=== PATIENT | female | born 1975 | race Asian ===

== ENCOUNTER 2018-02-01 23:30 | Inpatient (IN) | payer OTHER ==
[~2018-02-01] VITALS: Ht 121.9 cm; Wt 43.6 kg
[~2018-02-01 23:30] MED LIST: A AND D OINTM42.5 GM TP; ABX; ACET325UDC PO; ACET500 GT; ACET500 PT; ACIDOPHILUS1 EAC1 PT; Acidophilus La100 GM PT; Allergy Relief10 M1 PT; BACPOLTO30 TP; BAG BALM; BISA10S; BISA10S PR; CALCA500CH; CALCA500CH PO; CALCA500S6 GT; CALCAVITDA; CALCAVITDA PO; CALCIT950 PT; CALCNI; CEPH250SUA PO; CHLGLU.12S MT; CHLORHEXIDINE; CHLORHEXIDINE FL1 ML MC; CHOL10002; CHOL10002 GT; CVS DISPOSABLE399 ML PR; CYCL10 GT; Calcium Citrate GT; Calcium Citrate PO; DIVA250EC; DOC250; DOC250 GT; DOC250 PO; DOCU100; DOCU100 PT; DOXY100 PO; DOXY100T53 PT; EAR WAX DROPS; EAR WAX DROPS15 ML; ENEMA; ENTERAL NUTRITION FORMULA; ERGO50000 PO; ERYT.5TO; ERYT.5TO BOTHEYES; ERYT.5TO OD; ERYT.5TO OU; ESCI10; ESCI10 GT; ESCI10 PO; ESCI20 GT; ESCI20 PO; ESCI20 PT; Enema133 M1; Enema133 M1 PR; Enulose 2020 G/30 ML GT; FIBE4P PO; FOLI1; IBUP800 PT; ISOSOURCE; LACO50TA2 PO; LACT10SY GT; LACT10SY PO; LACT10SY PT; LEVO750; LORA10; LORA10ER GT; LORATADINE; MAGCIT300 PO; METO10 GT; METO10SY GT; METO10SY PO; METO10SY PT; METO25ER; METO50ER; MOM PO; MONDOXYNE NL100 MG; MUPI2TO TOP; Mapap500 M1 PT; NUTREN; NYST100P TOP; NYST100TC TOP; OMEP20ER; ONDA4ODT MM; OXCA300; OXCA300 GT; OXCA300 PO; OXCA300 PT; PHENO15; PHENO20EL GT; PHENO20EL PT; PHENO60; POLY17UD; PROC10 GT; PROC10 PO; PROC25S; PROM25 PT; PROM25S PR; PROMETHAZINE; PRUNE JUICE; Phenobarbital; Phenobarbital GT; Phos-Nak Packe1 EACH; Phos-Nak Packe1 EACH PT; Prevacid Soluta30 MG PT; RANI150 GT; RANI150 PO; RANI150 PT; RANI150EL GT; RANITIDINE; RXONDA4ODT MM; SALT; SKIEMOTO TOP; SODCHL1 PT; SODI1T; STOMUL; Trileptal60 ML PT; Triple Antibio1 EACH TP; VIMPAT GT; VIMPAT10 MG/1 ML PT; VIT C; VIT D; VITAMIN D 3 GT; VITAMIN D3400 UNIT/1 PT; WATER FLUSH; WATER PT; ZINCODVICR TOP; ZONI100; Zofran Odt4 MG SL; [UNRECOGNIZED DRUG - CODE]; [UNRECOGNIZED DRUG - OTHER]; [UNRECOGNIZED DRUG - OTHER]; [UNRECOGNIZED DRUG - OTHER]; [UNRECOGNIZED DRUG - OTHER] PT
[2018-02-02 00:27] LABS: BASOPHILS ABSOLUTE AUTO 0.02 K/mm3 (0.00-0.23); BASOPHILS PERCENT AUTO 0 % (0-2); EOSINOPHILS ABSOLUTE AUTO 0.03 K/mm3 (0.00-0.68); EOSINOPHILS PERCENT AUTO 0 % (0-6); Hemoglobin 16.5 g/dL (11.5-16.0); IMMATURE GRAN ABSOLUTE AUTO 0.02 K/mm3 (0.00-0.10); IMMATURE GRAN PERCENT AUTO 0 % (0-1); LYMPHOCYTES ABSOLUTE AUTO 1.36 K/mm3 (0.84-5.20); LYMPHOCYTES PERCENT AUTO 16 % (21-46); MONOCYTES ABSOLUTE AUTO 0.48 K/mm3 (0.16-1.47); MONOCYTES PERCENT AUTO 6 % (4-13); Mean Corpuscular HGB 32.6 pg (26.0-34.0); Mean Corpuscular HGB Conc 33.7 g/dL (31.5-36.5); Mean Corpuscular Volume 97 fL (80-100); Mean Platelet Volume 12.7 fL (9.1-12.4); NEUTROPHILS ABSOLUTE AUTO 6.82 K/mm3 (1.96-9.15); NEUTROPHILS PERCENT AUTO 78 % (41-73); Platelet Count 254 K/mm3 (150-400); RDW Coefficient Variation 12.9 % (11.7-14.2); Red Blood Cell Count 5.06 M/mm3 (3.80-5.20); White Blood Cell Count 8.73 K/mm3 (4.00-11.30)
[2018-02-02 01:03] LABS: Alanine Aminotransfer (ALT/SGP 19 U/L (12-78); Albumin, Blood 4.3 g/dL (3.4-5.0); Albumin/Globulin Ratio 0.9 (0.8-1.8); Alk Phos 126 U/L (50-136); Anion Gap 10 mmol/L (6-16); Aspartate Aminotrans (AST/SGOT 17 U/L (12-37); Bilirubin, Total 0.3 mg/dL (0.1-1.0); Blood Urea Nitrogen 14 mg/dL (8-24); Bun/Creatinine Ratio 52.2 (12.0-20.0); CO2, Blood 26 mmol/L (21-32); Calcium, Blood 9.8 mg/dL (8.5-10.1); Chloride, Blood 103 mmol/L (98-108); Creatinine, Blood 0.27 mg/dL (0.40-1.00); Globulin, Blood 4.8 g/dL (2.2-4.0); Glomerular Filtration Rate >60 (60-); Glucose, Blood 120 mg/dL (70-99); Sodium, Blood 139 mmol/L (136-145); Total Protein, Blood 9.1 g/dL (6.4-8.2)
[2018-02-02] MEDS ORDERED: METO10SY PT (07:35)
[2018-02-02] MEDS ORDERED: Phos-Nak Packe1 EACH PT (07:35)
[2018-02-02 12:57] LABS: Anion Gap 9 mmol/L (6-16); Blood Urea Nitrogen 15 mg/dL (8-24); Bun/Creatinine Ratio 57.7 (12.0-20.0); CO2, Blood 24 mmol/L (21-32); Chloride, Blood 110 mmol/L (98-108); Creatinine, Blood 0.26 mg/dL (0.40-1.00); Glomerular Filtration Rate >60 (60-); Glucose, Blood 147 mg/dL (70-99); Potassium, Blood 3.7 mmol/L (3.5-5.5); Sodium, Blood 143 mmol/L (136-145)
[2018-02-02 16:04] LABS: Source, Urine Clean Catch
[2018-02-02 16:07] LABS: Appearance, Urine Turbid (Clear); Bilirubin, Urine Neg (Neg); Blood, Urine 5+ (Neg); Color, Urine Yellow (P-Yellow); Glucose Qualitative, Urine Neg (Neg); Ketones, Urine 4+ (Neg); Leukocyte Esterase, Urine 3+ (Neg); Nitrite, Urine Pos (Neg); Protein, Urine 3+ (Neg); Urobilinogen, Urine NORM (Normal)
[2018-02-02 16:15] LABS: Mucus Mod (0-Heavy); White Blood Cells, Urine TNTC /hpf (0-5)
[2018-02-02 16:16] LABS: Amorphous Heavy (0-Heavy); Bacteria Few /hpf; Squamous Epithelial Cells Few /hpf (Few)
[2018-02-03 05:59] LABS: Hematocrit 38.8 % (33.0-51.0); Hemoglobin 12.4 g/dL (11.5-16.0); Mean Corpuscular HGB 32.3 pg (26.0-34.0); Mean Platelet Volume 12.6 fL (9.1-12.4); Platelet Count 178 K/mm3 (150-400); RDW Coefficient Variation 13.3 % (11.7-14.2); RDW Standard Deviation 50.1 fL (35.1-46.3); Red Blood Cell Count 3.84 M/mm3 (3.80-5.20); White Blood Cell Count 1.97 K/mm3 (4.00-11.30)
[2018-02-03 06:00] LABS: Mean Corpuscular Volume 101 fL (80-100)
[2018-02-03 06:22] LABS: BAND PERCENT MAN 6 % (0-8); BASOPHILS PERCENT MAN 0 % (0-2); EOSINOPHILS PERCENT MAN 0 % (0-6); LYMPHOCYTES ABSOLUTE MAN 0.59 K/mm3 (0.84-5.20); LYMPHOCYTES PERCENT MAN 30 % (21-46); MONOCYTES ABSOLUTE MAN 0.33 K/mm3 (0.16-1.47); MONOCYTES PERCENT MAN 17 % (4-13); NEUTROPHILS ABSOLUTE MAN 1.04 K/mm3 (1.96-9.15); SEG NEUTROPHILS PERCENT MAN 47 % (41-73); TOTAL CELLS COUNTED 100
[2018-02-03 06:29] LABS: Alanine Aminotransfer (ALT/SGP 15 U/L (12-78); Albumin, Blood 2.7 g/dL (3.4-5.0); Albumin/Globulin Ratio 0.8 (0.8-1.8); Alk Phos 78 U/L (50-136); Anion Gap 7 mmol/L (6-16); Aspartate Aminotrans (AST/SGOT 15 U/L (12-37); Bilirubin, Total 0.5 mg/dL (0.1-1.0); Blood Urea Nitrogen 15 mg/dL (8-24); Bun/Creatinine Ratio 47.9 (12.0-20.0); CO2, Blood 21 mmol/L (21-32); Calcium, Blood 7.6 mg/dL (8.5-10.1); Chloride, Blood 123 mmol/L (98-108); Creatinine, Blood 0.31 mg/dL (0.40-1.00); Globulin, Blood 3.3 g/dL (2.2-4.0); Glomerular Filtration Rate >60 (60-); Glucose, Blood 106 mg/dL (70-99); Sodium, Blood 151 mmol/L (136-145)
[2018-02-04 05:39] LABS: Hematocrit 33.3 % (33.0-51.0); Hemoglobin 10.7 g/dL (11.5-16.0); Mean Corpuscular HGB 32.7 pg (26.0-34.0); Mean Corpuscular HGB Conc 32.1 g/dL (31.5-36.5); Mean Corpuscular Volume 102 fL (80-100); Mean Platelet Volume 12.2 fL (9.1-12.4); Platelet Count 156 K/mm3 (150-400); RDW Coefficient Variation 13.2 % (11.7-14.2); RDW Standard Deviation 49.8 fL (35.1-46.3); Red Blood Cell Count 3.27 M/mm3 (3.80-5.20); White Blood Cell Count 4.14 K/mm3 (4.00-11.30)
[2018-02-04 05:56] LABS: Anion Gap 7 mmol/L (6-16); Blood Urea Nitrogen 8 mg/dL (8-24); Bun/Creatinine Ratio 33.5 (12.0-20.0); CO2, Blood 24 mmol/L (21-32); Calcium, Blood 7.3 mg/dL (8.5-10.1); Chloride, Blood 116 mmol/L (98-108); Creatinine, Blood 0.24 mg/dL (0.40-1.00); Glomerular Filtration Rate >60 (60-); Glucose, Blood 151 mg/dL (70-99); Potassium, Blood 2.8 mmol/L (3.5-5.5); Sodium, Blood 147 mmol/L (136-145)
[2018-02-04 06:09] LABS: BAND PERCENT MAN 9 % (0-8); BASOPHILS PERCENT MAN 0 % (0-2); EOSINOPHILS ABSOLUTE MAN 0.16 K/mm3 (0.00-0.68); EOSINOPHILS PERCENT MAN 4 % (0-6); LYMPHOCYTES ABSOLUTE MAN 1.53 K/mm3 (0.84-5.20); LYMPHOCYTES PERCENT MAN 37 % (21-46); MONOCYTES ABSOLUTE MAN 0.41 K/mm3 (0.16-1.47); MONOCYTES PERCENT MAN 10 % (4-13); NEUTROPHILS ABSOLUTE MAN 2.02 K/mm3 (1.96-9.15); SEG NEUTROPHILS PERCENT MAN 40 % (41-73); TOTAL CELLS COUNTED 100
[2018-02-04] MEDS ORDERED: AMOCLA250S PT (16:30)
[2018-02-04] MEDS ORDERED: FISH OIL 1,0001 EAC1 PT (16:30)
[2018-03-16] MEDS ORDERED: ACIDOPHILUS1 EAC1 PT (10:07)
== END 2018-02-04 17:25 | disposition home or self-care (01) | DRG 388 ==
LOC: ER 23:30 → MEDS 02-02 04:09
PROVIDERS: Emergency Medicine; Family Medicine; Internal Medicine
DX: K56.609 Unspecified intestinal obstruction, unspecified as to partial versus complete obstruction (principal); Z93.1 Gastrostomy status; R53.2 Functional quadriplegia; E87.0 Hyperosmolality and hypernatremia; M41.9 Scoliosis, unspecified; G40.409 Other generalized epilepsy and epileptic syndromes, not intractable, without status epilepticus; G80.9 Cerebral palsy, unspecified; B96.4 Proteus (mirabilis) (morganii) as the cause of diseases classified elsewhere; M81.0 Age-related osteoporosis without current pathological fracture; Z88.8 Allergy status to other drugs, medicaments and biological substances; Z79.899 Other long term (current) drug therapy
CPT/HCPCS: 36415; 71045; 74176; 80048; 80053; 80184; 81001; 83605; 83690; 83880; 85025; 87077; 87086; 87186; 96374; 99285; C9113; J0295; J1650; J2060; J2405; J3480; J7030; J7070

== ENCOUNTER 2018-04-18 04:22 | Emergency (ER) | payer OTHER ==
[~2018-04-18] VITALS: Ht 114.3 cm; Wt 40.4 kg
[~2018-04-18 04:22] MED LIST changes: +AMOCLA250S PT; +FISH OIL 1,0001 EAC1 PT
[2018-04-18] MEDS ORDERED: Calcium Citrat250 MG PO (04:34)
[2018-04-18] MEDS ORDERED: LACT10SY PO (04:37)
[2018-04-18] MEDS ORDERED: BISA5EC PO (04:38)
[2018-04-18] MEDS ORDERED: LORA1SY PO (04:38)
[2018-04-18] MEDS ORDERED: PROM25 (04:39)
[2018-04-18 07:16] LABS: BASOPHILS ABSOLUTE AUTO 0.01 K/mm3 (0.00-0.23); BASOPHILS PERCENT AUTO 0 % (0-2); EOSINOPHILS ABSOLUTE AUTO 0.08 K/mm3 (0.00-0.68); EOSINOPHILS PERCENT AUTO 1 % (0-6); Hematocrit 47.1 % (33.0-51.0); Hemoglobin 15.5 g/dL (11.5-16.0); IMMATURE GRAN ABSOLUTE AUTO 0.02 K/mm3 (0.00-0.10); IMMATURE GRAN PERCENT AUTO 0 % (0-1); LYMPHOCYTES ABSOLUTE AUTO 1.17 K/mm3 (0.84-5.20); LYMPHOCYTES PERCENT AUTO 17 % (21-46); MONOCYTES PERCENT AUTO 6 % (4-13); Mean Corpuscular HGB Conc 32.9 g/dL (31.5-36.5); Mean Corpuscular Volume 100 fL (80-100); NEUTROPHILS ABSOLUTE AUTO 5.12 K/mm3 (1.96-9.15); NEUTROPHILS PERCENT AUTO 75 % (41-73); RDW Coefficient Variation 12.9 % (11.7-14.2); RDW Standard Deviation 47.9 fL (35.1-46.3)
[2018-04-18 07:18] LABS: Mean Platelet Volume 13.2 fL (9.1-12.4); Platelet Count 154 K/mm3 (150-400)
[2018-04-18 07:27] LABS: Alanine Aminotransfer (ALT/SGP 23 U/L (12-78); Albumin, Blood 3.6 g/dL (3.4-5.0); Albumin/Globulin Ratio 0.9 (0.8-1.8); Alk Phos 90 U/L (50-136); Anion Gap 8 mmol/L (6-16); Aspartate Aminotrans (AST/SGOT 26 U/L (12-37); Bilirubin, Total 0.5 mg/dL (0.1-1.0); Blood Urea Nitrogen 13 mg/dL (8-24); Bun/Creatinine Ratio 47.8 (12.0-20.0); CO2, Blood 26 mmol/L (21-32); Calcium, Blood 9.5 mg/dL (8.5-10.1); Chloride, Blood 101 mmol/L (98-108); Creatinine, Blood 0.27 mg/dL (0.40-1.00); Glomerular Filtration Rate >60 (60-); Glucose, Blood 135 mg/dL (70-99); Magnesium, Blood 2.2 mg/dL (1.6-2.4); Potassium, Blood 4.6 mmol/L (3.5-5.5); Sodium, Blood 135 mmol/L (136-145); Total Protein, Blood 7.6 g/dL (6.4-8.2); Troponin I <0.015 ng/mL (0.000-0.040)
== END 2018-04-18 09:00 | disposition home or self-care (01) ==
LOC: ER 04:22
PROVIDERS: Emergency Medicine
DX: R11.10 Vomiting, unspecified (principal); G40.909 Epilepsy, unspecified, not intractable, without status epilepticus; Z88.8 Allergy status to other drugs, medicaments and biological substances; Z79.899 Other long term (current) drug therapy
CPT/HCPCS: 36415; 74018; 80053; 83690; 83735; 84484; 85025

== ENCOUNTER 2019-01-25 03:10 | Inpatient (IN) | payer OTHER ==
[~2019-01-25] VITALS: Ht 139.7 cm; Wt 52.2 kg
[~2019-01-25 03:10] MED LIST changes: +Acidophilus La100 GM PO; -Acidophilus La100 GM PT; +BISA5EC PR; +Calcium Citrat250 MG PO; +DOCU100 PO; +LORA1SY PO; -MONDOXYNE NL100 MG; +NYSTATIN1 EAC1 TOP; +PHENO20EL PO; +PROM25 PO; +VIMPAT10 MG/1 ML PO; -VIMPAT10 MG/1 ML PT; +VITAMIN D3400 UNIT/1 PO; -VITAMIN D3400 UNIT/1 PT; +Zantac150 MG PO
[2019-01-25 03:52] LABS: Source, Urine Catheter
[2019-01-25 03:54] LABS: Bilirubin, Urine Neg (Neg); Blood, Urine 4+ (Neg); Glucose Qualitative, Urine Neg (Neg); Ketones, Urine 1+ (Neg); Leukocyte Esterase, Urine 3+ (Neg); Nitrite, Urine Neg (Neg); Protein, Urine 3+ (Neg); Specific Gravity, Urine 1.015 (1.003-1.022); Urobilinogen, Urine NORM (Normal)
[2019-01-25 04:00] LABS: Appearance, Urine Hazy (Clear); Color, Urine Yellow (P-Yellow)
[2019-01-25 04:01] LABS: Amorphous Light (0-Heavy); Bacteria Many /hpf; Squamous Epithelial Cells Few /hpf (Few); White Blood Cells, Urine TNTC /hpf (0-5)
[2019-01-25 04:27] LABS: Alanine Aminotransfer (ALT/SGP 23 U/L (12-78); Albumin, Blood 3.5 g/dL (3.4-5.0); Albumin/Globulin Ratio 0.9 (0.8-1.8); Alk Phos 89 U/L (50-136); Anion Gap 8 mmol/L (6-16); Aspartate Aminotrans (AST/SGOT 19 U/L (12-37); Bilirubin, Total 0.3 mg/dL (0.1-1.0); Blood Urea Nitrogen 14 mg/dL (8-24); Bun/Creatinine Ratio 61.4 (12.0-20.0); CO2, Blood 24 mmol/L (21-32); Chloride, Blood 106 mmol/L (98-108); Creatinine, Blood 0.23 mg/dL (0.40-1.00); Globulin, Blood 3.8 g/dL (2.2-4.0); Glomerular Filtration Rate >60 (60-); Glucose, Blood 119 mg/dL (70-99); Potassium, Blood 4.2 mmol/L (3.5-5.5); Sodium, Blood 138 mmol/L (136-145); Total Protein, Blood 7.3 g/dL (6.4-8.2)
[2019-01-25 04:55] LABS: BASOPHILS ABSOLUTE AUTO 0.02 K/mm3 (0.00-0.23); BASOPHILS PERCENT AUTO 0 % (0-2); EOSINOPHILS ABSOLUTE AUTO 0.09 K/mm3 (0.00-0.68); EOSINOPHILS PERCENT AUTO 1 % (0-6); Hematocrit 44.2 % (33.0-51.0); Hemoglobin 14.3 g/dL (11.5-16.0); IMMATURE GRAN ABSOLUTE AUTO 0.01 K/mm3 (0.00-0.10); IMMATURE GRAN PERCENT AUTO 0 % (0-1); LYMPHOCYTES ABSOLUTE AUTO 1.17 K/mm3 (0.84-5.20); LYMPHOCYTES PERCENT AUTO 15 % (21-46); MONOCYTES ABSOLUTE AUTO 0.59 K/mm3 (0.16-1.47); MONOCYTES PERCENT AUTO 8 % (4-13); Mean Corpuscular HGB 32.9 pg (26.0-34.0); Mean Corpuscular HGB Conc 32.4 g/dL (31.5-36.5); Mean Corpuscular Volume 102 fL (80-100); Mean Platelet Volume 12.7 fL (9.1-12.4); NEUTROPHILS ABSOLUTE AUTO 5.87 K/mm3 (1.96-9.15); NEUTROPHILS PERCENT AUTO 76 % (41-73); Platelet Count 230 K/mm3 (150-400); RDW Coefficient Variation 13.1 % (11.7-14.2); RDW Standard Deviation 49.1 fL (35.1-46.3); Red Blood Cell Count 4.35 M/mm3 (3.80-5.20); White Blood Cell Count 7.75 K/mm3 (4.00-11.30)
[2019-01-25] MEDS ORDERED: [UNRECOGNIZED DRUG - CODE] PO (08:20)
[2019-01-25] MEDS ORDERED: [UNRECOGNIZED DRUG - CODE] PO (08:25)
[2019-01-25] MEDS ORDERED: CIPR500 PO (15:38)
[2019-01-25] MEDS ORDERED: NITR100CA PO (15:39)
[2019-01-25] MEDS ORDERED: CITRATE OF MAG296 ML PO (15:44)
[2019-01-25] MEDS ORDERED: ACET500 PO (15:44)
[2019-01-25] MEDS ORDERED: CLON.5 PO (15:45)
[2019-01-25] MEDS ORDERED: IBUP800 PO (15:46)
== END 2019-01-25 17:14 | disposition home or self-care (01) | DRG 389 ==
LOC: ER 03:10 → ERHOLD 06:17
PROVIDERS: Emergency Medicine; ADMIT Family Medicine
DX: K56.609 Unspecified intestinal obstruction, unspecified as to partial versus complete obstruction (principal); N39.0 Urinary tract infection, site not specified; Z88.8 Allergy status to other drugs, medicaments and biological substances
CPT/HCPCS: 74018; 80053; 81001; 85025; 87077; 87086; 87186; J0696; J1956; J7030; P9612

== ENCOUNTER 2019-03-06 11:00 | Inpatient (IN) | payer OTHER ==
[~2019-03-06] VITALS: Ht 91.4 cm; Wt 44.1 kg
[~2019-03-06 11:00] MED LIST changes: +ACETAMINOPHEN PT; +CHOL10002 PT; +CIPR500 PO; +CITRATE OF MAG296 ML PT; +CLON.5 PT; -Calcium Citrat250 MG PO; +Calcium Citrat250 MG PT; -DOCU100 PO; +DOCUSATE PT; +DOXY100 PT; +IBUP100S PT; -LORA1SY PO; +LORA1SY PT; +NITR100CA PO; -PHENO20EL PO; -PROM25 PO; -VIMPAT10 MG/1 ML PO; +VIMPAT10 MG/1 ML PT; -VITAMIN D3400 UNIT/1 PO; -Zantac150 MG PO; +[UNRECOGNIZED DRUG - CODE] PO; +[UNRECOGNIZED DRUG - CODE] PO
[2019-03-06 12:51] LABS: Source, Urine Catheter
[2019-03-06 12:54] LABS: Bilirubin, Urine Neg (Neg); Blood, Urine 4+ (Neg); Glucose Qualitative, Urine Neg (Neg); Ketones, Urine 1+ (Neg); Leukocyte Esterase, Urine 3+ (Neg); Nitrite, Urine Pos (Neg); Protein, Urine 3+ (Neg); Specific Gravity, Urine 1.015 (1.003-1.022); Urobilinogen, Urine NORM (Normal)
[2019-03-06 13:02] LABS: Appearance, Urine Cloudy (Clear); Color, Urine Yellow (P-Yellow)
[2019-03-06 13:04] LABS: White Blood Cells, Urine TNTC /hpf (0-5)
[2019-03-06 13:05] LABS: Red Blood Cells, Urine TNTC /hpf (0-2)
[2019-03-06 13:06] LABS: Bacteria Many /hpf; Squamous Epithelial Cells Mod /hpf (Few)
[2019-03-06 13:07] LABS: Triple Phosphate Crystals Many /hpf
[2019-03-06 13:50] LABS: Alanine Aminotransfer (ALT/SGP 21 U/L (12-78); Albumin, Blood 4.1 g/dL (3.4-5.0); Albumin/Globulin Ratio 0.9 (0.8-1.8); Alk Phos 110 U/L (50-136); Anion Gap 11 mmol/L (6-16); Aspartate Aminotrans (AST/SGOT 21 U/L (12-37); BASOPHILS ABSOLUTE AUTO 0.05 K/mm3 (0.00-0.23); BASOPHILS PERCENT AUTO 0 % (0-2); Bilirubin, Total 0.4 mg/dL (0.1-1.0); Blood Urea Nitrogen 15 mg/dL (8-24); CO2, Blood 24 mmol/L (21-32); Calcium, Blood 10.2 mg/dL (8.5-10.1); Chloride, Blood 101 mmol/L (98-108); EOSINOPHILS ABSOLUTE AUTO 0.04 K/mm3 (0.00-0.68); EOSINOPHILS PERCENT AUTO 0 % (0-6); Globulin, Blood 4.7 g/dL (2.2-4.0); Glomerular Filtration Rate >60 (60-); Glucose, Blood 165 mg/dL (70-99); Hematocrit 52.5 % (33.0-51.0); Hemoglobin 16.8 g/dL (11.5-16.0); IMMATURE GRAN ABSOLUTE AUTO 0.05 K/mm3 (0.00-0.10); IMMATURE GRAN PERCENT AUTO 0 % (0-1); LYMPHOCYTES ABSOLUTE AUTO 1.93 K/mm3 (0.84-5.20); LYMPHOCYTES PERCENT AUTO 16 % (21-46); MONOCYTES ABSOLUTE AUTO 0.46 K/mm3 (0.16-1.47); MONOCYTES PERCENT AUTO 4 % (4-13); Mean Corpuscular HGB 32.2 pg (26.0-34.0); Mean Corpuscular Volume 101 fL (80-100); NEUTROPHILS ABSOLUTE AUTO 9.27 K/mm3 (1.96-9.15); NEUTROPHILS PERCENT AUTO 79 % (41-73); Platelet Count 310 K/mm3 (150-400); Potassium, Blood 4.3 mmol/L (3.5-5.5); RDW Coefficient Variation 12.8 % (11.7-14.2); Red Blood Cell Count 5.22 M/mm3 (3.80-5.20); Sodium, Blood 136 mmol/L (136-145); Total Protein, Blood 8.8 g/dL (6.4-8.2)
[2019-03-06] MEDS ORDERED: Phos-Nak Packe1 EACH PT (14:37)
[2019-03-06] MEDS ORDERED: ERYTHROMYCIN BOTHEYES (15:12)
[2019-03-06] MEDS ORDERED: Aquaphor Healin50 GM TOP (15:15)
[2019-03-06] MEDS ORDERED: EAR WAX DROPS15 ML BOTHEARS (15:21)
[2019-03-06] MEDS ORDERED: OMEG1CAP30 PT (15:23)
[2019-03-06] MEDS ORDERED: ACIDOPHILUS1 EACH PT (15:26)
[2019-03-06] MEDS ORDERED: ACIDOPHILUS100 M1 PT (15:29)
[2019-03-06] MEDS ORDERED: Zantac150 MG PT (15:30)
[2019-03-06] MEDS ORDERED: [UNRECOGNIZED DRUG - OTHER] TOP (15:34)
[2019-03-06] MEDS ORDERED: TRIPLE ANTIBIO1 EACH TOP (15:36)
[2019-03-06] MEDS ORDERED: Fleet Enema132 ML PR (15:37)
--- NOTE | 2019-03-06 19:44 | NUR ---
1546 PT ADMITTED TO MEDICAL FLOOR VIA GURNEY, TRANSFERED TO BED WITH 4 STAFF AND SLIDER SHEET. CAREGIVERS FROM [facility] PRESENT AT TIME OF ADMISSION. PT WITH CEREBRAL PALSY, NONVERBAL, NO MOVEMENT OF BLE, SOME MOVEMENT OF BUE ALTHOUGH CONTRACTED. ER UNABLE TO PLACE NG TUBE, RECIEVED ORDER FROM DR. FRITZ TO LABELER PEG TUBE TO LOW INTERMITTENT SUCTION, NEEDS TO BE ASSESSED BY RN Q2H. PT HAD 200ML OF LIQUID BROWN DRAINAGE FROM PEG BY END OF SHIFT. CAREGIVERS REPORT FIVE BMS TODAY. PT IS INCONTINENT. SOME REDNESS TO GLUTEAL CLEFT, SKIN OTHERWISE C/D/I. PT WITH INTERMITTENT N/V, MEDICATED WITH PRN ZOFRAN. N/V APPEARS TO HAVE IMPROVED AFTER PEG ATTATCHED TO SUCTION. PT DID REQUIRE SEVERAL ORAL SUCTIONS PRIOR TO ATTATCHING PEG TO SUCTION. NO OTHER CHANGES.
--- NOTE | 2019-03-06 20:15 | NUR ---
CRITICAL VALUE CALLED TO Herbert KAMINSKI APRN. NEW ORDERS NOTED. WILL CONTINUE TO MONITOR.
--- NOTE | 2019-03-06 22:15 | NUR ---
CRITICAL VALUE CALLED INTO Herbert KAMINSKI APRN. NEW ORDERS NOTED. WILL CONTINUE TO MONITOR.
--- NOTE | 2019-03-07 02:30 | NUR ---
PT HAS NOT URINATED THIS SHIFT. BLADDER SCAN COMPLETED AND SHOWS 250ML AT THIS TIME. WILL CONTINUE TO MONITOR.
--- NOTE | 2019-03-07 04:40 | NUR ---
LARGE INCONTINENT URINE CLEANED BY SITTER. NAUSEA CONTINUES. WILL MEDICATE NEXT DOSE IS AVAILABLE. WILL CONTINUE TO MONITOR.
[2019-03-07 06:20] LABS: BASOPHILS ABSOLUTE AUTO 0.01 K/mm3 (0.00-0.23); BASOPHILS PERCENT AUTO 0 % (0-2); EOSINOPHILS PERCENT AUTO 0 % (0-6); Hematocrit 39.2 % (33.0-51.0); Hemoglobin 12.9 g/dL (11.5-16.0); IMMATURE GRAN ABSOLUTE AUTO 0.02 K/mm3 (0.00-0.10); IMMATURE GRAN PERCENT AUTO 0 % (0-1); LYMPHOCYTES ABSOLUTE AUTO 0.96 K/mm3 (0.84-5.20); LYMPHOCYTES PERCENT AUTO 13 % (21-46); MONOCYTES ABSOLUTE AUTO 0.69 K/mm3 (0.16-1.47); MONOCYTES PERCENT AUTO 9 % (4-13); Mean Corpuscular HGB 32.3 pg (26.0-34.0); Mean Corpuscular HGB Conc 32.9 g/dL (31.5-36.5); Mean Platelet Volume 12.3 fL (9.1-12.4); NEUTROPHILS ABSOLUTE AUTO 5.87 K/mm3 (1.96-9.15); NEUTROPHILS PERCENT AUTO 78 % (41-73); Platelet Count 248 K/mm3 (150-400); RDW Coefficient Variation 12.9 % (11.7-14.2); RDW Standard Deviation 46.5 fL (35.1-46.3); Red Blood Cell Count 3.99 M/mm3 (3.80-5.20); White Blood Cell Count 7.55 K/mm3 (4.00-11.30)
[2019-03-07 06:21] LABS: Mean Corpuscular Volume 98 fL (80-100)
[2019-03-07 06:50] LABS: Alanine Aminotransfer (ALT/SGP 15 U/L (12-78); Albumin, Blood 2.9 g/dL (3.4-5.0); Albumin/Globulin Ratio 0.9 (0.8-1.8); Alk Phos 78 U/L (50-136); Anion Gap 7 mmol/L (6-16); Aspartate Aminotrans (AST/SGOT 15 U/L (12-37); Bilirubin, Total 0.3 mg/dL (0.1-1.0); Blood Urea Nitrogen 9 mg/dL (8-24); Bun/Creatinine Ratio 35.6 (12.0-20.0); CO2, Blood 30 mmol/L (21-32); Chloride, Blood 108 mmol/L (98-108); Creatinine, Blood 0.25 mg/dL (0.40-1.00); Globulin, Blood 3.2 g/dL (2.2-4.0); Glomerular Filtration Rate >60 (60-); Glucose, Blood 140 mg/dL (70-99); Potassium, Blood 3.3 mmol/L (3.5-5.5); Sodium, Blood 145 mmol/L (136-145)
[2019-03-07 06:53] LABS: Calcium, Blood 8.2 mg/dL (8.5-10.1); Total Protein, Blood 6.1 g/dL (6.4-8.2)
--- NOTE | 2019-03-07 07:16 | NUR ---
LYING ON RIGHT SIDE IN [place]. SITTERS AT BEDSIDE ATTEND TO ALL NEEDS. CONTINUES WITH NAUSEA. PAIN MEDS ADMINISTERED PER MD ORDERS. DENIES FURTHER NEEDS AT THIS TIME. SAFETY MEASURES IN PLACE. WILL GIVE HAND OFF TO ONCOMING SHFT USING SBAR.
--- NOTE | 2019-03-07 19:41 | NUR ---
SHIFT SUMMARY NO ACUTE CHANGES. PATIENT DENIES PAIN AND SHORTNESS OF BREATH. MEDICATED X 2 FOR NAUSEA. PEG TUBE TO LOW INTERMITTENT SUCTION. TOLERATING MEDICATION PER TUBE WELL. CAREGIVER AT BEDSIDE. CALL LIGHT IN REACH. REPORT GIVEN TO SARAH ROSS.
[2019-03-08 04:31] LABS: BASOPHILS ABSOLUTE AUTO 0.01 K/mm3 (0.00-0.23); BASOPHILS PERCENT AUTO 0 % (0-2); EOSINOPHILS ABSOLUTE AUTO 0.05 K/mm3 (0.00-0.68); EOSINOPHILS PERCENT AUTO 2 % (0-6); Hematocrit 34.7 % (33.0-51.0); IMMATURE GRAN PERCENT AUTO 0 % (0-1); LYMPHOCYTES ABSOLUTE AUTO 1.49 K/mm3 (0.84-5.20); LYMPHOCYTES PERCENT AUTO 46 % (21-46); MONOCYTES ABSOLUTE AUTO 0.42 K/mm3 (0.16-1.47); MONOCYTES PERCENT AUTO 13 % (4-13); Mean Corpuscular HGB 32.6 pg (26.0-34.0); Mean Corpuscular HGB Conc 31.7 g/dL (31.5-36.5); Mean Platelet Volume 11.9 fL (9.1-12.4); NEUTROPHILS ABSOLUTE AUTO 1.26 K/mm3 (1.96-9.15); NEUTROPHILS PERCENT AUTO 39 % (41-73); Platelet Count 183 K/mm3 (150-400); RDW Coefficient Variation 12.9 % (11.7-14.2); RDW Standard Deviation 49.4 fL (35.1-46.3); Red Blood Cell Count 3.37 M/mm3 (3.80-5.20); White Blood Cell Count 3.23 K/mm3 (4.00-11.30)
[2019-03-08 04:34] LABS: Mean Corpuscular Volume 103 fL (80-100)
[2019-03-08 04:55] LABS: Alanine Aminotransfer (ALT/SGP 13 U/L (12-78); Albumin, Blood 2.5 g/dL (3.4-5.0); Albumin/Globulin Ratio 0.9 (0.8-1.8); Alk Phos 63 U/L (50-136); Anion Gap 7 mmol/L (6-16); Aspartate Aminotrans (AST/SGOT 19 U/L (12-37); Bilirubin, Total 0.3 mg/dL (0.1-1.0); Blood Urea Nitrogen 4 mg/dL (8-24); CO2, Blood 28 mmol/L (21-32); Calcium, Blood 7.7 mg/dL (8.5-10.1); Chloride, Blood 111 mmol/L (98-108); Creatinine, Blood 0.31 mg/dL (0.40-1.00); Globulin, Blood 2.7 g/dL (2.2-4.0); Glomerular Filtration Rate >60 (60-); Glucose, Blood 103 mg/dL (70-99); Potassium, Blood 3.1 mmol/L (3.5-5.5); Sodium, Blood 146 mmol/L (136-145); Total Protein, Blood 5.2 g/dL (6.4-8.2)
--- NOTE | 2019-03-08 08:53 | NUR ---
SHIFT SUMMARY PT A&O TO SELF AND CAREGIVERS. LAUNDRY SUPERVISOR IN ROOM UNTIL APPROX. 2230 AND THEN A CAREGIVER STOPPED BY TO CHECK ON HER FOR A FEW MINUTES EVERY COUPLE HOURS THROUGH NIGHT. MEDICATIONS PER EMAR. PEG TUBE TO LIS; APPROX 275 LIGHT BROWN OUT PUT. PEG ASSESSED T/O SHIFT; PATENT. NPO. NAUSEA MANAGED PER EMAR. ABD SOFT; FEW BT X4. SMALL LOOSE BM. ATTENDS CHANGED PRN. HEEL PROTECTORS TO BILAT HEELS. RA. NO ACUTE CHANGES.IV GTT PER EMAR. REPORT GIVEN TO DAY SHIFT RN.
--- NOTE | 2019-03-08 12:55 | NUR ---
DR ALMONTE ORDER TO RESTART PEG TUBE FEEDING. LUTE PACKER OR APPLIER NOTIFIED, STATE START ISOSOURCE 1.5 @ 35 ML/HR. DR HODGSON TO CONTINUE IVF FOR NOW, LUTE PACKER OR APPLIER STATE NO WATER FLUSH FOR NOW, WILL CALCULATE @ PLACE ORDER IF NEEDED.
[2019-03-08] MEDS ORDERED: LEVO750 PO (17:10)
--- NOTE | 2019-03-08 17:44 | NUR ---
DISCHARGE PT HAS TOLERATED PEG TUBE FEEDING @ 35 ML/HR. NO NAUSEA. PEG RESIDUAL MINIMAL APPROX 10-15ML AFTER [address] FRITZ CALL TO CHECK PROGRESS, STATE OK FOR PT TO RETURN TO [facility] THIS AFTERNOON. CAREGIVER NOTIFIED. ORDERS FAXED TO [facility]. IV D/C INTACT. PEG TUBE FLUSHED & CLAMPED. CAREGIVERS ASSIST PT TO DRESS/GATHER BELONGINGS. PT IS HAPPY, SMILING, COMMUNICATES READY TO GO HOME. [facility] RET[facility]. PT ASSISTED TO W/C, CAREGIVERS ESCORT HER FROM HOSP TO [place].
== END 2019-03-08 18:00 | disposition home or self-care (01) | DRG 388 ==
LOC: ER 11:00 → MEDS 14:40
PROVIDERS: Family Medicine; Internal Medicine; ADMIT Internal Medicine Endocrinology, Diabetes & Metabolism
DX: K56.609 Unspecified intestinal obstruction, unspecified as to partial versus complete obstruction (principal); R53.2 Functional quadriplegia; N39.0 Urinary tract infection, site not specified; E87.2 Acidosis; G40.909 Epilepsy, unspecified, not intractable, without status epilepticus; G80.8 Other cerebral palsy; K59.00 Constipation, unspecified
CPT/HCPCS: 36415; 74022; 80053; 81001; 83605; 85025; 87077; 87086; 87186; 96361; 96365; 96372; 96375; 96376; 99285-25; G0378; J0696; J1650; J1956; J2270; J2405; J2560; J2765; J7030; J7120; P9612

== ENCOUNTER 2019-06-26 01:17 | Inpatient (IN) | payer OTHER ==
[~2019-06-26] VITALS: Ht 114.3 cm; Wt 61.2 kg
[~2019-06-26 01:17] MED LIST changes: +ACETAMINOP500 MG/15 PT; -ACETAMINOPHEN PT; +ACIDOPHILUS1 EACH PT; +ACIDOPHILUS100 M1 PT; +Aquaphor Healin50 GM TOP; -CHOL10002 PT; -CLON.5 PT; +Clonazepam0.25 MG SL; +EAR WAX DROPS15 ML BOTHEARS; +ERYTHROMYCIN BOTHEYES; +Fleet Enema132 ML PR; +LEVO750 PO; +OMEG1CAP30 PT; +TRIPLE ANTIBIO1 EACH TOP; +VITAMIN D31 ML PT; +Zantac150 MG PT; +[UNRECOGNIZED DRUG - OTHER] TOP
[2019-06-26 04:42] LABS: BASOPHILS ABSOLUTE AUTO 0.03 K/mm3 (0.00-0.23); BASOPHILS PERCENT AUTO 0 % (0-2); EOSINOPHILS ABSOLUTE AUTO 0.02 K/mm3 (0.00-0.68); EOSINOPHILS PERCENT AUTO 0 % (0-6); Hematocrit 49.1 % (33.0-51.0); Hemoglobin 16.3 g/dL (11.5-16.0); IMMATURE GRAN ABSOLUTE AUTO 0.01 K/mm3 (0.00-0.10); IMMATURE GRAN PERCENT AUTO 0 % (0-1); LYMPHOCYTES ABSOLUTE AUTO 1.38 K/mm3 (0.84-5.20); LYMPHOCYTES PERCENT AUTO 12 % (21-46); MONOCYTES ABSOLUTE AUTO 0.65 K/mm3 (0.16-1.47); MONOCYTES PERCENT AUTO 6 % (4-13); Mean Corpuscular HGB 32.1 pg (26.0-34.0); Mean Corpuscular HGB Conc 33.2 g/dL (31.5-36.5); Mean Corpuscular Volume 97 fL (80-100); Mean Platelet Volume 12.6 fL (9.1-12.4); NEUTROPHILS PERCENT AUTO 81 % (41-73); Platelet Count 233 K/mm3 (150-400); RDW Standard Deviation 45.7 fL (35.1-46.3); Red Blood Cell Count 5.07 M/mm3 (3.80-5.20); White Blood Cell Count 11.19 K/mm3 (4.00-11.30)
[2019-06-26 05:01] LABS: Alanine Aminotransfer (ALT/SGP 23 U/L (12-78); Albumin, Blood 4.2 g/dL (3.4-5.0); Alk Phos 92 U/L (50-136); Anion Gap 10 mmol/L (6-16); Aspartate Aminotrans (AST/SGOT 19 U/L (12-37); Bilirubin, Total 0.4 mg/dL (0.1-1.0); Blood Urea Nitrogen 16 mg/dL (8-24); Bun/Creatinine Ratio 37.9 (12.0-20.0); CO2, Blood 24 mmol/L (21-32); Calcium, Blood 9.4 mg/dL (8.5-10.1); Chloride, Blood 101 mmol/L (98-108); Creatinine, Blood 0.42 mg/dL (0.40-1.00); Globulin, Blood 4.2 g/dL (2.2-4.0); Glomerular Filtration Rate >60 (60-); Glucose, Blood 134 mg/dL (70-99); Potassium, Blood 3.9 mmol/L (3.5-5.5); Sodium, Blood 135 mmol/L (136-145); Total Protein, Blood 8.4 g/dL (6.4-8.2)
--- NOTE | 2019-06-26 10:40 | NUR ---
pt arrived to unit via stretcher, a/0 x 4, extremely limited verbal communication r/t cerebral palsy. caregiver with pt. VS stable. pt and caregiver orientd to room
--- NOTE | 2019-06-26 12:40 | NUR ---
DR MCKEON ROUNDING ON PT, CAREGIVER IN ROOM WITH PT
--- NOTE | 2019-06-26 13:14 | NUR ---
CALLED PRESCHOOL ASSOCIATE TEACHER AT [facility] WHERE PT LIVES. PRESCHOOL ASSOCIATE TEACHER INFORMED THIS RN PT HAS NO CURRENT HEALTH CARE ADMIN PROG COORD, THAT PT HAS A HX OF REFUSING MEDICAL CARE OUT OF FEAR, AND THAT DETENTION WOULD LIKE TO BE INFORMED WHEN MEDICAL DECISIONS NEED TO BE MAKE, THE HOME WILL SEND A STAFF MEMEBER TO ADVOCATE FOR PT, EXPLAIN TO HER THE RECOMMENDATIONS AND ASSIST WITH CONSULTATIONS. WILL INFORM PROVIDER. ACQUIRED PT'S SISTER'S PHONE NUMBER, WILL UPDATE SISTER. DETENTIONASSISTANT MANAGER PT STATED PT'S SISTER DOES NOT WISH TO BE HEALTH CARE ADMIN PROG COORD.
--- NOTE | 2019-06-26 13:30 | NUR ---
spoke with pt's sister, who will contact pt and caregiver via room phone.
--- NOTE | 2019-06-26 14:50 | NUR ---
PT'S CAREGIVERS X 2 AND BEAM DYER IN ROOM. THIS RN UPDATED BEAM DYER OF PT'S CONDITION AND THE FACT PT DOES NOT HAVE CLINICAL TRIAL MANAGER. WHILE SPEAKING WITH BEAM DYER, PT'S SISTER CALLED ROOM.
--- NOTE | 2019-06-26 17:32 | NUR ---
SHIFT SUMMARY: VSS, NO ACUTE CHANGES. PT REMAINED A/0 X 4 TO HER BASELINE, NON-VERBAL R/T HX CEREBRAL PALSY. CAREGIVERS HAVE REMAINED WITH PT THROUGHOUT SHIFT. PT'S SISTER CALLED, DISTRIBUTION SPEC VISITED, DR ARAIZA AND DR MCKEON ROUNDED. PT HAS SOME NAUSEA, NO VOMITING. BM X 3 THIS SHIFT, LIQUID LIGHT BROWN STOOL. G-TUBE HAS DRAINED 500 ML YELLOW/BRITO FLUID THIS SHIFT, GRAVITY TO STAHL BAG. PT REMAINED NOTHING PER G-TUBE, REQUESTING FOOD. PT AND CAREGIVER INFORMED SHE IS TO REMAIN NOTHING PER G-TUBE PER MD ORDERS.
[2019-06-27 05:20] LABS: BASOPHILS ABSOLUTE AUTO 0.01 K/mm3 (0.00-0.23); BASOPHILS PERCENT AUTO 0 % (0-2); EOSINOPHILS ABSOLUTE AUTO 0.07 K/mm3 (0.00-0.68); EOSINOPHILS PERCENT AUTO 2 % (0-6); Hematocrit 36.8 % (33.0-51.0); Hemoglobin 11.9 g/dL (11.5-16.0); IMMATURE GRAN ABSOLUTE AUTO 0.01 K/mm3 (0.00-0.10); IMMATURE GRAN PERCENT AUTO 0 % (0-1); LYMPHOCYTES ABSOLUTE AUTO 1.13 K/mm3 (0.84-5.20); LYMPHOCYTES PERCENT AUTO 26 % (21-46); MONOCYTES ABSOLUTE AUTO 0.52 K/mm3 (0.16-1.47); MONOCYTES PERCENT AUTO 12 % (4-13); Mean Corpuscular HGB Conc 32.3 g/dL (31.5-36.5); Mean Corpuscular Volume 102 fL (80-100); Mean Platelet Volume 12.8 fL (9.1-12.4); NEUTROPHILS ABSOLUTE AUTO 2.67 K/mm3 (1.96-9.15); NEUTROPHILS PERCENT AUTO 61 % (41-73); Platelet Count 171 K/mm3 (150-400); RDW Coefficient Variation 13.2 % (11.7-14.2); RDW Standard Deviation 48.8 fL (35.1-46.3); Red Blood Cell Count 3.61 M/mm3 (3.80-5.20); White Blood Cell Count 4.41 K/mm3 (4.00-11.30)
[2019-06-27 05:38] LABS: BAND PERCENT MAN 19 % (0-8); BASOPHILS PERCENT MAN 0 % (0-2); EOSINOPHILS ABSOLUTE MAN 0.08 K/mm3 (0.00-0.68); EOSINOPHILS PERCENT MAN 2 % (0-6); LYMPHOCYTES ABSOLUTE MAN 1.19 K/mm3 (0.84-5.20); LYMPHOCYTES PERCENT MAN 27 % (21-46); MONOCYTES ABSOLUTE MAN 0.35 K/mm3 (0.16-1.47); MONOCYTES PERCENT MAN 8 % (4-13); NEUTROPHILS ABSOLUTE MAN 2.77 K/mm3 (1.96-9.15); SEG NEUTROPHILS PERCENT MAN 44 % (41-73); TOTAL CELLS COUNTED 100
[2019-06-27 05:55] LABS: Alanine Aminotransfer (ALT/SGP 13 U/L (12-78); Albumin, Blood 2.6 g/dL (3.4-5.0); Albumin/Globulin Ratio 0.9 (0.8-1.8); Alk Phos 53 U/L (50-136); Aspartate Aminotrans (AST/SGOT 13 U/L (12-37); Bilirubin, Total 0.8 mg/dL (0.1-1.0); Blood Urea Nitrogen 11 mg/dL (8-24); CO2, Blood 30 mmol/L (21-32); Calcium, Blood 7.5 mg/dL (8.5-10.1); Chloride, Blood 113 mmol/L (98-108); Creatinine, Blood 0.31 mg/dL (0.40-1.00); Globulin, Blood 2.9 g/dL (2.2-4.0); Glomerular Filtration Rate >60 (60-); Glucose, Blood 83 mg/dL (70-99); Potassium, Blood 2.8 mmol/L (3.5-5.5)
--- NOTE | 2019-06-27 05:56 | NUR ---
SHIFT SUMMARY: PT CALM AND COOPERATIVE WITH CARE THROUGHOUT SHIFT. HR TACHY, ALL OTHER VITALS WNL. PT NONVERBAL. ABLE TO NOD HEAD WHEN ASKED YES OR NO QUESTIONS. DENYING PAIN. GIVEN ZOFRAN ONCE FOR C/O NAUSEA. FLUIDS INFUSING. G TUBE DRAINING TO GRAVITY INTO STAHL BAG. TOTAL OF 175 FOR OUTPUT. FLUID GREENISH YELLOW IN COLOR. PT REPOSITIONED T/O NIGHT. INCONTINENT OF STOOL AND URINE. PT HAVING LIQUID STOOL. BM X2. SOCIAL SERVICE CONSULT ORDERED. CAREGIVER CHECKING IN ON PT INTERMITTENTLY.
[2019-06-27 06:56] LABS: Anion Gap 6 mmol/L (6-16); Sodium, Blood 149 mmol/L (136-145); Total Protein, Blood 5.5 g/dL (6.4-8.2)
--- NOTE | 2019-06-27 07:00 | NUR ---
recvd report from previous shift CODY wells. pt sleeping in bed, bed in lowest position, bed rails up x 3, call light within reach.
--- NOTE | 2019-06-27 09:14 | NUR ---
dr vidal rounding on pt
--- NOTE | 2019-06-27 15:14 | NUR ---
ASSUMED CARE OF PT AT THIS TIME. PT APPEARS TO BE RESTING COMFORTABLY IN BED. TIRE REBUILDER REPORTS PT JUST CHANGED AND TURNED. CALL LIGHT WITHIN REACH.
--- NOTE | 2019-06-27 16:14 | NUR ---
SHIFT SUMMARY SINCE ASSUMING CARE, NO ACUTE CHANGES. PT DENIES PAIN. 1-2 ASSIST WITH REPOSITIONING AND ATTENDS CHANGES. IVF INFUSING PER ORDERS THROUGH CENTRAL LINE. GTUBE DRAINAGE IN STAHL BAG IS CLEAR GREEN. PLAN IS TO CONT IV ABX. CAREGIVERS JUST ARRIVED IN ROOM AND ARE AT BEDSIDE FOR SUPPORT. CALL LIGHT WITHIN REACH.
[2019-06-28 05:09] LABS: BASOPHILS ABSOLUTE AUTO 0.01 K/mm3 (0.00-0.23); BASOPHILS PERCENT AUTO 0 % (0-2); EOSINOPHILS ABSOLUTE AUTO 0.11 K/mm3 (0.00-0.68); EOSINOPHILS PERCENT AUTO 3 % (0-6); Hematocrit 33.6 % (33.0-51.0); Hemoglobin 10.7 g/dL (11.5-16.0); IMMATURE GRAN ABSOLUTE AUTO 0.01 K/mm3 (0.00-0.10); IMMATURE GRAN PERCENT AUTO 0 % (0-1); LYMPHOCYTES ABSOLUTE AUTO 1.63 K/mm3 (0.84-5.20); LYMPHOCYTES PERCENT AUTO 38 % (21-46); MONOCYTES PERCENT AUTO 9 % (4-13); Mean Corpuscular HGB 32.3 pg (26.0-34.0); Mean Corpuscular HGB Conc 31.8 g/dL (31.5-36.5); Mean Corpuscular Volume 102 fL (80-100); Mean Platelet Volume 12.7 fL (9.1-12.4); NEUTROPHILS ABSOLUTE AUTO 2.12 K/mm3 (1.96-9.15); NEUTROPHILS PERCENT AUTO 50 % (41-73); Platelet Count 140 K/mm3 (150-400); RDW Coefficient Variation 13.3 % (11.7-14.2); RDW Standard Deviation 49.4 fL (35.1-46.3); Red Blood Cell Count 3.31 M/mm3 (3.80-5.20); White Blood Cell Count 4.28 K/mm3 (4.00-11.30)
[2019-06-28 05:25] LABS: Anion Gap 5 mmol/L (6-16); Blood Urea Nitrogen 3 mg/dL (8-24); Bun/Creatinine Ratio 10.8 (12.0-20.0); CO2, Blood 26 mmol/L (21-32); Calcium, Blood 7.2 mg/dL (8.5-10.1); Chloride, Blood 114 mmol/L (98-108); Creatinine, Blood 0.28 mg/dL (0.40-1.00); Glomerular Filtration Rate >60 (60-); Glucose, Blood 85 mg/dL (70-99); Potassium, Blood 3.5 mmol/L (3.5-5.5); Sodium, Blood 145 mmol/L (136-145)
--- NOTE | 2019-06-28 05:41 | NUR ---
SHIFT SUMMARY: NO ACUTE CHANGES OVER NIGHT. VSS T/O SHIFT. PT STILL HAVING LOOSE GREEN BM'S. INCONTINENT OF STOOL X3. PT NPO AND NOTHING PER G TUBE. G TUBE DRAINING TO GRAVITY INTO STAHL BAG. 175ML TOTAL OUTPUT. PT REPOSITIONED T/O SHIFT. DENYING PAIN AND NAUSEA. PT APPEARS TO BE COMFORTABLE AND HAPPY. IV FLUIDS INFUSING PER ORDERS.
--- NOTE | 2019-06-28 15:33 | NUR ---
SEIZURE TELEPHONE CALL TO DR ARAIZA RE 1.5 MIN SEIZURE, PT AWAKE, ALERT, AND IN NO DISTRESS FOLLOWING SEIZURE ACTIVITY. DR ORDERED TO GIVE 1600 PHENOBARBITAL NOW.
--- NOTE | 2019-06-28 20:02 | NUR ---
SHIFT SUMMARY PT AWAKE, PLEASANT, COOPERATIVE, ANSWERS YES OR NO QUESTIONS. INCONTINENT OF BOWEL AND BLADDER, MULTIPLE CHANGES OF ATTENDS, NYSTATIN APPLIED. GTUBE FEEDINGS RESTARTED PER ORDER AT 10 MLS HR. CENTRAL LINE LEAKS, DR PUGA, SL EXCEPT ABX. DENIES PAIN. DENIES N&V. REPOSITION Q2. REPORT GIVEN TO SUSANA ROSS.
[2019-06-29 04:48] LABS: BASOPHILS ABSOLUTE AUTO 0.01 K/mm3 (0.00-0.23); BASOPHILS PERCENT AUTO 0 % (0-2); EOSINOPHILS ABSOLUTE AUTO 0.14 K/mm3 (0.00-0.68); EOSINOPHILS PERCENT AUTO 3 % (0-6); Hemoglobin 11.3 g/dL (11.5-16.0); IMMATURE GRAN ABSOLUTE AUTO 0.01 K/mm3 (0.00-0.10); IMMATURE GRAN PERCENT AUTO 0 % (0-1); LYMPHOCYTES ABSOLUTE AUTO 1.82 K/mm3 (0.84-5.20); LYMPHOCYTES PERCENT AUTO 43 % (21-46); MONOCYTES ABSOLUTE AUTO 0.37 K/mm3 (0.16-1.47); MONOCYTES PERCENT AUTO 9 % (4-13); Mean Corpuscular HGB 32.8 pg (26.0-34.0); Mean Corpuscular HGB Conc 32.3 g/dL (31.5-36.5); Mean Corpuscular Volume 102 fL (80-100); Mean Platelet Volume 12.6 fL (9.1-12.4); NEUTROPHILS ABSOLUTE AUTO 1.92 K/mm3 (1.96-9.15); NEUTROPHILS PERCENT AUTO 45 % (41-73); Platelet Count 152 K/mm3 (150-400); RDW Coefficient Variation 13.2 % (11.7-14.2); RDW Standard Deviation 48.9 fL (35.1-46.3); Red Blood Cell Count 3.44 M/mm3 (3.80-5.20); White Blood Cell Count 4.27 K/mm3 (4.00-11.30)
[2019-06-29 05:14] LABS: Phosphorus, Blood 1.4 mg/dL (2.5-4.9)
--- NOTE | 2019-06-29 06:57 | NUR ---
SUMMARY TUBE FEEDINGS INCREASED TO 35 ML/HR THIS AM, PT IS TOLERATING WITH NO PROBLEMS. PT CONTINUES TO HAVE LOOSE STOOLS, ATTENDS CHANGED PRN. FAMILY IN TO VISIT. PT BECOMES VERY HAPPY/TEARFUL. PT DENIES PAIN. NO OTHER ACUTE CHANGES.
--- NOTE | 2019-06-29 09:00 | NUR ---
PATIENT SMILING AND LAUGHING, CAREGIVERS AT BEDSIDE. DENIES PAIN, NAUSEA. CONT TO MONITOR.
--- NOTE | 2019-06-29 12:30 | NUR ---
CENTRAL LINE WHEN IV ZOFRAN WAS ADMINISTERED NOTICED CENTRAL LINE WAS LEAKING. ICU CHARGE NOTIFIED.
--- NOTE | 2019-06-29 14:55 | NUR ---
PATIENT SMILING. DENIES PAIN, NAUSEA. REPOSITIONED. NO S/SX DISTRESS NOTED. CL SITE DRESSING R NECK C,D,I.
--- NOTE | 2019-06-29 19:05 | NUR ---
SPOKE WITH DR CARDONA AND DR KAMINSKI RE: UNABLE TO OBTAIN ANY IV ACCESS FOR PHENOBARBITOL IV. GT MED ORDERS TO BE ENTERED BY MD. WILL CONT TO OBTAIN IV ACCESS. PATIENT W/O ANY NOTED SEIZURE ACTIVITY THIS SHIFT. NO N/V, TOLERATED GT FEEDING. REPORT TO SARAH ROSS.
[2019-06-30 04:19] LABS: BASOPHILS ABSOLUTE AUTO 0.01 K/mm3 (0.00-0.23); BASOPHILS PERCENT AUTO 0 % (0-2); EOSINOPHILS ABSOLUTE AUTO 0.09 K/mm3 (0.00-0.68); EOSINOPHILS PERCENT AUTO 2 % (0-6); Hematocrit 36.4 % (33.0-51.0); IMMATURE GRAN ABSOLUTE AUTO 0.01 K/mm3 (0.00-0.10); IMMATURE GRAN PERCENT AUTO 0 % (0-1); LYMPHOCYTES ABSOLUTE AUTO 1.82 K/mm3 (0.84-5.20); LYMPHOCYTES PERCENT AUTO 40 % (21-46); MONOCYTES ABSOLUTE AUTO 0.29 K/mm3 (0.16-1.47); MONOCYTES PERCENT AUTO 6 % (4-13); Mean Corpuscular HGB 32.9 pg (26.0-34.0); Mean Corpuscular Volume 100 fL (80-100); Mean Platelet Volume 12.5 fL (9.1-12.4); NEUTROPHILS ABSOLUTE AUTO 2.37 K/mm3 (1.96-9.15); NEUTROPHILS PERCENT AUTO 52 % (41-73); Platelet Count 165 K/mm3 (150-400); RDW Coefficient Variation 13.1 % (11.7-14.2); RDW Standard Deviation 48.3 fL (35.1-46.3); Red Blood Cell Count 3.65 M/mm3 (3.80-5.20); White Blood Cell Count 4.59 K/mm3 (4.00-11.30)
[2019-06-30 04:44] LABS: Alanine Aminotransfer (ALT/SGP 17 U/L (12-78); Albumin/Globulin Ratio 0.9 (0.8-1.8); Alk Phos 62 U/L (50-136); Anion Gap 5 mmol/L (6-16); Aspartate Aminotrans (AST/SGOT 16 U/L (12-37); Bilirubin, Total 0.2 mg/dL (0.1-1.0); Blood Urea Nitrogen 4 mg/dL (8-24); Bun/Creatinine Ratio 16.3 (12.0-20.0); CO2, Blood 26 mmol/L (21-32); Chloride, Blood 113 mmol/L (98-108); Creatinine, Blood 0.25 mg/dL (0.40-1.00); Globulin, Blood 3.3 g/dL (2.2-4.0); Glomerular Filtration Rate >60 (60-); Glucose, Blood 129 mg/dL (70-99); Magnesium, Blood 2.1 mg/dL (1.6-2.4); Phosphorus, Blood 2.1 mg/dL (2.5-4.9); Potassium, Blood 3.1 mmol/L (3.5-5.5); Sodium, Blood 144 mmol/L (136-145); Total Protein, Blood 6.3 g/dL (6.4-8.2)
--- NOTE | 2019-06-30 06:12 | NUR ---
SUMMARY NO ACUTE CHANGES THROUGH THE NIGHT. PT CONTINUES TO TOLERATE FEEDS. SHE IS STILL PASSING FLATUS AND STOOL. THE ICU NURSE ATTEMPTED IV ACCESS WITH NO SUCCESS. ANTI SIEZURE MEDICATIONS WERE GIVEN VIA G TUBE.
[2019-06-30] MEDS ORDERED: Docu Liqui50 MG/5 ML PT (12:58)
[2019-06-30] MEDS ORDERED: Augmentin250 MG/5 M PT (12:59)
[2019-06-30] MEDS ORDERED: SENN187 PT (12:59)
[2019-06-30] MEDS ORDERED: POTA20LUD PT (13:00)
--- NOTE | 2019-06-30 13:31 | NUR ---
THIS RN RECIEVED REPORT FROM OTHER RN AND IS ASSUMING CARE OF PT AT THIS TIME.
--- NOTE | 2019-06-30 14:31 | NUR ---
DISCHARGE: PT CAREGIVER HERE TO BOOTH CLEANER PT, REPORTS UNDERSTANDING OF DISCHARGE INSTRUCTIONS. NEW MEDICATIONS [facility] TO [facility]. PT OUT OF ROOM IN OWN W/C WITH BELONGINGS.
[2019-06-30] MEDS ORDERED: POTA20LUD PO (18:36)
[2019-06-30] MEDS ORDERED: POTA20LUD (18:38)
[2019-06-30] MEDS ORDERED: METO10SY PT (20:23)
[2019-06-30] MEDS ORDERED: FISH OIL 1,001000 MG PT (20:24)
[2019-06-30] MEDS ORDERED: Phos-Nak Packe1 EACH PT (20:24)
[2019-06-30] MEDS ORDERED: DOXY100 PT (20:24)
[2019-06-30] MEDS ORDERED: BISA10S PR (20:25)
[2019-06-30] MEDS ORDERED: Enema133 M1 PR (20:25)
[2019-06-30] MEDS ORDERED: CITRATE OF MAG296 ML PT (20:26)
[2019-06-30] MEDS ORDERED: A AND D OINTM42.5 GM TOP (20:27)
[2019-06-30] MEDS ORDERED: Phenergan6.25 MG/5 PT (20:27)
== END 2019-06-30 14:32 | disposition home or self-care (01) | DRG 388 ==
LOC: ER 01:17 → ERHOLD 06:32 → SURS 06:32
PROVIDERS: Emergency Medicine; Family Medicine; Surgery; ADMIT Internal Medicine
DX: K56.600 Partial intestinal obstruction, unspecified as to cause (principal); R53.2 Functional quadriplegia; G80.9 Cerebral palsy, unspecified; K59.09 Other constipation; G40.909 Epilepsy, unspecified, not intractable, without status epilepticus; E83.39 Other disorders of phosphorus metabolism; E87.6 Hypokalemia
CPT/HCPCS: 36415; 36556; 71045; 74176; 80048; 80053; 80184; 83605; 83690; 83735; 84100; 85025; 96361-59; 96367; 96374-59; 96375-59; 99285-25; C1751; C9254; J1644; J2405; J2543; J2560; J3480; J7030; J7050; J7060; J7120

== ENCOUNTER 2019-06-30 18:11 | Inpatient (IN) | payer OTHER ==
[~2019-06-30] VITALS: Ht 137.2 cm; Wt 44.1 kg
[~2019-06-30 18:11] MED LIST changes: +Augmentin250 MG/5 M PT; +Docu Liqui50 MG/5 ML PT; +POTA20LUD PT; +SENN187 PT
[2019-06-30] MEDS ORDERED: POTA20LUD PO (18:36)
[2019-06-30] MEDS ORDERED: POTA20LUD (18:38)
[2019-06-30 19:37] LABS: BASOPHILS ABSOLUTE AUTO 0.02 K/mm3 (0.00-0.23); BASOPHILS PERCENT AUTO 1 % (0-2); EOSINOPHILS ABSOLUTE AUTO 0.09 K/mm3 (0.00-0.68); EOSINOPHILS PERCENT AUTO 2 % (0-6); Hematocrit 40.9 % (33.0-51.0); Hemoglobin 13.5 g/dL (11.5-16.0); IMMATURE GRAN ABSOLUTE AUTO 0.01 K/mm3 (0.00-0.10); IMMATURE GRAN PERCENT AUTO 0 % (0-1); LYMPHOCYTES PERCENT AUTO 41 % (21-46); MONOCYTES ABSOLUTE AUTO 0.39 K/mm3 (0.16-1.47); MONOCYTES PERCENT AUTO 9 % (4-13); Mean Corpuscular Volume 100 fL (80-100); Mean Platelet Volume 12.4 fL (9.1-12.4); NEUTROPHILS ABSOLUTE AUTO 1.94 K/mm3 (1.96-9.15); NEUTROPHILS PERCENT AUTO 47 % (41-73); Platelet Count 203 K/mm3 (150-400); RDW Coefficient Variation 13.2 % (11.7-14.2); RDW Standard Deviation 48.9 fL (35.1-46.3); Red Blood Cell Count 4.09 M/mm3 (3.80-5.20); White Blood Cell Count 4.15 K/mm3 (4.00-11.30)
[2019-06-30 19:54] LABS: Alanine Aminotransfer (ALT/SGP 28 U/L (12-78); Albumin, Blood 3.3 g/dL (3.4-5.0); Albumin/Globulin Ratio 0.8 (0.8-1.8); Alk Phos 70 U/L (50-136); Anion Gap 6 mmol/L (6-16); Aspartate Aminotrans (AST/SGOT 39 U/L (12-37); Bilirubin, Total 0.4 mg/dL (0.1-1.0); Blood Urea Nitrogen 4 mg/dL (8-24); Bun/Creatinine Ratio 15.5 (12.0-20.0); CO2, Blood 22 mmol/L (21-32); Calcium, Blood 9.1 mg/dL (8.5-10.1); Chloride, Blood 110 mmol/L (98-108); Creatinine, Blood 0.26 mg/dL (0.40-1.00); Glomerular Filtration Rate >60 (60-); Glucose, Blood 99 mg/dL (70-99); Potassium, Blood 4.8 mmol/L (3.5-5.5); Sodium, Blood 138 mmol/L (136-145); Total Protein, Blood 7.3 g/dL (6.4-8.2)
[2019-06-30] MEDS ORDERED: METO10SY PT (20:23)
[2019-06-30] MEDS ORDERED: Phos-Nak Packe1 EACH PT (20:24)
[2019-06-30] MEDS ORDERED: DOXY100 PT (20:24)
[2019-06-30] MEDS ORDERED: FISH OIL 1,001000 MG PT (20:24)
[2019-06-30] MEDS ORDERED: BISA10S PR (20:25)
[2019-06-30] MEDS ORDERED: Enema133 M1 PR (20:25)
[2019-06-30] MEDS ORDERED: CITRATE OF MAG296 ML PT (20:26)
[2019-06-30] MEDS ORDERED: A AND D OINTM42.5 GM TOP (20:27)
[2019-06-30] MEDS ORDERED: Phenergan6.25 MG/5 PT (20:27)
--- NOTE | 2019-07-01 08:11 | NUR ---
DURING SHIFT CHANGE PT BEGAN MOANING OUT LOUDLY, ENTERED ROOM TO FINDED PT DIAPHORETIC AND UNEASY. PT NODDED HEAD YES WHEN ASKED IF SHE WAS IN PAIN, NODDED YES AGAIN WHEN ASKED IF IT WAS HER ABDOMEN. PT WAS ALSON HEARD WRENCHING. DR. Carolyn VANN NOTIFIED, HE PLACED NEW ORDERS AND REQUESTED THAT THE PEG TUBE BE VENTED. PEG TUBE VENTED, GAS COULD BE HEARD WHEN PEG TUBE CAP INITIALLY OPENED, DRAINED CLEAR/GREEN FLUID AFTERWARDS. PT THEN MEDICATED WITH DILAUDID 0.5MG IV, AND ZOFRAN 4MG IV, PT WAS STILL INTERMITTENTLY MOANING ALTHOUGH APPEARED MORE COMFORTABLE AFTER PEG TUBE VENTED. PT IS NOW LYING IN BED, APPEARS COMFORTABLE, NO LONGER MOANING, NODDED HEAD YES WHEN ASKED IF PAIN WAS UNDER CONTROL.
--- NOTE | 2019-07-01 17:47 | NUR ---
SHIFT SUMMARY. ALERT, UNDERSTANDS VERBAL COMMUNICATION, IS ABLE TO ANSWER Y/N QUESTIONS WITH HEAD NODDING, ANSWERS APPROPRIATLY. PT HAS HAD 350ML CLEAR/GREEN/YELLOW LIQUID DRAINED FROM PEG TUBE BY GRAVITY THIS SHIFT. PT TURNED Q2, INCONTINENCE CARE PERFORMED WITH EACH TURN, PT IS AWARE WHEN SHE IS INCONTINENT AND IS ABLE TO PRESS SOFT TOUCH CALL LIGHT FOR ASSISTANCE. CAREGIVERS FROM [facility] IN TO SEE PT SEVERAL TIMES THIS SHIFT. PT REQUIRED ONE ADDITIONAL DOSE OF ZOFRAN THIS AFTERNOON, SHE REPORTED RELIEF OF ABD SYMPTOMS. NO OTHER CHANGES OR CONCERNS.
[2019-07-02 06:16] LABS: Alanine Aminotransfer (ALT/SGP 59 U/L (12-78); Albumin, Blood 2.8 g/dL (3.4-5.0); Albumin/Globulin Ratio 0.9 (0.8-1.8); Alk Phos 57 U/L (50-136); Anion Gap 7 mmol/L (6-16); Aspartate Aminotrans (AST/SGOT 110 U/L (12-37); Bilirubin, Total 0.3 mg/dL (0.1-1.0); Blood Urea Nitrogen 4 mg/dL (8-24); Bun/Creatinine Ratio 13.3 (12.0-20.0); CO2, Blood 23 mmol/L (21-32); Calcium, Blood 7.8 mg/dL (8.5-10.1); Chloride, Blood 115 mmol/L (98-108); Globulin, Blood 3.2 g/dL (2.2-4.0); Glomerular Filtration Rate >60 (60-); Glucose, Blood 105 mg/dL (70-99); Potassium, Blood 4.2 mmol/L (3.5-5.5); Sodium, Blood 145 mmol/L (136-145)
--- NOTE | 2019-07-02 06:26 | NUR ---
SHIFT SUMMARY NO ACUTE EVENTS OVERNIGHT. PATIENT ABLE TO ANSWER YES AND NO QUESTIONS. PATIENT COMPLAINED OF STOMACH UPSET WHEN ASKED AND WAS GIVEN ZOFRAN PRESCRIBED. PATIENT G-TUBE OPEN TO GRAVITY TO RELIEVE GASTRIC DISCOMFORT. G-TUBE PLACED INSIDE URINAL SO NOT TO GET GASTRIC FLUIDS ON PATIENT. PATIENT CALLS OUT WITH MOANS WHEN WET. PATIENT INCONTINENT OF BLADDER AND CHANGED MULTIPLE TIMES OVER NIGHT. NO BOWEL MOVEMENTS OVERNIGHT. LEFT INDEX FINGER IV PATENT WITH NO S/S OF INFECTION. PATIENT Q2 TURNS. PATIENT SMILES AND INTERACTS WITH STAFF PLEASANTLY.
[2019-07-02 08:04] LABS: BASOPHILS ABSOLUTE AUTO 0.02 K/mm3 (0.00-0.23); BASOPHILS PERCENT AUTO 1 % (0-2); EOSINOPHILS PERCENT AUTO 3 % (0-6); Hematocrit 35.2 % (33.0-51.0); Hemoglobin 11.5 g/dL (11.5-16.0); IMMATURE GRAN ABSOLUTE AUTO 0.01 K/mm3 (0.00-0.10); IMMATURE GRAN PERCENT AUTO 0 % (0-1); LYMPHOCYTES ABSOLUTE AUTO 1.56 K/mm3 (0.84-5.20); LYMPHOCYTES PERCENT AUTO 49 % (21-46); MONOCYTES ABSOLUTE AUTO 0.34 K/mm3 (0.16-1.47); MONOCYTES PERCENT AUTO 11 % (4-13); Mean Corpuscular HGB 32.3 pg (26.0-34.0); Mean Corpuscular HGB Conc 32.7 g/dL (31.5-36.5); Mean Corpuscular Volume 99 fL (80-100); Mean Platelet Volume 11.3 fL (9.1-12.4); NEUTROPHILS ABSOLUTE AUTO 1.15 K/mm3 (1.96-9.15); NEUTROPHILS PERCENT AUTO 36 % (41-73); Platelet Count 179 K/mm3 (150-400); RDW Coefficient Variation 13.6 % (11.7-14.2); RDW Standard Deviation 48.8 fL (35.1-46.3); Red Blood Cell Count 3.56 M/mm3 (3.80-5.20); White Blood Cell Count 3.18 K/mm3 (4.00-11.30)
--- NOTE | 2019-07-02 18:06 | NUR ---
SUMMARY PT RESTING QUIETLY IN BED, WAKES EASILY, PT NODS YES AND NO APPROPRIATELY, PT WITH CEREBRAL PALSY, PT HAS BEEN MED PER EMAR FOR PAIN, CARE GIVERS FROM [facility] HAVE BEEN IN AND OUT OF THE ROOM T/O THE DAY, STILL NO BOWEL SOUNDS HEARD, VSS, NO ACUTE CHANGES, WILL CONT TO MONITOR
--- NOTE | 2019-07-03 04:32 | NUR ---
SHIFT SUMMARY PT HAS DONE WELL THIS SHIFT. MEDICATED X1 FOR PAIN. BOWEL TONES HYPOACTIVE. GTUBE CLAMPED T/O SHIFT, WITH NO ISSUE. PT ABLE TO COMMUNICATE NEEDS BY NODDING "YES" OR "NO". PT REQUESTS TO BE REPOSITIONED OFTEN. PAULINO SUCTIONED X1 FOR SECRETIONS. PT FINISED LAST BAG OF IV FLUIDS. IV ABX PER ORDERS. NO OTHER CHANGES TO REPORT. WILL CONTINUE TO MONITOR AND REPORT TO ONCOMING RN.
[2019-07-03 05:20] LABS: BASOPHILS ABSOLUTE AUTO 0.02 K/mm3 (0.00-0.23); BASOPHILS PERCENT AUTO 1 % (0-2); EOSINOPHILS ABSOLUTE AUTO 0.15 K/mm3 (0.00-0.68); EOSINOPHILS PERCENT AUTO 5 % (0-6); Hematocrit 38.8 % (33.0-51.0); Hemoglobin 12.7 g/dL (11.5-16.0); IMMATURE GRAN ABSOLUTE AUTO 0.01 K/mm3 (0.00-0.10); IMMATURE GRAN PERCENT AUTO 0 % (0-1); LYMPHOCYTES ABSOLUTE AUTO 1.72 K/mm3 (0.84-5.20); LYMPHOCYTES PERCENT AUTO 54 % (21-46); MONOCYTES ABSOLUTE AUTO 0.35 K/mm3 (0.16-1.47); MONOCYTES PERCENT AUTO 11 % (4-13); Mean Corpuscular HGB 32.6 pg (26.0-34.0); Mean Corpuscular HGB Conc 32.7 g/dL (31.5-36.5); Mean Corpuscular Volume 100 fL (80-100); Mean Platelet Volume 11.2 fL (9.1-12.4); NEUTROPHILS ABSOLUTE AUTO 0.91 K/mm3 (1.96-9.15); NEUTROPHILS PERCENT AUTO 29 % (41-73); Platelet Count 204 K/mm3 (150-400); RDW Coefficient Variation 13.4 % (11.7-14.2); Red Blood Cell Count 3.89 M/mm3 (3.80-5.20); White Blood Cell Count 3.16 K/mm3 (4.00-11.30)
[2019-07-03 05:45] LABS: Alanine Aminotransfer (ALT/SGP 51 U/L (12-78); Albumin, Blood 3.1 g/dL (3.4-5.0); Albumin/Globulin Ratio 0.9 (0.8-1.8); Alk Phos 65 U/L (50-136); Anion Gap 8 mmol/L (6-16); Aspartate Aminotrans (AST/SGOT 51 U/L (12-37); Bilirubin, Total 0.4 mg/dL (0.1-1.0); Blood Urea Nitrogen 1 mg/dL (8-24); Bun/Creatinine Ratio 4.1 (12.0-20.0); CO2, Blood 23 mmol/L (21-32); Chloride, Blood 110 mmol/L (98-108); Creatinine, Blood 0.25 mg/dL (0.40-1.00); Globulin, Blood 3.5 g/dL (2.2-4.0); Glomerular Filtration Rate >60 (60-); Glucose, Blood 100 mg/dL (70-99); Potassium, Blood 3.2 mmol/L (3.5-5.5); Sodium, Blood 141 mmol/L (136-145); Total Protein, Blood 6.6 g/dL (6.4-8.2)
--- NOTE | 2019-07-03 16:37 | NUR ---
Initial Visit: Palliative Care Consult for AD/POLST, Medically Fragile, and Readmission. Pt is resting in bed with her eyes closed upon arrival. Offered gentle voice and Pt awakes. Asked if she was having pain and Pt nods her head up and down indicating yes. Asked if she needs to be reposition and she turns her head side to side indicating no. Reported to bedside nurse Annabel of Pt's pain. Annabel offers pain medication. Annabel and ARLENE offer personal care while this RN waited outside. After care is performed this RN enters room and engages in therapeutic discussion. Reviewed chart notes and recapped conversation regarding wishes for surgery. When asked if she would want surgery Pt turns her head side to side indicating no. Asked if she would want chest compressions and she nods her head up and down indicating yes. Educated Pt on the implications of denying surgery and receiving CPR. Her level of understanding is questionable. Pt nods her head up and down when asked if her pain is managed. Ended visit to allow Pt to rest. Attempted to call caregiver listed and left message on voicemail requesting a return call. Palliative Care will remain available.
--- NOTE | 2019-07-03 18:19 | NUR ---
SUMMARY PT RESTING IN BED WATCHING TV, PT HAS CEREBRAL PALSY AND DOES NOT TALK, SHE DOES NOD YES AND NO APPROPRIATELY, CARE GIVERS HAVE BEEN IN TO SEE THE PT AND HAVE CALLED WELL, PT LIVES AT [facility], PT WITH BOWEL SOUNDS NOW, TUBE FEEDS STARTED AT A TRICKLE RATE OF 10CC/HR, SO FAR PT NIKO WELL, PT HAS HAD A LARGE LOOSE GREEN BM, VSS, NO ACUTE CHANGES, WILL CONT TO MONITOR
--- NOTE | 2019-07-04 04:58 | NUR ---
SHIFT SUMMARY. PT HAD SOME DISCOMFORT T/O SHIFT. PT TX PER EMAR. AT BEGINNING OF SHIFT PT HAD LARGE GREEN LIQUID BM. PT ONLY HAD SEVERAL SMALL BM'S POST THE LARGE BM. [facility]CONSOL[facility]. IT FOUND THAT PT PREFERS TO LAY ON HER SIDES AND IF HER HIP ARE SPREAD CAUSES DISCOMFORT. PT REPOSITIONED AND MEDICATED PER EMAR. PT IS CURRENTLY SLEEPING AND BREATHING EASY. CALL BUTTON IN REACH.
[2019-07-04 05:31] LABS: BASOPHILS ABSOLUTE AUTO 0.02 K/mm3 (0.00-0.23); BASOPHILS PERCENT AUTO 1 % (0-2); EOSINOPHILS ABSOLUTE AUTO 0.07 K/mm3 (0.00-0.68); EOSINOPHILS PERCENT AUTO 2 % (0-6); Hematocrit 39.2 % (33.0-51.0); Hemoglobin 12.8 g/dL (11.5-16.0); IMMATURE GRAN ABSOLUTE AUTO 0.01 K/mm3 (0.00-0.10); IMMATURE GRAN PERCENT AUTO 0 % (0-1); LYMPHOCYTES ABSOLUTE AUTO 1.15 K/mm3 (0.84-5.20); LYMPHOCYTES PERCENT AUTO 38 % (21-46); MONOCYTES ABSOLUTE AUTO 0.33 K/mm3 (0.16-1.47); MONOCYTES PERCENT AUTO 11 % (4-13); Mean Corpuscular HGB 32.4 pg (26.0-34.0); Mean Corpuscular HGB Conc 32.7 g/dL (31.5-36.5); Mean Corpuscular Volume 99 fL (80-100); Mean Platelet Volume 11.4 fL (9.1-12.4); NEUTROPHILS ABSOLUTE AUTO 1.42 K/mm3 (1.96-9.15); NEUTROPHILS PERCENT AUTO 47 % (41-73); Platelet Count 199 K/mm3 (150-400); RDW Coefficient Variation 13.3 % (11.7-14.2); RDW Standard Deviation 47.4 fL (35.1-46.3); Red Blood Cell Count 3.95 M/mm3 (3.80-5.20)
[2019-07-04 05:49] LABS: Alanine Aminotransfer (ALT/SGP 43 U/L (12-78); Albumin, Blood 3.2 g/dL (3.4-5.0); Albumin/Globulin Ratio 0.9 (0.8-1.8); Alk Phos 73 U/L (50-136); Anion Gap 7 mmol/L (6-16); Aspartate Aminotrans (AST/SGOT 38 U/L (12-37); Bilirubin, Total 0.3 mg/dL (0.1-1.0); Blood Urea Nitrogen 3 mg/dL (8-24); Bun/Creatinine Ratio 11.1 (12.0-20.0); CO2, Blood 26 mmol/L (21-32); Calcium, Blood 8.3 mg/dL (8.5-10.1); Chloride, Blood 111 mmol/L (98-108); Creatinine, Blood 0.27 mg/dL (0.40-1.00); Globulin, Blood 3.6 g/dL (2.2-4.0); Glomerular Filtration Rate >60 (60-); Glucose, Blood 99 mg/dL (70-99); Sodium, Blood 144 mmol/L (136-145); Total Protein, Blood 6.8 g/dL (6.4-8.2)
--- NOTE | 2019-07-04 16:51 | NUR ---
PT C/O NAUSEA AFTER A FEW HOURS OF INCREASED TUBE FEEDING RATE. RATE REDUCED. NAUSEA MEDICINE GIVEN; DR. JACOB NOTIFIED.
--- NOTE | 2019-07-04 18:13 | NUR ---
SHIFT SUMMARY ABLE TO ANSWER YES AND NO TO MANY QUESTIONS. RACHELLE OUT IF SHE NEEDS SOMETHING. 3 WET BM'S TODAY. C/O NAUSEA AFTER INCREASING TUBE FEEDING RATE TODAY. C/O INTERMITTENT ABDOMINAL PAIN. CEREBRAL PALSY. CARETAKERS THROUGHOUT DAYS IN AND OUT OF ROOM. SMILES AND LAUGHS, UNDERSTANDS BUT ESSENTIALLY NON VERBAL.
--- NOTE | 2019-07-05 05:06 | NUR ---
SHIFT SUMMARY PT HAD NO ISSUES NOTED THIS SHIFT. PT SLEPT T/O SHIFT. PT DID NOT REQUIRE ANY PAIN MEDS THIS SHIFT. PT HAD A BETTER NIGHT THIS SHIFT. PT CURRENTLY SLEEPING IN NO DISTRESS. PT FEEDINGS ARE GOING DIRECTED. PT HAD NO ISSUES WITH 10 ML/ HR FEEDING. CALL LIGHT IN REACH.
--- NOTE | 2019-07-05 09:50 | NUR ---
INCREASED TUBE FEEDS TO 15ML/HR PER MD ORDER.
--- NOTE | 2019-07-05 16:34 | NUR ---
will follow upwith [facility] for [facility] of kin to review advance directive and confirm poa.
--- NOTE | 2019-07-05 16:49 | NUR ---
theraputic time with patient helped her snuggle her doll. found something on tv she liked and talked to her about the show. She smiles and nods yes or no.
--- NOTE | 2019-07-05 17:43 | NUR ---
SHIFT SUMMARY APPEARS TO FEEL BETTER TODAY IE. SMILING, LAUGHING, MORE AWAKE THROUGHOUT DAY. C/O SLIGHT NAUSEA (NO VOMITING) RELIEVED BY ZOFRAN THIS P.M. PLAN TO INCREASE TUBE FEEDS @0600 AND PLAN IS TO DISCHARGE IN NEXT DAY OR TWO HOME TO [facility].
--- NOTE | 2019-07-05 22:17 | NUR ---
PT STARTED HAVING INCREASED NAUSEA WITH DRY HEAVING. PT FOUND TO HAVE 15 ML OF RESIDUAL NOTED. PT NAUSEA TX PER EMAR WITH LITTLE RELIEF. PROVIDER CALLED ORDERED TO STOP FEEDING FOE TWO HRS THEN RESUME. ADDITIONAL ANTIEMETIC WAS ORDERED BY PROVIDER.
--- NOTE | 2019-07-06 04:57 | NUR ---
SHIFT SUMMARY REPORT FROM DAY RN WAS THAT PT FEEDING RATE WAS RUNNING AT 15 ML/HR. PT THIS SHIFT WAS NOT ABLE TO TOLERATE THE FEEDING. DR RENTERIA WAS CALLED AND ORDERED PT FEEDING PAUSED FOR TWO HRS THEN RESTARTED. PHENERGAN WAS ADDED TO EMAR. PT HAS BEEN HAVING CONTINOUS RESIDUALS BETWEEN 15-30 ML'S. RESIDUAL IS YELLOWISH. PT WAS EXPERIENCING NAUSEA WITH DRY HEAVING. PT REQUIRED SUCTIONING OF CLEAR SECRETIONS DURING EPISODES. THE LORTAB HAS NOT BEEN EFFECTIVE IN DISCOMFORT RELIEF. LORTAB HAS ALSO BEEN PRESENT IN RESIDUAL DRAWS FROM PEG TUBE. FEEDING RATE CURRENTLY AT 10 ML/HR. WILL INCREASE RATE TO 15 ML/HR AT 0600 AND MONITOR PT. PT CURRENTLY SLEEPING WITH CALL BUTTON IN REACH.
--- NOTE | 2019-07-06 12:16 | NUR ---
TUBE FEEDING RESUMED AT THIS TIME AT 10ML/HR PER DR SINGH. PT MEDICATED FOR PAIN AND NAUSEA 1133. PT HAD VERY LARGE LIQUID YELLOW BM AT THIS TIME THAT SATURATED THE SHEETS. PT LINENS AND ATTENDS CHANGED. PT HOB ELEVATED
--- NOTE | 2019-07-06 14:30 | NUR ---
ISOSOURCE 1.5 PAULINO STARTED AT THIS TIME. 0ML RESIDUAL.
--- NOTE | 2019-07-06 18:07 | NUR ---
SHIFT SUMMARY PT AXO TO SELF. ANSWERS "YES/NO" QUESTIONS APPROPRIATELY. VSS. PT MEDICATED FOR PAIN AND NAUSEA PER EMAR. TUBE FEEDING RESTARTED AT 1216 AT 10ML/HR. PT WAS THEN SWITCHED TO ISOSOURCE FORMULA AT 1430. PT TOLERATING FEEDINGS WELL LONG SHE HAS BEEN MEDICATED FOR NAUSEA. PT HAS 24G IV WITH IS PATENT AND INFUSING AT TKO. TUBE FLUSHED PER ORDERS, OML RESIDUAL EACH TIME. PT HAD BM X3 THIS SHIFT, LIQUID YELLOW. BED IN LOW POSITION, PUSH BUTTON CALL LIGHT PLACED NEXT TO HER HAND AND NURSE POSITIONED OUTSIDE PT ROOM MUCH POSSIBLE TO HEAR PT IF SHE NEEDS ASSISTANCE.
--- NOTE | 2019-07-07 05:34 | NUR ---
SHIFT SUMMARY: PT IS ALERT, NON-VERBAL, WILL NOD YES OR NO TO QUESTIONS. PT HAS CEREBRAL PALSY AND IS BED BOUND. PT HAS G-TUBE WITH TUBE FEEDINGS, PT NOT TOLERATING THE FEEDINGS AT 10 ML AN HOUR, BEGINS TO GAG ALMOST IMMEDIATELY WHEN STARTED, WILL HOLD UNTIL FURTHER EVALUATION. PT EXPRESSES PAIN ON SEVERAL OCCASIONS, MEDICATING PER EMAR. PT SHOWS NO RESPIRATORY DISTRESS, ON ROOM AIR. PT INCONTINENT OF BOWEL AND BLADDER OVERNIGHT, CHANGED AND CLEANED NEEDED. BED IN LOW POSITION, CALL LIGHT WITHIN REACH. WILL CONTINUE TO MONITOR.
[2019-07-07 06:02] LABS: BASOPHILS ABSOLUTE AUTO 0.04 K/mm3 (0.00-0.23); BASOPHILS PERCENT AUTO 1 % (0-2); EOSINOPHILS ABSOLUTE AUTO 0.02 K/mm3 (0.00-0.68); EOSINOPHILS PERCENT AUTO 1 % (0-6); Hematocrit 41.5 % (33.0-51.0); Hemoglobin 13.3 g/dL (11.5-16.0); IMMATURE GRAN ABSOLUTE AUTO 0.01 K/mm3 (0.00-0.10); IMMATURE GRAN PERCENT AUTO 0 % (0-1); LYMPHOCYTES ABSOLUTE AUTO 1.61 K/mm3 (0.84-5.20); LYMPHOCYTES PERCENT AUTO 50 % (21-46); MONOCYTES ABSOLUTE AUTO 0.32 K/mm3 (0.16-1.47); MONOCYTES PERCENT AUTO 10 % (4-13); Mean Corpuscular Volume 100 fL (80-100); Mean Platelet Volume 11.4 fL (9.1-12.4); NEUTROPHILS ABSOLUTE AUTO 1.23 K/mm3 (1.96-9.15); NEUTROPHILS PERCENT AUTO 38 % (41-73); Platelet Count 296 K/mm3 (150-400); RDW Standard Deviation 50.4 fL (35.1-46.3); Red Blood Cell Count 4.16 M/mm3 (3.80-5.20); White Blood Cell Count 3.23 K/mm3 (4.00-11.30)
[2019-07-07 06:15] LABS: Alanine Aminotransfer (ALT/SGP 34 U/L (12-78); Albumin, Blood 3.2 g/dL (3.4-5.0); Albumin/Globulin Ratio 0.9 (0.8-1.8); Alk Phos 62 U/L (50-136); Anion Gap 5 mmol/L (6-16); Aspartate Aminotrans (AST/SGOT 29 U/L (12-37); Bilirubin, Total 0.2 mg/dL (0.1-1.0); Blood Urea Nitrogen 5 mg/dL (8-24); Bun/Creatinine Ratio 15.9 (12.0-20.0); CO2, Blood 26 mmol/L (21-32); Calcium, Blood 8.3 mg/dL (8.5-10.1); Chloride, Blood 119 mmol/L (98-108); Creatinine, Blood 0.31 mg/dL (0.40-1.00); Globulin, Blood 3.6 g/dL (2.2-4.0); Glomerular Filtration Rate >60 (60-); Glucose, Blood 129 mg/dL (70-99); Magnesium, Blood 2.3 mg/dL (1.6-2.4); Phosphorus, Blood 1.9 mg/dL (2.5-4.9); Potassium, Blood 2.7 mmol/L (3.5-5.5); Sodium, Blood 150 mmol/L (136-145); Total Protein, Blood 6.8 g/dL (6.4-8.2)
--- NOTE | 2019-07-07 12:16 | NUR ---
STARTED PTS TUBE FEEDING AT 0930 AFTER MORNING MEDS. SHORTLY AFTER LEAVING ROOM PT STARTED SCREAMING AND CRYING. WAS INCONSOLABLE AND CONTINUED UNTIL AFTER TUBED FEEDING STOPPED. HAVE SPOKEN WITH [facility] STAFF RECENTLY UPON ARRIVAL AND THEY REPORTED SHE DOESN'T GENERALLY CRY OR COMPLAIN OF DISCOMFORT WITH TUBE FEEDING. WAS TURNED AFTER TUBE FEEDING STOPPED AND TOOK A NAP. AWOKE CALM AND SMILING
--- NOTE | 2019-07-07 15:11 | NUR ---
TUBE FEEDING RESTARTED WHILE [facility] STAFF IN ROOM. STATES SHE GENERALLY HAS HER HEAD OF BED UP 35 DEGREES. HAS BEEN ON SINCE 1230. HAS HAD NO CRYING OR YELLING OUT SINCE. REPOSITIONED WITH NO PROBLEM. ATTEMPTED TO DO ORAL CARE BUT PT SHAKING HER HEAD NO WHEN OFFERED. CONTINUES WITH LIQUID STOOL.
--- NOTE | 2019-07-07 18:24 | NUR ---
PATIENT DID NOT EAT LUNCH THIS SHIFT DUE TO BEING NPO AT THIS TIME.
--- NOTE | 2019-07-07 19:18 | NUR ---
SHIFT SUMMARY PT NODS TO HER TEETH BEING SENSITIVE HENCE REFUSING ORAL CARE BUT DID ALLOW SUCTIONING. HAS TOLERATED ISOSOURCE 1.5 SINCE 1230 TODAY WITH HOB UP 35 DEGREES. OCCASIONALLY MOANS WHEN SHE NEEDS TO BE CHANGED. POWER GLIDE STARTED FOR FLUIDS AND ELECTROLYTE REBALANCING. TURNED Q2 HOURS. OCC TEARFUL BUT OTHERWISE LAUGHING WITH MOST INTERACTION.
--- NOTE | 2019-07-07 19:56 | NUR ---
ASSUMED CARE OF PATIENT. PATIENT CHANGED AND REPOSTIIONED. PED TUBE FEEDING ONGOING AT 10ML/HR TO BE INCREASED AT 0030HRS TO 15ML/HR. PATIENT DENIES PAIN AND IS IN NO APPARENT DISTRESS AT THIS TIME. HOB AT 30 DEGRESS AND CALL BUTTON WITHIN REACH.
--- NOTE | 2019-07-08 04:55 | NUR ---
0207: PT CRYING OUT NODS YES WHEN ASKED IF SHE IS IN PAIN. PAIN MED GIVEN PER EMAR. PT NODS YES WHEN ASKED IF SHE IS NAUSEATED. MED GIVEN PER EMAR. CHANGED BAG AND TUBING AND RESTARTED PEG TUBE FEEDING. HUNG NEW BAG OF CLINIMIX. CHANGED LINENES AND REPOSITIONED PT. CALL BUTTON WITHIN REACH
--- NOTE | 2019-07-08 07:13 | NUR ---
ASSUMED CARE: PT RESTING QUIETLY. PILLOWS IN PLACE FOR COMFORT. ROUSES EASILY. NO ACUTE NEEDS OR CONCERNS AT THIS TIME.
[2019-07-08 10:41] LABS: BASOPHILS ABSOLUTE AUTO 0.02 K/mm3 (0.00-0.23); BASOPHILS PERCENT AUTO 0 % (0-2); EOSINOPHILS ABSOLUTE AUTO 0.06 K/mm3 (0.00-0.68); EOSINOPHILS PERCENT AUTO 1 % (0-6); Hematocrit 40.8 % (33.0-51.0); IMMATURE GRAN ABSOLUTE AUTO 0.02 K/mm3 (0.00-0.10); IMMATURE GRAN PERCENT AUTO 0 % (0-1); LYMPHOCYTES ABSOLUTE AUTO 1.89 K/mm3 (0.84-5.20); LYMPHOCYTES PERCENT AUTO 40 % (21-46); MONOCYTES ABSOLUTE AUTO 0.45 K/mm3 (0.16-1.47); MONOCYTES PERCENT AUTO 9 % (4-13); Mean Corpuscular HGB 32.3 pg (26.0-34.0); Mean Corpuscular HGB Conc 31.9 g/dL (31.5-36.5); Mean Corpuscular Volume 102 fL (80-100); Mean Platelet Volume 12.1 fL (9.1-12.4); NEUTROPHILS ABSOLUTE AUTO 2.35 K/mm3 (1.96-9.15); NEUTROPHILS PERCENT AUTO 49 % (41-73); Platelet Count 221 K/mm3 (150-400); RDW Coefficient Variation 13.9 % (11.7-14.2); RDW Standard Deviation 51.7 fL (35.1-46.3); Red Blood Cell Count 4.02 M/mm3 (3.80-5.20); White Blood Cell Count 4.79 K/mm3 (4.00-11.30)
[2019-07-08 11:44] LABS: Alanine Aminotransfer (ALT/SGP 26 U/L (12-78); Albumin, Blood 2.8 g/dL (3.4-5.0); Albumin/Globulin Ratio 0.8 (0.8-1.8); Alk Phos 51 U/L (50-136); Anion Gap 5 mmol/L (6-16); Aspartate Aminotrans (AST/SGOT 13 U/L (12-37); Bilirubin, Total 0.3 mg/dL (0.1-1.0); Blood Urea Nitrogen 17 mg/dL (8-24); Bun/Creatinine Ratio 78.7 (12.0-20.0); CO2, Blood 25 mmol/L (21-32); Chloride, Blood 112 mmol/L (98-108); Creatinine, Blood 0.22 mg/dL (0.40-1.00); Globulin, Blood 3.6 g/dL (2.2-4.0); Glomerular Filtration Rate >60 (60-); Glucose, Blood 162 mg/dL (70-99); Potassium, Blood 4.3 mmol/L (3.5-5.5); Sodium, Blood 142 mmol/L (136-145); Total Protein, Blood 6.4 g/dL (6.4-8.2)
--- NOTE | 2019-07-08 19:12 | NUR ---
SHIFT SUMMARY: PLAN FOR PT IS POSSIBLE DC IN AM. TOLERATING FEEDS WELL, RATE INCREASED TO 20 PER INSTRUCTION BY DIETARY AND FLUSHES PER INSTRUCTIONS OF DIETARY. FREQUENT REPOSITIONS AND ATTENDS CHANGES FOR INCONTINENCE. CAREGIVERS IN AND OUT THROUGHOUT DAY. NO FURTHER NEEDS OR CONCERNS.
--- NOTE | 2019-07-09 04:09 | NUR ---
SHIFT SUMMARY. NO ISSUES NOTED THIS SHIFT. PT HAS BEEN TURNED AND CHANGED NEEDED. PT FEEDING HAS BEEN GOING WELL. PT HAD NO ISSUES RELATED TO PAIN OR NAUSEA. PT CURRENTLY SLEEPING IN NO DISTRESS. CALL BUTTON IN REACH.
--- NOTE | 2019-07-09 07:36 | NUR ---
ASSUMED CARE: PT RESTING QUIETLY AT THIS TIME. NO ACUTE NEEDS OR DISTRESS NOTED
[2019-07-09 09:14] LABS: BASOPHILS ABSOLUTE AUTO 0.02 K/mm3 (0.00-0.23); BASOPHILS PERCENT AUTO 1 % (0-2); EOSINOPHILS ABSOLUTE AUTO 0.14 K/mm3 (0.00-0.68); EOSINOPHILS PERCENT AUTO 4 % (0-6); Hematocrit 38.9 % (33.0-51.0); Hemoglobin 12.8 g/dL (11.5-16.0); IMMATURE GRAN ABSOLUTE AUTO 0.02 K/mm3 (0.00-0.10); IMMATURE GRAN PERCENT AUTO 1 % (0-1); LYMPHOCYTES ABSOLUTE AUTO 1.67 K/mm3 (0.84-5.20); LYMPHOCYTES PERCENT AUTO 42 % (21-46); MONOCYTES ABSOLUTE AUTO 0.25 K/mm3 (0.16-1.47); MONOCYTES PERCENT AUTO 6 % (4-13); Mean Corpuscular HGB 32.2 pg (26.0-34.0); Mean Corpuscular HGB Conc 32.9 g/dL (31.5-36.5); NEUTROPHILS ABSOLUTE AUTO 1.86 K/mm3 (1.96-9.15); NEUTROPHILS PERCENT AUTO 47 % (41-73); RDW Coefficient Variation 13.5 % (11.7-14.2); Red Blood Cell Count 3.98 M/mm3 (3.80-5.20); White Blood Cell Count 3.96 K/mm3 (4.00-11.30)
[2019-07-09 09:21] LABS: Mean Corpuscular Volume 98 fL (80-100); Mean Platelet Volume 11.8 fL (9.1-12.4); Platelet Count 210 K/mm3 (150-400)
[2019-07-09 09:23] LABS: Alanine Aminotransfer (ALT/SGP 21 U/L (12-78); Albumin, Blood 2.8 g/dL (3.4-5.0); Albumin/Globulin Ratio 0.8 (0.8-1.8); Alk Phos 49 U/L (50-136); Anion Gap 5 mmol/L (6-16); Aspartate Aminotrans (AST/SGOT 16 U/L (12-37); Bilirubin, Total 0.2 mg/dL (0.1-1.0); Blood Urea Nitrogen 19 mg/dL (8-24); Bun/Creatinine Ratio 65.5 (12.0-20.0); CO2, Blood 28 mmol/L (21-32); Calcium, Blood 8.3 mg/dL (8.5-10.1); Chloride, Blood 109 mmol/L (98-108); Creatinine, Blood 0.29 mg/dL (0.40-1.00); Globulin, Blood 3.4 g/dL (2.2-4.0); Glomerular Filtration Rate >60 (60-); Glucose, Blood 128 mg/dL (70-99); Magnesium, Blood 2.6 mg/dL (1.6-2.4); Phosphorus, Blood 2.9 mg/dL (2.5-4.9); Potassium, Blood 4.3 mmol/L (3.5-5.5); Sodium, Blood 142 mmol/L (136-145); Total Protein, Blood 6.2 g/dL (6.4-8.2)
--- NOTE | 2019-07-09 10:28 | NUR ---
CALL TO [facility] TO VERIFY HOME FEEDING RATE. DR FRANCISCO PUGA.
[2019-07-09] MEDS ORDERED: Milk Of Ma400 MG/5 M PT (11:13)
--- NOTE | 2019-07-09 15:25 | NUR ---
PT'S CAREGIVERS AT BEDSIDE GETTING PT DRESSED. RN OUT OF ROOM SPEAKING WITH REGARDING MED QUESTIONS FROM CAREGIVERS. CAREGIVER CAME OUT OF ROOM STATING THAT PEG TUBE CAME OUT. CALL TO DR SINGH. DR MACHADO CAME TO ROOM AND INSERTED NEW TUBE WITH 6CC STERILE SALINE FOR BALLOON INFLATION. CAREGIVERS TRANSFERRED PT TO WHEELCHAIR. IV'S DC'D WNL. DENIED FURTHER QUESTIONS OR CONCERNS. DISCHARGE INFORMATION GIVEN TO CAREGIVERS. PT WHEELED OUT VIA WHEELCHAIR.
== END 2019-07-09 14:15 | disposition home or self-care (01) | DRG 388 ==
LOC: ER 18:11 → MEDS 20:57 → ENPENDDIS 07-09 10:00 → MEDS 07-09 14:15
PROVIDERS: Emergency Medicine; Family Medicine; Hospitalist; ADMIT Internal Medicine
DX: K56.609 Unspecified intestinal obstruction, unspecified as to partial versus complete obstruction (principal); G82.50 Quadriplegia, unspecified; E87.0 Hyperosmolality and hypernatremia; K56.0 Paralytic ileus; G80.9 Cerebral palsy, unspecified; G40.909 Epilepsy, unspecified, not intractable, without status epilepticus; E86.0 Dehydration; E83.39 Other disorders of phosphorus metabolism; E87.6 Hypokalemia; Z88.8 Allergy status to other drugs, medicaments and biological substances; Z79.899 Other long term (current) drug therapy; Z93.1 Gastrostomy status
CPT/HCPCS: 36415; 71045; 74018; 74022; 74177; 80053; 83605; 83690; 83735; 84100; 84132; 85025; 87493; 92523; 96374; 99285-25; C9254; J0780; J1170; J1650; J2405; J2543; J2550; J2560; J3480; J7030; J7050; J7060; Q9967

== ENCOUNTER 2019-07-09 23:34 | Emergency (ER) | payer OTHER ==
[~2019-07-09] VITALS: Ht 139.7 cm; Wt 39.9 kg
[~2019-07-09 23:34] MED LIST changes: +A AND D OINTM42.5 GM TOP; +FISH OIL 1,001000 MG PT; +Milk Of Ma400 MG/5 M PT; +POTA20LUD; +POTA20LUD PO; +Phenergan6.25 MG/5 PT
== END 2019-07-10 04:00 | disposition home or self-care (01) ==
LOC: ER 23:34
DX: R19.7 Diarrhea, unspecified (principal); G40.909 Epilepsy, unspecified, not intractable, without status epilepticus; Z79.899 Other long term (current) drug therapy
CPT/HCPCS: 99284

== ENCOUNTER 2019-08-22 20:52 | Inpatient (IN) | payer OTHER ==
[~2019-08-22] VITALS: Ht 149.9 cm; Wt 45.7 kg
[2019-08-22 22:06] LABS: BASOPHILS ABSOLUTE AUTO 0.03 K/mm3 (0.00-0.23); BASOPHILS PERCENT AUTO 0 % (0-2); EOSINOPHILS ABSOLUTE AUTO 0.05 K/mm3 (0.00-0.68); EOSINOPHILS PERCENT AUTO 1 % (0-6); Hematocrit 50.8 % (33.0-51.0); Hemoglobin 16.6 g/dL (11.5-16.0); IMMATURE GRAN ABSOLUTE AUTO 0.02 K/mm3 (0.00-0.10); IMMATURE GRAN PERCENT AUTO 0 % (0-1); LYMPHOCYTES ABSOLUTE AUTO 2.13 K/mm3 (0.84-5.20); LYMPHOCYTES PERCENT AUTO 27 % (21-46); MONOCYTES ABSOLUTE AUTO 0.42 K/mm3 (0.16-1.47); MONOCYTES PERCENT AUTO 5 % (4-13); Mean Corpuscular HGB 32.9 pg (26.0-34.0); Mean Corpuscular HGB Conc 32.7 g/dL (31.5-36.5); Mean Corpuscular Volume 101 fL (80-100); NEUTROPHILS ABSOLUTE AUTO 5.16 K/mm3 (1.96-9.15); NEUTROPHILS PERCENT AUTO 66 % (41-73); Platelet Count 300 K/mm3 (150-400); RDW Coefficient Variation 13.5 % (11.7-14.2); RDW Standard Deviation 50.4 fL (35.1-46.3); Red Blood Cell Count 5.05 M/mm3 (3.80-5.20); White Blood Cell Count 7.81 K/mm3 (4.00-11.30)
[2019-08-22 22:25] LABS: Alanine Aminotransfer (ALT/SGP 25 U/L (12-78); Albumin, Blood 4.4 g/dL (3.4-5.0); Albumin/Globulin Ratio 0.9 (0.8-1.8); Alk Phos 102 U/L (50-136); Anion Gap 10 mmol/L (6-16); Aspartate Aminotrans (AST/SGOT 17 U/L (12-37); Bilirubin, Total 0.5 mg/dL (0.1-1.0); Blood Urea Nitrogen 11 mg/dL (8-24); Bun/Creatinine Ratio 36.1 (12.0-20.0); CO2, Blood 22 mmol/L (21-32); Calcium, Blood 10.1 mg/dL (8.5-10.1); Chloride, Blood 105 mmol/L (98-108); Creatinine, Blood 0.31 mg/dL (0.40-1.00); Globulin, Blood 4.8 g/dL (2.2-4.0); Glomerular Filtration Rate >60 (60-); Glucose, Blood 183 mg/dL (70-99); Magnesium, Blood 2.3 mg/dL (1.6-2.4); Potassium, Blood 3.3 mmol/L (3.5-5.5); Sodium, Blood 137 mmol/L (136-145); Total Protein, Blood 9.2 g/dL (6.4-8.2)
--- NOTE | 2019-08-23 16:22 | NUR ---
PT ARRIVED TO ROOM 256 FROM ED. SETTLED IN TO BED AND HAD A MEDIUM SOFT BM. AFTER BEING TURNED BACK AND FORTH PT VOMITTED SMALL AMOUNTS OF FROTHY CLEAR FLUID. PEG TUBE OPEN TO GRAVITY INTO EMESIS BAG. FELL ASLEEP AFTER BEING POSITONED AND CHANGED.
--- NOTE | 2019-08-23 18:22 | NUR ---
SHIFT SUMMARY PT HAS HAD PERIODS OF NAUSEA AND APPEARS PAINFUL AT TIMES. SPOKE WITH MD ON PHONE. PEG TUBE HOOKED UP TO LIS WITH SMALL AMOUNT OF GREEN DRAINAGE. CAREGIVERS IN AND OUT OF ROOM. TURNED FREQUENTLY. SMILING A LITTLE MORE THIS EVENING THAN WHEN SHE FIRST ARRIVED.
--- NOTE | 2019-08-23 22:05 | NUR ---
IV INFILTRATED TO L.HAND. HAND APPEARS SWOLLEN W/TIGHT SKIN BUT APPEARS NEWLY INFILTRATED. REYES FAN, TRAILER TECHNICIAN, ATTEMPTING NEW IV W/US. WILL RESTART IVF AND VIMPAT WHEN ACCESS AVAILABLE.
--- NOTE | 2019-08-24 00:16 | NUR ---
NEW 22G IV PLACED BY REYES FAN W/US ASSIST HAS NOW INFILTRATED AFTER ONLY 2 HOURS. VIMPAT IV WAS RECIEVED AND CONT IVF HAD RESTARTED BUT UNABLE TO COMMENCE PHENOBARBITAL AT THIS TIME. WILL GIVE MED WHEN IV ACCESS OBTAINED. FACILITIES ENGINEER AWARE AND HAS ALERTED ICU/ER OF NEED FOR IV ASSISTANCE. PT PEG TUBE CONT'S TO LIS W/MODERATE AMT OF GREEN/BROWN OUTPUT. PT HAS HAD A FEW LIQ AND SOFT BM'S THIS SHIFT W/ATTENDS CHANGED PRN. ABDO REMAINS DISTENDED AND TENDER. PT DENIES NEED FOR PRN ZOFRAN/PAIN MEDS AT THIS TIME.
--- NOTE | 2019-08-24 04:35 | NUR ---
MD NOTIFIED OF NO IV ACCESS AND INABILITY TO GIVE ANY MEDS W/NEW ORDERS: BREAKDOWN MILL OPERATOR CAME TO PLACE POWERGLIDE BUT WAS UNSUCCESSFULL AT 0345. PT BECAME VERY TEARFUL, INCONSOLABLE AND ANXIOUS DURING PROCESS AND NODDED YES TO C/O ABDO, BUTTOCKS AND L.ARM PAIN FROM FAILED POWERGLIDE ATTEMPT. SHE ALSO REPORTED NAUSEA. ONLY PRN MEDS AVAILABLE ARE IV ROUTE. REPOSITIONING ATTENDED TO BUT PT REMAINS TEARFUL. PEG TUBE REMAINS AT LIS FOR SBO AND MED DELIVERY VIA PEG TUBE HAS NOT BEEN ORDERED RESULT. SHE REMAINS NPO W/ORAL SUCTIONING PRN FOR ASPIRATION RISK. IV PHENOBARBITAL WAS DUE AT CT AND IVF HAVE BEEN UNABLE TO BE RECIEVED SINCE 2ND IV INFILTRATED JUST PRIOR TO 0000. ALERTED TO SITUATION RE: PEG TUBE TO LIS, NO IV ACCESS, INABILITY TO GIVE ANY MEDS AND UNCONTROLLED PAIN/NAUSEA. NEW ORDERS RECIEVED TO ADMINISTER PHENOBARBITAL 40MG PT X1, ZOFRAN 4MG PT X1 AND FENTANYL 25MCG IM X1 PRN. THEN CLAMP PEG TUBE FOR 45 MINS FOLLOWED BY PLACING PEG TUBE TO GRAVITY AND HAVE DAY MD REASSESS/RE-EVALUATE GI OUTPUT AND POSSIBLE NEED TO RESUME PEG TO LIS. MEDS RECIEVED RX'D AT APPROX 0430 AND PEG TUBE CLAMPED INSTRUCTED. PLAN TO PLACE TO GRAVITY AT 0515 OR LATER. WILL MONITOR FOR CHANGES/WORSENING.
--- NOTE | 2019-08-24 05:48 | NUR ---
SUMMARY: PT HAS CEREBRAL PALSY, IS MOSTLY NONVERBAL EXCEPT NOISES BUT CONVEYS NEEDS VIA YES/NO NODDING. SHE MOANS FOR ASSISTANCE AND IS TYPICALLY IN NEED OF ATTENDS CHANGES OR REPOSITIONING AT THESE TIMES. 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 PT HAD MULTIPLE LOOSE/UNFORMED BM'S AND REMAINS NPO FOR SBO. PEG TUBE WAS CONNECTED TO LIS FOR MAJORITY OF NOCTE PER ORDERS. APPROX 300 MLS OF GREEN/BROWN LIQ OUTPUT WAS OBSERVED UP UNTIL APPROX 0420 WHEN PEG TUBE HAD TO BE CLAMPED FOR PEG TUBE MED ADMINISTRATION. THIS OCCURED RESULT OF X2 IV'S INFILTRATING THIS SHIFT AND [employer] EYE MAKER'S INABILITY TO SUCCESFULLY PLACE A POWERGLIDE. IV MEDS WERE LATE AND UNABLE TO BE RECIEVED ALLTOGETHER THEN PT DEVELOPED UNCONTROLLED NAUSEA AND PAIN. MADE AWARE OF SITUATION AND HE RX'D PHENOBARBITAL VIA PT X1, ZOFRAN VIA PT X1 AND FENTANYL IM X1. HE INSTRUCTED TO CLAMP PEG TUBE FOR 45 MINS AFTER MEDS RECIEVED THEN PLACE TUBE TO GRAVITY UNTIL PICC PLACEMENT IS POSSIBLE THIS AM AND IV MEDS CAN BE RESUMED PER EMAR. THIS WAS COMPLETED AND PEG OUTPUT HAS SINCE SLOWED. PAIN/NAUSEA HAS IMPROVED AT THIS TIME BUT ABDO REMAINS DISTENDED AND FIRM. IVF ON HOLD UNTIL ACCESS OBTAINED AND AM LAB DRAW WAS UNSUCCESSFUL WELL D/T POOR VEINS. ORAL SUCTIONING ATTENDED TO PRN FOR ASPIRATION RISK. PT IS TACHYCARDIC (117-130'S) BUT MD'S HAVE BEEN PREVIOUSLY MADE AWARE PER H&P. ALL OTHER VSS/AFEBRILE. SHE APPEARS IN NO RESP DISTRESS AND HAS BEEN W/O S/S ASPIRATION. [facility] STAFF VISITED T/O NOCTE. CRESENCIO AND REPORT TO DAY RN.
--- NOTE | 2019-08-24 07:39 | NUR ---
PER HOLD IV MEDS. HE WILL REEVALUATE THIS A.M. ADVISED RUNNY STOOL ALL NIGHT LIKE WHEN PERSON GETTING FEEDINGS THRU TUBE. NOT WATERY. HAD ONE TIME PAIN MEDS IM.
--- NOTE | 2019-08-24 11:02 | NUR ---
LEFT MESSAGE ON CELL PHONE TO SWITCH IV MEDS TO PER TUBE. SOME C/O NAUSEA. AWAITING ORDERS.
--- NOTE | 2019-08-24 14:23 | NUR ---
FLUID AT 10 ML HOUR X 2 HOURS VIA PEG TUBE WITH PATIENT TOLERATING. ISOSOURSE 1.5 PAULINO STARTED AT 15 ML HOUR PER ORDERS
--- NOTE | 2019-08-24 17:36 | NUR ---
ALERT TO SELF AND SEEMS TO BE ALERT TO STAFF FROM HER LIVING FACILITY. FACILITY IS SUPPOSE TO FAX [place]. TALKED TO SISTER WHO LIVES OUT OF STATE AND SHE IS OK WITH MEDIPORT BEING PLACED. WILL CALL HER TOMORROW TO CONFIRM. RESPIRATIONS UNLABORED. BOWEL SOUNDS HYPERACTIVE RUQ AND RLQ, HYPOACTIVE LUQ AND LLQ. ABD SOFT AND DOES NOT APPEAR TENDER. HEART RATE IN 1 TEENS WHICH APPEARS NORMAL FOR HER. 3 SOFT B.M'S AND FACILITIES STAFF WERE IN ROOM FOR ONE OF THEM AND THEY STATE THAT IT LOOKS NORMAL FOR HER. MOANS WHEN SHE NEEDS TO BE CHANGED OR WHEN SHE WANTS TO BE TURNED. TOLERATED WATER VIA PEG TUBE AND HAS BEEN TOLERATING FOOD AT 15 ML PER HOUR. BED IN LOW POSITION. WCTM.
--- NOTE | 2019-08-24 22:17 | NUR ---
ANTONIO CHRISTENSEN SPOKE WITH ELSIE AT 2150 TO SEE IF LACTOSOMIDE COULD BE CRUSHED. HE SAID IT COULD BE CRUSHED.
--- NOTE | 2019-08-25 06:23 | NUR ---
SHIFT SUMMARY ADMITTED FOR SMALL BOWEL OBSTRUCTION AND PT HAS CEREBRAL PALSY. SHE HAS NO IV ACCESS BUT HAS AN ORDER IN FOR A PICC LINE TO BE PLACED. SHE HAS A PEG TUBE THAT HAS 0-10ML OF RESIDUAL AND HAS CONTINOUS TUBE FEEDING GOING. SHE IS STRICT NPO. MOUTH CARE WAS ATTEMPTED LAST NIGHT BY STAFF, BUT PT DID NOT TOLERATE WELL AND SHOOK HER HEAD AND CLOSED HER MOUTH. SHE IS REPOSITIONED FREQUENTLY AND INCONTINENT OF URINE. WILL CONTINUE TO MONITOR.
--- NOTE | 2019-08-25 18:55 | NUR ---
ALERT TO SELF. COMMUNICATED THRU MOANING AND NODDING. FEEDING AND WATER THRU PEG TUBE TO BE STOPPED AT MIDNITE FOR SURGERY TOMORROW. STOMACH NONTENDER. WHEN RN PUSHES ON PATIENT ABD AND ASKS IF IT HURTS, PATIENT SHAKES NO. NO BOWEL MOVEMENT TODAY, BUT HAS HAD FEW WET BRIEFS. REPORT TO NIGHT RN
--- NOTE | 2019-08-26 03:40 | NUR ---
SHIFT SUMMARY PT GOING INTO SURGERY TOMORROW PER REPORT PEG TUBE FEEDING STOPPED AT 0000. PT RECEIVED 30ML WATER BEFORE AND AFTER MEDICATIONS. SHE IS CHANGED AND REPOSITIONED NEEDED. WILL CONTINUE TO MONITOR.
--- NOTE | 2019-08-26 07:11 | NUR ---
taken to surgery at about 630 am per table games shift manager
--- NOTE | 2019-08-26 07:24 | NUR ---
History, Chart, Medications and Allergies reviewed before start of procedure. Lungs clear T/O to Auscultation. Patient confirms NPO status and agrees with scheduled surgery. I HAVE SPOKEN WITH PT SISTER DELMI PLATT WHO CONFIRMS THAT THE PLAN IS FOR SURGERY FOR MEDIPORT PLACEMENT. PT ALSO AGREES BY KNODDING HER HEAD. PER DR MCKEON NO IV PRIOR TO GOING BACK TO OR IS OKAY.
--- NOTE | 2019-08-26 08:15 | NUR ---
08/26/19 0815 Autumn Parra NO PAS STOCKINGS DUE TO PATIENT'S CALF BEING SUPER SMALL WITH CONTRACTURES. MD CARDONA WITH NO PAS.
[2019-08-26 10:28] LABS: Hematocrit 35.4 % (33.0-51.0); Hemoglobin 11.4 g/dL (11.5-16.0); Mean Corpuscular HGB 33.7 pg (26.0-34.0); Mean Corpuscular HGB Conc 32.2 g/dL (31.5-36.5); Mean Platelet Volume 12.9 fL (9.1-12.4); Platelet Count 146 K/mm3 (150-400); RDW Coefficient Variation 13.8 % (11.7-14.2); RDW Standard Deviation 53.8 fL (35.1-46.3); Red Blood Cell Count 3.38 M/mm3 (3.80-5.20); White Blood Cell Count 4.03 K/mm3 (4.00-11.30)
[2019-08-26 10:32] LABS: Mean Corpuscular Volume 105 fL (80-100)
[2019-08-26 10:34] LABS: Anion Gap 5 mmol/L (6-16); Blood Urea Nitrogen 9 mg/dL (8-24); Bun/Creatinine Ratio 33.2 (12.0-20.0); CO2, Blood 27 mmol/L (21-32); Calcium, Blood 7.9 mg/dL (8.5-10.1); Chloride, Blood 114 mmol/L (98-108); Creatinine, Blood 0.27 mg/dL (0.40-1.00); Glomerular Filtration Rate >60 (60-); Glucose, Blood 94 mg/dL (70-99); Potassium, Blood 3.3 mmol/L (3.5-5.5); Sodium, Blood 146 mmol/L (136-145)
[2019-08-26 11:07] LABS: BASOPHILS PERCENT MAN 0 % (0-2); EOSINOPHILS ABSOLUTE MAN 0.04 K/mm3 (0.00-0.68); EOSINOPHILS PERCENT MAN 1 % (0-6); LYMPHOCYTES PERCENT MAN 30 % (21-46); MONOCYTES ABSOLUTE MAN 0.36 K/mm3 (0.16-1.47); MONOCYTES PERCENT MAN 9 % (4-13); NEUTROPHILS ABSOLUTE MAN 2.41 K/mm3 (1.96-9.15); SEG NEUTROPHILS PERCENT MAN 60 % (41-73); TOTAL CELLS COUNTED 100
--- NOTE | 2019-08-26 13:31 | NUR ---
NOTIFIED LABS BACK. TALKED TO HAY RODRIGUEZ AND WILL LET HER KNOW IF WE NEED TO CHANGE FEEDING FLUID AMOUNT ETC.
--- NOTE | 2019-08-26 13:46 | NUR ---
LEFT MESSAGE ON CELL PHONE TO SEE IF HE CAN ORDER LIQUID IBU AND LIQUID TYLENOL THRU PEG TUBE. PATIENT HAVING SOME ABD PAIN AND IS ON HER PERIOD AND SOME PAIN WHERE MEDIPORT IS. AWAITING ORDERS.
--- NOTE | 2019-08-26 18:23 | NUR ---
ALERT TO SELF AND CAREGIVERS. WILL; NOD, POINT FINGER, MOAN OR MAKE OTHER NOISES TO COMMUNICATE. DOES NOT REALLY FORM WORDS. KNOWS WHEN SHE NEEDS BRIEFS CHANGED AND IF ASKED SIMPLE YES OR NO QUESTIONS WILL RESPOND. JERI PLACED THIS A.M. IV INFUSING WITHOUT DIFFICULTY. PT ON HER PERIOD, SO BRIGHT RED BLOOD IN BRIEFS WHEN CHANGED. FLOW IS LOW. NO BOWEL MOVEMENTS TODAY. PER TO LEAVE FEEDING INFUSION AT 15 ML PER HOUR. WATER HYDRATION D'C TILL DIETITION COMES IN TOMORROW TO DECIDE RATE IS GETTING FLUID THRU MAINTENANCE IV. WHEN CHECKING FOR RESIDUAL ONLY 1-2 ML IN SYRINGE.HOB ELEVATED FOR FEEDING. STILL HAS IV IN RT FOOT FROM O.R. BED IN LOW POSITION. TOUCH CALL LIGHT BY PATIENTS CHEEK. WCNADER.
--- NOTE | 2019-08-27 04:14 | NUR ---
Shift summary. Pt crying and moaning alot during shift. Pt has no other way of communicating with staff. Pt cleaned up x three time. pt is also menstrating. Her caregiver came in around midnight and repositioned her on her right side and she has been sleeping ever since. One dose of fentanyl given during the night. No emesis during the night. Tolerating tube feeding well. Pt has minimal residual
[2019-08-27 05:43] LABS: Hematocrit 34.5 % (33.0-51.0); Hemoglobin 11.2 g/dL (11.5-16.0); Mean Corpuscular HGB 33.4 pg (26.0-34.0); Mean Corpuscular HGB Conc 32.5 g/dL (31.5-36.5); Mean Corpuscular Volume 103 fL (80-100); Mean Platelet Volume 12.8 fL (9.1-12.4); Platelet Count 144 K/mm3 (150-400); RDW Coefficient Variation 13.4 % (11.7-14.2); RDW Standard Deviation 51.5 fL (35.1-46.3); Red Blood Cell Count 3.35 M/mm3 (3.80-5.20); White Blood Cell Count 2.72 K/mm3 (4.00-11.30)
[2019-08-27 06:02] LABS: Anion Gap 3 mmol/L (6-16); Blood Urea Nitrogen 5 mg/dL (8-24); Bun/Creatinine Ratio 19.6 (12.0-20.0); CO2, Blood 27 mmol/L (21-32); Calcium, Blood 8.1 mg/dL (8.5-10.1); Chloride, Blood 111 mmol/L (98-108); Creatinine, Blood 0.26 mg/dL (0.40-1.00); Glomerular Filtration Rate >60 (60-); Glucose, Blood 134 mg/dL (70-99); Potassium, Blood 3.1 mmol/L (3.5-5.5); Sodium, Blood 141 mmol/L (136-145)
--- NOTE | 2019-08-27 08:05 | NUR ---
PT FEED TUBING CHANGED FEED TUBING CHANGED THIS AM. FEEDING SET TO 15ML/HR WITH 125ML WATER FLUSHES Q2H. WILL CONTINUE TO MONITOR.
--- NOTE | 2019-08-27 17:46 | NUR ---
SHIFT SUMMARY NO BM THIS SHIFT. PT DENIES ABD PAIN. PT STATED SOME NAUSEA THIS AM. DENIES IT NOW. ONE DOSE OF PAIN MEDS GIVEN. SEE EMAR. FOR BACK PAIN. NO OTHER CHANGES IN ASSESSMENT AT THIS TIME. VSS. WILL CONTNUE TO MONITOR UNTIL TURNOVER IS COMPLETE.
--- NOTE | 2019-08-28 04:11 | NUR ---
SHIFT SUMMARY: 44 Y/O FEMALE RESTED COMFORTABLY ALL SHIFT, DENIES NAUSEA, NO BM THIS SHIFT, CURRENT MENSES, NO SEIZURE ACTIVITY, PT NON-VERBAL AND MAKES NEEDS KNOWN BY POINTING AND MAKING GRUNTING NOISES, TOLERATING G-TUBE FEEDINGS (NO RESIDUALS NOTED), NPO, CHANGED AND REPOSITIONED EVERY 2 HOURS, BED LOW POSITION WITH CALL LIGHT AT SIDE.
[2019-08-28 05:56] LABS: Anion Gap 5 mmol/L (6-16); Blood Urea Nitrogen 5 mg/dL (8-24); Bun/Creatinine Ratio 18.8 (12.0-20.0); CO2, Blood 28 mmol/L (21-32); Calcium, Blood 8.2 mg/dL (8.5-10.1); Chloride, Blood 110 mmol/L (98-108); Creatinine, Blood 0.27 mg/dL (0.40-1.00); Glomerular Filtration Rate >60 (60-); Glucose, Blood 112 mg/dL (70-99); Potassium, Blood 3.8 mmol/L (3.5-5.5); Sodium, Blood 143 mmol/L (136-145)
--- NOTE | 2019-08-28 10:38 | NUR ---
ISOSOURCE 1.5 PAULINO HUNG AT 0943 ON 08/28/19 AT A RATE OF 22ML/ HOUR PER ORDER. OML RESIDUAL PRIOR TO ANSWERER AND CONTINUING FEEDING
--- NOTE | 2019-08-28 17:40 | NUR ---
SHIFT SUMMARY PT AXO TO SELF, ANSWERS YES/NO QUESTIONS APPROPRIATELY. NO BM THIS SHIFT. MEDIPORT PATENT AND INFUSING PER EMAR. PT PAIN RELIEVED WITH REPOSITIONING. PT REPOSITIONED AND BRIEF CHECKED FREQUENTLY AND ATLEAST Q2. ISOSOURCE INFUSING PER ORDERS AT 22ML/ HR. PT TOLERATING WELL. BED IN LOW POSITION, CALL LIGHT WITHIN REACH, BED ALARM ON.
--- NOTE | 2019-08-29 04:16 | NUR ---
SHIFT SUMMARY: 44 Y/O FEMALE RESTED COMFORTABLY ALL SHIFT, TOLERATING TUBE FEEDINGS VIA PEG TUBE (NO RESIDUALS NOTED), GROANS OUT LOUD AND POINTS AT OBJECTS TO MAKE NEEDS KNOWN, PT IS NON VERBAL, TURNED EVERY 2 HOURS BY STAFF AND REPOSITIONED, BED LOW POSITION, CALL LIGHT AT SIDE.
[2019-08-29 08:19] LABS: Anion Gap 4 mmol/L (6-16); Blood Urea Nitrogen 5 mg/dL (8-24); CO2, Blood 30 mmol/L (21-32); Calcium, Blood 8.4 mg/dL (8.5-10.1); Chloride, Blood 105 mmol/L (98-108); Creatinine, Blood 0.24 mg/dL (0.40-1.00); Glomerular Filtration Rate >60 (60-); Glucose, Blood 97 mg/dL (70-99); Potassium, Blood 3.8 mmol/L (3.5-5.5); Sodium, Blood 139 mmol/L (136-145)
--- NOTE | 2019-08-29 17:30 | NUR ---
SHIFT SUMMARY PT DID REQUIRE PAIN CONTROL ONE TIME DURING MY SHIFT. Q 2 TURNS. TUBE FEEDINGS TOLERATED WELL, <10 ML RESIDUAL. LR IV FLUID DC'D TODAY. BEDBATH TODAY. LIP MOISTURIZER APPLIED.
--- NOTE | 2019-08-30 04:27 | NUR ---
SHIFT SUMMARY: 44 Y/O FEMALE RESTED COMFORTABLY ALL SHIFT, ABLE TO MAKE NEEDS KNOWN BY MOANING LOUDLY OR POINTING, TURNED Q2H, NO BM NOTED, TOLERATING PEG TUBE FEEDINGS WITH NO RESIDUALS NOTED, BED LOW POSITION, CALL LIGHT AT SIDE.
[2019-08-30 06:18] LABS: Anion Gap 4 mmol/L (6-16); Blood Urea Nitrogen 7 mg/dL (8-24); Bun/Creatinine Ratio 26.3 (12.0-20.0); CO2, Blood 29 mmol/L (21-32); Calcium, Blood 8.6 mg/dL (8.5-10.1); Chloride, Blood 106 mmol/L (98-108); Creatinine, Blood 0.27 mg/dL (0.40-1.00); Glomerular Filtration Rate >60 (60-); Glucose, Blood 112 mg/dL (70-99); Potassium, Blood 3.9 mmol/L (3.5-5.5); Sodium, Blood 139 mmol/L (136-145)
--- NOTE | 2019-08-30 16:24 | NUR ---
CALLED HOSPITALIST DUE TO HYPOTENSION AND ELEVATED HR. 500 ML FLUID BOLUS ORDERED. WILL RECHECK BP UPON COMPLETION. NO S/SX NOTED OR EXPRESSED.
--- NOTE | 2019-08-30 16:32 | NUR ---
SHIFT SUMMARY SUPPOSITORY ORDERED TODAY. PT DID HAVE A MODERATE BM FOLLOWING SUPPOSITORY ADMINISTRATION. PT EXPERIENCING SOME HYPOTENSION, FLUID BOLLUS BEING ADMINISTERED CURRENTLY - WILL CONTINUE TO MONITOR. PT ABLE TO INDICATE WHEN SHE NEEDS HER BRIEF CHANGED. PT ABLE TO ANSWER YES AND NO QUESTIONS.
--- NOTE | 2019-08-30 17:24 | NUR ---
FLUSH ORDERS CHANGED TODAY EMERGENCY SERVICES DISPATCHER INFORMED ME THAT FLUSH ORDERS ARE CHANGED TO 100 ML FLUSH Q2HRS. PUMP HAS BEEN ADJUSTED ACCORDINGLY
--- NOTE | 2019-08-31 04:25 | NUR ---
SHIFT SUMMARY: 44 Y/O FEMALE RESTED COMFORTBLY ALL SHIFT, REPOSITIONED EVERY 2 HOURS BY STAFF, PT NON VERBAL AND MAKES NEEDS KNOWN BY GRUNTING NOISES OR POINTING, DENIES PAIN OR NAUSEA, TOLERATING PEG TUBE FEEDING, NO BM NOTED, BED ALARM APPLIED, BED LOW POSITION WITH CALL LIGHT AT SIDE.
[2019-08-31] MEDS ORDERED: Potassium20 MEQ/11 PT (15:16)
--- NOTE | 2019-08-31 17:15 | NUR ---
DISCHARGE PT DISCHARGED TO [facility], WHERE PT LIVES. NO NEW ORDERS OR MEDICATIONS. THIS RN FAXED MEDICATION LIST AND DISCHARGE ORDERS TO [facility]. MEDIPORT DEACCESSED WITH HEPARIN PER PROTOCOL. PT TRANSFERRED TO PRIVATE WHEELCHAIR BY CAREGIVER. PT TRANSFERRED TO PRIVATE VAN VIA CAREGIVER. BELONGINGS WITH PT AND TAKEN TO VEHICLE BY ARC CUTTER.
[2019-09-01] MEDS ORDERED: DOXYCYCLINE HY100 MG PT (13:04)
[2019-09-01] MEDS ORDERED: LINZESS72 MCG PT (18:03)
[2019-09-01] MEDS ORDERED: ERYT1OIN BOTHEYES (18:15)
[2019-09-01] MEDS ORDERED: Calcium Citrat250 MG PT (18:16)
[2019-09-01] MEDS ORDERED: ACIDOPHILUS PR0.5 MG PT (18:17)
[2019-09-01] MEDS ORDERED: Phos-Nak Packe1 EACH PT (18:19)
== END 2019-08-31 16:15 | disposition home or self-care (01) | DRG 388 ==
LOC: ER 20:52 → MEDS 08-23 00:21 → ERHOLD 08-23 00:21 → MEDS 08-23 11:41
PROVIDERS: Emergency Medicine; Family Medicine; Surgery; ADMIT Internal Medicine
PROC: B513YZA Fluoroscopy of Right Jugular Veins using Other Contrast, Guidance (ICD-10-PCS; 2019-08-26)
PROC: 05HM33Z Insertion of Infusion Device into Right Internal Jugular Vein, Percutaneous Approach (ICD-10-PCS; principal; 2019-08-26 07:30)
DX: K56.609 Unspecified intestinal obstruction, unspecified as to partial versus complete obstruction (principal); R53.2 Functional quadriplegia; I87.8 Other specified disorders of veins; E78.6 Lipoprotein deficiency; G80.9 Cerebral palsy, unspecified; G40.909 Epilepsy, unspecified, not intractable, without status epilepticus; K21.9 Gastro-esophageal reflux disease without esophagitis; E16.2 Hypoglycemia, unspecified; E86.9 Volume depletion, unspecified; Z88.8 Allergy status to other drugs, medicaments and biological substances; Z79.899 Other long term (current) drug therapy
CPT/HCPCS: 36415; 74176; 77001; 80048; 80053; 83735; 85007; 85025; 85027; 93005; 93010; 96374; 96375; 99285-25; A9270-GY; C1788; C9113; C9254; J0690; J0780; J1642; J1650; J2405; J2550; J2560; J3010; J3480; J7030; J7040; J7120

== ENCOUNTER 2019-09-01 12:41 | Inpatient (IN) | payer OTHER ==
[~2019-09-01] VITALS: Ht 139.7 cm; Wt 46.0 kg
[~2019-09-01 12:41] MED LIST changes: +Potassium20 MEQ/11 PT
[2019-09-01] MEDS ORDERED: DOXYCYCLINE HY100 MG PT (13:04)
[2019-09-01 15:47] LABS: BASOPHILS ABSOLUTE AUTO 0.01 K/mm3 (0.00-0.23); BASOPHILS PERCENT AUTO 0 % (0-2); EOSINOPHILS ABSOLUTE AUTO 0.06 K/mm3 (0.00-0.68); EOSINOPHILS PERCENT AUTO 2 % (0-6); Hematocrit 37.8 % (33.0-51.0); Hemoglobin 12.4 g/dL (11.5-16.0); IMMATURE GRAN PERCENT AUTO 0 % (0-1); LYMPHOCYTES ABSOLUTE AUTO 0.97 K/mm3 (0.84-5.20); LYMPHOCYTES PERCENT AUTO 38 % (21-46); MONOCYTES ABSOLUTE AUTO 0.24 K/mm3 (0.16-1.47); MONOCYTES PERCENT AUTO 9 % (4-13); Mean Corpuscular HGB 33.2 pg (26.0-34.0); Mean Corpuscular HGB Conc 32.8 g/dL (31.5-36.5); Mean Corpuscular Volume 101 fL (80-100); Mean Platelet Volume 12.8 fL (9.1-12.4); NEUTROPHILS ABSOLUTE AUTO 1.26 K/mm3 (1.96-9.15); NEUTROPHILS PERCENT AUTO 50 % (41-73); Platelet Count 217 K/mm3 (150-400); RDW Coefficient Variation 13.3 % (11.7-14.2); RDW Standard Deviation 49.7 fL (35.1-46.3); Red Blood Cell Count 3.74 M/mm3 (3.80-5.20); White Blood Cell Count 2.54 K/mm3 (4.00-11.30)
[2019-09-01 16:21] LABS: Alanine Aminotransfer (ALT/SGP 33 U/L (12-78); Albumin, Blood 3.2 g/dL (3.4-5.0); Albumin/Globulin Ratio 0.9 (0.8-1.8); Alk Phos 82 U/L (50-136); Anion Gap 7 mmol/L (6-16); Aspartate Aminotrans (AST/SGOT 26 U/L (12-37); Bilirubin, Total 0.1 mg/dL (0.1-1.0); Blood Urea Nitrogen 9 mg/dL (8-24); Bun/Creatinine Ratio 29.1 (12.0-20.0); CO2, Blood 28 mmol/L (21-32); Calcium, Blood 8.7 mg/dL (8.5-10.1); Chloride, Blood 105 mmol/L (98-108); Creatinine, Blood 0.31 mg/dL (0.40-1.00); Globulin, Blood 3.4 g/dL (2.2-4.0); Glomerular Filtration Rate >60 (60-); Glucose, Blood 101 mg/dL (70-99); Potassium, Blood 3.9 mmol/L (3.5-5.5); Sodium, Blood 140 mmol/L (136-145); Total Protein, Blood 6.6 g/dL (6.4-8.2)
[2019-09-01] MEDS ORDERED: LINZESS72 MCG PT (18:03)
[2019-09-01] MEDS ORDERED: ERYT1OIN BOTHEYES (18:15)
[2019-09-01] MEDS ORDERED: Calcium Citrat250 MG PT (18:16)
[2019-09-01] MEDS ORDERED: ACIDOPHILUS PR0.5 MG PT (18:17)
[2019-09-01] MEDS ORDERED: Phos-Nak Packe1 EACH PT (18:19)
--- NOTE | 2019-09-01 19:30 | NUR ---
transfer report from DIE SETTER Nick on PT being admitted for SBO. NPO, agressive bowel care ordered. PT has handicap from [facility]. Await admission
[2019-09-02 06:10] LABS: Anion Gap 6 mmol/L (6-16); Blood Urea Nitrogen 7 mg/dL (8-24); Bun/Creatinine Ratio 25.8 (12.0-20.0); CO2, Blood 26 mmol/L (21-32); Calcium, Blood 7.8 mg/dL (8.5-10.1); Chloride, Blood 112 mmol/L (98-108); Creatinine, Blood 0.27 mg/dL (0.40-1.00); Glomerular Filtration Rate >60 (60-); Glucose, Blood 85 mg/dL (70-99); Potassium, Blood 3.8 mmol/L (3.5-5.5); Sodium, Blood 144 mmol/L (136-145)
--- NOTE | 2019-09-02 06:46 | NUR ---
44 pa old Female who was just DC back to [facility] after SBO returns with nausea and vomiting and reoccurant SBO. Medicated with RX for bowel care with multiple bowel moments this shift almost continually. Incontinent multiple times of bowel and bladder. PT has swollen protruding labia and it is excoriated and bleeding scant amt from fecal incontinence. PT has multiple episodes where she needs suctioned due to gagging and saliva. On room air. PT nonverbal aggitated at times and loudly yells when she is wanting attention. NO words. some crude gestures. PT had implanted mediport placed at [facility] 08/31/19 for poor venous access. PT has cerebral palsey and contractures, spasciticity. Phenobarbatol not available from pharmacy at 0600, charted med not available. Skin at risk skin care given multiple times, NPO with tube feed held due to bowel obstruction. Dietary referral for tubefeeds.
--- NOTE | 2019-09-02 17:56 | NUR ---
PT BOWEL CARE MEDS HELD THIS AM FOR CONTINUOUS DIARRHEA. PT HAD RECTAL TUBE PLACED FOR EXCORIATED LABIA/RECTUM TODAY. PT STARTED TUBE FEEDING AT 35 ML/HR FOR 15 HOURS TODAY. PT NON-VERBAL WITH OCCASIONAL MOANS. PT REPOSITIONED Q2HR. SIDE RAILS UP, BED IN LOW POSITION, BED ALARM ON.
--- NOTE | 2019-09-03 05:27 | NUR ---
SHIFT SUMMARY PT HAD NO ISSUES NOTED. PT DID NOT HAVE ANY DIARRHEA PRODUCTION NOTED THIS SHIFT. PT STILL HAS RECTAL TUBE IN PLACE. PT IS RECIEVING FEEDING WITHOUT ISSUE. PT CANDICE AREA REMAINS RED AND TX PER EMAR. NO SUCTIONING WAS REQUIRED DUE TO SECRETIONS. PT REPOSITIONED NEEDED. PT RESIDUAL NOTED WAS 50 ML. PT SLEEPING AND BREATHING EASY. CALL LIGHT IN REACH.
[2019-09-03 06:54] LABS: Anion Gap 2 mmol/L (6-16); Blood Urea Nitrogen 5 mg/dL (8-24); Bun/Creatinine Ratio 19.7 (12.0-20.0); CO2, Blood 26 mmol/L (21-32); Calcium, Blood 7.3 mg/dL (8.5-10.1); Chloride, Blood 113 mmol/L (98-108); Creatinine, Blood 0.25 mg/dL (0.40-1.00); Glomerular Filtration Rate >60 (60-); Glucose, Blood 104 mg/dL (70-99); Potassium, Blood 3.8 mmol/L (3.5-5.5); Sodium, Blood 141 mmol/L (136-145)
--- NOTE | 2019-09-03 18:45 | NUR ---
Clinical Visit: Pt appears to be oriented. She answers appropriately to questions. Asked," are you in pain?" She nods her head yes. Nurse is present and asks her a series of questions related to body parts, attempting to identify pain. She is answering no by shaking her head and finally nods yes to "bottom." Pt has rectal tube in place, notes indicate that she has redness and bleeding to her bottom. She is very animated when I ask her if she likes [employer]. She has a [employer] blanket. She nods her head yes and starts laughing. She appears very joyful to be talking about the movies. Nurse has given her Tylenol today with good effect. Pt will be repositioned for comfort at this time. Nurse reports that repositioning was effective and her bottom no longer hurts. Will remain available.
--- NOTE | 2019-09-03 19:20 | NUR ---
SHIFT SUMMARY KEVEN COMPLAINED OF PAIN ONCE TODAY IN HER BACK USING YES/NO, GOT TYLENOL. Q2 TURN, INCONTINENT URINE CARE GIVEN. RECTAL TUBE (STAHL CATHETER IN PLACE OF RECTAL TUBE) DRAINING LIQUID URINE, FLUSHED AND ROTATED ONCE. CANDICE-ANAL SKIN HEALING. STOPPED TF INTO PEG AT 0900, RESTARTED AT 1830 PER ORDER, RESIDUALS THIS MORNING WERE AT 5ML. MIVF RUNNING INTO MEDIPORT. VERY PLEASANT, COOPERATIVE. CARER STOPPED BY. CALL LIGHT IN REACH, FREQUENT CHECKS
--- NOTE | 2019-09-04 05:31 | NUR ---
Shift summary Patient slept intermittently throughout the night. Tube feed running as ordered. Repositioned q2 and changed as necessary. Rectal tube with moderate amount of loose stool overnight. IVF running.
--- NOTE | 2019-09-04 10:10 | NUR ---
PT PAIN PT HAS SIGNIFICANT PAIN THIS AM. TYLENOL ALREADY GIVEN. PT IN ROOM SOBING. PT REPOSITIONED. DR. MACHADO CALLED & UPDATED. 5MG ROXINOL Q2H ORDERED PRN
--- NOTE | 2019-09-04 17:32 | NUR ---
SHIFT SUMMARY NO CHANGES IN ASSESSMENT AT THIS TIME. PT MEDICATED FOR PAIN TWICE THIS SHIFT. REPOSITIONED & ORAL CARE COMPLETED Q2H ALLOWED BY PT. PT RECTAL TUBE FLUSHED THIS AM. NOW DRAINING WELL & PATENT LIGHT BROWN LIQUID. PT IV RUNNING NS KCL AT 75ML/HR. PRN SUCTION AT BEDSIDE. VSS. WILL CONINUE TO MONITOR UNTIL TURNOVER IS COMPLETE.
--- NOTE | 2019-09-04 22:00 | NUR ---
While repositioning anayeli noticed that the rectal tube seemed like it was not draining. notified RN
--- NOTE | 2019-09-05 05:14 | NUR ---
Shift Summary: Patient slept well between cares. Maintained PEG tube and rectal tube. Repositioned q2h. Caregiver visited and brought leg abducter foam pillow.
[2019-09-05 05:55] LABS: BASOPHILS ABSOLUTE AUTO 0.01 K/mm3 (0.00-0.23); BASOPHILS PERCENT AUTO 0 % (0-2); EOSINOPHILS PERCENT AUTO 3 % (0-6); Hematocrit 35.1 % (33.0-51.0); Hemoglobin 11.4 g/dL (11.5-16.0); IMMATURE GRAN ABSOLUTE AUTO 0.01 K/mm3 (0.00-0.10); IMMATURE GRAN PERCENT AUTO 0 % (0-1); LYMPHOCYTES ABSOLUTE AUTO 1.54 K/mm3 (0.84-5.20); LYMPHOCYTES PERCENT AUTO 51 % (21-46); MONOCYTES ABSOLUTE AUTO 0.28 K/mm3 (0.16-1.47); MONOCYTES PERCENT AUTO 9 % (4-13); Mean Corpuscular HGB 32.9 pg (26.0-34.0); Mean Corpuscular HGB Conc 32.5 g/dL (31.5-36.5); Mean Corpuscular Volume 101 fL (80-100); Mean Platelet Volume 11.5 fL (9.1-12.4); NEUTROPHILS ABSOLUTE AUTO 1.06 K/mm3 (1.96-9.15); NEUTROPHILS PERCENT AUTO 36 % (41-73); Platelet Count 241 K/mm3 (150-400); RDW Coefficient Variation 13.5 % (11.7-14.2); RDW Standard Deviation 49.6 fL (35.1-46.3); Red Blood Cell Count 3.47 M/mm3 (3.80-5.20)
[2019-09-05 06:16] LABS: Magnesium, Blood 2.1 mg/dL (1.6-2.4)
[2019-09-05 06:22] LABS: Alanine Aminotransfer (ALT/SGP 23 U/L (12-78); Albumin, Blood 2.8 g/dL (3.4-5.0); Alk Phos 78 U/L (50-136); Anion Gap 4 mmol/L (6-16); Aspartate Aminotrans (AST/SGOT 16 U/L (12-37); Bilirubin, Total 0.1 mg/dL (0.1-1.0); Blood Urea Nitrogen 5 mg/dL (8-24); C-REACTIVE PROTEIN, EXT RANGE <0.290 mg/dL (0.000-0.300); CO2, Blood 26 mmol/L (21-32); Calcium, Blood 7.6 mg/dL (8.5-10.1); Chloride, Blood 111 mmol/L (98-108); Creatinine, Blood 0.25 mg/dL (0.40-1.00); Globulin, Blood 2.9 g/dL (2.2-4.0); Glomerular Filtration Rate >60 (60-); Glucose, Blood 116 mg/dL (70-99); Phosphorus, Blood 1.9 mg/dL (2.5-4.9); Potassium, Blood 4.4 mmol/L (3.5-5.5); Sodium, Blood 141 mmol/L (136-145); Total Protein, Blood 5.7 g/dL (6.4-8.2)
--- NOTE | 2019-09-05 16:54 | NUR ---
SHE HAS BEEN COMFORTABLE TODAY. SHE SMILES A LOT AND HAS LAUGHED WITH US. NO MEASURABLE BM TODAY. THERE WAS A SMALL AMT IN THE RECTAL TUBE TUBING AT THE TOP AND LATER A SMEAR ON THE ATTEND. RECTAL TUBE WAS DC'D AT 1230 PER REQUEST. PERIRECTAL SKIN WNL. PEG SITE WNL. PEG PATENT WITHOUT PROBLEMS. WILL START HER NIGHTTIME PARENTERAL NUTRITION AT 6PM. SHE RECEIVED ROXANOL WITH TYLENOL X1 THIS MORNING FOR BACK PAIN. IT SEEMED TO BE EFFECTIVE. A CAREGIVER FROM [facility] WAS HERE LATE THIS AFTERNOON TO ASK ABOUT HER AND THE PLAN. I UPDATED HIM. SHE IS STARTING PHOS REPLACEMENT THIS EVENING. VS REMAIN STABLE AND SHE REMAINS NPO.
--- NOTE | 2019-09-06 04:06 | NUR ---
SHIFT SUMMARY: PT IS ALERT, ANSWERS QUESTION YES OR NO, CAN INDICATE WHEN SHE NEEDS TO BE CHANGED, THIS IS HER BASELINE MENTATION. PT IS BEDBOUND AT BASELINE WITH CEREBRAL PALSY. PT IS NOT ABLE TO USE A CALL LIGHT, WILL MOAN OUT WHEN SHE NEEDS SOMETHING. PT IS INCONTINENT, CHANGED AND CLEANED NEEDED. TUBE FEEDING AND FLUIDS RUNNING ORDERED. PT SHOWS NO S/S FOR PAIN, NAUSEA, VOMITING, OR SOB. NO ACUTE CHANGES THIS SHIFT. WILL REPORT TO DAY NURSE.
[2019-09-06 06:03] LABS: Anion Gap 5 mmol/L (6-16); Blood Urea Nitrogen 5 mg/dL (8-24); Bun/Creatinine Ratio 19.2 (12.0-20.0); CO2, Blood 27 mmol/L (21-32); Chloride, Blood 107 mmol/L (98-108); Creatinine, Blood 0.26 mg/dL (0.40-1.00); Glomerular Filtration Rate >60 (60-); Glucose, Blood 97 mg/dL (70-99); Phosphorus, Blood 2.4 mg/dL (2.5-4.9); Potassium, Blood 4.3 mmol/L (3.5-5.5); Sodium, Blood 139 mmol/L (136-145)
--- NOTE | 2019-09-06 17:23 | NUR ---
NO ACUTE CHANGES. SMALL BM THIS SHIFT. SHE HAS SLEPT THROUGH OUT THE DAY.
--- NOTE | 2019-09-07 03:57 | NUR ---
SHIFT SUMMARY: PT IS ALERT AND ORIENTED, CEREBRAL PALSY, AT BASELINE MENATION. PT IS BEDBOUND, LIFT FOR TRANSFERS. PT MOANS WHE SHE HAS A NEED LIKE REPOSITIONING OR TO BE CHANGED. PT TOLERATING CURRENT TUBE FEED REGIMEN. PT INCONTINENT THROUGHOUT THE NIGHT, CHANGED AND CLEANED NEEDED. PT SHOWS NO S/S FOR PAIN, NAUSEA, VOMITING, OR SOB. PT SLEPT INTERMITTENTLY THROUGHOUT THE NIGHT. POSSIBLE DC TODAY. NO ACUTE CHANGES. WILL CONTINUE TO MONITOR.
[2019-09-07 06:30] LABS: BASOPHILS ABSOLUTE AUTO 0.02 K/mm3 (0.00-0.23); BASOPHILS PERCENT AUTO 0 % (0-2); EOSINOPHILS ABSOLUTE AUTO 0.01 K/mm3 (0.00-0.68); EOSINOPHILS PERCENT AUTO 0 % (0-6); Hematocrit 38.1 % (33.0-51.0); Hemoglobin 12.5 g/dL (11.5-16.0); IMMATURE GRAN ABSOLUTE AUTO 0.01 K/mm3 (0.00-0.10); IMMATURE GRAN PERCENT AUTO 0 % (0-1); LYMPHOCYTES PERCENT AUTO 9 % (21-46); MONOCYTES ABSOLUTE AUTO 0.31 K/mm3 (0.16-1.47); MONOCYTES PERCENT AUTO 6 % (4-13); Mean Corpuscular HGB 32.8 pg (26.0-34.0); Mean Corpuscular HGB Conc 32.8 g/dL (31.5-36.5); Mean Corpuscular Volume 100 fL (80-100); Mean Platelet Volume 11.3 fL (9.1-12.4); NEUTROPHILS ABSOLUTE AUTO 4.67 K/mm3 (1.96-9.15); NEUTROPHILS PERCENT AUTO 85 % (41-73); Platelet Count 240 K/mm3 (150-400); RDW Coefficient Variation 14.2 % (11.7-14.2); RDW Standard Deviation 50.8 fL (35.1-46.3); Red Blood Cell Count 3.81 M/mm3 (3.80-5.20); White Blood Cell Count 5.52 K/mm3 (4.00-11.30)
[2019-09-07 06:56] LABS: Alanine Aminotransfer (ALT/SGP 23 U/L (12-78); Albumin/Globulin Ratio 0.9 (0.8-1.8); Alk Phos 93 U/L (50-136); Anion Gap 5 mmol/L (6-16); Aspartate Aminotrans (AST/SGOT 15 U/L (12-37); Bilirubin, Total 0.2 mg/dL (0.1-1.0); Blood Urea Nitrogen 9 mg/dL (8-24); Bun/Creatinine Ratio 31.5 (12.0-20.0); CO2, Blood 28 mmol/L (21-32); Calcium, Blood 8.5 mg/dL (8.5-10.1); Chloride, Blood 105 mmol/L (98-108); Creatinine, Blood 0.29 mg/dL (0.40-1.00); Globulin, Blood 3.5 g/dL (2.2-4.0); Glomerular Filtration Rate >60 (60-); Glucose, Blood 146 mg/dL (70-99); Magnesium, Blood 1.9 mg/dL (1.6-2.4); Potassium, Blood 3.7 mmol/L (3.5-5.5); Sodium, Blood 138 mmol/L (136-145); Total Protein, Blood 6.5 g/dL (6.4-8.2)
--- NOTE | 2019-09-07 09:48 | NUR ---
AWARE OF TACHYCARDIA.
[2019-09-07] MEDS ORDERED: LISI5 PT (11:52)
--- NOTE | 2019-09-07 12:57 | NUR ---
REPORT TO JEN AT [facility]. ANSWER ALL QUESTIONS. PATIENT LAUGHING WHEN DRESSED AND WHEN MEDIPORT DEASSESSED. AWAITING RIDE.
== END 2019-09-07 13:25 | disposition home or self-care (01) | DRG 388 ==
LOC: ER 12:41 → MEDS 12:42 → ER 17:52 → MEDS 17:52
PROVIDERS: Emergency Medicine; Hospitalist; Nurse Practitioner Acute Care; Student in an Organized Health Care Education/Training Program; ADMIT Hospitalist
DX: K56.609 Unspecified intestinal obstruction, unspecified as to partial versus complete obstruction (principal); R53.2 Functional quadriplegia; G40.909 Epilepsy, unspecified, not intractable, without status epilepticus; I10 Essential (primary) hypertension; G80.9 Cerebral palsy, unspecified; R19.7 Diarrhea, unspecified; E83.39 Other disorders of phosphorus metabolism; G89.29 Other chronic pain; M54.9 Dorsalgia, unspecified; N20.0 Calculus of kidney; Z93.1 Gastrostomy status; Z88.8 Allergy status to other drugs, medicaments and biological substances; Z79.899 Other long term (current) drug therapy
CPT/HCPCS: 74176; 80048; 80053; 83735; 84100; 85025; 86140; 87493; 96360; 96361; 96372; 96374; 99285-25; G0378; J1642; J1644; J2405; J3480; J7030

== ENCOUNTER 2019-11-03 00:11 | Day surgery (SDC) | payer OTHER ==
[~2019-11-03 00:11] MED LIST changes: -A AND D OINTM42.5 GM TOP; -ACETAMINOP500 MG/15 PT; +ACIDOPHILUS PR0.5 MG PT; -ACIDOPHILUS1 EACH PT; -Aquaphor Healin50 GM TOP; -Clonazepam0.25 MG SL; -Docu Liqui50 MG/5 ML PT; -FISH OIL 1,001000 MG PT; -Fleet Enema132 ML PR; +LISI5 PT; -LORA1SY PT; -NYSTATIN1 EAC1 TOP; -VIMPAT10 MG/1 ML PT; -VITAMIN D31 ML PT
[2019-12-14] MEDS ORDERED: VIMPAT10 MG/1 ML PT (18:44)
[2019-12-14] MEDS ORDERED: NYSTATIN1 EAC1 TOP (18:45)
[2019-12-14] MEDS ORDERED: PHENO20EL PT (18:49)
[2019-12-14] MEDS ORDERED: VITAMIN D325 MCG PT (18:49)
[2019-12-14] MEDS ORDERED: ESCI20 PT (18:50)
[2019-12-14] MEDS ORDERED: Loratadine10 MG PT (18:51)
[2019-12-14] MEDS ORDERED: ACET500 PT (18:52)
[2019-12-14] MEDS ORDERED: Clonazepam0.25 MG PT (18:53)
[2019-12-14] MEDS ORDERED: Aquaphor Healin50 GM TOP (18:53)
[2019-12-14] MEDS ORDERED: Fleet Enema132 ML PR (18:54)
[2019-12-14] MEDS ORDERED: ACIDOPHILUS1 EACH PT (18:54)
[2019-12-14] MEDS ORDERED: Docu Liqui50 MG/5 ML PT (18:55)
[2019-12-14] MEDS ORDERED: BISA10S PR (18:56)
[2019-12-14] MEDS ORDERED: FISH OIL 1,001000 MG PT (18:56)
[2019-12-14] MEDS ORDERED: A AND D OINTM42.5 GM TOP (18:58)
[2019-12-14] MEDS ORDERED: CITRATE OF MAG296 ML PT (18:58)
[2019-12-14] MEDS ORDERED: LINZESS72 MCG PT (18:59)
[2019-12-14] MEDS ORDERED: ERYT1OIN BOTHEYES (19:00)
[2019-12-14] MEDS ORDERED: Phos-Nak Packe1 EACH PT (19:01)
[2019-12-14] MEDS ORDERED: IBUP800 PT (19:02)
[2019-12-14] MEDS ORDERED: Phenergan25 M1 PT (19:02)
[2019-12-14] MEDS ORDERED: Triple Antibio1 EACH TOP (19:03)
[2019-12-14] MEDS ORDERED: FAMO40 PT (19:04)
[2019-12-14] MEDS ORDERED: CARB10OTL BOTHEARS (19:05)
[2019-12-14] MEDS ORDERED: Calcium Citrat250 MG PT (19:05)
[2019-12-14] MEDS ORDERED: Doxycycline Mo100 M1 PT (19:06)
== END 2019-11-03 23:04 | disposition home or self-care (01) ==
LOC: ATC 00:11
DX: K56.609 Unspecified intestinal obstruction, unspecified as to partial versus complete obstruction (principal); G82.50 Quadriplegia, unspecified; G40.219 Localization-related (focal) (partial) symptomatic epilepsy and epileptic syndromes with complex partial seizures, intractable, without status epilepticus; Z88.1 Allergy status to other antibiotic agents; Z88.8 Allergy status to other drugs, medicaments and biological substances; Z79.899 Other long term (current) drug therapy
CPT/HCPCS: 36591; J1642

== ENCOUNTER 2019-12-07 00:09 | Day surgery (SDC) | payer OTHER ==
[2019-12-07 11:40] LABS: BASOPHILS ABSOLUTE AUTO 0.01 K/mm3 (0.00-0.23); BASOPHILS PERCENT AUTO 0 % (0-2); EOSINOPHILS ABSOLUTE AUTO 0.11 K/mm3 (0.00-0.68); EOSINOPHILS PERCENT AUTO 3 % (0-6); Hematocrit 39.6 % (33.0-51.0); IMMATURE GRAN ABSOLUTE AUTO 0.01 K/mm3 (0.00-0.10); IMMATURE GRAN PERCENT AUTO 0 % (0-1); LYMPHOCYTES ABSOLUTE AUTO 1.75 K/mm3 (0.84-5.20); LYMPHOCYTES PERCENT AUTO 48 % (21-46); MONOCYTES ABSOLUTE AUTO 0.26 K/mm3 (0.16-1.47); MONOCYTES PERCENT AUTO 7 % (4-13); Mean Corpuscular HGB 32.5 pg (26.0-34.0); Mean Corpuscular HGB Conc 32.8 g/dL (31.5-36.5); Mean Corpuscular Volume 99 fL (80-100); NEUTROPHILS ABSOLUTE AUTO 1.52 K/mm3 (1.96-9.15); NEUTROPHILS PERCENT AUTO 42 % (41-73); Platelet Count 186 K/mm3 (150-400); RDW Standard Deviation 50.7 fL (35.1-46.3); White Blood Cell Count 3.66 K/mm3 (4.00-11.30)
[2019-12-07 11:43] LABS: Mean Platelet Volume 13.3 fL (9.1-12.4)
[2019-12-07 12:13] LABS: Alanine Aminotransfer (ALT/SGP 18 U/L (12-78); Albumin, Blood 3.1 g/dL (3.4-5.0); Albumin/Globulin Ratio 0.8 (0.8-1.8); Alk Phos 94 U/L (50-136); Anion Gap 7 mmol/L (6-16); Aspartate Aminotrans (AST/SGOT 14 U/L (12-37); Bilirubin, Total 0.4 mg/dL (0.1-1.0); Blood Urea Nitrogen 9 mg/dL (8-24); Bun/Creatinine Ratio 38.6 (12.0-20.0); CO2, Blood 26 mmol/L (21-32); Calcium, Blood 8.6 mg/dL (8.5-10.1); Chloride, Blood 107 mmol/L (98-108); Creatinine, Blood 0.23 mg/dL (0.40-1.00); Globulin, Blood 3.8 g/dL (2.2-4.0); Glomerular Filtration Rate >60 (60-); Glucose, Blood 105 mg/dL (70-99); Potassium, Blood 4.2 mmol/L (3.5-5.5); Sodium, Blood 140 mmol/L (136-145); Total Protein, Blood 6.9 g/dL (6.4-8.2)
[2019-12-14] MEDS ORDERED: VIMPAT10 MG/1 ML PT (18:44)
[2019-12-14] MEDS ORDERED: NYSTATIN1 EAC1 TOP (18:45)
[2019-12-14] MEDS ORDERED: PHENO20EL PT (18:49)
[2019-12-14] MEDS ORDERED: VITAMIN D325 MCG PT (18:49)
[2019-12-14] MEDS ORDERED: ESCI20 PT (18:50)
[2019-12-14] MEDS ORDERED: Loratadine10 MG PT (18:51)
[2019-12-14] MEDS ORDERED: ACET500 PT (18:52)
[2019-12-14] MEDS ORDERED: Aquaphor Healin50 GM TOP (18:53)
[2019-12-14] MEDS ORDERED: Clonazepam0.25 MG PT (18:53)
[2019-12-14] MEDS ORDERED: ACIDOPHILUS1 EACH PT (18:54)
[2019-12-14] MEDS ORDERED: Fleet Enema132 ML PR (18:54)
[2019-12-14] MEDS ORDERED: Docu Liqui50 MG/5 ML PT (18:55)
[2019-12-14] MEDS ORDERED: BISA10S PR (18:56)
[2019-12-14] MEDS ORDERED: FISH OIL 1,001000 MG PT (18:56)
[2019-12-14] MEDS ORDERED: A AND D OINTM42.5 GM TOP (18:58)
[2019-12-14] MEDS ORDERED: CITRATE OF MAG296 ML PT (18:58)
[2019-12-14] MEDS ORDERED: LINZESS72 MCG PT (18:59)
[2019-12-14] MEDS ORDERED: ERYT1OIN BOTHEYES (19:00)
[2019-12-14] MEDS ORDERED: Phos-Nak Packe1 EACH PT (19:01)
[2019-12-14] MEDS ORDERED: Phenergan25 M1 PT (19:02)
[2019-12-14] MEDS ORDERED: IBUP800 PT (19:02)
[2019-12-14] MEDS ORDERED: Triple Antibio1 EACH TOP (19:03)
[2019-12-14] MEDS ORDERED: FAMO40 PT (19:04)
[2019-12-14] MEDS ORDERED: Calcium Citrat250 MG PT (19:05)
[2019-12-14] MEDS ORDERED: CARB10OTL BOTHEARS (19:05)
[2019-12-14] MEDS ORDERED: Doxycycline Mo100 M1 PT (19:06)
== END 2019-12-07 10:50 | disposition home or self-care (01) ==
LOC: ATC 00:09
PROVIDERS: Physician Assistant
DX: K56.609 Unspecified intestinal obstruction, unspecified as to partial versus complete obstruction (principal); K21.9 Gastro-esophageal reflux disease without esophagitis; G40.209 Localization-related (focal) (partial) symptomatic epilepsy and epileptic syndromes with complex partial seizures, not intractable, without status epilepticus; G80.8 Other cerebral palsy; Z88.1 Allergy status to other antibiotic agents; Z88.8 Allergy status to other drugs, medicaments and biological substances; Z79.899 Other long term (current) drug therapy
CPT/HCPCS: 36591; 80053; 84443; 85025; J1642

== ENCOUNTER 2019-12-21 18:43 | Emergency (ER) | payer OTHER ==
[~2019-12-21] VITALS: Ht 160 cm; Wt 42.5 kg
[~2019-12-21 18:43] MED LIST changes: +A AND D OINTM42.5 GM TOP; +ACIDOPHILUS1 EACH PT; +Aquaphor Healin50 GM TOP; +CARB10OTL BOTHEARS; +Clonazepam0.25 MG PT; +Docu Liqui50 MG/5 ML PT; +Doxycycline Mo100 M1 PT; +ERYT1OIN BOTHEYES; +FAMO40 PT; +FISH OIL 1,001000 MG PT; +Fleet Enema132 ML PR; +LINZESS72 MCG PT; +Loratadine10 MG PT; +NYSTATIN1 EAC1 TOP; +Phenergan25 M1 PT; +Triple Antibio1 EACH TOP; +VIMPAT10 MG/1 ML PT; +VITAMIN D325 MCG PT
== END 2019-12-21 23:55 | disposition home or self-care (01) ==
LOC: ER 18:43
DX: K92.1 Melena (principal); K56.609 Unspecified intestinal obstruction, unspecified as to partial versus complete obstruction; Z88.8 Allergy status to other drugs, medicaments and biological substances; Z79.899 Other long term (current) drug therapy
CPT/HCPCS: 74176; 82272; 99283-25

== ENCOUNTER → 2019-12-22 | Outpatient (CLI) | payer OTHER | END | disposition home or self-care (01) | LOC: LAB SHORT 11:55 → LAB EV 11:55 | DX: R31.9 Hematuria, unspecified (principal) | CPT/HCPCS: 87086 ==

== ENCOUNTER 2020-03-07 01:09 | Day surgery (SDC) | payer OTHER ==
[~2020-03-07 01:09] MED LIST changes: +HEPARIN 50500 UNIT/5 IV
== END 2020-03-07 22:55 | disposition home or self-care (01) ==
LOC: ATC 01:09
DX: E87.1 Hypo-osmolality and hyponatremia (principal); D72.819 Decreased white blood cell count, unspecified; N39.498 Other specified urinary incontinence; Z79.899 Other long term (current) drug therapy; Z88.1 Allergy status to other antibiotic agents; Z88.8 Allergy status to other drugs, medicaments and biological substances

== ENCOUNTER 2020-04-21 00:11 | Day surgery (SDC) | payer OTHER | END 2020-04-21 09:41 | disposition home or self-care (01) | LOC: ATC 00:11 | DX: E87.1 Hypo-osmolality and hyponatremia (principal); D72.819 Decreased white blood cell count, unspecified; R33.9 Retention of urine, unspecified; N39.498 Other specified urinary incontinence; H10.9 Unspecified conjunctivitis; J02.9 Acute pharyngitis, unspecified; H50.10 Unspecified exotropia; K94.23 Gastrostomy malfunction; G40.219 Localization-related (focal) (partial) symptomatic epilepsy and epileptic syndromes with complex partial seizures, intractable, without status epilepticus; G80.9 Cerebral palsy, unspecified | CPT/HCPCS: 96523; J1642 ==

== ENCOUNTER 2020-04-28 06:14 | Emergency (ER) | payer OTHER ==
[~2020-04-28] VITALS: Ht 129.5 cm; Wt 36.3 kg
[~2020-04-28 06:14] MED LIST changes: +CALCIUM CITRAT250 MG PT; -HEPARIN 50500 UNIT/5 IV; +PHENOBARBI20 MG/5 M1 PT; +VITAMIN D325 MC3 PT; -VITAMIN D325 MCG PT
== END 2020-04-28 08:45 | disposition home or self-care (01) ==
LOC: ER 06:14
DX: K94.23 Gastrostomy malfunction (principal); G80.9 Cerebral palsy, unspecified; G40.909 Epilepsy, unspecified, not intractable, without status epilepticus; Z79.899 Other long term (current) drug therapy; Z91.040 Latex allergy status; Z88.8 Allergy status to other drugs, medicaments and biological substances
CPT/HCPCS: 43762; 99282-25

== ENCOUNTER 2020-04-28 11:18 | Emergency (ER) | payer OTHER ==
[~2020-04-28] VITALS: Ht 147.3 cm; Wt 40.4 kg
[2020-04-28 14:12] LABS: BASOPHILS ABSOLUTE AUTO 0.01 K/mm3 (0.00-0.23); BASOPHILS PERCENT AUTO 0 % (0-2); EOSINOPHILS ABSOLUTE AUTO 0.03 K/mm3 (0.00-0.68); EOSINOPHILS PERCENT AUTO 1 % (0-6); Hematocrit 39.8 % (33.0-51.0); Hemoglobin 13.2 g/dL (11.5-16.0); IMMATURE GRAN PERCENT AUTO 0 % (0-1); LYMPHOCYTES ABSOLUTE AUTO 0.86 K/mm3 (0.84-5.20); LYMPHOCYTES PERCENT AUTO 27 % (21-46); MONOCYTES ABSOLUTE AUTO 0.22 K/mm3 (0.16-1.47); MONOCYTES PERCENT AUTO 7 % (4-13); Mean Corpuscular HGB 33.7 pg (26.0-34.0); Mean Corpuscular HGB Conc 33.2 g/dL (31.5-36.5); Mean Corpuscular Volume 102 fL (80-100); NEUTROPHILS ABSOLUTE AUTO 2.04 K/mm3 (1.96-9.15); NEUTROPHILS PERCENT AUTO 65 % (41-73); Platelet Count 192 K/mm3 (150-400); RDW Coefficient Variation 13.3 % (11.7-14.2); RDW Standard Deviation 49.2 fL (35.1-46.3); Red Blood Cell Count 3.92 M/mm3 (3.80-5.20); White Blood Cell Count 3.16 K/mm3 (4.00-11.30)
[2020-04-28 14:57] LABS: Alanine Aminotransfer (ALT/SGP 30 U/L (12-78); Albumin, Blood 3.1 g/dL (3.4-5.0); Albumin/Globulin Ratio 0.7 (0.8-1.8); Alk Phos 82 U/L (50-136); Anion Gap 3 mmol/L (6-16); Aspartate Aminotrans (AST/SGOT 116 U/L (12-37); Bilirubin, Total 0.6 mg/dL (0.1-1.0); Blood Urea Nitrogen 6 mg/dL (8-24); Bun/Creatinine Ratio 38.2 (12.0-20.0); CO2, Blood 26 mmol/L (21-32); Calcium, Blood 8.8 mg/dL (8.5-10.1); Chloride, Blood 109 mmol/L (98-108); Creatinine, Blood 0.16 mg/dL (0.40-1.00); Globulin, Blood 4.2 g/dL (2.2-4.0); Glomerular Filtration Rate >60 (60-); Glucose, Blood 102 mg/dL (70-99); Potassium, Blood 6.3 mmol/L (3.5-5.5); Sodium, Blood 138 mmol/L (136-145); Total Protein, Blood 7.3 g/dL (6.4-8.2)
== END 2020-04-28 17:25 | disposition home or self-care (01) ==
LOC: ER 11:18
PROVIDERS: Emergency Medicine
DX: R56.9 Unspecified convulsions (principal); G80.9 Cerebral palsy, unspecified; I10 Essential (primary) hypertension; Z91.040 Latex allergy status; Z88.8 Allergy status to other drugs, medicaments and biological substances; Z79.899 Other long term (current) drug therapy; Z79.2 Long term (current) use of antibiotics
CPT/HCPCS: 36415; 70450; 80053; 80184; 85025; 99284-25

== ENCOUNTER 2020-05-01 12:26 | Inpatient (IN) | payer OTHER ==
[~2020-05-01] VITALS: Ht 121.9 cm; Wt 43.2 kg
[2020-05-01 13:14] LABS: BASOPHILS ABSOLUTE AUTO 0.05 K/mm3 (0.00-0.23); BASOPHILS PERCENT AUTO 0 % (0-2); EOSINOPHILS ABSOLUTE AUTO 0.02 K/mm3 (0.00-0.68); EOSINOPHILS PERCENT AUTO 0 % (0-6); Hematocrit 53.7 % (33.0-51.0); Hemoglobin 17.8 g/dL (11.5-16.0); IMMATURE GRAN ABSOLUTE AUTO 0.05 K/mm3 (0.00-0.10); IMMATURE GRAN PERCENT AUTO 0 % (0-1); LYMPHOCYTES ABSOLUTE AUTO 2.24 K/mm3 (0.84-5.20); LYMPHOCYTES PERCENT AUTO 15 % (21-46); MONOCYTES ABSOLUTE AUTO 0.38 K/mm3 (0.16-1.47); MONOCYTES PERCENT AUTO 3 % (4-13); Mean Corpuscular HGB 33.9 pg (26.0-34.0); Mean Corpuscular HGB Conc 33.1 g/dL (31.5-36.5); Mean Corpuscular Volume 102 fL (80-100); Mean Platelet Volume 13.2 fL (9.1-12.4); NEUTROPHILS ABSOLUTE AUTO 11.99 K/mm3 (1.96-9.15); NEUTROPHILS PERCENT AUTO 82 % (41-73); Platelet Count 305 K/mm3 (150-400); RDW Coefficient Variation 13.4 % (11.7-14.2); RDW Standard Deviation 51.5 fL (35.1-46.3); Red Blood Cell Count 5.25 M/mm3 (3.80-5.20); White Blood Cell Count 14.73 K/mm3 (4.00-11.30)
[2020-05-01 13:28] LABS: Alanine Aminotransfer (ALT/SGP 21 U/L (12-78); Albumin, Blood 4.7 g/dL (3.4-5.0); Alk Phos 136 U/L (50-136); Anion Gap 10 mmol/L (6-16); Aspartate Aminotrans (AST/SGOT 24 U/L (12-37); Bilirubin, Total 0.5 mg/dL (0.1-1.0); Blood Urea Nitrogen 17 mg/dL (8-24); Bun/Creatinine Ratio 36.1 (12.0-20.0); CO2, Blood 22 mmol/L (21-32); Calcium, Blood 10.8 mg/dL (8.5-10.1); Chloride, Blood 102 mmol/L (98-108); Creatinine, Blood 0.47 mg/dL (0.40-1.00); Globulin, Blood 4.7 g/dL (2.2-4.0); Glomerular Filtration Rate >60 (60-); Glucose, Blood 236 mg/dL (70-99); Potassium, Blood 3.9 mmol/L (3.5-5.5); Sodium, Blood 134 mmol/L (136-145); Total Protein, Blood 9.4 g/dL (6.4-8.2)
[2020-05-01] MEDS ORDERED: HEPARIN IV (16:53)
[2020-05-01 19:16] LABS: Source, Urine Catheter
[2020-05-01 19:20] LABS: Appearance, Urine Clear (Clear); Bilirubin, Urine Neg (Neg); Blood, Urine 1+ (Neg); Color, Urine Yellow (P-Yellow); Glucose Qualitative, Urine Neg (Neg); Ketones, Urine 1+ (Neg); Leukocyte Esterase, Urine 1+ (Neg); Nitrite, Urine Neg (Neg); Protein, Urine 2+ (Neg); Urobilinogen, Urine NORM (Normal); pH, Urine 6.5 (5.0-8.0)
[2020-05-01 19:27] LABS: Bacteria Mod /hpf; Red Blood Cells, Urine 0-2 /hpf (0-2); Squamous Epithelial Cells Few /hpf (Few); White Blood Cells, Urine 0-2 /hpf (0-5)
--- NOTE | 2020-05-02 04:20 | NUR ---
SHIFT SUMMARY PT HAS SEVERE CEREBRAL PALSY. BASELINE NONVERBAL. WILL NOD YES OR NO TO SIMPLE QUESTIONS AT TIMES AND POINT TO THINGS, SUCH POINTING TO THE RIGHT WHEN SHE WANTS TO BE TURNED TO THE RIGHT. G TUBE TO R ABD DRAINING TO GRAVITY WITH BROWN OUTPUT. PT YELLS OUT WHEN SHE NEEDS SOMETHING. DRY HEAVED THROUGHOUT THE NIGHT. NO EMESIS. PT DENIES PAIN WHEN ASKED BUT AT TIMES APPEARS TO BE IN PAIN. MEDICATED BOTH WITH ZOFRAN AND FENTANYL PER EMAR. METAPORT TO R CHEST WALL ACCESSED AND NS INFUSING THROUGH THE NIGHT. [facility] CALLED FOR TO CHECK ON PT, UPDATE GIVEN. PT INCONTINENT. ATTENDS IN PLACE. PT TACHYCARDIC AT TIMES. OTHERWISE VSS. WILL CONTINUE TO MONITOR.
[2020-05-02 07:48] LABS: Hematocrit 42.1 % (33.0-51.0); Hemoglobin 13.7 g/dL (11.5-16.0); Mean Corpuscular HGB 33.1 pg (26.0-34.0); Mean Corpuscular HGB Conc 32.5 g/dL (31.5-36.5); Mean Corpuscular Volume 102 fL (80-100); Platelet Count 220 K/mm3 (150-400); RDW Coefficient Variation 13.8 % (11.7-14.2); Red Blood Cell Count 4.14 M/mm3 (3.80-5.20); White Blood Cell Count 1.56 K/mm3 (4.00-11.30)
[2020-05-02 07:52] LABS: Mean Platelet Volume 13.2 fL (9.1-12.4)
[2020-05-02 08:06] LABS: Blood Urea Nitrogen 15 mg/dL (8-24); Bun/Creatinine Ratio 48.5 (12.0-20.0); CO2, Blood 25 mmol/L (21-32); Chloride, Blood 114 mmol/L (98-108); Creatinine, Blood 0.31 mg/dL (0.40-1.00); Glomerular Filtration Rate >60 (60-); Glucose, Blood 152 mg/dL (70-99); Potassium, Blood 3.6 mmol/L (3.5-5.5)
[2020-05-02 08:07] LABS: Anion Gap 6 mmol/L (6-16); Calcium, Blood 8.5 mg/dL (8.5-10.1); Sodium, Blood 145 mmol/L (136-145)
[2020-05-02 08:15] LABS: BAND PERCENT MAN 16 % (0-8); BASOPHILS ABSOLUTE MAN 0.03 K/mm3 (0.00-0.23); BASOPHILS PERCENT MAN 2 % (0-2); EOSINOPHILS PERCENT MAN 0 % (0-6); LYMPHOCYTES ABSOLUTE MAN 0.42 K/mm3 (0.84-5.20); LYMPHOCYTES PERCENT MAN 27 % (21-46); MONOCYTES ABSOLUTE MAN 0.24 K/mm3 (0.16-1.47); MONOCYTES PERCENT MAN 16 % (4-13); NEUTROPHILS ABSOLUTE MAN 0.85 K/mm3 (1.96-9.15); SEG NEUTROPHILS PERCENT MAN 39 % (41-73); TOTAL CELLS COUNTED 100
[2020-05-02 09:10] LABS: Anion Gap 6 mmol/L (6-16); Blood Urea Nitrogen 16 mg/dL (8-24); Bun/Creatinine Ratio 63.2 (12.0-20.0); CO2, Blood 25 mmol/L (21-32); Calcium, Blood 8.2 mg/dL (8.5-10.1); Chloride, Blood 115 mmol/L (98-108); Creatinine, Blood 0.25 mg/dL (0.40-1.00); Glomerular Filtration Rate >60 (60-); Glucose, Blood 147 mg/dL (70-99); Phosphorus, Blood 2.4 mg/dL (2.5-4.9); Potassium, Blood 3.5 mmol/L (3.5-5.5); Sodium, Blood 146 mmol/L (136-145)
--- NOTE | 2020-05-02 09:23 | NUR ---
VITALS & WBC DR. JACOB NOTIFIED OF PT WBC DROP FROM 14.73 TO 1.56. LABS RECHECKED WITH SIMILAR RESULTS. PT PLACED IN NEUROPENIC PRECAUTIONS. PT HR IN THE 140S THIS AM & HYPOTENSIVE AT 94/64. DR. THOMAS ORDERED TO BOLUS PT WITH 500CC NS. AND PLACED FURTHER ORDERS INCLUDING LABS AND ANTIBIOTICS.
--- NOTE | 2020-05-02 09:27 | NUR ---
PT DISCOMFORT/CRYING PT CRYING FAIRLY CONSISTANTLY THIS AM. PT HAS BEEN REPOSISIONED 5 TIMES SINCE 0700. REPOSITION HELPS WITH PT PAIN FOR APPROX 10-15 MINUTES. THEN PT IS MOANING AGAIN. AWARE OF PAIN LEVEL. DR. JACOB ORDERED TO GIVE IV FENT EARLY THIS AM WHEN CALLED ABOUT PT CONDIION.
--- NOTE | 2020-05-02 12:52 | NUR ---
SIGNIFICANT DIARRHEA. PT HAD SIGNIFICANT DIARRHEA, REQUIRING 3 CHANGES IN 20 MINUTES. BMS VERY YELLOW/BROWN WATERY. DR. THOMAS MADE AWARE. RECTAL TUBE ORDER GIVEN IF STOOLS CONTINUE IN THIS MATTER.
--- NOTE | 2020-05-02 17:14 | NUR ---
SHIFT SUMMARY PT SECOND LACTIC ADIC OF THE DAY DECREASED TO 1.2. HR DECREASED TO THE 120S. BP REMAINS ON THE LOWER SIDE AT 93/61. NS INFUSED THROUGHOUT DAY BETWEEN ANTIBIOTICS AT 100ML/HR. CPN TO BE STARTED AFTER CURRENT ANTIBIOTIC FINISHES. DR. COTTO. GEN SURGERY, IN TO SEE PT. NO SURGERY NEEDED AT THIS TIME PER DR. COTTO. PT HAD RECTAL TUBE PLACED DO TO FREQUENT LIQUID DIARRHEA. C. DIFF NEG. PT APPEARS TO BE LESS PAINFUL THIS AFTERNOON AND CRYING OUT LESS OFTEN. G-TUBE PUTTING OUT CLEAR/BROWNISH FLUID. NO OTHER CHANGES IN ASSESSMENT AT THIS TIME. WILL CONTINUE TO MONITOR UNTIL TURNOVER IS COMPLETE.
[2020-05-03 06:48] LABS: Magnesium, Blood 2.5 mg/dL (1.6-2.4); Phosphorus, Blood 2.3 mg/dL (2.5-4.9); Triglycerides 161 mg/dL (30-160)
--- NOTE | 2020-05-03 07:08 | NUR ---
SUMMARY. PT ONLY ISSUE IS REQUIRING FREQUENT ATTENTION/ REPOSITIONING. PT YELLS OUT FREQUENTLY TO BE MOVED. PT CONTINUES TO HAVE PEG TUBE DRAINING BY GRAVITY WITH GOOD OUTPUT. PT ALSO CONTINUES TO HAVE A RECTAL TUBE THAT IS DRAINING WELL. PT SLEPT VERY LITTLE. PT MEDICATED FOR PAIN NEEDED. PT AWAKE AND IN NO DISTRESS. CALL LIGHT IN REACH.
--- NOTE | 2020-05-03 13:29 | NUR ---
INITIATED TUBE FEEDING. GRAVITY DRAIN DC'ED. TUBE FEEDING INITIATED. RUNNING 20ML/HR. NO RESIDUAL AT START OF FEED.
--- NOTE | 2020-05-03 14:24 | NUR ---
PT TRANSFERED TO ROOM 352. PT TRANSFERED TO ROOM 352. REPORT GIVEN TO FABIEN MONAE RN. PT SISTER, DELMI & [facility] CUMULATIVE EFFECTS ANALYST UPDATED ON ROOM CHANGE.
--- NOTE | 2020-05-03 18:26 | NUR ---
SHIFT SUMMARY PATIENT TRANSFERED FROM THE FLOOR TO SCU. PATIENT MEDICATED X1 FOR PAIN. PATIENT SHOWS NO SIGNS OF NAUSEA OR RESPIRATORY DISTRESS. TPN DISCONTINUED. TUBE FEEDING RESUMED. RECTAL TUBE PATENT AND DRAINING. PATIENT CALLS OUT OFTEN AND NEEDS FREQUENT REASSURANCE. CALL LIGHT IN REACH.
--- NOTE | 2020-05-03 19:20 | NUR ---
ASSUMED CARE RECEIVED REPORT FROM CODY CONN. ASSUMED CARE OF PT. RESTING COMFORTABLY AT THIS TIME. NO S/S ACUTE DISTRESS NOTED. COMFORTABLE. RESPS EVEN AND UNLABORED. PT MOANING TO MAKE NEEDS KNOWN. CALL LIGHT, POSSESSIONS IN REACH, BED IN LOWEST POSITION, WILL CONTINUE TO MONITOR.
--- NOTE | 2020-05-03 21:45 | NUR ---
PHYSICIAN COMMUNICATION SPOKE TO DR. PAL REGARDING NEED TO CHANGE ROUTE OF PT'S MEDICATION. ORDERS RECEIVED.
--- NOTE | 2020-05-04 04:54 | NUR ---
SHIFT SUMMARY PT HAS HAD A RESTLESS NIGHT, DID NOT REALLY SLEEP MUCH AT ALL. MOANS AND CRIES OUT TO MAKE NEEDS KNOWN, RESPONDS TO YES/NO QUESTIONS. MEDICATED ORDERED FOR PAIN, USING FLACC SCALE. NO SEIZURE ACTIVITY NOTED, PADS TO BILATERAL SIDERAILS IN PLACE. PT TOLERATING TF AT RATE OF 20ML/HR AND FLUSHES WELL, PT DENIES GI UPSET, NAUSEA. NO EPISODES OF EMESIS OVERNIGHT. G-TUBE PATENT, FLUSHES EASILY. VENTED PRN FOR GAS. TF ONGOING. RECTAL TUBE PATENT, DRAINS EASILY, PT TOLERATING WELL. REPOSITIONED NEEDED FOR COMFORT. AM LABS PENDING. CALL LIGHT, POSSESSIONS IN REACH, BED IN LOWEST POSITION WITH ALARMS ON. WILL CONTINUE TO MONITOR UNTIL DAY RN ASSUMES CARE.
[2020-05-04 09:55] LABS: Magnesium, Blood 2.5 mg/dL (1.6-2.4)
[2020-05-04 12:30] LABS: Mean Corpuscular HGB 33.2 pg (26.0-34.0); Mean Corpuscular HGB Conc 30.3 g/dL (31.5-36.5); Platelet Count 152 K/mm3 (150-400); RDW Coefficient Variation 14.3 % (11.7-14.2); RDW Standard Deviation 57.8 fL (35.1-46.3); Red Blood Cell Count 3.01 M/mm3 (3.80-5.20); White Blood Cell Count 4.37 K/mm3 (4.00-11.30)
[2020-05-04 12:31] LABS: Mean Corpuscular Volume 110 fL (80-100); Mean Platelet Volume 13.8 fL (9.1-12.4)
[2020-05-04 12:40] LABS: BAND PERCENT MAN 5 % (0-8); BASOPHILS PERCENT MAN 0 % (0-2); EOSINOPHILS PERCENT MAN 0 % (0-6); LYMPHOCYTES ABSOLUTE MAN 0.87 K/mm3 (0.84-5.20); LYMPHOCYTES PERCENT MAN 20 % (21-46); MONOCYTES ABSOLUTE MAN 0.34 K/mm3 (0.16-1.47); MONOCYTES PERCENT MAN 8 % (4-13); NEUTROPHILS ABSOLUTE MAN 3.14 K/mm3 (1.96-9.15); SEG NEUTROPHILS PERCENT MAN 67 % (41-73); TOTAL CELLS COUNTED 100
--- NOTE | 2020-05-04 19:32 | NUR ---
SHE HAS HAD A COMFORTABLE DAY. TUBE FEEDING REGIMEM CHANGED. SHE WAS STARTED ON CYCLIC NIGHT INFUSIONS OF ISOSOURCE 1.5 AT 35 MLS/HR FOR 500 MLS. THE FLUSHES ARE SET. NO PROBLEMS WITH THE PEG TUBE OR RECTAL TUBE. SHE HAS GREEN BROWN LIQUID STOOL IN THE RECTAL TUBING. VSS. TURNED Q2 HRS. NO RESIDUALS.
--- NOTE | 2020-05-05 05:37 | NUR ---
GLASS HANDLER SUMMARY PT NONVERBAL ABLE TO COMMUNICATE NEEDS WITH SHOUNDS AND ANSWER YES/NO QUESTIONS. PLEASENT AND CALM THROUGH NIGHT. PT EXPERINCED PAIN, ASSESSMENT USING FLACC SCALE. MEDICATED PER EMAR ORDERS, FENTANYL TWICE THROUGH NIGHT. PT RESTED OFF AND ON. PT HAD RECTAL TUBE, WITH GREENISH BROWN LIQUID STOOL. PT HAS A G-TUBE WITH FEEDING THROUGH NIGHT AT 35ML/HR, FLUSHES WELL. PT TOLERATED BEING CHANGED AND REPOSITIONED THROUGH NIGHT WELL. VVS. WILL CONTINUE TO MONITOR UNTIL SHIFT CHANGE.
[2020-05-05 06:20] LABS: BASOPHILS ABSOLUTE AUTO 0.01 K/mm3 (0.00-0.23); BASOPHILS PERCENT AUTO 0 % (0-2); EOSINOPHILS ABSOLUTE AUTO 0.01 K/mm3 (0.00-0.68); EOSINOPHILS PERCENT AUTO 0 % (0-6); Hematocrit 35.3 % (33.0-51.0); IMMATURE GRAN ABSOLUTE AUTO 0.03 K/mm3 (0.00-0.10); IMMATURE GRAN PERCENT AUTO 1 % (0-1); LYMPHOCYTES ABSOLUTE AUTO 0.97 K/mm3 (0.84-5.20); LYMPHOCYTES PERCENT AUTO 23 % (21-46); MONOCYTES ABSOLUTE AUTO 0.33 K/mm3 (0.16-1.47); MONOCYTES PERCENT AUTO 8 % (4-13); Mean Corpuscular HGB 33.4 pg (26.0-34.0); Mean Corpuscular HGB Conc 31.2 g/dL (31.5-36.5); Mean Platelet Volume 12.8 fL (9.1-12.4); NEUTROPHILS ABSOLUTE AUTO 2.83 K/mm3 (1.96-9.15); NEUTROPHILS PERCENT AUTO 68 % (41-73); Platelet Count 122 K/mm3 (150-400); RDW Coefficient Variation 14.3 % (11.7-14.2); RDW Standard Deviation 56.1 fL (35.1-46.3); Red Blood Cell Count 3.29 M/mm3 (3.80-5.20); White Blood Cell Count 4.18 K/mm3 (4.00-11.30)
[2020-05-05 06:22] LABS: Mean Corpuscular Volume 107 fL (80-100)
[2020-05-05 06:36] LABS: Magnesium, Blood 2.4 mg/dL (1.6-2.4); Phosphorus, Blood 1.4 mg/dL (2.5-4.9)
--- NOTE | 2020-05-05 15:14 | NUR ---
SHE IS WAITING FOR HER RIDE HOME. HER RECTAL TUBE WAS DC'D 2 HRS AGO. IT HAD 100 MLS OF GREEN BROWN LIQUID STOOL IN THE TUBING/BAG. HER MEDIPORT WAS DEACCESSED PER PROTOCOL. SHE TOLERATED BOTH WELL. ATTENDS HAVE BEEN CHANGED FOR INCONTINENT URINE AND A LITTLE MENSES. SHE HAS BEEN COMFORTABLE. SHE HAS ONLY MOANED/WHINED WHEN SHE NEEDED TO BE CHANGED. ABD SOFT WITH HYPERACTIVE BS. NO NAUSEA.
--- NOTE | 2020-05-05 16:12 | NUR ---
DISCHARGED TO HOME WITH BELONGINGS AND INSTRUCTIONS. HER [facility] CAREGIVER PICKED HER UP. SHE WAS MOST RECENTLY CHANGED FOR SOME MENSES BUT NO URINE OR STOOL.
== END 2020-05-05 16:30 | disposition home or self-care (01) | DRG 871 ==
LOC: ER 12:26 → MEDS 15:05
PROVIDERS: Internal Medicine; Physician Assistant; Student in an Organized Health Care Education/Training Program; ADMIT Internal Medicine Endocrinology, Diabetes & Metabolism
DX: A41.9 Sepsis, unspecified organism (principal); R53.2 Functional quadriplegia; N39.0 Urinary tract infection, site not specified; K56.600 Partial intestinal obstruction, unspecified as to cause; G80.9 Cerebral palsy, unspecified; I10 Essential (primary) hypertension; G40.909 Epilepsy, unspecified, not intractable, without status epilepticus; K59.09 Other constipation; N20.0 Calculus of kidney; B96.4 Proteus (mirabilis) (morganii) as the cause of diseases classified elsewhere; Z93.1 Gastrostomy status; Z88.8 Allergy status to other drugs, medicaments and biological substances; Z91.040 Latex allergy status
CPT/HCPCS: 36415; 49465; 74177; 80048; 80053; 81001; 82947; 83605; 83735; 84100; 84478; 85025; 87040; 87077; 87086; 87186; 87493; 96361-59; 96374-59; 99285-25; C9254; J0696; J1642; J1650; J2405; J2543; J2560; J3010; J3370; J7030; J7040; Q9967

== ENCOUNTER 2020-06-20 00:40 | Day surgery (SDC) | payer OTHER ==
[~2020-06-20 00:40] MED LIST changes: -FISH OIL 1,001000 MG PT; +FISH OIL 1,2001 EAC7 PT; +HEPARIN IV; +Triple Antibi28.4 G1 TOP; -Triple Antibio1 EACH TOP
== END 2020-06-20 10:48 | disposition home or self-care (01) ==
LOC: ATC 00:40
DX: E87.1 Hypo-osmolality and hyponatremia (principal); D72.819 Decreased white blood cell count, unspecified; N39.498 Other specified urinary incontinence; H10.9 Unspecified conjunctivitis; J02.9 Acute pharyngitis, unspecified; H50.10 Unspecified exotropia; G40.219 Localization-related (focal) (partial) symptomatic epilepsy and epileptic syndromes with complex partial seizures, intractable, without status epilepticus; G80.9 Cerebral palsy, unspecified; Z79.899 Other long term (current) drug therapy; Z88.8 Allergy status to other drugs, medicaments and biological substances
CPT/HCPCS: 96523; J1642

== ENCOUNTER 2020-07-17 12:22 | Observation (INO) | payer OTHER ==
[~2020-07-17] VITALS: Ht 147.3 cm; Wt 40.0 kg
[~2020-07-17 12:22] MED LIST changes: -CALCIUM CITRAT250 MG PT; -FISH OIL 1,2001 EAC7 PT; -VITAMIN D325 MC3 PT
[2020-07-17 13:12] LABS: BASOPHILS ABSOLUTE AUTO 0.01 K/mm3 (0.00-0.23); BASOPHILS PERCENT AUTO 0 % (0-2); EOSINOPHILS ABSOLUTE AUTO 0.05 K/mm3 (0.00-0.68); EOSINOPHILS PERCENT AUTO 1 % (0-6); Hematocrit 38.8 % (33.0-51.0); Hemoglobin 12.6 g/dL (11.5-16.0); IMMATURE GRAN ABSOLUTE AUTO 0.01 K/mm3 (0.00-0.10); IMMATURE GRAN PERCENT AUTO 0 % (0-1); LYMPHOCYTES ABSOLUTE AUTO 1.53 K/mm3 (0.84-5.20); LYMPHOCYTES PERCENT AUTO 37 % (21-46); MONOCYTES ABSOLUTE AUTO 0.41 K/mm3 (0.16-1.47); MONOCYTES PERCENT AUTO 10 % (4-13); Mean Corpuscular HGB 32.4 pg (26.0-34.0); Mean Corpuscular HGB Conc 32.5 g/dL (31.5-36.5); Mean Corpuscular Volume 100 fL (80-100); Mean Platelet Volume 12.6 fL (9.1-12.4); NEUTROPHILS ABSOLUTE AUTO 2.09 K/mm3 (1.96-9.15); NEUTROPHILS PERCENT AUTO 51 % (41-73); Platelet Count 189 K/mm3 (150-400); RDW Coefficient Variation 12.9 % (11.7-14.2); RDW Standard Deviation 47.3 fL (35.1-46.3); Red Blood Cell Count 3.89 M/mm3 (3.80-5.20)
[2020-07-17 13:20] LABS: Source, Urine Catheter
[2020-07-17 13:28] LABS: Bilirubin, Urine Neg (Neg); Blood, Urine 5+ (Neg); Glucose Qualitative, Urine Neg (Neg); Ketones, Urine Neg (Neg); Leukocyte Esterase, Urine 3+ (Neg); Nitrite, Urine Pos (Neg); Protein, Urine 2+ (Neg); Urobilinogen, Urine NORM (Normal)
[2020-07-17 13:34] LABS: Alanine Aminotransfer (ALT/SGP 16 U/L (12-78); Albumin, Blood 2.9 g/dL (3.4-5.0); Albumin/Globulin Ratio 0.8 (0.8-1.8); Alk Phos 106 U/L (50-136); Anion Gap 6 mmol/L (6-16); Appearance, Urine Hazy (Clear); Aspartate Aminotrans (AST/SGOT 17 U/L (12-37); Bilirubin, Total 0.3 mg/dL (0.1-1.0); Blood Urea Nitrogen 9 mg/dL (8-24); Bun/Creatinine Ratio 28.9 (12.0-20.0); CO2, Blood 28 mmol/L (21-32); Calcium, Blood 8.5 mg/dL (8.5-10.1); Chloride, Blood 105 mmol/L (98-108); Color, Urine Pale Yellow (P-Yellow); Creatinine, Blood 0.31 mg/dL (0.40-1.00); Globulin, Blood 3.8 g/dL (2.2-4.0); Glomerular Filtration Rate >60 (60-); Glucose, Blood 102 mg/dL (70-99); Potassium, Blood 3.9 mmol/L (3.5-5.5); Sodium, Blood 139 mmol/L (136-145); Total Protein, Blood 6.7 g/dL (6.4-8.2)
[2020-07-17 13:35] LABS: Squamous Epithelial Cells Few /hpf (Few); White Blood Cells, Urine 25-50 /hpf (0-5)
[2020-07-17 13:36] LABS: Bacteria Mod /hpf
[2020-07-17] MEDS ORDERED: ACIDOPHILUS1 EAC3 PT (17:23)
[2020-07-17] MEDS ORDERED: PROM25 (17:31)
[2020-07-17] MEDS ORDERED: PROM25 PT (17:32)
[2020-07-17] MEDS ORDERED: NYSTOP15 GM TOP (17:34)
--- NOTE | 2020-07-17 19:28 | NUR ---
SHIFT SUMMARY 1545 RECEIVED PT TO 352 VIA [facility] FROM ER. SLIDE TX TO BED. RECEIVED REPORT FROM VICTOR MANUEL ROSS. PT TO ER [facility]. PT WITH HX OF SEIZURES AND CEREBRAL PALSY, MOSTLY NONVERBAL WITH CONTRACTURES X4. PER REPORT. PT TO ER FOR AMS AND DECREASED RESPONSE, PER HOME STAFF; ADMITTED FOR UTI. INCONTINENT OF BOWEL AND BLADDER. IVF'S AND ROCEPHIN GIVEN IN ER. FISHING TOOL TECHNICIAN OIL WELL TO RM SHORTLY AFTER PT IN . MED LIST OBTAINED FROM FISHING TOOL TECHNICIAN OIL WELL. DR PETER THEN TO TO SEE PT. MED LIST TO BE UPDATED FOR DR PETER TO ORDER NEEDED HOME MEDS; DR PETER IMFORMED WHEN MED LIST UNDATED. PT POSITIONED FOR COMFORT PER FISHING TOOL TECHNICIAN OIL WELL. HOB TO BE 30 DEGREE D/T GHAZAL IN PT'S BACK. PREFERS TO BE REPOSITIONED TO SIDE AND NOT POSITIONED TO BACK D/T PAIN. PT'S MEDIPORT ACCESSED IN ER; HEPARIN FLUSH GIVEN TO SL. BED ALARM ON FOR SAFETY. PT ABLE TO COMMUNICATE WHEN WET AND NEEDED TO BE CHANGED. PT RESTING QUIETLY AT THIS TIME. CALL LT IN REACH. REPORT GIVEN TO RAFAEL ROSS.
--- NOTE | 2020-07-18 04:23 | NUR ---
SHIFT SUMMARY PATIENT HAD NO ACUTE CHANGES OBSERVED. AXOX TO SELF AND MOSTLY NON-VERBAL. USES EYES FOR QUES AND POINTS DOWN IF WET/VOIDED. MEDIPORT INTACT AND HEPARIN LOCKED. NPO WITH MEDICATION CRUSHED AND ADMINISTER THROUGH PEG TUBE. PATIENT REMAINS ON SIDE WITH DILLON GHAZAL IN BACK. HOB 30 DEGREES. HX CEREBAL PALSEY AND SEIZURES. CONTRACTURES X FOUR. VSS/AFEBRILE. N0 S/SX OF PAIN, SOB, AND N/V. CALL LIGHT IN REACH. BED IN LOWEST POSITION. WILL CONTINUE TO MONITOR UNTIL DAY SHIFT NURSE ASSUMES CARE.
[2020-07-18 05:12] LABS: BASOPHILS ABSOLUTE AUTO 0.01 K/mm3 (0.00-0.23); BASOPHILS PERCENT AUTO 0 % (0-2); EOSINOPHILS ABSOLUTE AUTO 0.04 K/mm3 (0.00-0.68); EOSINOPHILS PERCENT AUTO 2 % (0-6); Hematocrit 34.1 % (33.0-51.0); Hemoglobin 11.1 g/dL (11.5-16.0); IMMATURE GRAN PERCENT AUTO 0 % (0-1); LYMPHOCYTES ABSOLUTE AUTO 1.02 K/mm3 (0.84-5.20); LYMPHOCYTES PERCENT AUTO 41 % (21-46); MONOCYTES PERCENT AUTO 12 % (4-13); Mean Corpuscular HGB 32.7 pg (26.0-34.0); Mean Corpuscular HGB Conc 32.6 g/dL (31.5-36.5); Mean Corpuscular Volume 101 fL (80-100); Mean Platelet Volume 12.2 fL (9.1-12.4); NEUTROPHILS ABSOLUTE AUTO 1.12 K/mm3 (1.96-9.15); NEUTROPHILS PERCENT AUTO 45 % (41-73); Platelet Count 146 K/mm3 (150-400); RDW Coefficient Variation 12.9 % (11.7-14.2); RDW Standard Deviation 47.8 fL (35.1-46.3); Red Blood Cell Count 3.39 M/mm3 (3.80-5.20); White Blood Cell Count 2.49 K/mm3 (4.00-11.30)
[2020-07-18 05:29] LABS: Anion Gap 5 mmol/L (6-16); Blood Urea Nitrogen 8 mg/dL (8-24); Bun/Creatinine Ratio 24.2 (12.0-20.0); CO2, Blood 28 mmol/L (21-32); Calcium, Blood 8.1 mg/dL (8.5-10.1); Chloride, Blood 112 mmol/L (98-108); Creatinine, Blood 0.33 mg/dL (0.40-1.00); Glomerular Filtration Rate >60 (60-); Glucose, Blood 95 mg/dL (70-99); Potassium, Blood 3.6 mmol/L (3.5-5.5); Sodium, Blood 145 mmol/L (136-145)
[2020-07-18] MEDS ORDERED: Doxycycline Mo100 M1 PT (09:39)
[2020-07-18] MEDS ORDERED: LINZESS72 MCG PT (09:52)
[2020-07-18] MEDS ORDERED: MAGCIT300 PT (09:55)
[2020-07-18] MEDS ORDERED: PHOS-NAK PACKET PT (10:01)
--- NOTE | 2020-07-18 17:48 | NUR ---
SHIFT SUMMARY PATIENT ALERT TO SELF THIS SHIFT. PATIENT WITH MINIMAL SELF MOVEMENT. PATIENT REPOSITIONED REGULARLY THROUGH THIS SHIFT. PATIENT LAYING IN BED WATCHING ANIMAL PLANET THIS SHIFT. PATIENT ON IV ANTIBIOTICS. PATIENT CURRENTLY LAYING IN BED, NO NEEDS AT THIS TIME.
--- NOTE | 2020-07-19 04:25 | NUR ---
SHIFT SUMMARY PT HAS HAD NO ACUTE CHANGES THIS SHIFT, NO INDICATIONS OF PAIN/DISCOMFORT, REPOS Q2 T/O SHIFT, AWAKE WATCHING TV T/O THE NIGHT & AT THIS TIME, HOB ELEVATED, BED ALARM ACTIVE, ABLE TO MAKE NEEDS KNOWN, [facility]IL REPORT GIVEN TO DAY RN.
--- NOTE | 2020-07-19 17:43 | NUR ---
SHIFT SUMMARY PATIENT BEDBOUND WITHOUT LOWER EXTREMETY MOVEMENT AND MINIMAL UPPER EXTREMETY MOVEMENT AT BASELINE. PATIENT ALERT AND PLESANT THIS SHIFT, NONVERBAL. PATIENT TURNED REGULARLY THROUGHOUT THIS SHIFT. PATIENT ON ANTIBIOTICS FOR UTI. PATIENT LAYING IN BED WATCHING TELEVISION.
--- NOTE | 2020-07-20 05:03 | NUR ---
SHIFT SUMMARY PT HAS HAD NO ACUTE CHANGES THIS SHIFT, NO C/O OR INDICATIONS OF PAIN OR DISCOMFORT, REPOST Q2 T/O SHIFT, BOWEL CARE ADMIN 2245, NO RESULTS AT THIS POINT, PT SLEPT ON/OFF T/O NIGHT, BEDRESTING WATCHING TV AT THIS TIME, ABLE TO MAKE NEEDS KNOWN, WILL CONT TO MONITOR UNTIL REPORT GIVEN TO DAY RN.
[2020-07-20] MEDS ORDERED: AMOCLA250S PO (16:03)
--- NOTE | 2020-07-20 16:43 | NUR ---
DISCHARGE NOTE PATIENT ALERT TO SELF. PATIENT HAS CEREBRAL PALSY. PATIENT BEDBOUND AT BASELINE. PATIENT MEDICATED WITH IV ANTIBIOTICS X3 DAYS IN THE HOSPITAL. PATIENT DISCHARGED ON ANTIBIOTICS VIA PEG TUBE. PATIENT TRANSPORTED BY GURNEY/AMBULANCE. PATIENT ALERT UPON DISCHARGE. PATIENT BELONGINGS WITH PATIENT AT DISCHARGE.
[2020-07-24] MEDS ORDERED: Citalopram HBr40 MG PT (12:41)
[2020-07-24] MEDS ORDERED: VITAMIN D325 MC3 PT (15:23)
[2020-07-24] MEDS ORDERED: FISH OIL 1,2001 EAC7 PT (15:23)
[2020-07-24] MEDS ORDERED: CALCIUM CITRAT250 MG PT (15:24)
[2020-07-24] MEDS ORDERED: [UNRECOGNIZED DRUG - OTHER] TOP (15:28)
[2020-07-24] MEDS ORDERED: [UNRECOGNIZED DRUG - OTHER] PR (15:30)
--- NOTE | 2020-07-24 22:04 | NUR ---
REVIEWED PT'S DICHARGE MEDICATIONS FOR CURRENT ADMISSION INFORMATION
== END 2020-07-20 16:43 | disposition home or self-care (01) ==
LOC: ER 12:22 → MEDS 12:23
PROVIDERS: Emergency Medicine; ADMIT Student in an Organized Health Care Education/Training Program
DX: N39.0 Urinary tract infection, site not specified (principal); B96.4 Proteus (mirabilis) (morganii) as the cause of diseases classified elsewhere; G80.9 Cerebral palsy, unspecified; K59.09 Other constipation; K31.89 Other diseases of stomach and duodenum; I10 Essential (primary) hypertension; R53.2 Functional quadriplegia; G40.909 Epilepsy, unspecified, not intractable, without status epilepticus; Z93.1 Gastrostomy status; Z88.8 Allergy status to other drugs, medicaments and biological substances; Z91.040 Latex allergy status; Z79.899 Other long term (current) drug therapy
CPT/HCPCS: 71045; 80048; 80053; 81001; 85025; 87077; 87086; 87186; 96365-59; 96366; 96366-59; 96372; 96376; 99285-25; G0378; J0696; J1642; J1650; J2560; J7030; P9612

== ENCOUNTER 2020-07-24 12:02 | Inpatient (IN) | payer OTHER ==
[~2020-07-24] VITALS: Ht 139.7 cm; Wt 42.0 kg
[~2020-07-24 12:02] MED LIST changes: +ACIDOPHILUS1 EAC3 PT; +AMOCLA250S PO; +MAGCIT300 PT; +NYSTOP15 GM TOP; +PHOS-NAK PACKET PT; +PROM25
[2020-07-24] MEDS ORDERED: Citalopram HBr40 MG PT ×2 (12:41)
[2020-07-24] MEDS ORDERED: FISH OIL 1,2001 EAC7 PO (12:45)
[2020-07-24 13:34] LABS: Source, Urine Catheter
[2020-07-24 13:37] LABS: BASOPHILS ABSOLUTE AUTO 0.01 K/mm3 (0.00-0.23); BASOPHILS PERCENT AUTO 0 % (0-2); EOSINOPHILS ABSOLUTE AUTO 0.01 K/mm3 (0.00-0.68); EOSINOPHILS PERCENT AUTO 0 % (0-6); Hematocrit 48.9 % (33.0-51.0); Hemoglobin 15.9 g/dL (11.5-16.0); IMMATURE GRAN ABSOLUTE AUTO 0.02 K/mm3 (0.00-0.10); IMMATURE GRAN PERCENT AUTO 0 % (0-1); LYMPHOCYTES ABSOLUTE AUTO 1.03 K/mm3 (0.84-5.20); LYMPHOCYTES PERCENT AUTO 15 % (21-46); MONOCYTES ABSOLUTE AUTO 0.41 K/mm3 (0.16-1.47); MONOCYTES PERCENT AUTO 6 % (4-13); Mean Corpuscular HGB 32.1 pg (26.0-34.0); Mean Corpuscular HGB Conc 32.5 g/dL (31.5-36.5); Mean Corpuscular Volume 99 fL (80-100); Mean Platelet Volume 12.1 fL (9.1-12.4); NEUTROPHILS ABSOLUTE AUTO 5.48 K/mm3 (1.96-9.15); NEUTROPHILS PERCENT AUTO 79 % (41-73); Platelet Count 343 K/mm3 (150-400); RDW Coefficient Variation 13.1 % (11.7-14.2); RDW Standard Deviation 47.2 fL (35.1-46.3); Red Blood Cell Count 4.95 M/mm3 (3.80-5.20); White Blood Cell Count 6.96 K/mm3 (4.00-11.30)
[2020-07-24 13:42] LABS: Appearance, Urine Hazy (Clear); Bilirubin, Urine Neg (Neg); Blood, Urine 5+ (Neg); Color, Urine Yellow (P-Yellow); Glucose Qualitative, Urine Neg (Neg); Ketones, Urine 1+ (Neg); Leukocyte Esterase, Urine 3+ (Neg); Nitrite, Urine Neg (Neg); Protein, Urine 3+ (Neg); Urobilinogen, Urine NORM (Normal)
[2020-07-24 14:01] LABS: Red Blood Cells, Urine 50-100 /hpf (0-2); White Blood Cells, Urine 50-100 /hpf (0-5)
[2020-07-24 14:01] LABS: Alanine Aminotransfer (ALT/SGP 33 U/L (12-78); Albumin/Globulin Ratio 0.7 (0.8-1.8); Alk Phos 147 U/L (50-136); Anion Gap 5 mmol/L (6-16); Aspartate Aminotrans (AST/SGOT 27 U/L (12-37); Bilirubin, Total 0.3 mg/dL (0.1-1.0); Blood Urea Nitrogen 12 mg/dL (8-24); Bun/Creatinine Ratio 33.5 (12.0-20.0); CO2, Blood 26 mmol/L (21-32); Calcium, Blood 10.2 mg/dL (8.5-10.1); Chloride, Blood 102 mmol/L (98-108); Creatinine, Blood 0.36 mg/dL (0.40-1.00); Globulin, Blood 5.4 g/dL (2.2-4.0); Glomerular Filtration Rate >60 (60-); Glucose, Blood 169 mg/dL (70-99); Potassium, Blood 4.2 mmol/L (3.5-5.5); Sodium, Blood 133 mmol/L (136-145); Total Protein, Blood 9.4 g/dL (6.4-8.2)
[2020-07-24 14:02] LABS: Bacteria Many /hpf; Hyaline Casts 0-2 /lpf (0-2); Mucus Light (0-Heavy); Squamous Epithelial Cells Mod /hpf (Few)
[2020-07-24] MEDS ORDERED: FISH OIL 1,2001 EAC7 PT ×2 (15:23)
[2020-07-24] MEDS ORDERED: VITAMIN D325 MC3 PT ×2 (15:23)
[2020-07-24] MEDS ORDERED: CALCIUM CITRAT250 MG PR ×2 (15:24)
[2020-07-24] MEDS ORDERED: [UNRECOGNIZED DRUG - OTHER] TOP ×2 (15:28)
[2020-07-24] MEDS ORDERED: [UNRECOGNIZED DRUG - OTHER] PR ×2 (15:30)
--- NOTE | 2020-07-24 18:44 | NUR ---
SHIFT SUMMARY REPORT RECIEVED FROM ETTA PARKS RN. EXPRESSED CONCERNS REGARDING HR OF 130'S. HELD TRANSFER TO CLARIFY. CODY JUAREZ NOTIFIED THIS RN THAT DR. JACOB AND ED CHARGE FELT TRANSFER TO MED UNIT IS APPROPRIATE. ED ADMIT ARRIVED AT 1645. TACHYCARDIC IN THE 130'S AND CONSTANTLY MOANING. HEART RATE HIGH 143, ON CONTINUOUS PULSE OXIMETER. BAKER DOUGHNUT PROVIDER NOTIFIED, ORDERS RECIEVED. PT IS RESTING QUIETLY AT THIS TIME, 1845, HR 129. TELE MONITOR NOW IN PLACE.
--- NOTE | 2020-07-24 20:28 | NUR ---
AT 2009, 5mg IV Lopressor was administered slow push to patient who began with a HR 138 Sinus Tach. Heart rate after push was SR 95. Patient tolerated well. will continue close monitoring
--- NOTE | 2020-07-24 23:55 | NUR ---
Patient continues to be quite distraught, but quieting. HR 125-130, diaphoretic. Abdomen now firm and bowel tones have gone from hypoactive to absent. Call placed to hospitalist to inform
--- NOTE | 2020-07-25 00:34 | NUR ---
HAD PERSONAL DRIVER REASSESS PATIENT'S ABDOMEN SINCE HE HAD CARED FOR THE PATIENT BEFORE. HYPOACTIVE BUT PRESENT BOWEL TONES IN ALL 4 QUADS AND ABDOMEN FIRMNESS AT SAME LEVEL PREVIOUS VISITS. WILL HOLD NG FOR NOW PATIENT GOT EXTREMELY UPSET WHEN TOLD SHE WOULD NEED ONE. MD TO BE INFORMED. HR 130'S AGAIN. NEW ORDER FOR METOPROLOL FOR HR >120
--- NOTE | 2020-07-25 03:48 | NUR ---
AT 0100 patient given second dose of lopressor for HR sustained in 130's. Rate again came down to 90's, and is now climbing back into the 115-120 range. will continue close monitoring
[2020-07-25 06:06] LABS: BASOPHILS ABSOLUTE AUTO 0.01 K/mm3 (0.00-0.23); BASOPHILS PERCENT AUTO 0 % (0-2); EOSINOPHILS PERCENT AUTO 0 % (0-6); Hematocrit 43.2 % (33.0-51.0); Hemoglobin 13.9 g/dL (11.5-16.0); IMMATURE GRAN ABSOLUTE AUTO 0.03 K/mm3 (0.00-0.10); IMMATURE GRAN PERCENT AUTO 0 % (0-1); LYMPHOCYTES ABSOLUTE AUTO 1.62 K/mm3 (0.84-5.20); LYMPHOCYTES PERCENT AUTO 18 % (21-46); MONOCYTES ABSOLUTE AUTO 0.84 K/mm3 (0.16-1.47); MONOCYTES PERCENT AUTO 10 % (4-13); Mean Corpuscular HGB 32.2 pg (26.0-34.0); Mean Corpuscular HGB Conc 32.2 g/dL (31.5-36.5); Mean Corpuscular Volume 100 fL (80-100); Mean Platelet Volume 12.2 fL (9.1-12.4); NEUTROPHILS ABSOLUTE AUTO 6.32 K/mm3 (1.96-9.15); NEUTROPHILS PERCENT AUTO 72 % (41-73); Platelet Count 322 K/mm3 (150-400); RDW Coefficient Variation 13.3 % (11.7-14.2); RDW Standard Deviation 48.6 fL (35.1-46.3); Red Blood Cell Count 4.32 M/mm3 (3.80-5.20); White Blood Cell Count 8.82 K/mm3 (4.00-11.30)
[2020-07-25 06:27] LABS: Alanine Aminotransfer (ALT/SGP 24 U/L (12-78); Albumin, Blood 3.1 g/dL (3.4-5.0); Albumin/Globulin Ratio 0.7 (0.8-1.8); Alk Phos 114 U/L (50-136); Anion Gap 7 mmol/L (6-16); Aspartate Aminotrans (AST/SGOT 23 U/L (12-37); Bilirubin, Total 0.3 mg/dL (0.1-1.0); Blood Urea Nitrogen 19 mg/dL (8-24); Bun/Creatinine Ratio 85.2 (12.0-20.0); CO2, Blood 22 mmol/L (21-32); Calcium, Blood 8.4 mg/dL (8.5-10.1); Chloride, Blood 109 mmol/L (98-108); Creatinine, Blood 0.22 mg/dL (0.40-1.00); Globulin, Blood 4.4 g/dL (2.2-4.0); Glomerular Filtration Rate >60 (60-); Glucose, Blood 153 mg/dL (70-99); Magnesium, Blood 2.2 mg/dL (1.6-2.4); Phosphorus, Blood 3.3 mg/dL (2.5-4.9); Potassium, Blood 4.2 mmol/L (3.5-5.5); Sodium, Blood 138 mmol/L (136-145); Total Protein, Blood 7.5 g/dL (6.4-8.2)
--- NOTE | 2020-07-25 07:33 | NUR ---
ASSUMED CARE: PT JUST RETURNED FROM CT. NIGHT RN ADMINISTERED IV LOPRESSOR. TELE STATES PT IS SINUS TACH AT 110 ON TELE. PT MOANING. IV PAIN MEDS ADMINISTERED BY NIGHT RN WELL. SEAM FINISHER AT BEDSIDE.
--- NOTE | 2020-07-25 08:40 | NUR ---
HOOP BENDING MACHINE OPERATOR SUMMARY patient extremely anxious, and painful. crying out all night. Abdomen firm and bowel tones severly hypoactive. tender to gently palpation in all quadrants. NPO and currently receiving Clinimix and D5NS for rehydradion and nutrition while unable to be fed by peg tube. HR 110-150 sinus tach overnight. received IV Lopressor three times and got brief relief from the medication each time dropping heart rate to SR90's for approx one hour, then it would begin creeping up again. Called this AM to inform HR 150's and too early for more lopressor, Lopressor given and stat CT abd/pelvis completed as well as troponin added to blood in Lab. Oncoming RN informed of situation and will contact Dr Torres (Baggs) with results.
--- NOTE | 2020-07-25 10:02 | NUR ---
DR HURD CALLED TO CHECK ON PT. ORDERED SURGICAL CONSULT. DR COTTO CAME TO SEE PT. AWARE OF MINIMAL RESIDUALS BUT THEY ARE BROWN AND SMELLS OF STOOL. AWARE THAT PT HAS HAD NO BM AND CURRENTLY HAVING ISSUES WITH TACHYCARDIA AND HYPERTENSION. STATES TO JUST WATCH FOR NOW AND MAY CONNECT PEG TO SUCTION IF PT BEGINS VOMITING
--- NOTE | 2020-07-25 18:21 | NUR ---
SHIFT SUMMARY: PT MEDICATED X1 FOR PAIN. HAS BEEN HAVING LIQUID STOOL AND PASSING GAS. NO VOMITING THIS SHIFT. REPOSITION Q2. ABX AND CLINIMIX GOING. PEG TUBE ONLY FOR MEDS WITH MINIMAL RESIDUALS BUT RESIDUALS HAVE BEEN BROWN. PT ON 2L O2 DUE TO DESATTING WITH SLEEP. NO FURTHER NEEDS AT THIS TIME.
[2020-07-26 05:51] LABS: Phosphorus, Blood 2.5 mg/dL (2.5-4.9)
--- NOTE | 2020-07-26 05:56 | NUR ---
SHIFT SUMMARY ADMITTED FOR SBO. FULL CODE. SHE HAS BEEN RUNNING TACHY. CONSULT IS DR COTTO. SHE HAS A PEG TUBE AND IS NPO. IV FLUIDS ARE INFUSING. CLINIMIX IS INFUSING. 2 LPM O2 VIA NC. STAHL IS DRAINING PATENT. CONTINUOUS PULSE OX IS IN PLACE. I DID MEDICATE HER FOR PAIN ONE TIME AND FOR ANXIETY ONE TIME. SHE IS NONCOMMUNICATIVE, SHE HAS CEREBRAL PALSY. SHE LIVES AT [facility] AND WILL RETURN THERE. SHE HAS A HX OF SBO'S THAT RESOLVE WITHOUT SURGERY.
--- NOTE | 2020-07-26 08:00 | NUR ---
pt laying in bed yelling out, pain meds given for relief. nonverbal, mediport infusing clinimix as ordered, peg tube flushes well, pt repositioned. call light in reach.
--- NOTE | 2020-07-26 12:30 | NUR ---
RECEIVED REPORT FROM EJ ROSS AN ASSUMED CARE OF PT. PT LYING IN BED, LOOKING COMFORTABLE AT THIS TIME. WILL CONTINUE TO MONITOR T/O THIS SHIFT.
--- NOTE | 2020-07-26 15:01 | NUR ---
TUBE FEEDING STARTED AT 25 ML/HR, TO BE ADVANCED 10ML EVERY 8 HOURS UNTIL GOAL RATE OF 35 ML/HR IS REACHED.
--- NOTE | 2020-07-26 18:38 | NUR ---
TUBE FEED ADVANCE SLOWLY TO GOAL RATE OF 35 ML/HR. DISCONTINUE CLINIMIX GOAL IS REACHED PER DR HURD.
--- NOTE | 2020-07-27 03:28 | NUR ---
SUMMARY PT TOLERATING CONT. TUBE FEEDING WELL. PT PAIN TX PER EMAR. STAHL DRAINING TO GRAVITY YELLOW/ CLEAR URINE. PT HAS BEEN SWEATING HEAVILY AT TIMES, NO FEVER NOTED. PT ON RA AND HAS NOT REQUIRED O2. PT HR IS CURRENTLY IN 110'S WCTM IF SUSTAINS IN 120'S. PT CURRENTLY SLEEPING AND BREATHING EASY. CALL LIGHT IN REACH. PT CRIES OUT WHEN SHE HAS NEEDS.
[2020-07-27 06:03] LABS: Anion Gap 3 mmol/L (6-16); Blood Urea Nitrogen 10 mg/dL (8-24); Bun/Creatinine Ratio 32.8 (12.0-20.0); CO2, Blood 30 mmol/L (21-32); Calcium, Blood 8.1 mg/dL (8.5-10.1); Chloride, Blood 108 mmol/L (98-108); Creatinine, Blood 0.31 mg/dL (0.40-1.00); Glomerular Filtration Rate >60 (60-); Glucose, Blood 110 mg/dL (70-99); Magnesium, Blood 2.1 mg/dL (1.6-2.4); Phosphorus, Blood 2.2 mg/dL (2.5-4.9); Potassium, Blood 3.8 mmol/L (3.5-5.5); Sodium, Blood 141 mmol/L (136-145)
--- NOTE | 2020-07-27 15:21 | NUR ---
PATIENT DISCHARGED BACK TO [facility], PICKED UP BY GURNEY TRANSPORT AT 1430. MEDIPORT FLUSHED WITH 10 ML NS AND 5 ML HEPARIN LOCK FLUSH, DEACCESSED WITHOUT INCIDENT, SITE COVERED WITH BAND AID. NO RESIDUAL NOTED FROM PEG TUBE.
== END 2020-07-27 14:48 | DRG 388 ==
LOC: ER 12:02 → MEDS 14:59
PROVIDERS: Emergency Medicine; ADMIT Internal Medicine
DX: K56.609 Unspecified intestinal obstruction, unspecified as to partial versus complete obstruction (principal); R53.2 Functional quadriplegia; N39.0 Urinary tract infection, site not specified; G80.9 Cerebral palsy, unspecified; G40.909 Epilepsy, unspecified, not intractable, without status epilepticus; E86.0 Dehydration; N20.0 Calculus of kidney; Z93.1 Gastrostomy status; Z99.3 Dependence on wheelchair; K59.00 Constipation, unspecified; K44.9 Diaphragmatic hernia without obstruction or gangrene
CPT/HCPCS: 36415; 51702; 74018; 74022; 74176; 80048; 80053; 81001; 82947; 83605; 83735; 84100; 84484; 85025; 87040; 87086; 96360-59; 96361-59; 99284-25; C9113; J0696; J1170; J1642; J1650; J2060; J2405; J3010; J7030; J7042

== ENCOUNTER 2020-07-27 18:13 | Emergency (ER) | payer OTHER ==
[~2020-07-27] VITALS: Ht 139.7 cm; Wt 40.8 kg
[~2020-07-27 18:13] MED LIST changes: +CALCIUM CITRAT250 MG PR; +Citalopram HBr40 MG PT; +FISH OIL 1,2001 EAC7 PO; +FISH OIL 1,2001 EAC7 PT; +VITAMIN D325 MC3 PT; +[UNRECOGNIZED DRUG - OTHER] PR; +[UNRECOGNIZED DRUG - OTHER] TOP
== END 2020-07-27 18:36 | disposition home or self-care (01) ==
LOC: ER 18:13
DX: Z46.6 Encounter for fitting and adjustment of urinary device (principal); Z79.899 Other long term (current) drug therapy; Z91.040 Latex allergy status; Z88.8 Allergy status to other drugs, medicaments and biological substances
CPT/HCPCS: 99282

== ENCOUNTER 2020-07-28 13:14 | Inpatient (IN) | payer OTHER ==
[~2020-07-28] VITALS: Ht 139.7 cm; Wt 43.7 kg
[2020-07-28 14:59] LABS: BASOPHILS ABSOLUTE AUTO 0.01 K/mm3 (0.00-0.23); BASOPHILS PERCENT AUTO 0 % (0-2); EOSINOPHILS ABSOLUTE AUTO 0.09 K/mm3 (0.00-0.68); EOSINOPHILS PERCENT AUTO 3 % (0-6); Hematocrit 34.7 % (33.0-51.0); Hemoglobin 11.3 g/dL (11.5-16.0); IMMATURE GRAN PERCENT AUTO 0 % (0-1); LYMPHOCYTES ABSOLUTE AUTO 0.86 K/mm3 (0.84-5.20); LYMPHOCYTES PERCENT AUTO 27 % (21-46); MONOCYTES ABSOLUTE AUTO 0.28 K/mm3 (0.16-1.47); MONOCYTES PERCENT AUTO 9 % (4-13); Mean Corpuscular HGB 32.1 pg (26.0-34.0); Mean Corpuscular HGB Conc 32.6 g/dL (31.5-36.5); Mean Corpuscular Volume 99 fL (80-100); Mean Platelet Volume 11.9 fL (9.1-12.4); NEUTROPHILS ABSOLUTE AUTO 1.92 K/mm3 (1.96-9.15); NEUTROPHILS PERCENT AUTO 61 % (41-73); Platelet Count 223 K/mm3 (150-400); RDW Coefficient Variation 13.7 % (11.7-14.2); RDW Standard Deviation 49.3 fL (35.1-46.3); Red Blood Cell Count 3.52 M/mm3 (3.80-5.20); White Blood Cell Count 3.16 K/mm3 (4.00-11.30)
[2020-07-28 15:19] LABS: Alanine Aminotransfer (ALT/SGP 31 U/L (12-78); Albumin, Blood 2.9 g/dL (3.4-5.0); Albumin/Globulin Ratio 0.8 (0.8-1.8); Alk Phos 107 U/L (50-136); Anion Gap 5 mmol/L (6-16); Aspartate Aminotrans (AST/SGOT 30 U/L (12-37); Bilirubin, Total 0.3 mg/dL (0.1-1.0); Blood Urea Nitrogen 6 mg/dL (8-24); Bun/Creatinine Ratio 18.1 (12.0-20.0); CO2, Blood 28 mmol/L (21-32); Calcium, Blood 8.6 mg/dL (8.5-10.1); Chloride, Blood 106 mmol/L (98-108); Creatinine, Blood 0.33 mg/dL (0.40-1.00); Globulin, Blood 3.8 g/dL (2.2-4.0); Glomerular Filtration Rate >60 (60-); Glucose, Blood 113 mg/dL (70-99); Potassium, Blood 3.7 mmol/L (3.5-5.5); Sodium, Blood 139 mmol/L (136-145); Total Protein, Blood 6.7 g/dL (6.4-8.2)
--- NOTE | 2020-07-28 19:07 | NUR ---
PATIENT VOMITTED AND NEEDED SOMETHING FOR NASUEA. SPOKE WITH DR HURD WHO ORDERED ZOFRAN, COMPAZINE AND REGLAN FOR NAUSEA. ALSO, INSTRUCTED TO CONTACT DR MCKEON AND LET HIM KNOW THAT PATIENT HAD VOMITTED AGAIN. MESSAGE LEFT WITH ANSWERING SERVICE.
--- NOTE | 2020-07-29 04:04 | NUR ---
SHIFT SUMMARY ASSUMED CARE OF PT AT 1900. PT IS A/O X4 BUT IS NONVERBAL. PT USES HEAD NODS AND POINTS WIH HER HANDS OR USES HER EYES TO COMMUNICATE. HEART SOUNDS REGULAR, LUNG SOUNDS CLEAR, DENIES CP/SOB. PT HAS NEASEA AT THE BEGINNING OF SHIFT BUT A DOSE OF ZOFRAN HELPED HER. PT C/O PAIN IN HER BACK, MEDICATED WITH 0.5MG OF DILAUDID BUT PT STILL C/O PAIN AND THE OTHER HALF WAS GIVEN SOON AFTER, PT DENIES PAIN THE REST OF THE NIGHT. PT HAS HER MEDIPORT ACCESSED. PT PEGTUBE IS DRAINING GREEN FLUIDS. PT IS INCONTINENT AND HAS MUCUS IN HER ATTENDS WITH EACH VOID. PT IS ABLE TO COMMUNICATE WHEN SHE HAS GONE TO THE BATHROOM AND NEEDS TO BE CHANGED. NO ACUTE CHANGES DURING THE NIGHT. PT SLEPT MOST OF THE NIGHT. CALL LIGHT IN REACH, BED IN LOWEST POSTION.
--- NOTE | 2020-07-29 16:00 | NUR ---
Initial Pal Care consult per Drs' requst for symptom management, strategies to prevent frequent readmissions for intermittent N/V, establishing goals of care and initiating advanced care planning for pt with her sister/medical POA, Triny Varma, . This is a summary of my visit to pt, long phone call with sister in [place] and case conferences w/nursing, Dr Castillo, Dr Conteh and Ashley of [facility]. Pt is 45 year old with severe cerebral palsy, cared for long-term at [facility]. She has had very frequent visits to the ER and admissions for recurrent N/V due to intermittent SBO and large hiatal hernia. She is nonverbal but communicates well with nodding or shaking her head yes and no. She nodded yes, and smiled when I asked if it was ok for me to move her hair out of her eyes. She nods no when asked if she is having pain or nausea currently. She is able to indicate to staff when her attends are wet and need to be changed when asked. She has indicated to both Drs that she does not want any further surgeries. Nurses note that zofran has been effective in treating nausea and that dietitian recommended trying a change in her formula to clear ensure via long-term g-tube and pt appears to be tolerating this at present. RN reports dilauded has been given twice in 24 hours for pain. I requested that they try tylenol first to prevent further slowing of gut with narcotics since pt does not demonstrate nonverbal indicators of pain currently. I contacted pt's sister, Triny, who had spoken with Dr Conteh earlier today. We had a long and thorough coversation about pt's s/s, anticipated continued intermittent sbo and n/v, recommendations and pt's wishes. Triny was aware that Melodie does not want surgical intervention in the future. She does not want her sister to suffer and we discussed tx levels and options including DNR, comfort care, cont. level of care with limited advanced/invasive intervention vs full intervention. Pt is currently a FULL CODE. I requested that sister and any other family member necessary revisit pt's quality of life and discuss code status. Triny is leaning towards changing code status to DNR but wants to discuss with another sister. I made plan to call Triny again on Saturday to discuss their decision re: Code status. Triny does not feel pt is at end of life and does not feel hospice is appropriate for Melodie at this time. We discussed current living situation and the need for a higher level of medical care for management of s/s to prevent so frequent transfers to the hospital. Triny will contact [facility] to ask if they have another facility that would meet Melodie's needs better and would allow her to remain in same facility when hospice care is started. After my phone conference with sister I contacted Dr Conteh, Melinda Ramirez and Dr Castillo to report on conversation & recommendations. I recommend transfer to higher level of medical LT care facility, d/c of calcium & vitamins via gtube to decrease irritation to gut and hiatal hernia, Tylenol for pain, antispasmotic for cramping, Zofran 4mg SL, q4 hours at onset of N/V x two doses and if no relief, compazine or phenergan supp prn persistent N/V. services to teach cg to hold feedings at start of Nausea or vomiting & per DR Conteh, open g-tube to drain & relieve gastric pressure/distention from intermittent sbo & hiatal hernia. If this is not successful in manging s/s beter, I would recommend GI eval. If pt's SBO becomes more constant and unrelieved by those measures I would recommend d/c of gtube feedings and EOL/hospice care in pt's facility. These recommendations were discussed with RNs, Sue and Ashley of [facility]. Plan to follow up with sister by phone in two days re: code status and f/u with [facility] with Ashley re: increased care needs and recommendations with Ashley if desired by [facility].
--- NOTE | 2020-07-29 16:15 | NUR ---
SHIFT SUMMARY PT WAS ADMITTED YESTERDAY FOR SMALL BOWEL OBSTRUCTION. PT IS NONVERBAL, BUT NOD FOR YES OR NO WHEN SHE'S IN PAIN OR FEELING N&V. PT IS INCONTINENT AND GOOD AT COMMUNICATING IF SHE NEEDS TO BE CHANGED. PT STARTED TUBE FEEDING TODAY WITH ENSURE CLEAR @15ML/HR FOR 8 HR-FLUSH FOR 100ML- ADVANCE 15ML EVERY 8HR, FOR A GOAL RATE OF 30ML/HR. PT TOLERATING WELL, AND NO SIGNS OF DISTRESS. THIS MORNING PT FELT NAUSEA AND A PAIN OF 10/10, MEDICATED HER WITH ZOFRAN AND DILAUDID- TOLERATED WELL. PT WILL ALSO START FORMULA FEEDING TONIGHT PER PROVIDER AND CASHIER OR CHECKER STOCK CLERK CONSULT. BED IS IN THE LOWEST POSITION, CALL LIGHTS WITHIN REACH, BED ALARM IS ON. REPOSITIONING PRN. WILL CONTINUE MONITOR UNTIL THE NEXT SHIFT REPORT.
--- NOTE | 2020-07-30 04:13 | NUR ---
SHIFT SUMMARY ASSUMED CARE OF PT AT 1900. PT IS A/O, PT WILL RESPOND TO YES OR NO QUESTIONS WITH A HEAD NOD. HEART SOUNDS REGULAR, LUNG SOUNDS CLEAR, DENIES CP/SOB. PEG TUBE HAS CONTINUOUS FEEDING, PT IS AT GOAL RATE OF 35ML/HR. PT HAS A SMEAR BM. PT WAS ABLE TO COMMUNICATE WHEN SHE URINATED IN HER DEPENDS. PT SLEPT VERY WELLDURING THE NIGHT. CALL LIGHT IN REACH, BED IN LOWEST POSITION.
[2020-07-30 06:12] LABS: Anion Gap 4 mmol/L (6-16); Blood Urea Nitrogen 3 mg/dL (8-24); Bun/Creatinine Ratio 9.2 (12.0-20.0); CO2, Blood 29 mmol/L (21-32); Calcium, Blood 7.8 mg/dL (8.5-10.1); Chloride, Blood 109 mmol/L (98-108); Creatinine, Blood 0.33 mg/dL (0.40-1.00); Glomerular Filtration Rate >60 (60-); Glucose, Blood 96 mg/dL (70-99); Magnesium, Blood 1.9 mg/dL (1.6-2.4); Phosphorus, Blood 2.5 mg/dL (2.5-4.9); Potassium, Blood 3.8 mmol/L (3.5-5.5); Sodium, Blood 142 mmol/L (136-145)
--- NOTE | 2020-07-30 15:28 | NUR ---
PATIENT DISCHARGED BACK TO [facility] WITH HER CAREGIVER. OSWALDO WAS PLACED IN HER OWN W/C USING CEILING LIFT. MEDIPORT DEACCESSED PER PROTOCOL. D/C PACKET DISCUSSED WITH CG, INCLUDING EMPHASIS ON INSTRUCTION ON WHAT TO DO WITH G TUBE/TF IF PT BEGINS TO VOMIT. NEW RX FAXED TO [facility]. PT LEFT THE UNIT AT 1515.
[2020-07-30] MEDS ORDERED: SIMETHICONE100 ML UD (22:57)
[2020-07-31] MEDS ORDERED: ONDA4ODT SL (18:23)
== END 2020-07-30 15:12 | disposition home or self-care (01) | DRG 388 ==
LOC: ER 13:14 → MEDS 13:15 → ER 16:08 → MEDS 16:08
PROVIDERS: Emergency Medicine; ADMIT Internal Medicine
PROC: 0D9670Z Drainage of Stomach with Drainage Device, Via Natural or Artificial Opening (ICD-10-PCS; principal; 2020-07-28)
PROC: 3E0G76Z Introduction of Nutritional Substance into Upper GI, Via Natural or Artificial Opening (ICD-10-PCS; 2020-07-29)
DX: K56.609 Unspecified intestinal obstruction, unspecified as to partial versus complete obstruction (principal); R53.2 Functional quadriplegia; G80.9 Cerebral palsy, unspecified; N20.0 Calculus of kidney; K44.9 Diaphragmatic hernia without obstruction or gangrene; G40.909 Epilepsy, unspecified, not intractable, without status epilepticus; K59.09 Other constipation; Z51.5 Encounter for palliative care; Z93.1 Gastrostomy status; Z74.01 Bed confinement status; Z87.440 Personal history of urinary (tract) infections
CPT/HCPCS: 74022; 80048; 80053; 82947; 83690; 83735; 84100; 85025; 96374; 96375; 99285-25; A9270; C9113; C9254; J0780; J1170; J1642; J1650; J2405; J2560; J3480; J7030; J7050

== ENCOUNTER 2020-07-30 20:47 | Emergency (ER) | payer OTHER ==
[~2020-07-30] VITALS: Ht 139.7 cm; Wt 40.8 kg
[2020-07-30] MEDS ORDERED: SIMETHICONE100 ML UD (22:57)
[2020-07-31] MEDS ORDERED: ONDA4ODT SL (18:23)
== END 2020-07-31 00:03 | disposition home or self-care (01) ==
LOC: ER 20:47
DX: R11.2 Nausea with vomiting, unspecified (principal); I10 Essential (primary) hypertension; Z87.19 Personal history of other diseases of the digestive system; G40.909 Epilepsy, unspecified, not intractable, without status epilepticus; Z88.8 Allergy status to other drugs, medicaments and biological substances; Z91.040 Latex allergy status; Z79.899 Other long term (current) drug therapy
CPT/HCPCS: 71045; 99284-25

== ENCOUNTER 2020-09-20 14:17 | Day surgery (SDC) | payer OTHER ==
[~2020-09-20 14:17] MED LIST changes: +ONDA4ODT SL; +SIMETHICONE100 ML UD
== END 2020-09-20 16:10 | disposition home or self-care (01) ==
LOC: ATC 14:17
DX: Z45.2 Encounter for adjustment and management of vascular access device (principal); K56.609 Unspecified intestinal obstruction, unspecified as to partial versus complete obstruction; G40.209 Localization-related (focal) (partial) symptomatic epilepsy and epileptic syndromes with complex partial seizures, not intractable, without status epilepticus; G80.9 Cerebral palsy, unspecified; Z79.899 Other long term (current) drug therapy; Z88.1 Allergy status to other antibiotic agents; Z88.8 Allergy status to other drugs, medicaments and biological substances; Z91.040 Latex allergy status; Z93.1 Gastrostomy status; Z51.5 Encounter for palliative care
CPT/HCPCS: 96523; J1642

== ENCOUNTER 2020-10-26 18:02 | Emergency (ER) | payer OTHER ==
[~2020-10-26] VITALS: Ht 139.7 cm; Wt 40.8 kg
== END 2020-10-26 20:10 | disposition home or self-care (01) ==
LOC: ER 18:02
PROVIDERS: Emergency Medicine
DX: G40.909 Epilepsy, unspecified, not intractable, without status epilepticus (principal); G80.9 Cerebral palsy, unspecified; Z88.8 Allergy status to other drugs, medicaments and biological substances; Z91.040 Latex allergy status; Z79.899 Other long term (current) drug therapy
CPT/HCPCS: 36415; 80184; 99284

== ENCOUNTER 2020-12-15 00:25 | Day surgery (SDC) | payer OTHER ==
[~2020-12-15 00:25] MED LIST changes: -A AND D OINTM42.5 GM TOP; -Aquaphor Healin50 GM TOP; -CALCIUM CITRAT250 MG PR; -CARB10OTL BOTHEARS; -Citalopram HBr40 MG PT; -Docu Liqui50 MG/5 ML PT; -ERYT1OIN BOTHEYES; -FISH OIL 1,2001 EAC7 PT; -Loratadine10 MG PT; -NYSTOP15 GM TOP; -PHENOBARBI20 MG/5 M1 PT; -Triple Antibi28.4 G1 TOP; -VIMPAT10 MG/1 ML PT
[2021-03-23] MEDS ORDERED: PHENOBARBI20 MG/5 M1 PT (14:31)
[2021-03-26] MEDS ORDERED: DIAPER RASH113 G1 TOP (07:53)
[2021-03-26] MEDS ORDERED: PHENOBARBI PO (08:05)
[2021-03-28] MEDS ORDERED: ERYT.5TO BOTHEYES ×2 (00:12)
[2021-03-28] MEDS ORDERED: IBUP800 PO (00:16)
[2021-03-28] MEDS ORDERED: BISA5EC PT (09:29)
[2021-03-28] MEDS ORDERED: Docu Liqui50 MG/5 ML PT (09:31)
[2021-03-28] MEDS ORDERED: FAMO10 PT (09:32)
[2021-03-28] MEDS ORDERED: PHENOBARBI20 MG/5 M1 PO (09:33)
[2021-03-28] MEDS ORDERED: PHOS NAK PO (09:34)
[2021-03-28] MEDS ORDERED: SENN187 PT (09:35)
[2021-03-28] MEDS ORDERED: SIME80CH PO (09:36)
[2021-03-28] MEDS ORDERED: ACET325 PO (10:08)
[2021-03-28] MEDS ORDERED: CALCIUM CITRATE 200 MG PO (10:09)
[2021-03-28] MEDS ORDERED: CLARITIN5 MG/5 M1 PT (10:10)
[2021-03-28] MEDS ORDERED: ONDA4ODT MM (10:12)
[2021-03-29] MEDS ORDERED: DILANTIN-1125 MG/5 M PT (13:52)
== END 2020-12-15 10:51 | disposition home or self-care (01) ==
LOC: ATC 00:25
DX: N39.498 Other specified urinary incontinence (principal); E87.1 Hypo-osmolality and hyponatremia; R33.9 Retention of urine, unspecified; D72.819 Decreased white blood cell count, unspecified; H10.9 Unspecified conjunctivitis; J02.9 Acute pharyngitis, unspecified; K94.23 Gastrostomy malfunction; G40.219 Localization-related (focal) (partial) symptomatic epilepsy and epileptic syndromes with complex partial seizures, intractable, without status epilepticus; G82.50 Quadriplegia, unspecified; F32.9 Major depressive disorder, single episode, unspecified; Z51.81 Encounter for therapeutic drug level monitoring
CPT/HCPCS: 96523; J1642

== ENCOUNTER 2021-01-03 13:36 | Observation (INO) | payer OTHER ==
[~2021-01-03] VITALS: Ht 109.2 cm; Wt 85.0 kg
[2021-01-03 15:39] LABS: BASOPHILS ABSOLUTE AUTO 0.01 K/mm3 (0.00-0.23); BASOPHILS PERCENT AUTO 0 % (0-2); EOSINOPHILS PERCENT AUTO 0 % (0-6); Hematocrit 43.9 % (33.0-51.0); Hemoglobin 15.3 g/dL (11.5-16.0); IMMATURE GRAN ABSOLUTE AUTO 0.01 K/mm3 (0.00-0.10); IMMATURE GRAN PERCENT AUTO 0 % (0-1); LYMPHOCYTES PERCENT AUTO 10 % (21-46); MONOCYTES ABSOLUTE AUTO 0.39 K/mm3 (0.16-1.47); MONOCYTES PERCENT AUTO 5 % (4-13); Mean Corpuscular HGB 31.8 pg (26.0-34.0); Mean Corpuscular HGB Conc 34.9 g/dL (31.5-36.5); Mean Corpuscular Volume 91 fL (80-100); NEUTROPHILS ABSOLUTE AUTO 6.12 K/mm3 (1.96-9.15); NEUTROPHILS PERCENT AUTO 85 % (41-73); Platelet Count 253 K/mm3 (150-400); RDW Coefficient Variation 14.6 % (11.7-14.2); RDW Standard Deviation 49.3 fL (35.1-46.3); Red Blood Cell Count 4.81 M/mm3 (3.80-5.20); White Blood Cell Count 7.23 K/mm3 (4.00-11.30)
[2021-01-03 16:04] LABS: Alanine Aminotransfer (ALT/SGP 25 U/L (12-78); Albumin, Blood 3.8 g/dL (3.4-5.0); Albumin/Globulin Ratio 0.9 (0.8-1.8); Alk Phos 89 U/L (50-136); Anion Gap 10 mmol/L (6-16); Aspartate Aminotrans (AST/SGOT 23 U/L (12-37); Bilirubin, Total 0.4 mg/dL (0.1-1.0); Blood Urea Nitrogen 19 mg/dL (8-24); Bun/Creatinine Ratio 64.2 (12.0-20.0); CO2, Blood 29 mmol/L (21-32); Calcium, Blood 9.3 mg/dL (8.5-10.1); Chloride, Blood 96 mmol/L (98-108); Globulin, Blood 4.4 g/dL (2.2-4.0); Glomerular Filtration Rate >60 (60-); Glucose, Blood 131 mg/dL (70-99); Potassium, Blood 3.4 mmol/L (3.5-5.5); Sodium, Blood 135 mmol/L (136-145); Total Protein, Blood 8.2 g/dL (6.4-8.2)
[2021-01-03] MEDS ORDERED: [UNRECOGNIZED DRUG - OTHER] PT (16:49)
[2021-01-03] MEDS ORDERED: [UNRECOGNIZED DRUG - OTHER] PR (16:50)
[2021-01-03] MEDS ORDERED: PHENOBARBI20 MG/5 M1 PT (16:51)
[2021-01-03] MEDS ORDERED: ACET500 PT (17:40)
[2021-01-03] MEDS ORDERED: A AND D OINTM42.5 GM TOP (17:40)
[2021-01-03] MEDS ORDERED: ONDA4 PT (17:41)
[2021-01-03] MEDS ORDERED: Loratadine10 MG PT (17:44)
[2021-01-03] MEDS ORDERED: [UNRECOGNIZED DRUG - OTHER] TOP (17:44)
[2021-01-03] MEDS ORDERED: Docu Liqui50 MG/5 ML PT (17:45)
[2021-01-03] MEDS ORDERED: FISH OIL 1,2001 EAC7 PT ×2 (17:45→17:54)
[2021-01-03] MEDS ORDERED: IBUP800 PT (17:46)
[2021-01-03] MEDS ORDERED: ERYT1OIN BOTHEYES (17:46)
[2021-01-03] MEDS ORDERED: BISA10S PR (17:46)
[2021-01-03] MEDS ORDERED: Citalopram HBr40 MG PT (17:47)
[2021-01-03] MEDS ORDERED: NYSTOP15 GM TOP (17:47)
[2021-01-03] MEDS ORDERED: Triple Antibi28.4 G1 TOP (17:48)
[2021-01-03] MEDS ORDERED: CARB10OTL BOTHEARS (17:49)
[2021-01-03] MEDS ORDERED: CALCIUM CITRAT250 MG PT (17:50)
[2021-01-03] MEDS ORDERED: Prilosec10 M1 PT (17:50)
[2021-01-03] MEDS ORDERED: SENN187 PT (17:51)
[2021-01-03] MEDS ORDERED: PREPARATION H OINT TOP (17:53)
[2021-01-03] MEDS ORDERED: SIME40L PT (17:56)
[2021-01-03] MEDS ORDERED: SKYADERM-LP 2.1 EACH TOP (17:57)
[2021-01-03] MEDS ORDERED: MAGCIT300 PT (17:57)
[2021-01-03] MEDS ORDERED: VIMPAT10 MG/1 M1 PT (19:33)
--- NOTE | 2021-01-03 21:48 | NUR ---
ADMIT 45 YR OLD FEMALE TO FLOOR FROM THE ED WITH DX N/V AND HX OF CEREBRAL PALSY. PERSONAL IDEA MAN AT BEDSIDE ANSERING QUESTIONS. CALL LIGHT IN REACH
--- NOTE | 2021-01-04 03:11 | NUR ---
BP 81/50. IVF INFUSING AND LEGS ELEVATED, WILL RETAKE BP IN 1-2 HRS. ASYMPTOMATIC AT THIS TIME. CALL LIGHT IN REACH
--- NOTE | 2021-01-04 03:27 | NUR ---
SHIFT SUMMARY ADMITTED EARLIER IN SHIFT FOR N/V AND POSSIBLE BOWEL OBSTRUCTION. NO N/V NOTED SINCE ADMISSION. MEDICATIONS PER PEG TUBE SHE IS NPO. REPOSITIONED PER PROTOCOL. IVF OF LR INFUSING AT 100 ML.HR. NOTED BP LOW (81/50) ASYMPTOMATIC. LEGS ELEVATED, WILL RE CHECK BP FOR FOLLOW UP. (BP WAS LOW IN THE ED WELL - SEE DOCUMENTATION). CALL LIGHT IN REACH
--- NOTE | 2021-01-04 05:16 | NUR ---
MEASURES EFFECTIVE, BP 95/64. ASYMPTOMATIC. PT SMILING AND DENIES DISTRES. CALL LIGHT IN REACH. SISTER CALLED EARLIER RE PT UPDATE.
[2021-01-04 05:19] LABS: BASOPHILS ABSOLUTE AUTO 0.01 K/mm3 (0.00-0.23); BASOPHILS PERCENT AUTO 0 % (0-2); EOSINOPHILS ABSOLUTE AUTO 0.02 K/mm3 (0.00-0.68); EOSINOPHILS PERCENT AUTO 1 % (0-6); Hematocrit 37.6 % (33.0-51.0); Hemoglobin 12.7 g/dL (11.5-16.0); IMMATURE GRAN ABSOLUTE AUTO 0.01 K/mm3 (0.00-0.10); IMMATURE GRAN PERCENT AUTO 0 % (0-1); LYMPHOCYTES ABSOLUTE AUTO 1.46 K/mm3 (0.84-5.20); LYMPHOCYTES PERCENT AUTO 33 % (21-46); MONOCYTES ABSOLUTE AUTO 0.32 K/mm3 (0.16-1.47); MONOCYTES PERCENT AUTO 7 % (4-13); Mean Corpuscular HGB 31.9 pg (26.0-34.0); Mean Corpuscular HGB Conc 33.8 g/dL (31.5-36.5); Mean Corpuscular Volume 95 fL (80-100); NEUTROPHILS ABSOLUTE AUTO 2.62 K/mm3 (1.96-9.15); NEUTROPHILS PERCENT AUTO 59 % (41-73); Platelet Count 185 K/mm3 (150-400); RDW Coefficient Variation 14.7 % (11.7-14.2); RDW Standard Deviation 51.3 fL (35.1-46.3); Red Blood Cell Count 3.98 M/mm3 (3.80-5.20); White Blood Cell Count 4.44 K/mm3 (4.00-11.30)
[2021-01-04 05:38] LABS: Alanine Aminotransfer (ALT/SGP 25 U/L (12-78); Albumin/Globulin Ratio 0.8 (0.8-1.8); Alk Phos 72 U/L (50-136); Anion Gap 8 mmol/L (6-16); Aspartate Aminotrans (AST/SGOT 27 U/L (12-37); Bilirubin, Total 0.7 mg/dL (0.1-1.0); Blood Urea Nitrogen 16 mg/dL (8-24); Bun/Creatinine Ratio 51.8 (12.0-20.0); CO2, Blood 30 mmol/L (21-32); Calcium, Blood 8.7 mg/dL (8.5-10.1); Chloride, Blood 101 mmol/L (98-108); Creatinine, Blood 0.31 mg/dL (0.40-1.00); Globulin, Blood 3.6 g/dL (2.2-4.0); Glomerular Filtration Rate >60 (60-); Glucose, Blood 94 mg/dL (70-99); Phosphorus, Blood 2.4 mg/dL (2.5-4.9); Potassium, Blood 3.1 mmol/L (3.5-5.5); Sodium, Blood 139 mmol/L (136-145); Total Protein, Blood 6.6 g/dL (6.4-8.2)
[2021-01-04 05:41] LABS: Mean Platelet Volume 13.1 fL (9.1-12.4)
--- NOTE | 2021-01-04 17:46 | NUR ---
SHIFT SUMMARY: NO ACUTE EVENTS THIS SHIFT. DENIED PAIN. IS IN BETTER SPIRITS THIS AFTERNOON, SMILING AND NODDING/SHAKING HER HEAD IN RESPONSE TO QUESTIONS. HAD VISIT FROM FROM [facility]. NO NAUSEA OR VOMITING. STARTED TF AT 25 ML/HR, TO BE INCREASED TONIGHT TO GOAL OF 35 ML/HR, TOLERATING. INCONTINENT OF B&B, WEARING ATTENDS.
--- NOTE | 2021-01-04 22:43 | NUR ---
GASTRIC RESIDUAL AT THIS TIME IS AT 280CC, PT JUST RECEIVED MEDS VIA G TUBE. FLUSHES WELL. WILL CONT 25ML/HR TFAT THIS TIME. WILL RECHECK.
--- NOTE | 2021-01-05 00:22 | NUR ---
NO GASTRIC RESIDUAL UPON CHECKING THIS TIME. PT DENIES ANY ABD DISCOMFORT. DENIES PAIN OR ANY OTHER DISCOMFORT. TF INCREASED TO 35 ML/HR ORDERED. PT TOLERATING TF W/O ISSUES. PT CURRENTLY RESTING IN BED AT THIS TIME.
--- NOTE | 2021-01-05 04:41 | NUR ---
RAISIN SEPARATOR OPERATOR SUMMARY PT IS ALERT, PT RESPONDS TO VERBAL STIMULI, RESPONDS TO QUESTIONS BY NODDING OR SHAKING HER HEAD. NO ACUTE CHANGES NOTED TO PATIENT THIS SHIFT. NO C/O PAIN OR ANY DISCOMFORT. NO CP, SOB, OR N&V. TF CONT AT 35 ML/HR, PT DENIES ANY GI DISCOMFORT, TOLERATING FEED AND FLUSHES VERY WELL. PT INCONTINENT OF B&B, ATTENDS IN PLACE.
[2021-01-05 05:50] LABS: Anion Gap 7 mmol/L (6-16); Blood Urea Nitrogen 12 mg/dL (8-24); Bun/Creatinine Ratio 54.1 (12.0-20.0); CO2, Blood 26 mmol/L (21-32); Calcium, Blood 8.1 mg/dL (8.5-10.1); Chloride, Blood 109 mmol/L (98-108); Creatinine, Blood 0.22 mg/dL (0.40-1.00); Glomerular Filtration Rate >60 (60-); Glucose, Blood 88 mg/dL (70-99); Magnesium, Blood 1.8 mg/dL (1.6-2.4); Phosphorus, Blood 2.1 mg/dL (2.5-4.9); Potassium, Blood 3.7 mmol/L (3.5-5.5); Sodium, Blood 142 mmol/L (136-145)
--- NOTE | 2021-01-05 14:08 | NUR ---
PATIENT DISCHARGED TO [facility] VIA GURNEY/AMBULANCE. IV SALINE LOCK REMOVED WITHOUT INCIDENT. D/C AND [facility] PAPERWORK IN D/C ENVELOPE. OFF UNIT AT 1410.
--- NOTE | 2021-01-05 16:31 | NUR ---
SUMMARY: Admit 01/03/21 Discharge 01/05/21 s/w [facility], ok to schedule transport for 2 pm, Floor nurse will fax discharge paperwork to the home. No home health or DME needs. Expect Drexel follow up call Saturday or Saturday to schedule follow up appointment for 1 week
[2021-03-23] MEDS ORDERED: PHENOBARBI20 MG/5 M1 PT (14:31)
[2021-03-26] MEDS ORDERED: DIAPER RASH113 G1 TOP (07:53)
[2021-03-26] MEDS ORDERED: PHENOBARBI PO (08:05)
[2021-03-28] MEDS ORDERED: ERYT.5TO BOTHEYES ×2 (00:12)
[2021-03-28] MEDS ORDERED: IBUP800 PO (00:16)
[2021-03-28] MEDS ORDERED: BISA5EC PT (09:29)
[2021-03-28] MEDS ORDERED: Docu Liqui50 MG/5 ML PT (09:31)
[2021-03-28] MEDS ORDERED: FAMO10 PT (09:32)
[2021-03-28] MEDS ORDERED: PHENOBARBI20 MG/5 M1 PO (09:33)
[2021-03-28] MEDS ORDERED: PHOS NAK PO (09:34)
[2021-03-28] MEDS ORDERED: SENN187 PT (09:35)
[2021-03-28] MEDS ORDERED: SIME80CH PO (09:36)
[2021-03-28] MEDS ORDERED: ACET325 PO (10:08)
[2021-03-28] MEDS ORDERED: CALCIUM CITRATE 200 MG PO (10:09)
[2021-03-28] MEDS ORDERED: CLARITIN5 MG/5 M1 PT (10:10)
[2021-03-28] MEDS ORDERED: ONDA4ODT MM (10:12)
[2021-03-29] MEDS ORDERED: DILANTIN-1125 MG/5 M PT (13:52)
== END 2021-01-05 14:16 | disposition home or self-care (01) ==
LOC: ER 13:36 → MEDS 13:37
PROVIDERS: Physician Assistant; ADMIT Hospitalist
DX: K56.699 Other intestinal obstruction unspecified as to partial versus complete obstruction (principal); G80.8 Other cerebral palsy; G40.909 Epilepsy, unspecified, not intractable, without status epilepticus; F32.9 Major depressive disorder, single episode, unspecified; E87.6 Hypokalemia; Z98.2 Presence of cerebrospinal fluid drainage device; Z93.1 Gastrostomy status; Z88.1 Allergy status to other antibiotic agents; Z88.8 Allergy status to other drugs, medicaments and biological substances
CPT/HCPCS: 36415; 74176; 80048; 80053; 83605; 83690; 83735; 84100; 85025; 96372; 99285-25; A9270; C9254; G0378; J1650; J7120

== ENCOUNTER 2021-01-19 15:20 | Emergency (ER) | payer OTHER ==
[~2021-01-19] VITALS: Ht 149.9 cm; Wt 45.4 kg
[~2021-01-19 15:20] MED LIST changes: +A AND D OINTM42.5 GM TOP; +CALCIUM CITRAT250 MG PT; +CARB10OTL BOTHEARS; +Citalopram HBr40 MG PT; +Docu Liqui50 MG/5 ML PT; +ERYT1OIN BOTHEYES; +FISH OIL 1,2001 EAC7 PT; +Loratadine10 MG PT; +NYSTOP15 GM TOP; +ONDA4 PT; +PHENOBARBI20 MG/5 M1 PT; +PREPARATION H OINT TOP; +Prilosec10 M1 PT; +SIME40L PT; +SKYADERM-LP 2.1 EACH TOP; +Triple Antibi28.4 G1 TOP; +VIMPAT10 MG/1 M1 PT; +[UNRECOGNIZED DRUG - OTHER] PR; +[UNRECOGNIZED DRUG - OTHER] PT; +[UNRECOGNIZED DRUG - OTHER] TOP
[2021-01-19 16:01] LABS: Source, Urine Catheter
[2021-01-19 16:06] LABS: BASOPHILS ABSOLUTE AUTO 0.01 K/mm3 (0.00-0.23); BASOPHILS PERCENT AUTO 0 % (0-2); EOSINOPHILS ABSOLUTE AUTO 0.03 K/mm3 (0.00-0.68); EOSINOPHILS PERCENT AUTO 1 % (0-6); Hematocrit 40.2 % (33.0-51.0); Hemoglobin 13.4 g/dL (11.5-16.0); IMMATURE GRAN PERCENT AUTO 0 % (0-1); LYMPHOCYTES ABSOLUTE AUTO 1.36 K/mm3 (0.84-5.20); LYMPHOCYTES PERCENT AUTO 50 % (21-46); MONOCYTES ABSOLUTE AUTO 0.18 K/mm3 (0.16-1.47); MONOCYTES PERCENT AUTO 7 % (4-13); Mean Corpuscular HGB 32.2 pg (26.0-34.0); Mean Corpuscular HGB Conc 33.3 g/dL (31.5-36.5); Mean Corpuscular Volume 97 fL (80-100); Mean Platelet Volume 12.8 fL (9.1-12.4); NEUTROPHILS ABSOLUTE AUTO 1.17 K/mm3 (1.96-9.15); NEUTROPHILS PERCENT AUTO 43 % (41-73); Platelet Count 197 K/mm3 (150-400); RDW Coefficient Variation 14.8 % (11.7-14.2); RDW Standard Deviation 52.9 fL (35.1-46.3); Red Blood Cell Count 4.16 M/mm3 (3.80-5.20); White Blood Cell Count 2.75 K/mm3 (4.00-11.30)
[2021-01-19 16:08] LABS: Appearance, Urine Hazy (Clear); Bilirubin, Urine Neg (Neg); Blood, Urine 3+ (Neg); Color, Urine Yellow (P-Yellow); Glucose Qualitative, Urine Neg (Neg); Ketones, Urine 2+ (Neg); Leukocyte Esterase, Urine 3+ (Neg); Nitrite, Urine Neg (Neg); Protein, Urine 2+ (Neg); Urobilinogen, Urine NORM (Normal)
[2021-01-19 16:20] LABS: Amorphous Light (0-Heavy); Bacteria Mod /hpf; Squamous Epithelial Cells Rare /hpf (Few); White Blood Cells, Urine 50-100 /hpf (0-5)
[2021-01-19 16:27] LABS: Alanine Aminotransfer (ALT/SGP 21 U/L (12-78); Albumin, Blood 3.6 g/dL (3.4-5.0); Albumin/Globulin Ratio 0.9 (0.8-1.8); Alk Phos 75 U/L (50-136); Anion Gap 7 mmol/L (6-16); Aspartate Aminotrans (AST/SGOT 15 U/L (12-37); Beta HCG, Quantitative, Serum <1 mIU/mL (0-3); Bilirubin, Total 0.4 mg/dL (0.1-1.0); Blood Urea Nitrogen 7 mg/dL (8-24); Bun/Creatinine Ratio 22.3 (12.0-20.0); CO2, Blood 29 mmol/L (21-32); Calcium, Blood 9.3 mg/dL (8.5-10.1); Chloride, Blood 106 mmol/L (98-108); Creatinine, Blood 0.31 mg/dL (0.40-1.00); Globulin, Blood 3.9 g/dL (2.2-4.0); Glomerular Filtration Rate >60 (60-); Glucose, Blood 99 mg/dL (70-99); Potassium, Blood 3.9 mmol/L (3.5-5.5); Sodium, Blood 142 mmol/L (136-145); Total Protein, Blood 7.5 g/dL (6.4-8.2)
[2021-01-19 16:28] LABS: U Amphetamine Screen Not Detected; U Barbituate Screen DETECTED; U Benzodiazapine Screen Not Detected; U Buprenorphine Screen Not Detected; U Cannabinoids Screen Not Detected; U Cocaine Screen Not Detected; U Methadone Screen Not Detected; U Methamphetamine Screen Not Detected; U Opiates Screen Not Detected; U Oxycodone Screen Not Detected; U Phencyclidine Screen Not Detected; U Propoxyphene Screen Not Detected
[2021-01-19] MEDS ORDERED: Amoxicillin500 MG PO (17:31)
[2021-03-23] MEDS ORDERED: PHENOBARBI20 MG/5 M1 PT (14:31)
[2021-03-26] MEDS ORDERED: DIAPER RASH113 G1 TOP (07:53)
[2021-03-26] MEDS ORDERED: PHENOBARBI PO (08:05)
[2021-03-28] MEDS ORDERED: ERYT.5TO BOTHEYES ×2 (00:12)
[2021-03-28] MEDS ORDERED: IBUP800 PO (00:16)
[2021-03-28] MEDS ORDERED: BISA5EC PT (09:29)
[2021-03-28] MEDS ORDERED: Docu Liqui50 MG/5 ML PT (09:31)
[2021-03-28] MEDS ORDERED: FAMO10 PT (09:32)
[2021-03-28] MEDS ORDERED: PHENOBARBI20 MG/5 M1 PO (09:33)
[2021-03-28] MEDS ORDERED: PHOS NAK PO (09:34)
[2021-03-28] MEDS ORDERED: SENN187 PT (09:35)
[2021-03-28] MEDS ORDERED: SIME80CH PO (09:36)
[2021-03-28] MEDS ORDERED: ACET325 PO (10:08)
[2021-03-28] MEDS ORDERED: CALCIUM CITRATE 200 MG PO (10:09)
[2021-03-28] MEDS ORDERED: CLARITIN5 MG/5 M1 PT (10:10)
[2021-03-28] MEDS ORDERED: ONDA4ODT MM (10:12)
[2021-03-29] MEDS ORDERED: DILANTIN-1125 MG/5 M PT (13:52)
== END 2021-01-19 18:29 | disposition home or self-care (01) ==
LOC: ER 15:20
PROVIDERS: Emergency Medicine
DX: N39.0 Urinary tract infection, site not specified (principal); I10 Essential (primary) hypertension; Z91.040 Latex allergy status; Z88.1 Allergy status to other antibiotic agents; Z88.8 Allergy status to other drugs, medicaments and biological substances; Z79.899 Other long term (current) drug therapy
CPT/HCPCS: 51701; 71045; 74176; 80053; 81001; 84702; 85025; 87086; 87106; 96365-59; 99284-25; J0696; J1642

== ENCOUNTER 2021-01-25 18:27 | Emergency (ER) | payer OTHER ==
[~2021-01-25] VITALS: Ht 157.5 cm; Wt 59.0 kg
[~2021-01-25 18:27] MED LIST changes: +Amoxicillin500 MG PO
[2021-01-25] MEDS ORDERED: Vimpat200 MG (19:27)
[2021-01-25] MEDS ORDERED: HYDR1TAB94 PT (22:02)
[2021-01-25] MEDS ORDERED: Norco 5-325 Ta1 EACH PT (22:04)
[2021-03-23] MEDS ORDERED: PHENOBARBI20 MG/5 M1 PT (14:31)
[2021-03-26] MEDS ORDERED: DIAPER RASH113 G1 TOP (07:53)
[2021-03-26] MEDS ORDERED: PHENOBARBI PO (08:05)
[2021-03-28] MEDS ORDERED: ERYT.5TO BOTHEYES ×2 (00:12)
[2021-03-28] MEDS ORDERED: IBUP800 PO (00:16)
[2021-03-28] MEDS ORDERED: BISA5EC PT (09:29)
[2021-03-28] MEDS ORDERED: Docu Liqui50 MG/5 ML PT (09:31)
[2021-03-28] MEDS ORDERED: FAMO10 PT (09:32)
[2021-03-28] MEDS ORDERED: PHENOBARBI20 MG/5 M1 PO (09:33)
[2021-03-28] MEDS ORDERED: PHOS NAK PO (09:34)
[2021-03-28] MEDS ORDERED: SENN187 PT (09:35)
[2021-03-28] MEDS ORDERED: SIME80CH PO (09:36)
[2021-03-28] MEDS ORDERED: ACET325 PO (10:08)
[2021-03-28] MEDS ORDERED: CALCIUM CITRATE 200 MG PO (10:09)
[2021-03-28] MEDS ORDERED: CLARITIN5 MG/5 M1 PT (10:10)
[2021-03-28] MEDS ORDERED: ONDA4ODT MM (10:12)
[2021-03-29] MEDS ORDERED: DILANTIN-1125 MG/5 M PT (13:52)
== END 2021-01-25 23:33 | disposition home or self-care (01) ==
LOC: ER 18:27
DX: M54.6 Pain in thoracic spine (principal); G89.29 Other chronic pain; K59.00 Constipation, unspecified; I10 Essential (primary) hypertension; Z91.040 Latex allergy status; Z88.8 Allergy status to other drugs, medicaments and biological substances; Z79.899 Other long term (current) drug therapy
CPT/HCPCS: 72080; 74018; 99283-25; A9270

== ENCOUNTER 2021-02-25 22:13 | Emergency (ER) | payer OTHER ==
[~2021-02-25] VITALS: Ht 139.7 cm; Wt 41.7 kg
[~2021-02-25 22:13] MED LIST changes: +HYDR1TAB94 PT; +Norco 5-325 Ta1 EACH PT; +Vimpat200 MG
[2021-02-25 23:54] LABS: BASOPHILS ABSOLUTE AUTO 0.01 K/mm3 (0.00-0.23); BASOPHILS PERCENT AUTO 0 % (0-2); EOSINOPHILS ABSOLUTE AUTO 0.01 K/mm3 (0.00-0.68); EOSINOPHILS PERCENT AUTO 0 % (0-6); Hematocrit 41.6 % (33.0-51.0); Hemoglobin 14.3 g/dL (11.5-16.0); IMMATURE GRAN ABSOLUTE AUTO 0.01 K/mm3 (0.00-0.10); IMMATURE GRAN PERCENT AUTO 0 % (0-1); LYMPHOCYTES ABSOLUTE AUTO 0.84 K/mm3 (0.84-5.20); LYMPHOCYTES PERCENT AUTO 11 % (21-46); MONOCYTES ABSOLUTE AUTO 0.42 K/mm3 (0.16-1.47); MONOCYTES PERCENT AUTO 5 % (4-13); Mean Corpuscular HGB 32.5 pg (26.0-34.0); Mean Corpuscular HGB Conc 34.4 g/dL (31.5-36.5); Mean Corpuscular Volume 95 fL (80-100); Mean Platelet Volume 12.4 fL (9.1-12.4); NEUTROPHILS ABSOLUTE AUTO 6.64 K/mm3 (1.96-9.15); NEUTROPHILS PERCENT AUTO 84 % (41-73); Platelet Count 184 K/mm3 (150-400); RDW Coefficient Variation 14.2 % (11.7-14.2); White Blood Cell Count 7.93 K/mm3 (4.00-11.30)
[2021-02-26 00:12] LABS: Alanine Aminotransfer (ALT/SGP 22 U/L (12-78); Albumin, Blood 3.4 g/dL (3.4-5.0); Albumin/Globulin Ratio 0.9 (0.8-1.8); Alk Phos 76 U/L (50-136); Anion Gap 6 mmol/L (6-16); Aspartate Aminotrans (AST/SGOT 19 U/L (12-37); Bilirubin, Total 0.5 mg/dL (0.1-1.0); Blood Urea Nitrogen 18 mg/dL (8-24); Bun/Creatinine Ratio 60.4 (12.0-20.0); CO2, Blood 30 mmol/L (21-32); Calcium, Blood 8.9 mg/dL (8.5-10.1); Chloride, Blood 102 mmol/L (98-108); Globulin, Blood 3.8 g/dL (2.2-4.0); Glomerular Filtration Rate >60 (60-); Glucose, Blood 141 mg/dL (70-99); Potassium, Blood 3.9 mmol/L (3.5-5.5); Sodium, Blood 138 mmol/L (136-145); Total Protein, Blood 7.2 g/dL (6.4-8.2)
[2021-02-26 00:55] LABS: Source, Urine Catheter
[2021-02-26 00:58] LABS: Appearance, Urine Hazy (Clear); Bilirubin, Urine Neg (Neg); Blood, Urine 3+ (Neg); Color, Urine Amber (P-Yellow); Glucose Qualitative, Urine Neg (Neg); Ketones, Urine Neg (Neg); Leukocyte Esterase, Urine 3+ (Neg); Nitrite, Urine Neg (Neg); Protein, Urine 3+ (Neg); Specific Gravity, Urine 1.015 (1.003-1.022); Urobilinogen, Urine NORM (Normal)
[2021-02-26 01:10] LABS: Bacteria Many /hpf; Red Blood Cells, Urine 0-2 /hpf (0-2); Squamous Epithelial Cells Few /hpf (Few); White Blood Cells, Urine TNTC /hpf (0-5)
[2021-02-26] MEDS ORDERED: Cipro500 MG PO (01:38)
[2021-03-23] MEDS ORDERED: PHENOBARBI20 MG/5 M1 PT (14:31)
[2021-03-26] MEDS ORDERED: DIAPER RASH113 G1 TOP (07:53)
[2021-03-26] MEDS ORDERED: PHENOBARBI PO (08:05)
[2021-03-28] MEDS ORDERED: ERYT.5TO BOTHEYES ×2 (00:12)
[2021-03-28] MEDS ORDERED: IBUP800 PO (00:16)
[2021-03-28] MEDS ORDERED: BISA5EC PT (09:29)
[2021-03-28] MEDS ORDERED: Docu Liqui50 MG/5 ML PT (09:31)
[2021-03-28] MEDS ORDERED: FAMO10 PT (09:32)
[2021-03-28] MEDS ORDERED: PHENOBARBI20 MG/5 M1 PO (09:33)
[2021-03-28] MEDS ORDERED: PHOS NAK PO (09:34)
[2021-03-28] MEDS ORDERED: SENN187 PT (09:35)
[2021-03-28] MEDS ORDERED: SIME80CH PO (09:36)
[2021-03-28] MEDS ORDERED: ACET325 PO (10:08)
[2021-03-28] MEDS ORDERED: CALCIUM CITRATE 200 MG PO (10:09)
[2021-03-28] MEDS ORDERED: CLARITIN5 MG/5 M1 PT (10:10)
[2021-03-28] MEDS ORDERED: ONDA4ODT MM (10:12)
[2021-03-29] MEDS ORDERED: DILANTIN-1125 MG/5 M PT (13:52)
== END 2021-02-26 02:26 | disposition home or self-care (01) ==
LOC: ER 22:13
PROVIDERS: Emergency Medicine
DX: N39.0 Urinary tract infection, site not specified (principal); I10 Essential (primary) hypertension; Z88.8 Allergy status to other drugs, medicaments and biological substances; Z79.899 Other long term (current) drug therapy
CPT/HCPCS: 80053; 81001; 83690; 85025; 87086; 87106; 96374; 99284; A9270; J1642; J1885

== ENCOUNTER 2021-03-01 10:27 | Emergency (ER) | payer OTHER ==
[~2021-03-01] VITALS: Ht 139.7 cm; Wt 40.8 kg
[~2021-03-01 10:27] MED LIST changes: +AQUAPHOR HEALING OIN TOP; +Cipro500 MG PO; +OMEP20ER PO; -Prilosec10 M1 PT; -[UNRECOGNIZED DRUG - OTHER] TOP
[2021-03-01 11:58] LABS: BASOPHILS ABSOLUTE AUTO 0.01 K/mm3 (0.00-0.23); BASOPHILS PERCENT AUTO 0 % (0-2); EOSINOPHILS ABSOLUTE AUTO 0.03 K/mm3 (0.00-0.68); EOSINOPHILS PERCENT AUTO 1 % (0-6); Hematocrit 38.2 % (33.0-51.0); Hemoglobin 12.9 g/dL (11.5-16.0); IMMATURE GRAN ABSOLUTE AUTO 0.01 K/mm3 (0.00-0.10); IMMATURE GRAN PERCENT AUTO 0 % (0-1); LYMPHOCYTES ABSOLUTE AUTO 1.13 K/mm3 (0.84-5.20); LYMPHOCYTES PERCENT AUTO 43 % (21-46); MONOCYTES ABSOLUTE AUTO 0.17 K/mm3 (0.16-1.47); MONOCYTES PERCENT AUTO 6 % (4-13); Mean Corpuscular HGB 32.7 pg (26.0-34.0); Mean Corpuscular HGB Conc 33.8 g/dL (31.5-36.5); Mean Corpuscular Volume 97 fL (80-100); Mean Platelet Volume 12.8 fL (9.1-12.4); NEUTROPHILS ABSOLUTE AUTO 1.31 K/mm3 (1.96-9.15); NEUTROPHILS PERCENT AUTO 49 % (41-73); Platelet Count 177 K/mm3 (150-400); RDW Coefficient Variation 14.2 % (11.7-14.2); RDW Standard Deviation 51.1 fL (35.1-46.3); Red Blood Cell Count 3.95 M/mm3 (3.80-5.20); White Blood Cell Count 2.66 K/mm3 (4.00-11.30)
[2021-03-01 12:16] LABS: Alanine Aminotransfer (ALT/SGP 25 U/L (12-78); Albumin, Blood 3.3 g/dL (3.4-5.0); Albumin/Globulin Ratio 0.8 (0.8-1.8); Alk Phos 69 U/L (50-136); Anion Gap 3 mmol/L (6-16); Aspartate Aminotrans (AST/SGOT 20 U/L (12-37); Bilirubin, Total 0.3 mg/dL (0.1-1.0); Blood Urea Nitrogen 9 mg/dL (8-24); Bun/Creatinine Ratio 39.8 (12.0-20.0); CO2, Blood 32 mmol/L (21-32); Calcium, Blood 8.8 mg/dL (8.5-10.1); Chloride, Blood 105 mmol/L (98-108); Creatinine, Blood 0.23 mg/dL (0.40-1.00); Globulin, Blood 3.9 g/dL (2.2-4.0); Glomerular Filtration Rate >60 (60-); Glucose, Blood 104 mg/dL (70-99); Sodium, Blood 140 mmol/L (136-145); Total Protein, Blood 7.2 g/dL (6.4-8.2)
[2021-03-01] MEDS ORDERED: Diflucan100 MG PO (13:07)
== END 2021-03-01 13:42 | disposition home or self-care (01) ==
LOC: ER 10:27
PROVIDERS: Emergency Medicine
DX: G40.909 Epilepsy, unspecified, not intractable, without status epilepticus (principal); B37.49 Other urogenital candidiasis; Z91.040 Latex allergy status; Z88.8 Allergy status to other drugs, medicaments and biological substances; Z88.1 Allergy status to other antibiotic agents; Z79.899 Other long term (current) drug therapy
CPT/HCPCS: 36415; 80053; 80184; 85025; 99284; A9270

== ENCOUNTER 2021-03-15 11:35 | Observation (INO) | payer OTHER ==
[~2021-03-15] VITALS: Ht 127 cm; Wt 41.7 kg
[~2021-03-15 11:35] MED LIST changes: -AQUAPHOR HEALING OIN TOP; +Diflucan100 MG PO; -OMEP20ER PO; +Prilosec10 M1 PT; +[UNRECOGNIZED DRUG - OTHER] TOP
[2021-03-15 13:20] LABS: BASOPHILS ABSOLUTE AUTO 0.02 K/mm3 (0.00-0.23); BASOPHILS PERCENT AUTO 0 % (0-2); EOSINOPHILS ABSOLUTE AUTO 0.01 K/mm3 (0.00-0.68); EOSINOPHILS PERCENT AUTO 0 % (0-6); Hematocrit 45.6 % (33.0-51.0); Hemoglobin 15.5 g/dL (11.5-16.0); IMMATURE GRAN ABSOLUTE AUTO 0.01 K/mm3 (0.00-0.10); IMMATURE GRAN PERCENT AUTO 0 % (0-1); LYMPHOCYTES ABSOLUTE AUTO 0.82 K/mm3 (0.84-5.20); LYMPHOCYTES PERCENT AUTO 17 % (21-46); MONOCYTES ABSOLUTE AUTO 0.21 K/mm3 (0.16-1.47); MONOCYTES PERCENT AUTO 4 % (4-13); Mean Corpuscular HGB 32.7 pg (26.0-34.0); Mean Corpuscular Volume 96 fL (80-100); NEUTROPHILS ABSOLUTE AUTO 3.89 K/mm3 (1.96-9.15); NEUTROPHILS PERCENT AUTO 79 % (41-73); Platelet Count 201 K/mm3 (150-400); RDW Coefficient Variation 14.3 % (11.7-14.2); RDW Standard Deviation 50.8 fL (35.1-46.3); Red Blood Cell Count 4.74 M/mm3 (3.80-5.20); White Blood Cell Count 4.96 K/mm3 (4.00-11.30)
[2021-03-15 13:53] LABS: Alanine Aminotransfer (ALT/SGP 24 U/L (12-78); Albumin, Blood 4.3 g/dL (3.4-5.0); Alk Phos 84 U/L (50-136); Anion Gap 7 mmol/L (6-16); Aspartate Aminotrans (AST/SGOT 19 U/L (12-37); Bilirubin, Total 0.3 mg/dL (0.1-1.0); Blood Urea Nitrogen 21 mg/dL (8-24); CO2, Blood 30 mmol/L (21-32); Calcium, Blood 9.9 mg/dL (8.5-10.1); Chloride, Blood 100 mmol/L (98-108); Creatinine, Blood 0.38 mg/dL (0.40-1.00); Globulin, Blood 4.4 g/dL (2.2-4.0); Glomerular Filtration Rate >60 (60-); Glucose, Blood 165 mg/dL (70-99); Potassium, Blood 3.4 mmol/L (3.5-5.5); Sodium, Blood 137 mmol/L (136-145); Total Protein, Blood 8.7 g/dL (6.4-8.2)
[2021-03-15 13:55] LABS: Mean Platelet Volume 13.1 fL (9.1-12.4)
[2021-03-15] MEDS ORDERED: DOCU LIQUI50 MG/5 ML PT (15:35)
[2021-03-15] MEDS ORDERED: LACOSAMIDE PT (15:35)
[2021-03-15] MEDS ORDERED: Abilify2 MG PT (15:41)
--- NOTE | 2021-03-15 19:57 | NUR ---
PATIENT IS A NEW ADMIT ON DAY SHIFT; SHIFT CHANGE. THREE PERSON TRANSFER FROM [facility] TO BED. ALERT TO SELF. NPO. MEDIPORT AND GI TUBE. BEDREST AND NON-VERBAL. NS INFUSING FROM ED AT 100 mL/HR. BED ALARM ACTIVATED.
[2021-03-15] MEDS ORDERED: HYDR1TAB94 PT (22:20)
[2021-03-15] MEDS ORDERED: A AND D OINTM42.5 G1 TOP (22:23)
[2021-03-15] MEDS ORDERED: CARB10OTL BOTHEARS (22:27)
[2021-03-15] MEDS ORDERED: SKYADERM-LP 2.1 EACH TOP (22:30)
[2021-03-15] MEDS ORDERED: PHOS-NAK PT (22:34)
[2021-03-15] MEDS ORDERED: PREPARATION H C26 GM TOP (22:37)
[2021-03-15] MEDS ORDERED: [UNRECOGNIZED DRUG - OTHER] PT (22:41)
--- NOTE | 2021-03-15 23:28 | NUR ---
LONG CHAIN DYEING MACHINE OPERATOR NOW PRESENT AND REPORTS WILL STAY THE EVENING. LR INFUSING AT 125mL/HR.
--- NOTE | 2021-03-16 03:56 | NUR ---
SHIFT SUMMARY PATIENT HAD NO ACUTE CHANGES OBSERVED. ALERT TO SELF, NONVERBAL, AND BEDBOUND. NPO WITH GI TUBE AND MEDIPORT ACCESSED. S/SX OF NAUSEA AND IV ZOFRAN GIVEN PER EMAR. LR INFUSING AT 125 mL/HR. CAREGIVER CAME IN AFTER ADMIT AND REPORTS HE WILL STAY THE NIGHT. VSS/AFEBRILE. CAREGIVER REPORTS SHE HAD BM'S IN THE AM. CALL LIGHT IN REACH. BED IN LOWEST POSITION. BED ALARM ACTIVATED. WILL CONTINUE TO MONITOR UNTIL DAY SHIFT NURSE ASSUME CARE.
[2021-03-16 05:56] LABS: BASOPHILS ABSOLUTE AUTO 0.01 K/mm3 (0.00-0.23); BASOPHILS PERCENT AUTO 0 % (0-2); EOSINOPHILS PERCENT AUTO 0 % (0-6); Hematocrit 34.7 % (33.0-51.0); Hemoglobin 11.6 g/dL (11.5-16.0); IMMATURE GRAN PERCENT AUTO 0 % (0-1); LYMPHOCYTES ABSOLUTE AUTO 1.32 K/mm3 (0.84-5.20); LYMPHOCYTES PERCENT AUTO 41 % (21-46); MONOCYTES ABSOLUTE AUTO 0.35 K/mm3 (0.16-1.47); MONOCYTES PERCENT AUTO 11 % (4-13); Mean Corpuscular HGB 32.8 pg (26.0-34.0); Mean Corpuscular HGB Conc 33.4 g/dL (31.5-36.5); Mean Corpuscular Volume 98 fL (80-100); NEUTROPHILS ABSOLUTE AUTO 1.58 K/mm3 (1.96-9.15); NEUTROPHILS PERCENT AUTO 49 % (41-73); Platelet Count 155 K/mm3 (150-400); RDW Coefficient Variation 14.4 % (11.7-14.2); RDW Standard Deviation 52.2 fL (35.1-46.3); Red Blood Cell Count 3.54 M/mm3 (3.80-5.20); White Blood Cell Count 3.26 K/mm3 (4.00-11.30)
[2021-03-16 06:12] LABS: Mean Platelet Volume 13.2 fL (9.1-12.4)
[2021-03-16 06:37] LABS: Alanine Aminotransfer (ALT/SGP 20 U/L (12-78); Albumin, Blood 3.3 g/dL (3.4-5.0); Alk Phos 63 U/L (50-136); Anion Gap 7 mmol/L (6-16); Aspartate Aminotrans (AST/SGOT 21 U/L (12-37); Bilirubin, Total 0.4 mg/dL (0.1-1.0); Blood Urea Nitrogen 16 mg/dL (8-24); Bun/Creatinine Ratio 49.5 (12.0-20.0); CO2, Blood 28 mmol/L (21-32); Calcium, Blood 8.5 mg/dL (8.5-10.1); Chloride, Blood 109 mmol/L (98-108); Creatinine, Blood 0.32 mg/dL (0.40-1.00); Globulin, Blood 3.2 g/dL (2.2-4.0); Glomerular Filtration Rate >60 (60-); Glucose, Blood 99 mg/dL (70-99); Potassium, Blood 3.3 mmol/L (3.5-5.5); Sodium, Blood 144 mmol/L (136-145)
[2021-03-16 06:40] LABS: Total Protein, Blood 6.5 g/dL (6.4-8.2)
--- NOTE | 2021-03-16 17:59 | NUR ---
PT IS TOLERATING TUBE FEED THUS FAR . STARTED AT 1515 PER ORDER AND WILL ADVANCE TOLERATED. PT HAS HAD STOOL PASSING SINCE ADMISSION. NO ACUTE CHANGES, WILL CONTINUE TO MONITOR.
--- NOTE | 2021-03-16 18:13 | NUR ---
CARE COORDINATION REFERRAL - ADMIT: 03/15/21 DISCHARGE: DX: SBO CC:MARTIN ALFREDO CALL: [phone] RESIDENCE: [facility] CAREGIVER: FABIEN MILES, OTHER / NOT LISTED, STAFF @ [facility], OTHER / NOT LISTED, DX: CEREBRAL PALSY, INTESTINAL OBSTRUCTION, SBO, SEE LIST DME: ADULT PULL UPS, STAHL BAG, HOSPITAL BED, WHEELCHAIR, GASTROSTOMY TUBE, SEE LIST CCM: REFERRAL- 2020 HOME HEALTH: NONE SUMMARY: ADMIT: 03/15/21 03/16/21- RECEIVED CALL FROM HOSPITAL DIETIAN, SHE STATED THAT THE PT WAS NOT RECEIVING THE RIGHT NUTRITION PRIOR TO ADMISSION AND SHE WANTED TO MAKE SURE THAT THE NUTRITION ORDERS SHE WAS PUTTING INTO [facility] WOULD GET TO PCP AND ALSO THE [facility] THAT THE PT LIVES AT. PLAN IS FOR ME TO PRINT OFF HER NOTES/ORDERS AND ATTACH THEM TO THE PT'S CHART SO THEY CAN GO WITH THE PT AT DISCHARGE, DOCUMENT IN THIS NOTE AND ALSO FAX TO CLINIC SO IT CAN BE SCANNED INTO THE PT'S CHART. SHE WAS AGREEABLE WITH THIS PLAN. PER CHART REVIEW WITH DR. MACHADO, THERE IS NO PLAN TO D/C AND SHE WILL MOST LIKELY BE STAYING THROUGH THE WEEKEND.-KJW ADMIT TO INPATIENT: I CERTIFY THE EXPECTATION OF A STAY TO [facility] 2 MIDNIGHTS FROM START OF CARE (INCLUDING PROCEDURE, OBS, AND EC TIME) OR INPATIENT ONLY PROCEDURE.
[2021-03-17 06:34] LABS: BASOPHILS ABSOLUTE AUTO 0.01 K/mm3 (0.00-0.23); BASOPHILS PERCENT AUTO 0 % (0-2); EOSINOPHILS ABSOLUTE AUTO 0.05 K/mm3 (0.00-0.68); EOSINOPHILS PERCENT AUTO 2 % (0-6); Hematocrit 31.1 % (33.0-51.0); Hemoglobin 10.3 g/dL (11.5-16.0); IMMATURE GRAN PERCENT AUTO 0 % (0-1); LYMPHOCYTES ABSOLUTE AUTO 1.74 K/mm3 (0.84-5.20); LYMPHOCYTES PERCENT AUTO 59 % (21-46); MONOCYTES ABSOLUTE AUTO 0.28 K/mm3 (0.16-1.47); MONOCYTES PERCENT AUTO 10 % (4-13); Mean Corpuscular HGB 32.9 pg (26.0-34.0); Mean Corpuscular HGB Conc 33.1 g/dL (31.5-36.5); Mean Corpuscular Volume 99 fL (80-100); Mean Platelet Volume 12.9 fL (9.1-12.4); NEUTROPHILS ABSOLUTE AUTO 0.88 K/mm3 (1.96-9.15); NEUTROPHILS PERCENT AUTO 30 % (41-73); Platelet Count 115 K/mm3 (150-400); RDW Coefficient Variation 14.3 % (11.7-14.2); RDW Standard Deviation 52.4 fL (35.1-46.3); Red Blood Cell Count 3.13 M/mm3 (3.80-5.20); White Blood Cell Count 2.96 K/mm3 (4.00-11.30)
[2021-03-17 06:52] LABS: Albumin, Blood 2.9 g/dL (3.4-5.0); Anion Gap 4 mmol/L (6-16); Blood Urea Nitrogen 11 mg/dL (8-24); Bun/Creatinine Ratio 37.2 (12.0-20.0); CO2, Blood 29 mmol/L (21-32); Calcium, Blood 7.5 mg/dL (8.5-10.1); Chloride, Blood 108 mmol/L (98-108); Glomerular Filtration Rate >60 (60-); Glucose, Blood 102 mg/dL (70-99); Phosphorus, Blood 1.6 mg/dL (2.5-4.9); Potassium, Blood 3.7 mmol/L (3.5-5.5); Sodium, Blood 141 mmol/L (136-145)
--- NOTE | 2021-03-17 07:27 | NUR ---
SHIFT SUMMARY ALERT, ABLE TO MAKE NON-VERBAL CUES TO SHOW NEEDS. COOPERATIVE WITH CARE. REPOSITIONED TOLERATED. MEDIPORT INFUSING FLUIDS WITHOUT COMPLICATIONS. TOLERATED TUBE FEEDING T/O THE NIGHT. DID NOT APPEAR TO REST MUCH. VSS/AFEBRILE. NO ACUTE CHANGES NOTED OVERNIGHT. BED REMAINED IN LOWEST POSITION. CALL LIGHT WITHIN REACH. CONTINUE WITH CURRENT PLAN OF CARE. REPORT TO ONCOMING RN.
[2021-03-17] MEDS ORDERED: PHENO30 PO (15:40)
--- NOTE | 2021-03-17 18:01 | NUR ---
PT DISCHARGED BACK HOME. PT PICKED UP BY FACILITY STAFF. THIS NURSE WENT OVER NEW FEED SCHEDULE WITH STAFF. JERI DEACCESSED. MED LIST SENT HOME WITH PT AND AIDE. PT WHEELED OUT AND TAKEN HOME .
--- NOTE | 2021-03-20 20:12 | NUR ---
SUMMARY: Admit: 03/15/21 03/17/21 Discharged back to [facility] handicapped. Follow up denise [address] Santoyo.
== END 2021-03-17 17:13 | disposition home or self-care (01) ==
LOC: ER 11:35 → ERHOLD 11:36 → MEDS 11:36 → ER 11:36 → MEDS 16:52 → ERHOLD 19:03 → MEDS 19:03 → ENPENDDIS 03-17 15:32 → MEDS 03-17 17:13
PROVIDERS: Emergency Medicine; ADMIT Hospitalist
DX: K56.609 Unspecified intestinal obstruction, unspecified as to partial versus complete obstruction (principal); K44.9 Diaphragmatic hernia without obstruction or gangrene; N20.0 Calculus of kidney; N28.89 Other specified disorders of kidney and ureter; D25.9 Leiomyoma of uterus, unspecified; N83.202 Unspecified ovarian cyst, left side; R53.2 Functional quadriplegia; G40.909 Epilepsy, unspecified, not intractable, without status epilepticus; G80.9 Cerebral palsy, unspecified; I10 Essential (primary) hypertension; K56.2 Volvulus; I95.9 Hypotension, unspecified; R47.01 Aphasia; Z88.8 Allergy status to other drugs, medicaments and biological substances; Z88.1 Allergy status to other antibiotic agents; Z91.040 Latex allergy status; Z93.1 Gastrostomy status
CPT/HCPCS: 36415; 71045; 74177; 80053; 80069; 80184; 83690; 85025; 96374-59; 99285-25; A9270; A9270-GY; G0378; J1642; J1650; J2405; J3480; J7030; J7040; J7120; Q9967

== ENCOUNTER 2021-08-12 15:58 | Emergency (ER) | payer OTHER ==
[~2021-08-12] VITALS: Ht 121.9 cm; Wt 36.3 kg
[~2021-08-12 15:58] MED LIST changes: +A AND D OINTM42.5 G1 TOP; +ACET325 PO; +Abilify2 MG PT; +BISA5EC PT; +CALCIUM CITRATE 200 MG PO; +CLARITIN5 MG/5 M1 PT; +DIAPER RASH113 G1 TOP; +DILANTIN-1125 MG/5 M PT; +DOCU LIQUI50 MG/5 ML PT; +FAMO10 PT; +IBUP800 PO; +LACOSAMIDE PT; +PHENO30 PO; +PHENOBARBI PO; +PHENOBARBI20 MG/5 M1 PO; +PHOS NAK PO; +PHOS-NAK PT; +PREPARATION H C26 GM TOP; +SIME80CH PO; +[UNRECOGNIZED DRUG - OTHER] PT
[2021-08-12 19:04] LABS: BASOPHILS ABSOLUTE AUTO 0.01 K/mm3 (0.00-0.23); BASOPHILS PERCENT AUTO 0 % (0-2); EOSINOPHILS PERCENT AUTO 0 % (0-6); Hematocrit 33.6 % (33.0-51.0); Hemoglobin 11.9 g/dL (11.5-16.0); IMMATURE GRAN ABSOLUTE AUTO 0.01 K/mm3 (0.00-0.10); IMMATURE GRAN PERCENT AUTO 0 % (0-1); LYMPHOCYTES ABSOLUTE AUTO 1.34 K/mm3 (0.84-5.20); LYMPHOCYTES PERCENT AUTO 27 % (21-46); MONOCYTES ABSOLUTE AUTO 0.39 K/mm3 (0.16-1.47); MONOCYTES PERCENT AUTO 8 % (4-13); Mean Corpuscular HGB 33.3 pg (26.0-34.0); Mean Corpuscular HGB Conc 35.4 g/dL (31.5-36.5); Mean Corpuscular Volume 94 fL (80-100); Mean Platelet Volume 11.2 fL (9.1-12.4); NEUTROPHILS ABSOLUTE AUTO 3.15 K/mm3 (1.96-9.15); NEUTROPHILS PERCENT AUTO 64 % (41-73); Platelet Count 181 K/mm3 (150-400); RDW Coefficient Variation 13.5 % (11.7-14.2); RDW Standard Deviation 47.2 fL (35.1-46.3); Red Blood Cell Count 3.57 M/mm3 (3.80-5.20)
[2021-08-12 19:29] LABS: Alanine Aminotransfer (ALT/SGP 19 U/L (12-78); Albumin, Blood 3.1 g/dL (3.4-5.0); Albumin/Globulin Ratio 0.9 (0.8-1.8); Alk Phos 93 U/L (50-136); Anion Gap 8 mmol/L (6-16); Aspartate Aminotrans (AST/SGOT 12 U/L (12-37); Bilirubin, Total 0.7 mg/dL (0.1-1.0); Blood Urea Nitrogen 8 mg/dL (8-24); Bun/Creatinine Ratio 33.5 (12.0-20.0); CO2, Blood 27 mmol/L (21-32); Chloride, Blood 100 mmol/L (98-108); Creatinine, Blood 0.24 mg/dL (0.40-1.00); Globulin, Blood 3.3 g/dL (2.2-4.0); Glomerular Filtration Rate >60 (60-); Glucose, Blood 76 mg/dL (70-99); Potassium, Blood 2.5 mmol/L (3.5-5.5); Sodium, Blood 135 mmol/L (136-145); Total Protein, Blood 6.4 g/dL (6.4-8.2)
[2021-08-12] MEDS ORDERED: POTA10T PO (21:43)
== END 2021-08-12 22:30 | disposition home or self-care (01) ==
LOC: ER 15:58
PROVIDERS: Student in an Organized Health Care Education/Training Program
DX: E87.6 Hypokalemia (principal); R63.0 Anorexia; I10 Essential (primary) hypertension; G40.909 Epilepsy, unspecified, not intractable, without status epilepticus; Z88.8 Allergy status to other drugs, medicaments and biological substances; Z91.040 Latex allergy status; Z79.899 Other long term (current) drug therapy; Z68.24 Body mass index [BMI] 24.0-24.9, adult
CPT/HCPCS: 74177; 80053; 83690; 85025; 96365-59; 96366; 99284-25; A9270; J1642; J3480; J7030; Q9967

== ENCOUNTER 2021-11-29 04:55 | Day surgery (SDC) | payer OTHER ==
[~2021-11-29 04:55] MED LIST changes: +POTA10T PO
[2021-11-29] MEDS ORDERED: LORA.5 PO (15:11)
[2021-11-29] MEDS ORDERED: OMEP20ER PO (15:12)
[2021-11-29] MEDS ORDERED: DURAMORPH 11 MG/1 M1 BC (15:13)
[2021-11-29] MEDS ORDERED: FENT200LOZ TD (15:14)
== END 2021-11-29 14:56 | disposition home or self-care (01) ==
LOC: ATC 04:55
DX: Z45.2 Encounter for adjustment and management of vascular access device (principal); G80.9 Cerebral palsy, unspecified; G40.909 Epilepsy, unspecified, not intractable, without status epilepticus; Z88.1 Allergy status to other antibiotic agents; Z88.8 Allergy status to other drugs, medicaments and biological substances
CPT/HCPCS: 96523; J1642

== ENCOUNTER 2021-12-12 10:02 | Observation (INO) | payer OTHER ==
[~2021-12-12] VITALS: Ht 139.7 cm; Wt 34.6 kg
[~2021-12-12 10:02] MED LIST changes: +DURAMORPH 11 MG/1 M1 BC; +FENT200LOZ TD; +LORA.5 PO; +OMEP20ER PO
[2021-12-12 13:18] LABS: Hematocrit 47.5 % (33.0-51.0); Hemoglobin 16.5 g/dL (11.5-16.0); Mean Corpuscular HGB 33.1 pg (26.0-34.0); Mean Corpuscular HGB Conc 34.7 g/dL (31.5-36.5); Mean Corpuscular Volume 95 fL (80-100); Mean Platelet Volume 12.8 fL (9.1-12.4); Platelet Count 243 K/mm3 (150-400); RDW Coefficient Variation 13.2 % (11.7-14.2); RDW Standard Deviation 46.5 fL (35.1-46.3); Red Blood Cell Count 4.99 M/mm3 (3.80-5.20); White Blood Cell Count 4.05 K/mm3 (4.00-11.30)
[2021-12-12 13:38] LABS: Alanine Aminotransfer (ALT/SGP 29 U/L (12-78); Albumin, Blood 4.5 g/dL (3.4-5.0); Albumin/Globulin Ratio 1.2 (0.8-1.8); Alk Phos 98 U/L (50-136); Anion Gap 10 mmol/L (6-16); Aspartate Aminotrans (AST/SGOT 29 U/L (12-37); Bilirubin, Total 0.9 mg/dL (0.1-1.0); Blood Urea Nitrogen 52 mg/dL (8-24); Bun/Creatinine Ratio 131.3 (12.0-20.0); CO2, Blood 28 mmol/L (21-32); Calcium, Blood 9.9 mg/dL (8.5-10.1); Chloride, Blood 102 mmol/L (98-108); Globulin, Blood 3.9 g/dL (2.2-4.0); Glomerular Filtration Rate >60 (60-); Glucose, Blood 151 mg/dL (70-99); Sodium, Blood 140 mmol/L (136-145); Total Protein, Blood 8.4 g/dL (6.4-8.2)
[2021-12-12 13:42] LABS: BAND PERCENT MAN 28 % (0-8); BASOPHILS PERCENT MAN 0 % (0-2); EOSINOPHILS PERCENT MAN 0 % (0-6); LYMPHOCYTES ABSOLUTE MAN 0.68 K/mm3 (0.84-5.20); LYMPHOCYTES PERCENT MAN 17 % (21-46); MONOCYTES PERCENT MAN 5 % (4-13); MYELOCYTE ABSOLUTE MAN 0.04 K/mm3 (0.00-0.00); MYELOCYTE PERCENT MAN 1 % (0-0); NEUTROPHILS ABSOLUTE MAN 3.11 K/mm3 (1.96-9.15); SEG NEUTROPHILS PERCENT MAN 49 % (41-73); TOTAL CELLS COUNTED 100
--- NOTE | 2021-12-12 18:02 | NUR ---
CALLED DR KOROMA TO REQUEST AN ORDER TO ACCESS PT MEDIPORT. PORT WAS LAST ACCESSED AT THE PT MONTHLY APPOINTMENT WITH HER PCP (12-01-21) WHERE IT WAS FLUSHED AND HEPARIN LOCKED. RECIEVED ORDER TO ACCESS MEDIPORT TO USE FOR IV MEDICATIONS AND FLUIDS.
--- NOTE | 2021-12-12 18:14 | NUR ---
ORDER TO ACCESS PORT PLACED THROUGH ORDER MANAGEMENT HEPARIN FLUSH AND DEACCESS HEPARIN FLUSH ORDERED PER UNIT PROTOCOL FOR PORT MANAGEMENT.
--- NOTE | 2021-12-12 18:33 | NUR ---
PT ADMITTED THIS PERRY. HAVE REQUESTED ACCESS TO MEDIPORT INSTEAD OF TINY THUMB ACCESS. CHANGED ATTENDS TO PT WHEN ARRIVED. NEW GTUBE PLACED BY ER DR. ZUNIGA IS OUT SEVERAL INCHES. PLACED GAUZE OVER OPENING, IS CDI. ADVISED MINOR LEAGUE BASEBALL PLAYER. DR KOROMA PER PHONE STATES HAVE MINOR LEAGUE BASEBALL PLAYER LOOK AND SEE IF CAN BE CLOSER OR PERHAPS CALL ER DOC TO LOOK. LUNGS CLEAR, RESP EASYK, UNLABORED, ON R.A. H/R REG, NO MURMER NOTED. BEDIN LOW POSITION, CALL LITE IN REACH, SEIZURE PADS PLACED. IV FLUIDS RUNNING AT LOWER RATE PER IV SIZE UNTIL MEDIPART ACCESSED.
[2021-12-13 04:48] LABS: Hematocrit 42.1 % (33.0-51.0); Mean Corpuscular HGB 33.3 pg (26.0-34.0); Mean Corpuscular HGB Conc 33.3 g/dL (31.5-36.5); Mean Platelet Volume 12.8 fL (9.1-12.4); Platelet Count 200 K/mm3 (150-400); RDW Coefficient Variation 13.6 % (11.7-14.2); RDW Standard Deviation 49.7 fL (35.1-46.3); Red Blood Cell Count 4.21 M/mm3 (3.80-5.20); White Blood Cell Count 7.49 K/mm3 (4.00-11.30)
[2021-12-13 04:56] LABS: Mean Corpuscular Volume 100 fL (80-100)
[2021-12-13 05:22] LABS: Alanine Aminotransfer (ALT/SGP 30 U/L (12-78); Albumin, Blood 3.7 g/dL (3.4-5.0); Albumin/Globulin Ratio 1.1 (0.8-1.8); Alk Phos 80 U/L (50-136); Anion Gap 9 mmol/L (6-16); Aspartate Aminotrans (AST/SGOT 26 U/L (12-37); Blood Urea Nitrogen 35 mg/dL (8-24); Bun/Creatinine Ratio 109.4 (12.0-20.0); CO2, Blood 27 mmol/L (21-32); Calcium, Blood 8.6 mg/dL (8.5-10.1); Chloride, Blood 109 mmol/L (98-108); Creatinine, Blood 0.32 mg/dL (0.40-1.00); Globulin, Blood 3.5 g/dL (2.2-4.0); Glomerular Filtration Rate >60 (60-); Glucose, Blood 119 mg/dL (70-99); Potassium, Blood 3.2 mmol/L (3.5-5.5); Sodium, Blood 145 mmol/L (136-145); Total Protein, Blood 7.2 g/dL (6.4-8.2)
[2021-12-13 05:36] LABS: BAND PERCENT MAN 7 % (0-8); BASOPHILS PERCENT MAN 0 % (0-2); EOSINOPHILS PERCENT MAN 0 % (0-6); LYMPHOCYTES ABSOLUTE MAN 1.19 K/mm3 (0.84-5.20); LYMPHOCYTES PERCENT MAN 16 % (21-46); MONOCYTES ABSOLUTE MAN 0.37 K/mm3 (0.16-1.47); MONOCYTES PERCENT MAN 5 % (4-13); NEUTROPHILS ABSOLUTE MAN 5.91 K/mm3 (1.96-9.15); SEG NEUTROPHILS PERCENT MAN 72 % (41-73); TOTAL CELLS COUNTED 100
[2021-12-13 11:56] LABS: Source, Urine Fem Cath
[2021-12-13 12:02] LABS: Bilirubin, Urine Neg (Neg); Blood, Urine 5+ (Neg); Glucose Qualitative, Urine Neg (Neg); Ketones, Urine 3+ (Neg); Leukocyte Esterase, Urine 3+ (Neg); Nitrite, Urine Neg (Neg); Protein, Urine 2+ (Neg); Urobilinogen, Urine NORM (Normal)
[2021-12-13 12:18] LABS: Appearance, Urine Hazy (Clear); Color, Urine Yellow (P-Yellow)
[2021-12-13 12:19] LABS: Red Blood Cells, Urine 25-50 /hpf (0-2); White Blood Cells, Urine TNTC /hpf (0-5)
[2021-12-13 12:20] LABS: Bacteria Mod /hpf; Renal Epithelial Few /hpf (0-Rare); Squamous Epithelial Cells Few /hpf (Few)
--- NOTE | 2021-12-13 18:05 | NUR ---
PT SUMMARY: PT CONTINUES TO YELL OUT TO COMMUNICATE CAN NOD HEAD FOR YES/NO ANSWER. REPOSITIONED OFTEN DUE TO BACK PAIN MEDICATED WITH IV FENTANYL TWICE. VITALS STABLE WAS SPIKING A FEVER TODAY 100.6 TYLENOL GIVEN PER TUBE BEFORE THE END OF THE SHIFT WENT DOWN TO 99.4. TUBE FEEDING STARTED AT 1400 VITALS 1.5 TO START AT 25 MLS/HR WITH 15MLS WATER FLUSHES AFTER 1 HR. PT TOLERATING AT THIS TIME G TUBE FLUSHING PATENT STILL HAS SMALL AMOUNT OF GASTRIC CONTENT BEFORE TUBE FEEDING WAS STARTED, HOB ELEVATED DUE TO ASPIRATION RISK, ALSO WAS SUCTIONED OFTEN DUE TO ORAL MUCUS SECRETION PT WAS GAGGING AND COUGHING OUT MUCUS, GOOD ORAL CARE PROVIDED. NO SEIZURE EPISODE NOTED FOR THE SHIFT. DR XIE SAW AND EVALUATED PT TODAY NO SURGICAL INTERVENTION AT THIS TIME TO RESUME TUBE FEEDING, ALSO PT HAD A MEDIUM BROWN LOOSE BM FOR THE SHIFT. PT ALSO WAS BLADDER SCANNED ONCE MID SHIFT HAD 250MLS URINE RETAINED PT WAS STRAIGHT CATH HAD 300MLS URINE OUT, UA SENT TO LAB PER ORDER. CAREGIVER WAS IN TO VISIT TODAY GAVE AN UPDATE REGARDING PT. NO OTHER ISSUES REPORTED, NO EMESIS. NS RUNNING AT 100MLS/HR VIA [email or web address], GOOD BLOOD RETURN. PT NOW RESTING IN BED WATCHING MOVIE ON TABLET CALL LIGHTS IN REACH WILL REPORT TO ONCOMING SHIFT
--- NOTE | 2021-12-14 03:54 | NUR ---
PT from [facility] had gtube which was changed in ER this admission. PT tolerating continious low rate formula at 35 ml hr with 15 ml hr free water flush. Medicated several times with fentanyl 25 mcg for s/sx pain with helpful effect. Nonverbal but uses facial expressions nods etc to agree or disagree. Allows oral suction oral care with suction to maintain airway. removed thick yellow secretions. Will return to assisted on DC, caregivers involved in dc plan.
[2021-12-14 06:47] LABS: Anion Gap 8 mmol/L (6-16); Blood Urea Nitrogen 19 mg/dL (8-24); Bun/Creatinine Ratio 60.7 (12.0-20.0); CO2, Blood 20 mmol/L (21-32); Calcium, Blood 7.5 mg/dL (8.5-10.1); Chloride, Blood 124 mmol/L (98-108); Creatinine, Blood 0.31 mg/dL (0.40-1.00); Glomerular Filtration Rate >60 (60-); Glucose, Blood 129 mg/dL (70-99); Magnesium, Blood 2.7 mg/dL (1.6-2.4); Phosphorus, Blood 1.1 mg/dL (2.5-4.9); Potassium, Blood 3.3 mmol/L (3.5-5.5); Sodium, Blood 152 mmol/L (136-145)
[2021-12-14 09:45] LABS: Hematocrit 38.5 % (33.0-51.0); Hemoglobin 12.7 g/dL (11.5-16.0); Mean Corpuscular HGB 33.6 pg (26.0-34.0); Mean Corpuscular Volume 102 fL (80-100); Mean Platelet Volume 12.4 fL (9.1-12.4); Platelet Count 202 K/mm3 (150-400); RDW Coefficient Variation 13.7 % (11.7-14.2); Red Blood Cell Count 3.78 M/mm3 (3.80-5.20); White Blood Cell Count 7.23 K/mm3 (4.00-11.30)
--- NOTE | 2021-12-14 11:18 | NUR ---
DR XIE'S OFFICE CALLED MESSAGE LEFT
--- NOTE | 2021-12-14 18:37 | NUR ---
SHIFT NOTE PT TREATED WITH TYLENOL THIS AM FOR LOW GRADE FEVER OF 100.5, WHICH RESOLVED WELL. PT IS AWAITING CONSULT WITH DR XIE FOR G-TUBE THAT CONTINUES TO LEAKAROUND TUBE. CAREGIVER FROM FACILITY IN ROOM. PT REPOSITIONED EVERY TWO HOURS. PT TREATED FOR PAIN WITHOUT IMPROVEMENT OF PAIN, DR MERAZ WAS MADE AWARE OF THIS AND NEW ORDER WAS OBTAINED FOR ATIVAN WHICH SEEMED TO MAKE PT MORE COMFORTABLE. PT WITH EXTENSIVE ORAL CARE TODAY WITH REMOVAL OF LARGE CASTS. PT THEN BEGAN WITH NAUEA WAS TREATED WITH ZOFRAN WITHOUT IMPROVEMENT THEN WITH REGLAN WHICH PROVIDED RESOLUTION OF NAUSEA. D5 1/2 NS INFUSING AT THIS TIME. PT RESTING WELL IN BED WITH DOOR OPEN.
--- NOTE | 2021-12-15 05:55 | NUR ---
Pt still awaiting for the doctor to come for her tube feeding leakage. Feeding tube had been stoped prior to shift. Patient had about 5 bowel movement during the night, she is also incontinent with urine. She tolerated her medication via the tube. No futher leaks noted. Patient aides in the room. No acute changes.
[2021-12-15 06:28] LABS: Anion Gap 5 mmol/L (6-16); Blood Urea Nitrogen 8 mg/dL (8-24); Bun/Creatinine Ratio 38.3 (12.0-20.0); CO2, Blood 25 mmol/L (21-32); Calcium, Blood 7.2 mg/dL (8.5-10.1); Chloride, Blood 117 mmol/L (98-108); Creatinine, Blood 0.21 mg/dL (0.40-1.00); Glomerular Filtration Rate >60 (60-); Glucose, Blood 133 mg/dL (70-99); Potassium, Blood 3.5 mmol/L (3.5-5.5); Sodium, Blood 147 mmol/L (136-145)
[2021-12-15] MEDS ORDERED: VISBIOME 112.51 EACH PT (11:18)
[2021-12-15] MEDS ORDERED: AUGMENTIN250 MG/5 M PT (11:19)
[2021-12-15] MEDS ORDERED: METO5A PT (11:24)
--- NOTE | 2021-12-15 16:08 | NUR ---
REPORT D/C CALLED TO MATILDE AT [facility]ARE [facility], MEDS FAXE TO HOME TOWN PER REQUEST OF BAKARI. NO OTHER QUESTIONS ARROSE, BAKARI UNDERSTOOD D/C TEACHING
== END 2021-12-15 14:25 | disposition home or self-care (01) ==
LOC: ER 10:02 → MEDS 15:43
PROVIDERS: Emergency Medicine; Internal Medicine; Nurse Practitioner Acute Care; ADMIT Internal Medicine
DX: R10.9 Unspecified abdominal pain (principal); R14.0 Abdominal distension (gaseous); K94.23 Gastrostomy malfunction; G80.8 Other cerebral palsy; R00.0 Tachycardia, unspecified; G40.409 Other generalized epilepsy and epileptic syndromes, not intractable, without status epilepticus; K56.0 Paralytic ileus; D72.825 Bandemia; N31.9 Neuromuscular dysfunction of bladder, unspecified; K59.09 Other constipation; N39.0 Urinary tract infection, site not specified; I10 Essential (primary) hypertension; Y83.8 Other surgical procedures as the cause of abnormal reaction of the patient, or of later complication, without mention of misadventure at the time of the procedure; Z66 Do not resuscitate; E87.0 Hyperosmolality and hypernatremia
CPT/HCPCS: 36415; 43762; 49465; 71045; 74018; 74022; 80048; 80053; 81001; 82947; 83690; 83735; 84100; 84145; 84295; 85025; 85027; 96365; 96375; 99285-25; A9270; C9113; C9254; J1165; J1642; J2405; J2543; J2560; J2765; J3010; J3480; J7030; J7042; J7060; Q9963

== ENCOUNTER 2021-12-29 00:33 | Day surgery (SDC) | payer OTHER ==
[~2021-12-29 00:33] MED LIST changes: +AUGMENTIN250 MG/5 M PT; +METO5A PT; +VISBIOME 112.51 EACH PT
== END 2021-12-29 14:37 | disposition home or self-care (01) ==
LOC: ATC 00:33
DX: Z45.2 Encounter for adjustment and management of vascular access device (principal); G80.9 Cerebral palsy, unspecified; Z88.1 Allergy status to other antibiotic agents; Z88.8 Allergy status to other drugs, medicaments and biological substances
CPT/HCPCS: J1642

== ENCOUNTER 2022-07-16 13:34 | Inpatient (IN) | payer OTHER ==
[~2022-07-16] VITALS: Ht 157.5 cm; Wt 31.0 kg
[2022-07-16 14:25] LABS: BASOPHILS ABSOLUTE AUTO 0.01 K/mm3 (0.00-0.23); BASOPHILS PERCENT AUTO 0 % (0-2); EOSINOPHILS ABSOLUTE AUTO 0.01 K/mm3 (0.00-0.68); EOSINOPHILS PERCENT AUTO 0 % (0-6); Hematocrit 50.2 % (33.0-51.0); Hemoglobin 17.5 g/dL (11.5-16.0); IMMATURE GRAN ABSOLUTE AUTO 0.01 K/mm3 (0.00-0.10); IMMATURE GRAN PERCENT AUTO 0 % (0-1); LYMPHOCYTES ABSOLUTE AUTO 1.41 K/mm3 (0.84-5.20); LYMPHOCYTES PERCENT AUTO 34 % (21-46); MONOCYTES ABSOLUTE AUTO 0.24 K/mm3 (0.16-1.47); MONOCYTES PERCENT AUTO 6 % (4-13); Mean Corpuscular HGB 34.3 pg (26.0-34.0); Mean Corpuscular HGB Conc 34.9 g/dL (31.5-36.5); Mean Corpuscular Volume 98 fL (80-100); NEUTROPHILS ABSOLUTE AUTO 2.46 K/mm3 (1.96-9.15); NEUTROPHILS PERCENT AUTO 60 % (41-73); Platelet Count 192 K/mm3 (150-400); RDW Coefficient Variation 12.8 % (11.7-14.2); RDW Standard Deviation 46.8 fL (35.1-46.3); White Blood Cell Count 4.14 K/mm3 (4.00-11.30)
[2022-07-16 14:52] LABS: Albumin, Blood 4.3 g/dL (3.4-5.0); Albumin/Globulin Ratio 0.9 (0.8-1.8); Bilirubin, Total 0.4 mg/dL (0.1-1.0); Bun/Creatinine Ratio 72.5 (12.0-20.0); Calcium, Blood 9.7 mg/dL (8.5-10.1); Creatinine, Blood 0.35 mg/dL (0.40-1.00); Globulin, Blood 4.7 g/dL (2.2-4.0); Potassium, Blood 4.4 mmol/L (3.5-5.5)
--- NOTE | 2022-07-16 18:50 | NUR ---
ARRIVAL NOTE/ SHIFT SUMMARY PT ARRIVED TO THE FLOOR AT 1835. SHE IS ACCOMPANIES BY HER CAREGIVER. CEREBRAL PALSY, BED REST ONLY. NON VERBAL, FACE SCALE MINIMAL PAIN ON ARRIVAL . T HAS HAD 5 BM'S TODAY AND IS PASSING GAS. TELE AND RM AIR. BED IN LOWEST POSITION, CALL LIGHT IN REACH, AN CAREGIVER AT BEDSIDE.
--- NOTE | 2022-07-16 21:50 | NUR ---
ADMISSION: LATE ENTRY FOR 07/16/221909: PATIENT IS IN ROOM AT START OF SHIFT, HAD JUST BEEN BROUGHT FROM ER PER REPORT. HAND SIZER IS IN ROOM BUT HAD TO LEAVE BEFOR MED REC AN MED HISTY WAS COMPLETE. WILL COMPLETE FROM OLD RECORDS OR WHEN NEXT HAND SIZER COMES. PATIENT IS ORIENTED TO ROOM AND CALL DAVIS. NON VERNBAL BUT IS ABLE TO MAKE NEEDS KNOWN MOANS WHEN WET BLINKS EYE FOR YES AND SMILES A LOT. BED ALRM IS ON.
[2022-07-17 06:09] LABS: BASOPHILS ABSOLUTE AUTO 0.02 K/mm3 (0.00-0.23); BASOPHILS PERCENT AUTO 1 % (0-2); Hematocrit 42.4 % (33.0-51.0); Hemoglobin 14.5 g/dL (11.5-16.0); LYMPHOCYTES ABSOLUTE AUTO 0.61 K/mm3 (0.84-5.20); LYMPHOCYTES PERCENT AUTO 15 % (21-46); MONOCYTES ABSOLUTE AUTO 0.23 K/mm3 (0.16-1.47); MONOCYTES PERCENT AUTO 6 % (4-13); Mean Corpuscular HGB Conc 34.2 g/dL (31.5-36.5); Mean Corpuscular Volume 99 fL (80-100); Mean Platelet Volume 12.5 fL (9.1-12.4); Platelet Count 197 K/mm3 (150-400); RDW Coefficient Variation 13.1 % (11.7-14.2); RDW Standard Deviation 48.1 fL (35.1-46.3); Red Blood Cell Count 4.27 M/mm3 (3.80-5.20); White Blood Cell Count 4.04 K/mm3 (4.00-11.30)
[2022-07-17 06:10] LABS: EOSINOPHILS PERCENT AUTO 0 % (0-6); IMMATURE GRAN ABSOLUTE AUTO 0.01 K/mm3 (0.00-0.10); IMMATURE GRAN PERCENT AUTO 0 % (0-1); NEUTROPHILS ABSOLUTE AUTO 3.17 K/mm3 (1.96-9.15); NEUTROPHILS PERCENT AUTO 79 % (41-73)
[2022-07-17 06:47] LABS: Albumin, Blood 3.5 g/dL (3.4-5.0); Albumin/Globulin Ratio 0.9 (0.8-1.8); Bilirubin, Total 0.7 mg/dL (0.1-1.0); Creatinine, Blood 0.3 mg/dL (0.40-1.00); Globulin, Blood 3.9 g/dL (2.2-4.0); Potassium, Blood 3.4 mmol/L (3.5-5.5); Total Protein, Blood 7.4 g/dL (6.4-8.2)
--- NOTE | 2022-07-17 07:08 | NUR ---
SHIFT SUMMARY: PATIENT IS A&O TO SELF AND CARE GIVERS FROM [facility]. BP ARE SOFT AT BASELINE. PATIENT SCORED A 4 ON VIEWS FOR TACYCARDIA AND HYPOTENSION. DR ALEGRIA WAS NOTIFED AND A 500 ML NS BOLUS WAS ORDER
--- NOTE | 2022-07-17 18:12 | NUR ---
SHIFT SUMMARY: PATIENT IS ALERT TO SELF. NONVERBAL MOANS, WINKS AND NODE HEAD. ON TELE CONTINUES TO BE TACHYCARDIC AT MID 110'S TO LOW 120'S THROUGHOUT SHIFT. ON RA WITH SPO2 OF 91-93%. DENIES SOB. ONE EPISODE OF NAUSEA AFTER ORAL SUCTIONING WAS PERFORMED BY STAFF/CAREGIVER FROM [facility]. THE CAREGIVER NOTIFIED THIS RN AND REQUEST OF ANTIEMETIC MEDICATION. PATIENT RECIEVE ONE DOSE PER EMAR WITH GOOD OUTCOME. LUNGS CLEAR THROUGHOUT. DR. PAN REPLACED G TUBE AT BEDSIDE 20F WITH 10CC IN BALLOON. PATIENT TOLERATED WELL. NO LEAKING HAS BEEN NOTED AFTER THE PLACEMENT. DR PAN NOTIFIED THIS RN TO RESUME USING THE PEGTUBE FOR FEEDING. NOTIFIED DR AVALOS AND DIETARY PERSONNEL. PATIENT HAS BEEN INCONTINENCE FOR BOWEL AND BLADDER THROUGHOUT SHIFT. Q2 TURN. SALINE LOCK. CALL LIGHT IN REACH. WILL GIVE REPORT TO ONCOMING SARAH RN.
--- NOTE | 2022-07-18 05:21 | NUR ---
SHIFT SUMMARY PT HAD G TUBE PLACED YESTERDAY. CURRENTLY HAS TUBE FEEDING RUNNING AT 30/HR. PT IS NON-VERBAL, BUT WHEN ASKED IF SHE IS IN PAIN SHE SHAKES HER HEAD NO. PT MOANS AND WHINES LOUDLY WHEN SHE NEEDS ATTENTION. CAN ANSWER YES OR NO QUESTIONS BY SHAKING HER HEAD YES OR NO. PT CRIES WHEN WE TRY TO REPOSITION HER. CAREGIVER HAS COME BY TWICE THIS AM AND HAS BEEN A BIG HELP IN CARING FOR THE PT. PT DID HAVE A BOWEL MOVEMENT LAST EVENING.
[2022-07-18 05:24] LABS: Mean Corpuscular HGB 33.6 pg (26.0-34.0); Mean Corpuscular HGB Conc 33.3 g/dL (31.5-36.5); Mean Corpuscular Volume 101 fL (80-100); Mean Platelet Volume 12.3 fL (9.1-12.4); Platelet Count 174 K/mm3 (150-400); RDW Coefficient Variation 13.2 % (11.7-14.2); RDW Standard Deviation 48.8 fL (35.1-46.3); Red Blood Cell Count 3.57 M/mm3 (3.80-5.20); White Blood Cell Count 6.36 K/mm3 (4.00-11.30)
[2022-07-18 05:55] LABS: Albumin/Globulin Ratio 0.8 (0.8-1.8); Bilirubin, Total 0.7 mg/dL (0.1-1.0); Bun/Creatinine Ratio 99.6 (12.0-20.0); Calcium, Blood 8.1 mg/dL (8.5-10.1); Creatinine, Blood 0.24 mg/dL (0.40-1.00); Globulin, Blood 3.6 g/dL (2.2-4.0); Magnesium, Blood 2.6 mg/dL (1.6-2.4); Potassium, Blood 3.3 mmol/L (3.5-5.5); Total Protein, Blood 6.6 g/dL (6.4-8.2)
--- NOTE | 2022-07-18 19:31 | NUR ---
DISCHARGE SUMMARY PTN A&O TO SELF AND CAREGIVER. PTN RESIDES AT [facility]. PTN NONVERBAL, MOANS, AND ALMOST CRIES. PTN DOES COMMUNICATE THAT SHE IS WET BY POINTING. COMFORTED BY REPOSITIONING MUCH OF TIME. PTN BEDBOUND. PTN ON FEEDING TUBE, PROGRAMED TO FLUSH HOURLY. PTN DISCHARGED AT 1435 FROM HOSPITAL.
== END 2022-07-18 15:00 | disposition home or self-care (01) | DRG 388 ==
LOC: ER 13:34 → MEDS 13:35
PROVIDERS: Emergency Medicine; Internal Medicine; ADMIT Internal Medicine
DX: K56.609 Unspecified intestinal obstruction, unspecified as to partial versus complete obstruction (principal); R53.2 Functional quadriplegia; K94.23 Gastrostomy malfunction; E87.0 Hyperosmolality and hypernatremia; Z74.01 Bed confinement status; G40.909 Epilepsy, unspecified, not intractable, without status epilepticus; I10 Essential (primary) hypertension; R00.0 Tachycardia, unspecified; G80.9 Cerebral palsy, unspecified; K59.09 Other constipation; N31.9 Neuromuscular dysfunction of bladder, unspecified; M81.0 Age-related osteoporosis without current pathological fracture; Z90.49 Acquired absence of other specified parts of digestive tract; Z98.2 Presence of cerebrospinal fluid drainage device; Z98.890 Other specified postprocedural states; Z88.8 Allergy status to other drugs, medicaments and biological substances; Z91.040 Latex allergy status; Z79.2 Long term (current) use of antibiotics; Z79.899 Other long term (current) drug therapy
CPT/HCPCS: 36415; 74176; 80053; 83690; 83735; 85025; 85027; 96361; 96365; 96366; 96372; 96374; 96375; 96376; 99285-25; A9270; C9254; G0378; J1644; J2405; J2560; J3010; J7030; J7040

== ENCOUNTER 2022-07-18 18:18 | Inpatient (IN) | payer OTHER ==
[~2022-07-18] VITALS: Ht 139.7 cm; Wt 31.2 kg
[2022-07-18 21:05] LABS: BASOPHILS ABSOLUTE AUTO 0.01 K/mm3 (0.00-0.23); BASOPHILS PERCENT AUTO 0 % (0-2); EOSINOPHILS PERCENT AUTO 0 % (0-6); IMMATURE GRAN ABSOLUTE AUTO 0.01 K/mm3 (0.00-0.10); IMMATURE GRAN PERCENT AUTO 0 % (0-1); LYMPHOCYTES ABSOLUTE AUTO 1.25 K/mm3 (0.84-5.20); LYMPHOCYTES PERCENT AUTO 21 % (21-46); MONOCYTES ABSOLUTE AUTO 0.28 K/mm3 (0.16-1.47); MONOCYTES PERCENT AUTO 5 % (4-13); Mean Corpuscular HGB 34.1 pg (26.0-34.0); Mean Corpuscular HGB Conc 34.2 g/dL (31.5-36.5); Mean Corpuscular Volume 100 fL (80-100); Mean Platelet Volume 11.4 fL (9.1-12.4); NEUTROPHILS ABSOLUTE AUTO 4.37 K/mm3 (1.96-9.15); NEUTROPHILS PERCENT AUTO 74 % (41-73); Platelet Count 184 K/mm3 (150-400); RDW Coefficient Variation 13.1 % (11.7-14.2); RDW Standard Deviation 48.2 fL (35.1-46.3); Red Blood Cell Count 3.81 M/mm3 (3.80-5.20); White Blood Cell Count 5.92 K/mm3 (4.00-11.30)
[2022-07-18 21:20] LABS: Bun/Creatinine Ratio 79.1 (12.0-20.0); Calcium, Blood 8.7 mg/dL (8.5-10.1); Creatinine, Blood 0.22 mg/dL (0.40-1.00); Potassium, Blood 3.4 mmol/L (3.5-5.5)
--- NOTE | 2022-07-19 03:49 | NUR ---
PT TRANSPORTED TO MEDICAL FLOOR. VALUEABLES IN BAG AT BEDSIDE. CAREGIVER HAS GONE HOME FOR THE NIGHT. C/O HEADACHE. TAKES ALL MEDS VIA TUBE. NO IV ACCESS ESTABLISHED AT THIS TIME. ALERT AND ORIENTED X4. NONVERBAL BUT CAN NOD HEAD "YES".
[2022-07-19 05:06] LABS: BASOPHILS ABSOLUTE AUTO 0.01 K/mm3 (0.00-0.23); BASOPHILS PERCENT AUTO 0 % (0-2); EOSINOPHILS ABSOLUTE AUTO 0.01 K/mm3 (0.00-0.68); EOSINOPHILS PERCENT AUTO 0 % (0-6); Hematocrit 31.2 % (33.0-51.0); Hemoglobin 10.4 g/dL (11.5-16.0); IMMATURE GRAN ABSOLUTE AUTO 0.02 K/mm3 (0.00-0.10); IMMATURE GRAN PERCENT AUTO 1 % (0-1); LYMPHOCYTES ABSOLUTE AUTO 1.32 K/mm3 (0.84-5.20); LYMPHOCYTES PERCENT AUTO 31 % (21-46); MONOCYTES ABSOLUTE AUTO 0.29 K/mm3 (0.16-1.47); MONOCYTES PERCENT AUTO 7 % (4-13); Mean Corpuscular HGB Conc 33.3 g/dL (31.5-36.5); Mean Corpuscular Volume 102 fL (80-100); Mean Platelet Volume 12.1 fL (9.1-12.4); NEUTROPHILS ABSOLUTE AUTO 2.68 K/mm3 (1.96-9.15); NEUTROPHILS PERCENT AUTO 62 % (41-73); Platelet Count 135 K/mm3 (150-400); RDW Coefficient Variation 13.1 % (11.7-14.2); Red Blood Cell Count 3.06 M/mm3 (3.80-5.20); White Blood Cell Count 4.33 K/mm3 (4.00-11.30)
[2022-07-19 05:45] LABS: Bun/Creatinine Ratio 64.8 (12.0-20.0); Calcium, Blood 7.8 mg/dL (8.5-10.1); Creatinine, Blood 0.22 mg/dL (0.40-1.00); Potassium, Blood 3.2 mmol/L (3.5-5.5)
--- NOTE | 2022-07-19 17:42 | NUR ---
SHIFT SUMMARY IS A&O THOUGH UNABLE TO FULLY ASSESS TO WHAT DEPTH. PT IS NON-VERBAL BUT WILL NOD HEAD YES OR NO APPROPRIATELY TO SIMPLE QUESTIONS. WILL MOAN LOUDLY WHEN SHE NEEDS SOMETHING AND CAN MAKE HERSELF UNDERSTOOD. SHE SMILES WHEN HER NEEDS HAVE BEEN MET. GAVE HER THE PHENOBARBITOL VIA HER PEG TUBE AND SHE TOLERATED IT WELL. CHECKED RESIDUAL BEFORE GIVING MEDICATION. WAS LESS THAN 10CCS. FLUSHED MEDICATION IN WITH 10 CCS TO PREVENT NAUSEA. HER IV IS IN HER R FOOT, INTACT & PATENT, IVF's INFUSING WELL. PT HAS DENIED N/V. SHE HAS ALSO DENIED ABD PAIN.
--- NOTE | 2022-07-20 04:20 | NUR ---
SHIFT SUMMARY NO ACUTE CHANGES TO PT CONDITION. PT MOANING AND WHEN ASKED IF SHE HAS PAIN, PT NODDED HEAD TO INDICATE "YES". DR ALEGRIA CONSULTED AND ORDER FOR TYLENOL PER TUBE PUT IN. PT GIVEN 650 TYLENOL PER TUBE. NO COMPLAINTS AT THIS TIME.
--- NOTE | 2022-07-20 18:54 | NUR ---
SHIFT SUMMARY PT A&O. NON-VERBAL. WILL NOD HEAD YES OR NO TO SIMPLE QUESTIONS APPROPRIATELT. PEG TUBE INTACT & PATENT. PT TOLERATED MEDS GIVEN VIA THE PEG TUBE TODAY. CHECKED RESIDUAL, LESS THAN 10 MLS. MOTORCYCLE ENGINE ASSEMBLER CONSULT RESULTED IN ORDERS FOR RESUMING TUBE FEED. SEE ORDERS. TUBE FEED SOLUTION SENT UP WITH DINNER TRAYS AT 1815. PT REPOSITIONED WITH PILLOWS Q 2HRS AND WITH EACH CHANGE OF HER BREIFS. IS INCONTINENT OF URINE. SHE SMILES WHEN HER NEEDS HAVE BEEN MET.
[2022-07-21 04:59] LABS: Hematocrit 38.8 % (33.0-51.0); Hemoglobin 12.9 g/dL (11.5-16.0); Mean Corpuscular HGB 33.8 pg (26.0-34.0); Mean Corpuscular HGB Conc 33.2 g/dL (31.5-36.5); Mean Corpuscular Volume 102 fL (80-100); Mean Platelet Volume 12.2 fL (9.1-12.4); Platelet Count 147 K/mm3 (150-400); RDW Coefficient Variation 12.6 % (11.7-14.2); RDW Standard Deviation 47.1 fL (35.1-46.3); Red Blood Cell Count 3.82 M/mm3 (3.80-5.20); White Blood Cell Count 3.22 K/mm3 (4.00-11.30)
--- NOTE | 2022-07-21 05:47 | NUR ---
SHIFT SUMMARY ALERT. NONVERBAL. NODS HEAD YES OR NO TO QUESTIONS. SLEPT WELL T/O NIGHT. VSS. NO S/SX DYSPNEA. NODDED HEAD YES FOR LEG PAIN, MEDICATED 1X c TYLENOL & REPOSITIONED. HAS HAD OCC RETCHING, DRY HEAVING, ALMOST IF MUCUS GETS STUCK IN THROAT, SET UP SUTION & SUCTIONED FREQUENTLY, SMALL AMOUNT CLEAR, LIGHT PINK/ORANGE SPUTUM. MEDICATED 1X c ZOFRAN & PT STILL HAD RETCHING. INCONT, ATTENDS CHANGED PRN. TUBE FEEDING STARTED @15ML/HR UNTIL 0145 WHEN RATE INCREASED TO 30ML/HR, PT SOUNDS LIKE SHE HAS BEEN RETCHING MORE SINCE TUBE FEEDING INCREASED. LS DIM c CRACKLES IN BASES NEW THIS AM. PAUSED IV FLUIDS AT THIS TIME. DECREASED TUBE FEEDING BACK TO 15ML/HR AT 0600. INFORMED ONCOMING NURSE. CALL LIGHT IN REACH.
[2022-07-21 05:59] LABS: Albumin, Blood 2.9 g/dL (3.4-5.0); Albumin/Globulin Ratio 0.9 (0.8-1.8); Bilirubin, Total 0.5 mg/dL (0.1-1.0); Bun/Creatinine Ratio 43.7 (12.0-20.0); Creatinine, Blood 0.18 mg/dL (0.40-1.00); Globulin, Blood 3.2 g/dL (2.2-4.0); Potassium, Blood 3.5 mmol/L (3.5-5.5); Total Protein, Blood 6.1 g/dL (6.4-8.2)
--- NOTE | 2022-07-21 08:30 | NUR ---
EMESIS DR. AVALOS NOTIFIED THAT PT IS VOMITING BROWN EMESIS. PT MOUTH SUCTIONED & TUBE FEEDING STOPPED BY BEDSIDE NURSE, RICCARDO. O2 SATS STABLE AT 96%. DR. AVALOS STATED IT IS OK TO GIVE PHENOBARBITAL THROUGH THE PEG TUBE.
--- NOTE | 2022-07-21 16:55 | NUR ---
PT IS ALERT, PT NODS TO SOME QUESTIONS OTHERWISE IS NON VERBAL. THE PT APPEARS TO BE BREATHING EASILY ON RA AT THIS TIME. THIS AM UPON ENTERING THE ROOM THE PT WAS ACTIVLY VOMITING DARK BROWN COLORED EMISIS. THE PT WAS SUCTIONED. THE PT VOMITED ONE OTHER TIME.THE TUBE FEEDING WAS STOPPED. DR MESA WAS IN TO SEE THE PT REGLAN PER TUBE AND MILK OF MAG ORDERED. THE PT YELL OUT AT TIMES USUALLY BECAUSE SHE NEEDS REPOSITIONED OR ATTENDS CHANGED. MEDIA ASSISTANT IS IN WITH THE PT AT THIS TIME. CALL LIGHT IN REACH WILL CONTINUE TO MONITOR AND ASSESS FOR CHANGES
--- NOTE | 2022-07-21 18:35 | NUR ---
SHIFT SUMMARY CHANGE OF CRE AT 1645. REPORT RECIEVED FROM PREVIOUS RN. PT IS STILL BEING SUCTIONED OF DARK BLACK BILE AND IT BACKS OUT OF HER PEG WHEN YOU GOT TO FLUSH IT. PT IS STILL CRYING OUT WHE NOT ACCOMPANIES, THOUGH SONOGRAPHER WAS IN THE ROOM THIS AFTERNOON. DR MESA IS WAITING TO SEE IS PT MEDS GIVEN TODAY WILL HELP WITH MOTLIITY AND IF NOT THEN POSSIBLE INTERVENTION TOMORROW. SONOGRAPHER IS UPDATED ON CONDITION. PTS DOOR IS OPEN SOSHE CAN CALL NEEDED AND BED IS IN THE LOWEST POSITION.
--- NOTE | 2022-07-22 06:20 | NUR ---
SHIFT SUMMARY ALERT. NONVERBAL. RESPONDS BY NODDING HEAD YES OR NO TO QUESTIONS. DENIES PAIN. REPORTED NAUSEA 1X, HOWEVER HAD GIVEN SCHEDULED REGLAN AT THIS TIME, NO FURTHER NAUSEA REPORTED. DENIES DYSPNEA. I HAVE NOTICED PT HAD LESS RETCHING & GAGGING TONIGHT COMPARED TO PREVIOUS NIGHT. STILL HAVING SMALL AMOUNT DARK BROWN SPUTUM c COFFEE FLAKES & SMALL AMOUNT DARK BROWN COFFEE LIKE RESIDUAL OUT OF PEG TUBE. NO BM THIS SHIFT. REPOSITONED & CHANGED PRN. CALL LIGHT IN REACH. WILL MONITOR.
[2022-07-22 16:40] LABS: Hematocrit 35.2 % (33.0-51.0); Hemoglobin 12.4 g/dL (11.5-16.0); Mean Corpuscular HGB 34.1 pg (26.0-34.0); Mean Corpuscular HGB Conc 35.2 g/dL (31.5-36.5); Mean Platelet Volume 10.9 fL (9.1-12.4); Platelet Count 217 K/mm3 (150-400); RDW Coefficient Variation 12.2 % (11.7-14.2); RDW Standard Deviation 43.2 fL (35.1-46.3); Red Blood Cell Count 3.64 M/mm3 (3.80-5.20); White Blood Cell Count 3.77 K/mm3 (4.00-11.30)
[2022-07-22 16:49] LABS: Mean Corpuscular Volume 97 fL (80-100)
[2022-07-22 16:59] LABS: Albumin/Globulin Ratio 0.9 (0.8-1.8); Bilirubin, Total 0.4 mg/dL (0.1-1.0); Bun/Creatinine Ratio 14.9 (12.0-20.0); Calcium, Blood 8.2 mg/dL (8.5-10.1); Creatinine, Blood 0.2 mg/dL (0.40-1.00); Globulin, Blood 3.5 g/dL (2.2-4.0); Potassium, Blood 3.8 mmol/L (3.5-5.5); Total Protein, Blood 6.5 g/dL (6.4-8.2)
--- NOTE | 2022-07-22 17:19 | NUR ---
SHIFT SUMMARY PATIENT NON VERBAL, ABLE TO SLIGHTLY NOD YES AND NO. PATIENT REFUSING BLOOD DRAWS TODAY. ABLE TO GET ACCESS TO MEDIPORT. CURRENTLY D5W WITH K RUNNING. PEG TUBE IN PLACE. NO FEEDING AT THIS TIME. NO NAUSEA OR VOMITTING THIS SHIFT. PATIENT DENIES PAIN. SEIZURE MEDICATIONS AND REGLAN GIVEN VIA PEG TUBE. ALL OTHER MEDS HELD AT THIS TIME DUE TO PATIENT HAVING BLACK EMESIS AND RESIDUAL IN HER PEG LAST NIGHT. PATIENT INCONT, ATTENDS IN PLACE. HAD 3 FULL LIQUID BM. WILL CONTINUE TO MONITOR.
--- NOTE | 2022-07-23 04:24 | NUR ---
SHIFT SUMMARY ALERT. NONVERBAL. MOANS & YELLS OUT, HOWEVER DENIES PAIN. VSS. REPORTS NAUSEA, MEDICATED 1X c SCHEDULED REGLAN & 1X c IV ZOFRAN. AROUND 0350 PT HAD EPISODE PROJECTILE BLOOD TINGE EMESIS, ROUGHLY 150ML. HYPOACTIVE BT. HAD 2 LRG BM THIS SHIFT. NPO. TUBE FEEDINGS ON HOLD. REPOSITIONED & ATTENDS CHANGED PRN. WILL CONT TO MONITOR.
[2022-07-23 09:58] LABS: Hematocrit 35.6 % (33.0-51.0); Hemoglobin 12.3 g/dL (11.5-16.0); Mean Corpuscular HGB 33.6 pg (26.0-34.0); Mean Corpuscular HGB Conc 34.6 g/dL (31.5-36.5); Mean Corpuscular Volume 97 fL (80-100); Platelet Count 249 K/mm3 (150-400); RDW Coefficient Variation 12.3 % (11.7-14.2); RDW Standard Deviation 43.6 fL (35.1-46.3); Red Blood Cell Count 3.66 M/mm3 (3.80-5.20); White Blood Cell Count 3.67 K/mm3 (4.00-11.30)
[2022-07-23 10:15] LABS: Albumin, Blood 2.9 g/dL (3.4-5.0); Albumin/Globulin Ratio 0.8 (0.8-1.8); Bilirubin, Total 0.4 mg/dL (0.1-1.0); Bun/Creatinine Ratio 17.6 (12.0-20.0); Calcium, Blood 7.7 mg/dL (8.5-10.1); Creatinine, Blood 0.17 mg/dL (0.40-1.00); Globulin, Blood 3.6 g/dL (2.2-4.0); Potassium, Blood 3.9 mmol/L (3.5-5.5); Total Protein, Blood 6.5 g/dL (6.4-8.2)
--- NOTE | 2022-07-23 18:20 | NUR ---
SHIFT SUMMARY PATIENT NON VERBAL, ABLE TO YELL OUT WHEN SHE NEEDS SOMETHING AND NODS HEAD YES OR NO TO QUESTIONS. C/O PAIN, MEDICATED PER MAR X1. PATIENT BECAME NAUSEATED AFTER HER MORNING MEDS RETCHING BUT NOTHING CAME UP. MEDICATIONS ADMINISTERED THROUGH PEG TUBE. MEDIPORT ACCESS WITH D5W WITH K RUNNING. ONE LIQUID BM NOTED THIS SHIFT. DR. MESA RECOMMENDED GI SCOPE PATIENT. GI NOT AVAIL TODAY. VSS. WILL CONTINUE TO MONITOR.
--- NOTE | 2022-07-24 06:54 | NUR ---
SHIFT SUMMARY ALERT. VSS. DENIES PAIN. REPORTS FEELING NAUSEATED, MEDICATED 1X c ZOFRAN THIS AM. NO S/SX DYSPNEA. HAD 3 LIQUID FLOR[place] BROWN BM THIS SHIFT. CHANGED PRN. ALSO HAD 1 EPISODE EMESIS. CALL LIGHT IN REACH
[2022-07-24 10:07] LABS: Hematocrit 44.4 % (33.0-51.0); Hemoglobin 15.1 g/dL (11.5-16.0); Mean Corpuscular HGB 33.5 pg (26.0-34.0); Mean Corpuscular Volume 98 fL (80-100); RDW Coefficient Variation 12.8 % (11.7-14.2); RDW Standard Deviation 44.8 fL (35.1-46.3); Red Blood Cell Count 4.51 M/mm3 (3.80-5.20); White Blood Cell Count 6.36 K/mm3 (4.00-11.30)
[2022-07-24 10:33] LABS: Albumin/Globulin Ratio 0.8 (0.8-1.8); Bilirubin, Total 0.4 mg/dL (0.1-1.0); Bun/Creatinine Ratio 22.1 (12.0-20.0); Calcium, Blood 8.2 mg/dL (8.5-10.1); Creatinine, Blood 0.18 mg/dL (0.40-1.00); Globulin, Blood 3.9 g/dL (2.2-4.0); Potassium, Blood 4.3 mmol/L (3.5-5.5); Total Protein, Blood 6.9 g/dL (6.4-8.2)
[2022-07-24 11:00] LABS: Mean Platelet Volume 10.7 fL (9.1-12.4)
[2022-07-24 11:01] LABS: Platelet Count 275 K/mm3 (150-400)
[2022-07-24 13:28] LABS: Stool Occult Blood Guaiac 1 Neg (Neg)
--- NOTE | 2022-07-24 18:49 | NUR ---
SHIFT SUMMARY NO ACUTE CHANGES DURING SHIFT. PT NONVERBAL, OCCASIONAL HEAD NODS FOR ANSWERS. STARTED ON CLINIMIX TODAY, PLANS FOR TPN TO START TOMORROW. GUIAC STOOL NEGATIVE. WILL CONTINUE TO MONITOR.
--- NOTE | 2022-07-25 04:08 | NUR ---
SHIFT SUMMARY: BASELINE NON VERBAL- PT ABLE TO RESPOND TO YES AND NO QUESTIONS BY SHAKING HEAD. CONTINUING Q2 TURNING, 1-2 PERSON ASSIST TURNING AND CHANGING BRIEF. PT INCONTINENT OF BOWEL AND BLADDER- NO BOWEL MOVEMENT TONIGHT. PRN ULTRAM ORDERED TONIGHT DUE TO INCREASED MOANING AND APPEARANCE OF INCREASED PAIN- DID NOT ADMINISTER YET DUE TO INCREASED COMFORT AND PT RESTING PRIOR TO MED VERIFICATION. BED ALARM REMAINS ACTIVATED, BED IN LOW POSITION, CALL DAVIS AND BELONGINGS IN REACH.
[2022-07-25 06:18] LABS: Magnesium, Blood 1.9 mg/dL (1.6-2.4)
[2022-07-25 06:19] LABS: Albumin, Blood 2.6 g/dL (3.4-5.0); Albumin/Globulin Ratio 0.8 (0.8-1.8); Bilirubin, Total 0.4 mg/dL (0.1-1.0); Bun/Creatinine Ratio 43.3 (12.0-20.0); Calcium, Blood 7.8 mg/dL (8.5-10.1); Creatinine, Blood 0.21 mg/dL (0.40-1.00); Globulin, Blood 3.1 g/dL (2.2-4.0); Potassium, Blood 4.3 mmol/L (3.5-5.5); Total Protein, Blood 5.7 g/dL (6.4-8.2)
--- NOTE | 2022-07-25 18:32 | NUR ---
SHIFT SUMMARY PT ALERT T/O SHIFT, ABLE TO NOD YES OR NO TO QUESTIONS. TPN INITIATED THIS SHIFT, RUNNING 50ML/HR VIA [place]. DR. MEYER IN TO CONSULT PT, PLAN TO EGD SCOPE. CALL LIGHT W/IN REACH. VSS. NPO. PEG TUBE FLUSHED.
--- NOTE | 2022-07-25 23:35 | NUR ---
ALERT TO QUESTIONS ASKED, BUT DUE TO HX CEREBRALL PALZY, IS QUADROPLEGIC AND CAN ONLY ANSWER QUESTIONS WITH A NOD OF THE HEAD OR SHAKE HER HEAD NO. PAIN MED GIVEN AND NAUSEA MED GIVEN. HOB ELEVATED FOR ASPIRATION PRECAUTIONS. MEDS EFFECTIVE. WATCHING PERSONAL PROGRAMS ON HER COMPUTER. PEG TUBE FLUSHED. ORAL CARE/SUCTIONING DONE. IV TPN INTUSING - SEE MAR FOR DETAILS. RAILS UP X 3. CALL LIGHT IN REACH. FREQUENT CHECKS
--- NOTE | 2022-07-26 04:02 | NUR ---
ORGAN GRINDER SUMMARY AWAKE AT INTERVALS. OCCASIONALLY MOANING LOUDLY WHEN HER COMPUTER WIFI DISCONNECETED AND PREVENTED HER FROM WATCHING HER TV PROGRAMS. TPN INFUSING. PEG TUBE FEEDINGS STOPPED DUE TO SBO. BUT TOLERATES MEDS VIA PEG TUBE. ASPIRATION PRECAUTIONS MAINTAINED - HOB ELEVATED. REPOSITIONED FOR COMFORT AND SKIN MAINTENANCE - SEE DOUMENTATION. NO NOTED SEIZURE ACTIVITY. CALL LIGHT IN REACH. FREQUENT ASSESSMENTS AND CHECKS DONE. VSS.
[2022-07-26 06:09] LABS: Hematocrit 34.2 % (33.0-51.0); Hemoglobin 12.2 g/dL (11.5-16.0); Mean Corpuscular HGB 34.5 pg (26.0-34.0); Mean Corpuscular HGB Conc 35.7 g/dL (31.5-36.5); Mean Corpuscular Volume 97 fL (80-100); Mean Platelet Volume 9.8 fL (9.1-12.4); Platelet Count 284 K/mm3 (150-400); RDW Coefficient Variation 12.6 % (11.7-14.2); RDW Standard Deviation 43.8 fL (35.1-46.3); Red Blood Cell Count 3.54 M/mm3 (3.80-5.20); White Blood Cell Count 5.57 K/mm3 (4.00-11.30)
[2022-07-26 06:25] LABS: Albumin, Blood 3.1 g/dL (3.4-5.0); Albumin/Globulin Ratio 0.9 (0.8-1.8); Bilirubin, Total 0.3 mg/dL (0.1-1.0); Bun/Creatinine Ratio 50.6 (12.0-20.0); Calcium, Blood 8.3 mg/dL (8.5-10.1); Creatinine, Blood 0.18 mg/dL (0.40-1.00); Globulin, Blood 3.6 g/dL (2.2-4.0); Magnesium, Blood 1.9 mg/dL (1.6-2.4); Phosphorus, Blood 3.2 mg/dL (2.5-4.9); Potassium, Blood 4.1 mmol/L (3.5-5.5); Total Protein, Blood 6.7 g/dL (6.4-8.2)
--- NOTE | 2022-07-26 17:41 | NUR ---
SHIFT SUMMARY NO ACUTE CHANGES DURING SHIFT. PT NONVERBAL, HEAD NODS TO ANSWER. MEDICATED WITH PRN PAIN MEDICATION X 2 TO KEEP COMFORTABLE. PT DOWN TO GI LAB FOR EGD. CONTINUE TPN. CALL LIGHT WITHIN REACH.
--- NOTE | 2022-07-26 18:06 | NUR ---
07/26/22 1806 Natalya Jose HISTORY, CHART, MEDICATIONS AND ALLERGIES REVIEWED BEFORE START OF PROCEDURE. PATIENT CONFIRMS NPO STATUS AND AGREES WITH SCHEDULED PROCEDURE. 3-LEAD EKG REVIEWED WITH PHYSICIAN PRIOR TO START OF PROCEDURE. MONITOR INTACT WITH CONTINUOUS PULSE OXIMETRY,CAPNOGRAPHY, 3-LEAD EKG, INTERMITTENT BP. SUPPLEMENTAL O2 TO BE TITRATED THROUGHOUT PROCEDURE TO MAINTAIN O2 SATURATION ABOVE 90%. PATIENT DETERMINED TO BE ASA APPROPRIATE FOR PROPOFOL SEDATION PRIOR TO START OF PROCEDURE BY
--- NOTE | 2022-07-26 19:25 | NUR ---
RETURNED TO FLOOR FROM EGD. AM RN REPORTED NO NOTED PROBLEMS OTHER THAN SOME BLEDING FROM HER THROAT AREA DUE TO APPARENT IRRITATION. TPN RESTARTED.
--- NOTE | 2022-07-27 03:50 | NUR ---
FRONT END ENGINEER SUMMARY REMAINS NPO AND NO TUBE FEEDINGS PER PEG TUBE WHILE BEING ASSESSED FOR SMALL BOWEL OBSTRUCTION. TPN INFUSING AT 50 ML/HR. REPOSITIONED OFTEN - SEE DOC FLOW SHEETS FOR DETAILS. NO NOTED SEIZURE ACTIVITY. HAS BEEN RESTING QUIETLY WITH FEW INTERRUPTIONS SINCE AROUND 0000. VSS. CALL LIGHT IN REACH. RAILS UP X 2. WILL CONTINUE TO MONITOR
[2022-07-27 05:50] LABS: Phosphorus, Blood 3.7 mg/dL (2.5-4.9)
--- NOTE | 2022-07-27 18:51 | NUR ---
PATIENT IS ALERT. SHE NODS YES/NO. SHE MOANS AND SCREAMS WHEN UPSET UNTIL STAFF IS ABLE TO FIGURE OUT WHAT SHE NEEDS. PATIENT HAS BEEN WATCHING TV. THE YARD JACKER OF THE FACILTY SHE IS FROM VISITED TODAY. WILL CONTINUE TO MONITOR
--- NOTE | 2022-07-28 06:36 | NUR ---
A&Ox4. CAREGIVER FROM HOME IN x2 T/O NIGHT. AWAKE MOST OF NIGHT, WATCHING TV ON LAPTOP. BED BATH GIVEN AFTER LARGE LIQUID STOOL AT 0500. PEG TUBE FEEDING INCREASED TO 60mL AT 0000; TOLERATING WELL. PATENT AND FLUSHES. IV RT FOOT PATENT AND FLUSHES. NO OTHER ACUTE CONCERNS THROUGHOUT THE NIGHT. REPORT TO ONCOMING RN.
--- NOTE | 2022-07-28 18:17 | NUR ---
SHIFT SUMMARY NO ACUTE CHANGES DURING SHIFT. PT NON VERBAL FOR MOST WORDS, HEAD NODS FOR RESPONSE. PENDING RETURN TO FACILITY, PLANNED D/C BY SATURDAY AT THIS TIME. CALL LIGHT WITHIN REACH.
--- NOTE | 2022-07-29 04:06 | NUR ---
A&Ox4. PLEASANT AND COOPERATIVE WITH CARE. INCONTINENT URINE x3 T/O NIGHT. TUBE FEEDINGS RUNNING AT 60mL/hr w/ 105mL FLUSHES Q4h. TOLERATING WELL. NO ACUTE CONCERNS T/O EVENING. ANTICIPATE DC SATURDAY D/T HOLIDAY .
--- NOTE | 2022-07-29 18:22 | NUR ---
SHIFT SUMMARY NO ACUTE CHANGES DURING SHIFT. PT STILL MOSTLY NONVERBAL, MORE MOANING TODAY, MOSTLY WHEN LAPTOP NOT WORKING. FEEDINGS STARTED AT 1800 AT 60ML/HR PER ORDERS. PT AWAITING FACILITY TO ACCEPT RETURN. WILL CONTINUE TO MONITOR.
--- NOTE | 2022-07-30 05:05 | NUR ---
SHIFT SUMMARY PATIENT HAD NO ACUTE CHANGES. AXOX 3 AND MOSTLY NON-VERBAL RESPONDING WITH Y/N ANSWERS OR SHAKING HEAD. BEDREST. NPO WITH PEG TUBE FEEDING PER ORDERS. NO S/SX OF PAIN, SOB, AND N/V. CBG 120. VSS/AFEBRILE. LESS MOANING WHEN HER LAPTOP IS ON AND FACING HER. CAREGIVER IN FROM [facility]. PIV REMAINS INTACT. CALL LIGHT IN REACH. BED IN LOWEST POSITION. WILL CONTINUE TO MONITOR UNTIL DAY SHIFT NURSE ASSUMES CARE.
--- NOTE | 2022-07-30 17:06 | NUR ---
SHIFT SUMMARY NO ACUTE CHANGES DURING SHIFT. PT MOSTLY NONVERBAL, NODS YES/NO FOR RESPONSES. PT ON NOCTURNAL PEG TUBE FEED, TOLERATING. PT PENDING PLACEMENT AT FACILITY, ANTICIPATE D/C TOMORROW.
--- NOTE | 2022-07-31 04:15 | NUR ---
MACHINE JOINT CUTTER SUMMARY TUBE FEEDING INFUSING AT 60 ML/HR WITH 105 ML WATER BOLUSES EVERY 4 HRS. TOLERATING TUBE FEEDING WELL. HOB REMIAINS ELEVATED FOR ASPIRATION PRECAUTIONS. INCONT OF URINE. OCCASIONAL LOUD MOANS WHEN HER COMPUTER STOPPED RUNNING. OTHERWISE HAS BEEN RESTING QUIETLY, WITH A FEW WAKENINGS WHEN REPOSITIONED. RESTING QUIETLY AT TIME OF THIS WRITING. RAILS UP X 3. CALL LIGHT IN REACH. VSS
== END 2022-07-31 14:13 | DRG 388 ==
LOC: ER 18:18 → MEDS 18:19 → ER 07-19 03:20 → MEDS 07-19 03:20
PROVIDERS: Internal Medicine; Internal Medicine Gastroenterology; Student in an Organized Health Care Education/Training Program; Surgery; ADMIT Internal Medicine
PROC: 0DJ08ZZ Inspection of Upper Intestinal Tract, Via Natural or Artificial Opening Endoscopic (ICD-10-PCS; principal; 2022-07-26 16:30)
DX: K56.609 Unspecified intestinal obstruction, unspecified as to partial versus complete obstruction (principal); R53.2 Functional quadriplegia; K92.0 Hematemesis; K59.2 Neurogenic bowel, not elsewhere classified; K56.7 Ileus, unspecified; G80.9 Cerebral palsy, unspecified; M62.49 Contracture of muscle, multiple sites; Z66 Do not resuscitate; E87.6 Hypokalemia; G40.909 Epilepsy, unspecified, not intractable, without status epilepticus; K22.89 Other specified disease of esophagus; K44.9 Diaphragmatic hernia without obstruction or gangrene; K31.7 Polyp of stomach and duodenum; K22.2 Esophageal obstruction; I10 Essential (primary) hypertension; K59.09 Other constipation; M81.0 Age-related osteoporosis without current pathological fracture; N31.9 Neuromuscular dysfunction of bladder, unspecified; Z98.890 Other specified postprocedural states; Z90.49 Acquired absence of other specified parts of digestive tract; Z87.442 Personal history of urinary calculi; Z98.2 Presence of cerebrospinal fluid drainage device; Z74.01 Bed confinement status; Z93.1 Gastrostomy status; Z86.69 Personal history of other diseases of the nervous system and sense organs; Z91.040 Latex allergy status; Z79.2 Long term (current) use of antibiotics; Z86.73 Personal history of transient ischemic attack (TIA), and cerebral infarction without residual deficits; Z87.81 Personal history of (healed) traumatic fracture; Z95.828 Presence of other vascular implants and grafts; Z88.8 Allergy status to other drugs, medicaments and biological substances; Z79.899 Other long term (current) drug therapy
CPT/HCPCS: 36415; 74018; 74177; 80048; 80053; 82272; 82947; 83735; 84100; 85025; 85027; 96365; 96366; 96372; 96375; 96376; 99285-25; A9270; C9113; C9254; G0378; J1650; J2250; J2405; J2704; J2765; J3475; J3480; J7030; J7120; J7131; Q9967

== ENCOUNTER 2022-10-09 02:03 | Inpatient (IN) | payer OTHER ==
[~2022-10-09] VITALS: Ht 149.9 cm; Wt 35.8 kg
[~2022-10-09 02:03] MED LIST changes: +CELEXA40 M1 PT; -Citalopram HBr40 MG PT; +LACO50TA2 PT; -LACOSAMIDE PT
[2022-10-09 02:39] LABS: BASOPHILS ABSOLUTE AUTO 0.01 K/mm3 (0.00-0.23); BASOPHILS PERCENT AUTO 0 % (0-2); EOSINOPHILS ABSOLUTE AUTO 0.03 K/mm3 (0.00-0.68); EOSINOPHILS PERCENT AUTO 0 % (0-6); Hematocrit 26.3 % (33.0-51.0); Hemoglobin 9.2 g/dL (11.5-16.0); IMMATURE GRAN ABSOLUTE AUTO 0.05 K/mm3 (0.00-0.10); IMMATURE GRAN PERCENT AUTO 1 % (0-1); LYMPHOCYTES ABSOLUTE AUTO 1.38 K/mm3 (0.84-5.20); LYMPHOCYTES PERCENT AUTO 14 % (21-46); MONOCYTES ABSOLUTE AUTO 0.51 K/mm3 (0.16-1.47); MONOCYTES PERCENT AUTO 5 % (4-13); Mean Corpuscular HGB 32.3 pg (26.0-34.0); Mean Corpuscular Volume 92 fL (80-100); Mean Platelet Volume 10.7 fL (9.1-12.4); NEUTROPHILS ABSOLUTE AUTO 7.81 K/mm3 (1.96-9.15); NEUTROPHILS PERCENT AUTO 80 % (41-73); Platelet Count 247 K/mm3 (150-400); RDW Coefficient Variation 13.4 % (11.7-14.2); RDW Standard Deviation 45.6 fL (35.1-46.3); Red Blood Cell Count 2.85 M/mm3 (3.80-5.20); White Blood Cell Count 9.79 K/mm3 (4.00-11.30)
[2022-10-09 02:56] LABS: Albumin, Blood 2.4 g/dL (3.4-5.0); Albumin/Globulin Ratio 0.5 (0.8-1.8); Bilirubin, Total 0.5 mg/dL (0.1-1.0); Bun/Creatinine Ratio 81.4 (12.0-20.0); Calcium, Blood 8.4 mg/dL (8.5-10.1); Creatinine, Blood 0.26 mg/dL (0.40-1.00); Globulin, Blood 5.3 g/dL (2.2-4.0); Potassium, Blood 3.4 mmol/L (3.5-5.5); Total Protein, Blood 7.7 g/dL (6.4-8.2)
[2022-10-09 03:15] LABS: Influenza A, PCR NEGATIVE (NEGATIVE); Influenza B, PCR NEGATIVE (NEGATIVE); Resp Syncytial Virus, PCR NEGATIVE (NEGATIVE); SARS-Cov-2 (COVID-19) PCR, MMC NEGATIVE (NEGATIVE)
[2022-10-09 09:01] LABS: Source, Urine Straight Cath
[2022-10-09 09:08] LABS: Appearance, Urine Cloudy (Clear); Bilirubin, Urine Neg (Neg); Blood, Urine 4+ (Neg); Color, Urine Yellow (P-Yellow); Glucose Qualitative, Urine Neg (Neg); Ketones, Urine Neg (Neg); Leukocyte Esterase, Urine 3+ (Neg); Nitrite, Urine Neg (Neg); Protein, Urine 3+ (Neg); Urobilinogen, Urine NORM (Normal)
[2022-10-09 09:24] LABS: Bacteria Many /hpf; White Blood Cells, Urine TNTC /hpf (0-5)
[2022-10-09 09:26] LABS: Red Blood Cells, Urine 0-2 /hpf (0-2); Squamous Epithelial Cells Mod /hpf (Few)
[2022-10-09] MEDS ORDERED: CALCA500S6 PT (13:01)
[2022-10-09] MEDS ORDERED: DULCOLAX400 MG/5 M PO (13:20)
[2022-10-09] MEDS ORDERED: PROM25 PT (13:26)
[2022-10-09] MEDS ORDERED: AQUAPHOR ITCH R28 GM TOP (13:29)
[2022-10-09] MEDS ORDERED: SIME40L PO (13:31)
--- NOTE | 2022-10-09 17:38 | NUR ---
ICU ADMISSION / SHIFT SUMMARY: REPORT RECEIVED FROM JYOTSNA Marrero RN. PT ARRIVED TO ICU-09 AT APPROX 1225. ON ARRIVAL TO UNIT, THE PT APPEARS SCARED & BEGINS TO CRY. SHE HAS BEEN VERBALLY REASSURED BY THIS RN & INFORMED THAT HER CAREGIVER, LUCILA, WILL BE BACK SOON. SHE NODS HEAD YES/ NO TO QUESTIONS ASKED OF HER. SHE CRIES OUT & MOANS IF NEEDING HELP OR TO BE REPOSITIONED. PT ON RA W/ O2 SATS > 92%, LS CLEAR T/O. MONITOR SHOWS SR-ST W/ HR 90-100s. LEVOPHED INFUSING AT 1 MCG/MIN W/ MAP > 65. PT HAS CHRONIC PEG TUBE IN PLACE. 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 THIS GENERALLY REQUIRES NO INTERVENTION OTHER THAN FLUSHING THE PEG TUBE W/ WATER & LISTENING FOR BOWEL TONES TO RESUME. WHEN THIS ISSUE IS OCCURING, THE PT PRESENTS W/ SUDDEN NAUSEA & VOMITING. PT INCONTINENT OF URINE W/ ATTENDS IN PLACE. SKIN OVERALL INTACT, Q2H REPOSITIONING TO MAINTAIN SKIN INTEGRITY. 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 FENTANYL PATCH IN PLACE TO ROSANNA. CAREGIVERS PLAN TO BE AT BEDSIDE FOR MOST OF THIS PT's STAY, SHE IS MUCH CALMER W/ PEOPLE THAT SHE KNOWS. THEY ARE VERY HELPFUL W/ COMMUNICATION & ADLs. NO ACUTE CHANGES SINCE ADMISSION. THE PT REMAINS ON RA W/ O2 SATS > 92%. MONITOR SHOWS SR W/ HR 100s. MAP > 65 W/ LEVOPHED INFUSING AT 1 MCG/MIN. PT HAS HAD MULTIPLE INCONTINENT URINARY VOIDS & TOLERATED PER TUBE INTAKE OF MEDS. WILL CONTINUE TO MONITOR & REPORT OFF TO ONCOMING RN.
--- NOTE | 2022-10-09 20:00 | NUR ---
ASSUMED CARE OF PT AT 1915. REPORT RECEIVED AT BEDSIDE. PT PRESENTS IN BED. MAKES EYE CONTACT. DOES NOT HEAD TO QUESTIONS. CAREGIVE AT BEDSIDE. PT ON 2 L/M PER NASAL CANNULA. HAVE DECREASED FLOW TO 1 L/M. PT MAINTAINS > 90 PERCENT SATURATIONS. PT CRIES OUT AND NODS HEAD 'YES' TO BEING INCONTINENT. ATTEDS CHANGE DONE. WILL REVIEW CHART AND PLAN OF CARE FOR THIS PT.
--- NOTE | 2022-10-09 23:00 | NUR ---
PT'S CAREGIVER HAD LEFT EARLY, AND REPLACEMENT CAREGIVER ARRIVES APPROX 2 HOURS LATER. PT HAS BEEN INCONTINENT TO URINE AT APPROX 20-[address] [facility]UREWHICK. EXPLAINED OT PT AND TO CAREGIVER PROCESS AND RATIONALE FOR COLLECTION DEVICE. PT TOLERATES Q 2 HOURS TURNS IN BED.
--- NOTE | 2022-10-10 03:41 | NUR ---
PT HAS URINE LEAK PAST PUREWHICK. CHANGED ATTENDS. NO SKIN ISSUES TO NOTE. CAREGIVER AT BEDSIDE. PT CURRENTLY SLEEPING.
[2022-10-10 04:37] LABS: BASOPHILS ABSOLUTE AUTO 0.01 K/mm3 (0.00-0.23); BASOPHILS PERCENT AUTO 0 % (0-2); EOSINOPHILS ABSOLUTE AUTO 0.05 K/mm3 (0.00-0.68); EOSINOPHILS PERCENT AUTO 1 % (0-6); Hematocrit 20.6 % (33.0-51.0); IMMATURE GRAN ABSOLUTE AUTO 0.03 K/mm3 (0.00-0.10); IMMATURE GRAN PERCENT AUTO 1 % (0-1); LYMPHOCYTES ABSOLUTE AUTO 1.11 K/mm3 (0.84-5.20); LYMPHOCYTES PERCENT AUTO 18 % (21-46); MONOCYTES ABSOLUTE AUTO 0.43 K/mm3 (0.16-1.47); MONOCYTES PERCENT AUTO 7 % (4-13); Mean Corpuscular HGB 32.1 pg (26.0-34.0); Mean Corpuscular Volume 95 fL (80-100); Mean Platelet Volume 10.7 fL (9.1-12.4); NEUTROPHILS PERCENT AUTO 74 % (41-73); Platelet Count 198 K/mm3 (150-400); RDW Coefficient Variation 13.8 % (11.7-14.2); RDW Standard Deviation 48.1 fL (35.1-46.3); Red Blood Cell Count 2.18 M/mm3 (3.80-5.20); White Blood Cell Count 6.33 K/mm3 (4.00-11.30)
[2022-10-10 04:57] LABS: Magnesium, Blood 2.4 mg/dL (1.6-2.4)
[2022-10-10 04:59] LABS: Bun/Creatinine Ratio 45.5 (12.0-20.0); Calcium, Blood 7.8 mg/dL (8.5-10.1); Creatinine, Blood 0.24 mg/dL (0.40-1.00); Potassium, Blood 3.5 mmol/L (3.5-5.5)
--- NOTE | 2022-10-10 06:48 | NUR ---
RENEE CHANGED THIS MORNING. PT HAS TOLERATED Q 2 HOUR TURNS IN BED. CAREGIVER HAS LEFT FOR THE DAY. STATES THAT THERE SHOULD BE ANOTHER CAREGIVER COMING TO BE WITH PATIENT. PT REMAINS AFEBRILE POST TYLENOL. WILL CONTINUE TO MONITOR PT, AND WILL REPORT OFF TO ONCOMING RN.
--- NOTE | 2022-10-10 07:59 | NUR ---
BEDSIDE REPORT FROM CODY STEPHENSON. PT ENGAGING AT THE TIME. BP IS STABLE, TITRATE LEVO TO MAP>50 PER ORDERS, JUST PUT ON STANDBY FOR MAP>65. IV TO DILAN, NC OFF, PT WITH EYES CLOSED, RESTING.
--- NOTE | 2022-10-10 11:21 | NUR ---
WENT IN TO REPOSITION YESENIA, HER ATTENDS IS DAMP. PURWICK DEVICE CHANGED OUT, PT CRIES OUT WHEN IT IS PLACED. NO URINE IN TUBING YET. PT DOESN'T LIKE ORAL CARE, CRIES. CRIED SO HARD THAT SHE HAD A SLIGHT WHEEZE. ONCE SETTLED, EASY NON LABORED BREATHING RETURNS.
--- NOTE | 2022-10-10 12:38 | NUR ---
ABLE TO COMMUNICATE A LITTLE MORE WITH YESENIA, SHE IS ABLE TO NOD AND SHAKE HER HEAD. POSITION CHANGE WAS BETTER THIS TIME. SHE REMAINS OFF HER LEVOPHED AT THIS TIME.
[2022-10-10 13:13] LABS: Hematocrit 22.1 % (33.0-51.0); Hemoglobin 7.2 g/dL (11.5-16.0)
--- NOTE | 2022-10-10 14:44 | NUR ---
CAREGIVER HERE, SHE WILL STAY TIL ABOUT 1600, SHE SAID ANOTHER CAREGIVER WON'T BE IN TIL AROUND 2200. SHE MENTIONED THAT YESENIA HASN'T BEEN SLEEPING WELL FOR THE LAST FEW DAYS PRIOR TO COMING IN TO THE HOSPITAL. HAPPY TO SEE HER RESTING AT THIS TIME. DID SAY THAT YESENIA DOES NOT LIKE ORAL CARE.
--- NOTE | 2022-10-10 16:49 | NUR ---
YESENIA CONTINUES TO BE INCONTINENT IN HER ATTENDS, THE PURWICK DEVICE WASN'T WORKING FOR HER. SHE CONTINUES WITH HER PORT ACCESSED FOR IV ANTIBIOTICS AND NS TKO. SKIN FEELS WARM BUT TEMP READS 99.0. CAREGIVER WAS HERE FOR COUPLE OF HOURS.
--- NOTE | 2022-10-10 18:24 | NUR ---
YESENIA REMAINS COOPERATIVE, NODDING AND HEAD SHAKING. SHE WAS ABLE TO UNDERSTAND THAT SHE NEEDED HER OXYGEN BACK ON HER SATS WERE DROPPING TO THE 80'S WHILE SHE WAS SLEEPING. HER TUBE FEEDING WAS STARTED AT 1800, VHP @ 60ML PER HOUR WITH 105ML H20 FLUSHES Q2HR. MEDIPORT REMAINS ACCESSED WITH TKO INFUSING FOR ANTIBIOTICS. ATTENDS IN PLACE FOR INCONTINENCE. SMALL SMEAR OF BM TODAY. HER JOINTS REMAIN LOOSE AND SHE TOLERATES ROM WITH THEM. HER HANDS ARE CONTRACTURED. SHE HAS A FENTANYL PATCH TO THE DILAN THAT IS DUE FOR CHANGING TOMORROW. SHE HAS REMAINED OFF THE LEVOPHED THE ENTIRE DAY. MAPS HAVE BEEN >60. WILL CONTINUE TO MONITOR AND TREAT.
--- NOTE | 2022-10-10 20:00 | NUR ---
ASSUMED CARE OF PT AT 1915. REPORT RECEIVED AT BEDSIDE. PT PRESENTS IN BED. MAKES EYE CONTACT. SOMEWHAT WITHDRAWN FROM PREVIOUS SHIFT THIS RN WAS IN CARE. WILL REVIEW CHART AND PLAN OF CARE FOR THIS PT.
--- NOTE | 2022-10-10 21:48 | NUR ---
FULL CHG BEDBATH DONE FOR PT. ATTENDS CHANGE ALSO FROM INCONTINENCE. FULL BEDDING CHANGE DONE WITH FITTED SHEET INSTEAD OF LIFT SHEET. RE-ZERO BED FOR ACCURATE WEIGHTS. PT COOPERATIVE WITH ASSESSMENT AND CARE. MORE INTERACTIVE WITH CARE WITH OCCASSIONAL GIGGLES. CAREGIVER NOT IN ROOM AT THIS TIME. WILL CONTINUE TO MONITOR PT.
--- NOTE | 2022-10-11 00:49 | NUR ---
PT'S CAREGIVER ARIEL COMES TO ROOM. ASKED IF HE WAS ABLE TO DO SOME REPOSITIONING OF PT. OK GIVEN.
[2022-10-11 03:48] LABS: BASOPHILS ABSOLUTE AUTO 0.01 K/mm3 (0.00-0.23); BASOPHILS PERCENT AUTO 0 % (0-2); EOSINOPHILS ABSOLUTE AUTO 0.04 K/mm3 (0.00-0.68); EOSINOPHILS PERCENT AUTO 1 % (0-6); Hematocrit 22.3 % (33.0-51.0); Hemoglobin 7.4 g/dL (11.5-16.0); IMMATURE GRAN ABSOLUTE AUTO 0.03 K/mm3 (0.00-0.10); IMMATURE GRAN PERCENT AUTO 0 % (0-1); LYMPHOCYTES ABSOLUTE AUTO 1.34 K/mm3 (0.84-5.20); LYMPHOCYTES PERCENT AUTO 18 % (21-46); MONOCYTES ABSOLUTE AUTO 0.46 K/mm3 (0.16-1.47); MONOCYTES PERCENT AUTO 6 % (4-13); Mean Corpuscular HGB 31.6 pg (26.0-34.0); Mean Corpuscular HGB Conc 33.2 g/dL (31.5-36.5); Mean Corpuscular Volume 95 fL (80-100); Mean Platelet Volume 10.6 fL (9.1-12.4); NEUTROPHILS ABSOLUTE AUTO 5.72 K/mm3 (1.96-9.15); NEUTROPHILS PERCENT AUTO 75 % (41-73); Platelet Count 276 K/mm3 (150-400); RDW Coefficient Variation 13.9 % (11.7-14.2); RDW Standard Deviation 48.8 fL (35.1-46.3); Red Blood Cell Count 2.34 M/mm3 (3.80-5.20)
[2022-10-11 04:06] LABS: Bun/Creatinine Ratio 57.5 (12.0-20.0); Calcium, Blood 7.9 mg/dL (8.5-10.1); Creatinine, Blood 0.26 mg/dL (0.40-1.00); Magnesium, Blood 1.9 mg/dL (1.6-2.4); Phosphorus, Blood 1.6 mg/dL (2.5-4.9); Potassium, Blood 3.3 mmol/L (3.5-5.5)
--- NOTE | 2022-10-11 06:12 | NUR ---
PT HAS MAINTAINED MAP > 60 WITHOUT ASSIST OF LEVOPHED. HAVE REMOVED NASAL CANNULA WHEREAS PT CONTINUES WITH SATURATIONS > 90 PERCENT. MEDICATED ONCE THIS NIGHT WITH TYLENOL FOR BACK PAIN. PT HAS NO LONGER COMPLAINED OF PAIN. IS ABLE TO MAKE HER NEEDS KNOWN. TOLERATES TURNS IN BED Q 2 HOURS. CAREGIVER HAS LEFT FOR THE NIGHT. WILL CONTINUE TO MONITOR PT, AND WILL REPORT OFF TO ONCOMING RN.
--- NOTE | 2022-10-11 14:40 | NUR ---
REASSESSMENT: 10/11/22 @ 14:40 PATIENT IS LYING IN THE POSITOIN ON HER RIGHT SIDE. SHE IS ASLEEP AND APEARS COMFORTABLE, NO GRIMACING OR MOANING. AWAKENS TO VERBAL COMMANDS. ASKED IF SHE IS HURTING ANYWHERE, SHE RESPONDS BY SHAKING HER HEAD "NO" SKIN AND BRIEF IS DRY. S1/S2 HEART SOUNDS PRESENT HR:100-110 BP: STABLE AND LUNG SOUNDS ARE CLEAR ON RA. DOES NOT APEAR IN DISTRESS, RESPIRATIONS >20. PRN ATIVAN GIVEN AT 13:00 FOR PATIENT CONTINUING TO YELL OUT DESPITE PAIN MANAGEMENT, REPOSITIONING, CLEAN BRIEF, AND LAPTOP POSTIONED AND PLAYING SHOWS.
--- NOTE | 2022-10-11 15:24 | NUR ---
MARCE ALBRECHT RN PLACED A RETCAL THERMOMETER CORE TEMP READING 100.9 TYLENOL 650 MG ADMINISTERED VIA PT FOR FEVER WILL CONTINUE TO MONITOR TEMP
--- NOTE | 2022-10-11 19:00 | NUR ---
ASSUMED CARE PT ALERT AND WATCHING TV ON TABLET. ABLE TO ANSWER YES/NO QUESTIONS VIA EYE MOVEMENT AND MINIMAL HEAD MOVEMENT. TKO INFUSING IN MEDIPORT. PT INCONT AND BRIEF IN PLACE. TF STARTED AT 60/ML HR c 105ML WATER FLUSH Q2.
--- NOTE | 2022-10-12 02:36 | NUR ---
PT TRANSFERED TO 350 W/ THIS RN AT BEDSIDE. VS STABLE. ON RA. ALL BELONGINGS AND MEDICATIONS SENT WITH PT[facility] AND MADE AWARE OF PT MOVING TO NEW ROOM.
[2022-10-12 05:19] LABS: BASOPHILS ABSOLUTE AUTO 0.01 K/mm3 (0.00-0.23); BASOPHILS PERCENT AUTO 0 % (0-2); EOSINOPHILS ABSOLUTE AUTO 0.09 K/mm3 (0.00-0.68); EOSINOPHILS PERCENT AUTO 1 % (0-6); Hematocrit 21.5 % (33.0-51.0); Hemoglobin 7.2 g/dL (11.5-16.0); IMMATURE GRAN ABSOLUTE AUTO 0.06 K/mm3 (0.00-0.10); IMMATURE GRAN PERCENT AUTO 1 % (0-1); LYMPHOCYTES ABSOLUTE AUTO 0.97 K/mm3 (0.84-5.20); LYMPHOCYTES PERCENT AUTO 13 % (21-46); MONOCYTES ABSOLUTE AUTO 0.31 K/mm3 (0.16-1.47); MONOCYTES PERCENT AUTO 4 % (4-13); Mean Corpuscular HGB Conc 33.5 g/dL (31.5-36.5); Mean Corpuscular Volume 96 fL (80-100); Mean Platelet Volume 10.6 fL (9.1-12.4); NEUTROPHILS ABSOLUTE AUTO 6.02 K/mm3 (1.96-9.15); NEUTROPHILS PERCENT AUTO 81 % (41-73); Platelet Count 242 K/mm3 (150-400); RDW Coefficient Variation 13.9 % (11.7-14.2); RDW Standard Deviation 48.9 fL (35.1-46.3); Red Blood Cell Count 2.25 M/mm3 (3.80-5.20); White Blood Cell Count 7.46 K/mm3 (4.00-11.30)
[2022-10-12 05:36] LABS: Bun/Creatinine Ratio 63.2 (12.0-20.0); Calcium, Blood 7.4 mg/dL (8.5-10.1); Creatinine, Blood 0.19 mg/dL (0.40-1.00); Magnesium, Blood 1.7 mg/dL (1.6-2.4); Phosphorus, Blood 2.6 mg/dL (2.5-4.9); Potassium, Blood 3.6 mmol/L (3.5-5.5)
--- NOTE | 2022-10-12 16:09 | NUR ---
NO ACUTE CHANGES. PT AOX1 AND WILL CRY OUT. TABLET WAS BROUGHT IN FOR PT TO WATCH MOVIES ON AND THIS HAS CALMED HER DOWN AND SEEMS TO MAKE HER HAPPY. ALL FEEDINGS DONE PER EMAR. NO DISTRESS NOTED MOVED EVERY 2 HRS. WILL CONTINUE TO MONITOR.
--- NOTE | 2022-10-12 18:09 | NUR ---
STARTED FEEDING PUMP AT 1800 PER EMAR.
--- NOTE | 2022-10-13 04:37 | NUR ---
Patient resting in bed at this time, no signs symptoms of distress.
[2022-10-13 06:21] LABS: BASOPHILS ABSOLUTE AUTO 0.02 K/mm3 (0.00-0.23); BASOPHILS PERCENT AUTO 0 % (0-2); EOSINOPHILS ABSOLUTE AUTO 0.07 K/mm3 (0.00-0.68); EOSINOPHILS PERCENT AUTO 1 % (0-6); Hematocrit 20.4 % (33.0-51.0); Hemoglobin 6.8 g/dL (11.5-16.0); IMMATURE GRAN ABSOLUTE AUTO 0.06 K/mm3 (0.00-0.10); IMMATURE GRAN PERCENT AUTO 1 % (0-1); LYMPHOCYTES ABSOLUTE AUTO 1.13 K/mm3 (0.84-5.20); LYMPHOCYTES PERCENT AUTO 10 % (21-46); MONOCYTES ABSOLUTE AUTO 0.45 K/mm3 (0.16-1.47); MONOCYTES PERCENT AUTO 4 % (4-13); Mean Corpuscular HGB 31.2 pg (26.0-34.0); Mean Corpuscular HGB Conc 33.3 g/dL (31.5-36.5); Mean Corpuscular Volume 94 fL (80-100); Mean Platelet Volume 10.3 fL (9.1-12.4); NEUTROPHILS ABSOLUTE AUTO 9.41 K/mm3 (1.96-9.15); NEUTROPHILS PERCENT AUTO 85 % (41-73); Platelet Count 301 K/mm3 (150-400); RDW Coefficient Variation 14.1 % (11.7-14.2); RDW Standard Deviation 47.8 fL (35.1-46.3); Red Blood Cell Count 2.18 M/mm3 (3.80-5.20); White Blood Cell Count 11.14 K/mm3 (4.00-11.30)
[2022-10-13 06:45] LABS: Bun/Creatinine Ratio 78.1 (12.0-20.0); Calcium, Blood 7.7 mg/dL (8.5-10.1); Creatinine, Blood 0.19 mg/dL (0.40-1.00); Magnesium, Blood 1.9 mg/dL (1.6-2.4); Phosphorus, Blood 2.5 mg/dL (2.5-4.9); Potassium, Blood 3.8 mmol/L (3.5-5.5)
[2022-10-13 16:23] LABS: Hemoglobin 7.7 g/dL (11.5-16.0)
--- NOTE | 2022-10-13 17:20 | NUR ---
PATIENT BREATH SOUNDS WHEEZY THIS AM. PROVIDER WAS UPDATED AND ORDERED BREATHING TREATMENT THROUGH RT. RT WAS AT BEDSIDE THROUGH OUT SHIFT INTERMITTENTLY OFFERING NEBULIZER. PATIENT HGB/RBC LOW, ONE UNIT OF PRC TRANSFUSED. HGY UP TO 7.7 NOW. TOLERATED UNIT WELL. PATIENT RECEIVED SUP AND HAD LOOSE BM. SHE HAS BEEN SMILING AND COMMUNICATING DURING SHIFT WITH GROANS. IV FLUID NS IS RUNNING AT 5 TO KEEP OPEN BETWEEN AMPICILLIN DOSES. PATIENT APPEARS TO BE COMFORTABLE AT THIS TIME.
--- NOTE | 2022-10-14 03:21 | NUR ---
Patient resting in room, tube feed running, patient has rested well this shift without computer continually playng videos in her bed.
[2022-10-14 05:16] LABS: BASOPHILS ABSOLUTE AUTO 0.01 K/mm3 (0.00-0.23); BASOPHILS PERCENT AUTO 0 % (0-2); EOSINOPHILS ABSOLUTE AUTO 0.06 K/mm3 (0.00-0.68); EOSINOPHILS PERCENT AUTO 1 % (0-6); Hematocrit 24.5 % (33.0-51.0); Hemoglobin 8.2 g/dL (11.5-16.0); IMMATURE GRAN ABSOLUTE AUTO 0.07 K/mm3 (0.00-0.10); IMMATURE GRAN PERCENT AUTO 1 % (0-1); LYMPHOCYTES ABSOLUTE AUTO 1.25 K/mm3 (0.84-5.20); LYMPHOCYTES PERCENT AUTO 14 % (21-46); MONOCYTES ABSOLUTE AUTO 0.42 K/mm3 (0.16-1.47); MONOCYTES PERCENT AUTO 5 % (4-13); Mean Corpuscular HGB 29.9 pg (26.0-34.0); Mean Corpuscular HGB Conc 33.5 g/dL (31.5-36.5); Mean Platelet Volume 10.2 fL (9.1-12.4); NEUTROPHILS ABSOLUTE AUTO 7.45 K/mm3 (1.96-9.15); NEUTROPHILS PERCENT AUTO 81 % (41-73); Platelet Count 303 K/mm3 (150-400); RDW Coefficient Variation 19.2 % (11.7-14.2); RDW Standard Deviation 63.2 fL (35.1-46.3); Red Blood Cell Count 2.74 M/mm3 (3.80-5.20); White Blood Cell Count 9.26 K/mm3 (4.00-11.30)
[2022-10-14 05:35] LABS: Mean Corpuscular Volume 89 fL (80-100)
--- NOTE | 2022-10-14 18:18 | NUR ---
SHIFT SUMMARY PATIENT TAKES FREQUENT NAPS DURING DAY. NON-VERBAL AT BASELINE. TURNED Q2 HR AND ATTENDS CHANGED PRN. ROUTINE IV ABX. NOC 12 HR PEG TUBE FEEDING. TOLERATES FEEDINGS AND MEDS THROUGH PEG TUBE.
[2022-10-15 05:51] LABS: BASOPHILS ABSOLUTE AUTO 0.01 K/mm3 (0.00-0.23); BASOPHILS PERCENT AUTO 0 % (0-2); EOSINOPHILS ABSOLUTE AUTO 0.07 K/mm3 (0.00-0.68); EOSINOPHILS PERCENT AUTO 1 % (0-6); Hematocrit 23.6 % (33.0-51.0); Hemoglobin 7.9 g/dL (11.5-16.0); IMMATURE GRAN ABSOLUTE AUTO 0.09 K/mm3 (0.00-0.10); IMMATURE GRAN PERCENT AUTO 1 % (0-1); LYMPHOCYTES ABSOLUTE AUTO 1.25 K/mm3 (0.84-5.20); LYMPHOCYTES PERCENT AUTO 15 % (21-46); MONOCYTES ABSOLUTE AUTO 0.44 K/mm3 (0.16-1.47); MONOCYTES PERCENT AUTO 5 % (4-13); Mean Corpuscular HGB 29.9 pg (26.0-34.0); Mean Corpuscular HGB Conc 33.5 g/dL (31.5-36.5); Mean Corpuscular Volume 89 fL (80-100); Mean Platelet Volume 10.3 fL (9.1-12.4); NEUTROPHILS ABSOLUTE AUTO 6.39 K/mm3 (1.96-9.15); NEUTROPHILS PERCENT AUTO 78 % (41-73); Platelet Count 359 K/mm3 (150-400); RDW Coefficient Variation 18.5 % (11.7-14.2); RDW Standard Deviation 61.1 fL (35.1-46.3); Red Blood Cell Count 2.64 M/mm3 (3.80-5.20); White Blood Cell Count 8.25 K/mm3 (4.00-11.30)
[2022-10-15 12:32] LABS: Percent Saturation 17.2 % (15.0-50.0)
--- NOTE | 2022-10-15 17:53 | NUR ---
SHIFT SUMMARY PT HAS BEEN NAPPING OFF AND ON THROUGHOUT THE SHIFT. NONVERBAL BUT CAN ANSWER QUESTIONS USING A NOD FOR YES OR NO. SHE RECEIVED A BED BATH TODAY. A CAREGIVER VISITED THIS AM BUT NO OTHER CAREGIVERS WERE OBSERVED THROUGHOUT THE SHIFT. SHE HAS HAD NO COMPLAINTS OF PAIN SINCE THIS AM, MEDICATED PER EMAR. WILL REPORT TO ONCOMING NURSE.
--- NOTE | 2022-10-15 19:18 | NUR ---
THIS NOTE IS FOR YESTERDAY'S SHIFT (NOC 10/14/22), WRITTEN YESTERDAY BUT D/T ERROR DID NOT MAKE IT INTO CHART UNTIL NOW: A/OX4; ANSWERS ORIENTATION QUESTIONS APPROPRIATELY WHEN ASKED IN YES/NO FORMAT. C/O BACK PAIN AT 6/10; SCHEDULED ANALGESIC AND PRN FENTYNAL PATCH. ABD FIRM; DENIES ABD PAIN, DENIES NAUSEA. MEDS VIA PEG. TUBE FEED AT 60 ML/HR (GOAL RATE) OVERNIGHT. BLOOD DRAW FROM R CHEST PORT AND DRSG CHANGED. L POWERGLIDE PATENT/ SL. REPOSITIONED AND ORAL CARE APPROX Q2 HRS (MORE FREQUENTLY AT TIMES). LIQUID BMS (LAXATIVE HELD). SLEEP PROMOTED. BED ALARM SET. CALL LIGHT IN REACH; ENCOURAGED TO MAKE NEEDS KNOWN
[2022-10-16 05:28] LABS: Hematocrit 23.6 % (33.0-51.0); Hemoglobin 7.8 g/dL (11.5-16.0)
--- NOTE | 2022-10-16 05:40 | NUR ---
A/OX4; ANSWERS ORIENTATION QUESTIONS APPROPRIATELY WHEN ASKED IN YES/NO FORMAT. LUNGS SOUND LESS WHEEZY TONIGHT. VERY MINIMAL SUCTIONING NEEDED COMPARED TO PRIOR INTEGRATION ANALYST. ANXIOUS/ AGITATED EARLY ON IN SHIFT; PRN ATIVAN GIVEN; PATIENT CALM AT REASSESSMENT. TEARFUL AND C/O BACK PAIN; SCHEDULED ANALGESIC AND PRN TYLENOL (PRN FENTYNAL PATCH STILL IN PLACE). TUBE FEED STOPPED AT 2109: ABD SIGNIFICANTLY FIRMER (DENIES ABD PAIN AND DENIES NAUSEA), PEG DRESSING SATURATED (LOOKS/SMELLS LIKE TUBE FEED FORMULA), AND RESIDUAL AT THIS TIME WAS 20 ML (DISCARDED). MEDS VIA PEG WITH 30 ML WATER FLUSH. BLOOD DRAW FROM R CHEST PORT AND DRSG CHANGED (KVO NS INFUSING). L POWERGLIDE PATENT/NO BLOOD RETURN/ SL. REPOSITIONED AND ORAL CARE APPROX Q1-2 HRS. LIQUID BM THIS SHIFT (LAXATIVE HELD). SLEEP PROMOTED. ENCOURAGED TO MAKE NEEDS KNOWN, FREQUENT ROUNDING/ NEEDS ANTICIPATED.
[2022-10-16 06:01] LABS: Albumin, Blood 1.9 g/dL (3.4-5.0); Albumin/Globulin Ratio 0.4 (0.8-1.8); Bilirubin, Total 0.4 mg/dL (0.1-1.0); Bun/Creatinine Ratio 43.7 (12.0-20.0); Calcium, Blood 7.9 mg/dL (8.5-10.1); Creatinine, Blood 0.23 mg/dL (0.40-1.00); Globulin, Blood 4.3 g/dL (2.2-4.0); Potassium, Blood 3.5 mmol/L (3.5-5.5); Total Protein, Blood 6.2 g/dL (6.4-8.2)
--- NOTE | 2022-10-16 10:24 | NUR ---
SPOKE WITH PROVIDER ABOUT REPORTED PEG TUBE LEAK LAST NIGHT BY THE NIGHT NURSE. DR. CORREIA STATED HE HAD NO CONCERNS AT THIS TIME BUT TO FLUSH AND OBSERVE FOR ANY LEAKS. HE ALSO SAID TO RESTART THE FOOD AND TO MONITOR FOR ANY FURTHER LEAKS. MEDICATIONS WERE ADMINISTERED AND NO LEAKS WERE OBSERVED THIS AM. TUBE FEEDING HAS BEEN RESUMED AND WILL MONITOR FOR ANY PEG TUBE LEAKS. PROVIDER WILL BE NOTIFIED IF ANY CHANGES OCCUR.
--- NOTE | 2022-10-16 17:48 | NUR ---
SHIFT SUMMARY PT HAS BEEN COOPERATIVE AND PLEASANT THIS SHIFT. SHE HAS HAD NO C/O P/N/V. SHE TOLERATED HER TUBE FEEDING WELL, IT IS CURRENTLY STILL INFUSING. NO LEAKS HAVE BEEN OBSERVED. ONE OF HER CAREGIVERS VISITED THIS AM. HER PORT WAS CHANGED THIS SHIFT AND REACCESSED. SHE IS CURRENTLY RESTING AND WATCHING TELEVISION. WILL REPORT TO THE ONCOMING NURSE.
[2022-10-17 05:32] LABS: Hematocrit 23.7 % (33.0-51.0); Hemoglobin 7.9 g/dL (11.5-16.0)
[2022-10-17 05:57] LABS: Albumin, Blood 1.9 g/dL (3.4-5.0); Albumin/Globulin Ratio 0.4 (0.8-1.8); Bilirubin, Total 0.3 mg/dL (0.1-1.0); Bun/Creatinine Ratio 61.2 (12.0-20.0); Calcium, Blood 7.8 mg/dL (8.5-10.1); Creatinine, Blood 0.2 mg/dL (0.40-1.00); Globulin, Blood 4.3 g/dL (2.2-4.0); Potassium, Blood 3.3 mmol/L (3.5-5.5); Total Protein, Blood 6.2 g/dL (6.4-8.2)
--- NOTE | 2022-10-17 07:22 | NUR ---
A/OX4; ANSWERS ORIENTATION QUESTIONS APPROPRIATELY WHEN ASKED IN YES/NO FORMAT. VERY MINIMAL SUCTIONING NEEDED THIS SHIFT. C/O 8/10 BACK PAIN; SCHEDULED ANALGESIC GIVEN (PRN FENTYNAL PATCH STILL IN PLACE). TUBE FEED STOPPED (COMPLETED FULL AMOUNT) AT 0005: ABD FIRMER AND MORE DISTENDED (DENIES ABD PAIN AND DENIES NAUSEA AND PEG DRESSING IS NOT SATURATED WITH TUBE FEED LIKE IT WAS LAST NIGHT). MEDS VIA PEG WITH 30 ML WATER FLUSH. BLOOD DRAW FROM R CHEST PORT AND DRSG CHANGED (KVO NS INFUSING). L POWERGLIDE PATENT/NO BLOOD RETURN/ SL. REPOSITIONED AND ORAL CARE APPROX Q1-2 HRS. 2 LIQUID BMS THIS SHIFT (LAXATIVE HELD). SLEEP PROMOTED. ENCOURAGED TO MAKE NEEDS KNOWN. FREQUENT ROUNDING/ INQUIRY INTO NEEDS, AND NEEDS ANTICIPATED.
--- NOTE | 2022-10-17 17:01 | NUR ---
NOTIFIED DR. FRITZ OF MOST RECENT VITAL SIGNS POST FLUID BOLUS. PROVIDER STATED TO WATCH HIM OVER NIGHT AND TO ENCOURAGE REST. WILL PASS ON TO ONCOMING NURSE.
--- NOTE | 2022-10-17 17:20 | NUR ---
SHIFT SUMMARY NO ACUTE CHANGES THIS SHIFT. PT HAS BEEN NAPPING OFF AND ON THIS SHIFT, WATCHING TELEVISION T/O. SHE HAD A LARGE BM THIS SHIFT, MOSTLY LIQUID. SHE RECEIVED TYLENOL FOR BACK PAIN AND HAS HAD NO COMPLAINTS SINCE. SHE IS CURRENTLY RESTING AND WILL RESTART HER TUBE FEEDING AT 1800. WILL REPORT TO ONCOMING NURSE.
--- NOTE | 2022-10-18 03:25 | NUR ---
BETTING CLERK SUMMARY HOB REMAINS ELEVATED FOR ASPIRATION PRECAUTIONS TUBE FEEDING CONTINUES WITH SCHEDULED WATER BOLUSES. MEDS GIVEN VIA PEG TUBE WELL, SEE MAR FOR DETAILS. IVF INFUSING KVO INTO RIGHT CHEST MEDIPORT. POWERGLIDE OF LEFT UPPER ARM WAS DISCONTINUED PER MD ORDERS IT DID NOT DRAW AND WAS GETTING MORE DIFFICULT TO FLUSH. REPOSITIONED AND CHANGED AT INTERVALS - SEE DOC FLOW SHEETS FOR DETAILS. INTERMITTENT MOANS AND CALLS OUT SOUNDS FOR ATTENTION WHEN NEEDS ARRISE. SLEEPING QUIETLY AT INTERVALS OTHERWISE. CALL LIGHT IN REACH.
[2022-10-18 10:42] LABS: Albumin/Globulin Ratio 0.4 (0.8-1.8); Bilirubin, Total 0.2 mg/dL (0.1-1.0); Bun/Creatinine Ratio 48.3 (12.0-20.0); Calcium, Blood 7.9 mg/dL (8.5-10.1); Creatinine, Blood 0.21 mg/dL (0.40-1.00); Globulin, Blood 4.6 g/dL (2.2-4.0); Potassium, Blood 3.8 mmol/L (3.5-5.5); Total Protein, Blood 6.6 g/dL (6.4-8.2)
--- NOTE | 2022-10-18 13:25 | NUR ---
DISCHARGE INSTRUCTIONS COMPLETED AND DIS[facility]ED [facility]AME TO PICK PT UP. TO [facility] VIA PTS W/C.
== END 2022-10-18 13:25 | disposition home or self-care (01) | DRG 871 ==
LOC: ER 02:03 → ICUW 10:41 → MEDS 10-12 02:11
PROVIDERS: Emergency Medicine; Family Medicine; Nurse Practitioner Acute Care; Student in an Organized Health Care Education/Training Program; ADMIT Hospitalist
PROC: 3E033XZ Introduction of Vasopressor into Peripheral Vein, Percutaneous Approach (ICD-10-PCS; 2022-10-09)
PROC: 3E03329 Introduction of Other Anti-infective into Peripheral Vein, Percutaneous Approach (ICD-10-PCS; 2022-10-09)
PROC: 30233N1 Transfusion of Nonautologous Red Blood Cells into Peripheral Vein, Percutaneous Approach (ICD-10-PCS; principal; 2022-10-13)
DX: A41.1 Sepsis due to other specified staphylococcus (principal); R53.2 Functional quadriplegia; R65.21 Severe sepsis with septic shock; N39.0 Urinary tract infection, site not specified; K59.2 Neurogenic bowel, not elsewhere classified; E87.1 Hypo-osmolality and hyponatremia; G91.9 Hydrocephalus, unspecified; G80.9 Cerebral palsy, unspecified; Z66 Do not resuscitate; K44.9 Diaphragmatic hernia without obstruction or gangrene; E87.6 Hypokalemia; E83.39 Other disorders of phosphorus metabolism; I27.20 Pulmonary hypertension, unspecified; G40.909 Epilepsy, unspecified, not intractable, without status epilepticus; B96.4 Proteus (mirabilis) (morganii) as the cause of diseases classified elsewhere; B95.2 Enterococcus as the cause of diseases classified elsewhere; D63.8 Anemia in other chronic diseases classified elsewhere; E86.1 Hypovolemia; N31.9 Neuromuscular dysfunction of bladder, unspecified; I10 Essential (primary) hypertension; M81.0 Age-related osteoporosis without current pathological fracture; Z20.822 Contact with and (suspected) exposure to COVID-19; Z87.19 Personal history of other diseases of the digestive system; Z93.1 Gastrostomy status; Z88.8 Allergy status to other drugs, medicaments and biological substances; Z91.040 Latex allergy status; Z79.899 Other long term (current) drug therapy; Z79.2 Long term (current) use of antibiotics; Z98.890 Other specified postprocedural states; Z90.49 Acquired absence of other specified parts of digestive tract; Z98.2 Presence of cerebrospinal fluid drainage device; Z95.828 Presence of other vascular implants and grafts; Z74.01 Bed confinement status
CPT/HCPCS: 0241U; 36415; 36430; 51701; 71045; 71260; 80048; 80053; 81001; 82728; 83540; 83550; 83605; 83735; 83880; 84100; 84145; 84484; 85014; 85018; 85025; 85379; 86850; 86900; 86901; 86923; 87040; 87077; 87086; 87186; 93005; 93010; 93306; 94640; 94664; 94760; 96361-59; 96365-59; 96366-59; 96367-59; 96375-59; 99291-25; A9270; C1751; J0290; J0456; J0696; J1642; J1644; J1885; J2060; J7030; J7050; J7060; J7120; P9016; Q9967

== ENCOUNTER 2022-10-19 10:33 | Inpatient (IN) | payer OTHER ==
[~2022-10-19] VITALS: Ht 162.6 cm; Wt 38.7 kg
[~2022-10-19 10:33] MED LIST changes: +AQUAPHOR ITCH R28 GM TOP; +CALCA500S6 PT; +DULCOLAX400 MG/5 M PO; +SIME40L PO
[2022-10-19 14:14] LABS: BASOPHILS ABSOLUTE AUTO 0.01 K/mm3 (0.00-0.23); BASOPHILS PERCENT AUTO 0 % (0-2); EOSINOPHILS ABSOLUTE AUTO 0.06 K/mm3 (0.00-0.68); EOSINOPHILS PERCENT AUTO 1 % (0-6); Hematocrit 26.5 % (33.0-51.0); Hemoglobin 8.7 g/dL (11.5-16.0); IMMATURE GRAN ABSOLUTE AUTO 0.05 K/mm3 (0.00-0.10); IMMATURE GRAN PERCENT AUTO 1 % (0-1); LYMPHOCYTES PERCENT AUTO 20 % (21-46); MONOCYTES ABSOLUTE AUTO 0.33 K/mm3 (0.16-1.47); MONOCYTES PERCENT AUTO 5 % (4-13); Mean Corpuscular HGB 29.8 pg (26.0-34.0); Mean Corpuscular HGB Conc 32.8 g/dL (31.5-36.5); Mean Corpuscular Volume 91 fL (80-100); Mean Platelet Volume 9.5 fL (9.1-12.4); NEUTROPHILS ABSOLUTE AUTO 5.18 K/mm3 (1.96-9.15); NEUTROPHILS PERCENT AUTO 74 % (41-73); Platelet Count 427 K/mm3 (150-400); RDW Coefficient Variation 17.2 % (11.7-14.2); RDW Standard Deviation 56.8 fL (35.1-46.3); Red Blood Cell Count 2.92 M/mm3 (3.80-5.20); White Blood Cell Count 7.03 K/mm3 (4.00-11.30)
[2022-10-19 14:34] LABS: Albumin, Blood 2.1 g/dL (3.4-5.0); Albumin/Globulin Ratio 0.4 (0.8-1.8); Bilirubin, Total 0.2 mg/dL (0.1-1.0); Bun/Creatinine Ratio 42.5 (12.0-20.0); Calcium, Blood 8.4 mg/dL (8.5-10.1); Creatinine, Blood 0.21 mg/dL (0.40-1.00); Globulin, Blood 4.7 g/dL (2.2-4.0); Potassium, Blood 3.8 mmol/L (3.5-5.5); Total Protein, Blood 6.8 g/dL (6.4-8.2)
[2022-10-20 06:01] LABS: BASOPHILS ABSOLUTE AUTO 0.01 K/mm3 (0.00-0.23); BASOPHILS PERCENT AUTO 0 % (0-2); EOSINOPHILS ABSOLUTE AUTO 0.06 K/mm3 (0.00-0.68); EOSINOPHILS PERCENT AUTO 1 % (0-6); Hematocrit 24.5 % (33.0-51.0); Hemoglobin 7.9 g/dL (11.5-16.0); IMMATURE GRAN ABSOLUTE AUTO 0.03 K/mm3 (0.00-0.10); IMMATURE GRAN PERCENT AUTO 1 % (0-1); LYMPHOCYTES ABSOLUTE AUTO 1.18 K/mm3 (0.84-5.20); LYMPHOCYTES PERCENT AUTO 19 % (21-46); MONOCYTES ABSOLUTE AUTO 0.37 K/mm3 (0.16-1.47); MONOCYTES PERCENT AUTO 6 % (4-13); Mean Corpuscular HGB Conc 32.2 g/dL (31.5-36.5); Mean Corpuscular Volume 93 fL (80-100); Mean Platelet Volume 9.9 fL (9.1-12.4); NEUTROPHILS ABSOLUTE AUTO 4.44 K/mm3 (1.96-9.15); NEUTROPHILS PERCENT AUTO 73 % (41-73); Platelet Count 408 K/mm3 (150-400); RDW Coefficient Variation 17.5 % (11.7-14.2); RDW Standard Deviation 59.3 fL (35.1-46.3); Red Blood Cell Count 2.63 M/mm3 (3.80-5.20); White Blood Cell Count 6.09 K/mm3 (4.00-11.30)
[2022-10-20 06:24] LABS: Albumin/Globulin Ratio 0.5 (0.8-1.8); Bilirubin, Total 0.4 mg/dL (0.1-1.0); Bun/Creatinine Ratio 42.8 (12.0-20.0); Calcium, Blood 8.1 mg/dL (8.5-10.1); Creatinine, Blood 0.19 mg/dL (0.40-1.00); Globulin, Blood 4.2 g/dL (2.2-4.0); Potassium, Blood 3.6 mmol/L (3.5-5.5); Total Protein, Blood 6.2 g/dL (6.4-8.2)
--- NOTE | 2022-10-20 07:36 | NUR ---
HONORIO SUMMARY: PEG TUBE FEED WAS STARTED @ 0100, PER DIET ORDERS. SOON AFTER THE PATIENT WAS MOANING AND CRYING OUT WITH TEARS IN HER EYE'S. PATIENT IS NON VERBAL AND WAS UNABLE TO IDENTIFY THE SOURCE OF THE PAIN. DR SIMPSON WAS NOTIFIED OF THE FLACC SCORE OF 5 AND THAT THE PATIENT HAD FENTAYL ON HER MED RED, PRN BUT ROUTE WAS UNCLEAR? ORDER FOR FENTAYL 25-50 MCG IV PRN WAS OBTAINED AND MED WAS GIVEN WITH GOOD EFFECT. IV ZOFRAN WAS ALSO GIVEN. ORDER TO HOLED TUBE FEEDS WAS ALSO OBTAIN. AT 0600 A FENTANYL PATCH IS FOUND ON THE R POSTERIOR SHOULDER. HEADEND TECHNICIAN AND ONCOMING RN WERE MADE AWARE. PATIENT IS NOW RESTING COMFORTABLY, TUBE FEEDS REMAIN ON HOLD. AND ON COMING RN WAS INFORMED WE NEED AND ORDER
--- NOTE | 2022-10-20 17:13 | NUR ---
SHIFT SUMMARY- PT PLEASANT, SLEEPING OFF AND ON THROUGH OUT DAY. NO PAIN NOTED PER PT FACIAL EXPRESSIONS. VSS. MEDI PORT FLUSHING WELL. PEG TUBE PATENT. SKIN C/D/I. PT WHITE SOURER CAME BY TO GIVE PT LAPTOP. PT RESTING NOW WITH BED ALARM ON, SIDE RAILS UP. WILL CONTINUE TO MONITOR.
[2022-10-21 05:20] LABS: BASOPHILS ABSOLUTE AUTO 0.01 K/mm3 (0.00-0.23); BASOPHILS PERCENT AUTO 0 % (0-2); EOSINOPHILS ABSOLUTE AUTO 0.07 K/mm3 (0.00-0.68); EOSINOPHILS PERCENT AUTO 1 % (0-6); Hematocrit 24.9 % (33.0-51.0); IMMATURE GRAN ABSOLUTE AUTO 0.03 K/mm3 (0.00-0.10); IMMATURE GRAN PERCENT AUTO 1 % (0-1); LYMPHOCYTES ABSOLUTE AUTO 1.31 K/mm3 (0.84-5.20); LYMPHOCYTES PERCENT AUTO 25 % (21-46); MONOCYTES ABSOLUTE AUTO 0.32 K/mm3 (0.16-1.47); MONOCYTES PERCENT AUTO 6 % (4-13); Mean Corpuscular HGB Conc 32.1 g/dL (31.5-36.5); Mean Corpuscular Volume 93 fL (80-100); Mean Platelet Volume 9.7 fL (9.1-12.4); NEUTROPHILS ABSOLUTE AUTO 3.54 K/mm3 (1.96-9.15); NEUTROPHILS PERCENT AUTO 67 % (41-73); Platelet Count 382 K/mm3 (150-400); RDW Coefficient Variation 17.2 % (11.7-14.2); RDW Standard Deviation 57.6 fL (35.1-46.3); Red Blood Cell Count 2.67 M/mm3 (3.80-5.20); White Blood Cell Count 5.28 K/mm3 (4.00-11.30)
[2022-10-21 05:47] LABS: Bun/Creatinine Ratio 41.9 (12.0-20.0); Calcium, Blood 8.2 mg/dL (8.5-10.1); Creatinine, Blood 0.19 mg/dL (0.40-1.00); Potassium, Blood 3.7 mmol/L (3.5-5.5)
--- NOTE | 2022-10-21 06:50 | NUR ---
A/OX4; DEV DELAYED. ANSWERS ORIENTATION QUESTIONS APPROPRIATELY WHEN ASKED IN YES/NO FORMAT. NO SUCTIONING REQUIRED THIS SHIFT. C/O BACK PAIN; SCHEDULED ANALGESIC AND PRN TYLENOL GIVEN; AFFIRMS COMFORT AT REASSESSMENT. REPOSITIONED AND ORAL CARE GIVEN FREQUENTLY T/O SHIFT (APPROX Q1-2 HRS) PEG TUBE SITE DRESSING SATURATED AT SHIFT START AND AGAIN AT APPROX 0400; CDI AT 0600 REPOSITIONING. MEDS VIA PEG WITH 60 ML WATER FLUSH. DENIES ABD PAIN AND NAUSEA. BLOOD DRAW FROM R CHEST PORT; DRESSING CDI. SLEEP PROMOTED. ENCOURAGED TO MAKE NEEDS KNOWN. FREQUENT ROUNDING/ INQUIRY INTO NEEDS, AND NEEDS ANTICIPATED.
--- NOTE | 2022-10-21 17:59 | NUR ---
SHIFT SUMMARY- VSS. PT REPOSTIONED DIRECTED. NO SKIN BREAKDOWN NOTED THIS SHIFT. PEG TUBE PATENT. MEDIPORT PATENT AND FLUSH PER PROTOCOL. NO C/O PAIN, PATCH REPLACED PER SCHEDULE, SEE EMAR. MOOD- SWEET, HAPPY, SMILING. WILL CONTINUE TO MONITOR. SIDE RAILS UP, BED ALARM ON FOR SAFETY.
--- NOTE | 2022-10-21 18:05 | NUR ---
DRESSING PEG TUBE CHANGE X2. NO SKIN BREAKDOWN NOTED.
--- NOTE | 2022-10-21 18:46 | NUR ---
LEFT VM WITH SISTER/GUARDIANSHIP FROM UPDATE.
--- NOTE | 2022-10-22 05:15 | NUR ---
PEG TUBE SITE DRESSING CHANGED 2X THIS SHIFT; YELLOW GREEN BILE OUTPUT. PEG SITE SURROUNDING SKIN IRRITATED/ REDDENED
--- NOTE | 2022-10-22 06:38 | NUR ---
A/OX3-4; ANXIOUS AT TIMES. ANSWERS ORIENTATION QUESTIONS APPROPRIATELY WHEN ASKED IN YES/NO FORMAT. C/O BACK PAIN AT SHIFT START AND C/O HEADACHE TOWARDS END OF SHIFT; SCHEDULED AND PRN ANALGESICS GIVEN PER EMAR; AFFIRMS COMFORT/ DECREASE IN PAIN AT REASSESSMENTS. REPOSITIONED AND LIP CARE GIVEN FREQUENTLY T/O SHIFT (APPROX Q1-2 HRS). SUCTION TOOTHBRUSH/SWAB 1X THIS SHIFT; PATIENT TEARFUL AND YELLING OUT - DOES NOT LIKE TEETH BRUSHED. R CHEST PORT PATENT AND DRESSING CDI. PEG TUBE SITE DRESSING CHANGED 2X THIS SHIFT; YELLOW GREEN BILE OUTPUT. PEG SITE SURROUNDING SKIN IRRITATED/ REDDENED. MEDS VIA PEG WITH 60 ML WATER FLUSH. DENIES ABD PAIN AND DENIES FEELING NAUSEATED. SLEEP PROMOTED. ENCOURAGED TO MAKE NEEDS KNOWN. FREQUENT ROUNDING/ INQUIRY INTO NEEDS, AND NEEDS ANTICIPATED.
[2022-10-22 06:46] LABS: BASOPHILS ABSOLUTE AUTO 0.02 K/mm3 (0.00-0.23); BASOPHILS PERCENT AUTO 0 % (0-2); EOSINOPHILS ABSOLUTE AUTO 0.04 K/mm3 (0.00-0.68); EOSINOPHILS PERCENT AUTO 1 % (0-6); Hematocrit 27.4 % (33.0-51.0); Hemoglobin 8.7 g/dL (11.5-16.0); IMMATURE GRAN ABSOLUTE AUTO 0.02 K/mm3 (0.00-0.10); IMMATURE GRAN PERCENT AUTO 0 % (0-1); LYMPHOCYTES ABSOLUTE AUTO 1.33 K/mm3 (0.84-5.20); LYMPHOCYTES PERCENT AUTO 26 % (21-46); MONOCYTES ABSOLUTE AUTO 0.33 K/mm3 (0.16-1.47); MONOCYTES PERCENT AUTO 7 % (4-13); Mean Corpuscular HGB 29.6 pg (26.0-34.0); Mean Corpuscular HGB Conc 31.8 g/dL (31.5-36.5); Mean Corpuscular Volume 93 fL (80-100); Mean Platelet Volume 9.8 fL (9.1-12.4); NEUTROPHILS ABSOLUTE AUTO 3.34 K/mm3 (1.96-9.15); NEUTROPHILS PERCENT AUTO 66 % (41-73); Platelet Count 425 K/mm3 (150-400); RDW Coefficient Variation 17.3 % (11.7-14.2); RDW Standard Deviation 58.1 fL (35.1-46.3); Red Blood Cell Count 2.94 M/mm3 (3.80-5.20); White Blood Cell Count 5.08 K/mm3 (4.00-11.30)
[2022-10-22 07:03] LABS: Bun/Creatinine Ratio 34.5 (12.0-20.0); Calcium, Blood 8.3 mg/dL (8.5-10.1); Creatinine, Blood 0.23 mg/dL (0.40-1.00); Potassium, Blood 3.6 mmol/L (3.5-5.5)
[2022-10-22 16:48] LABS: International Normalized Ratio 1.12; Prothrombin Time Results 11.7 Sec (9.7-11.5)
--- NOTE | 2022-10-22 16:55 | NUR ---
SHIFT SUMMARY PATIENT REPOSITIONED FOR PAIN, HAS FENTANYL PAIN PATCH. PATIENT DENIES NAUSEA AND SHORTNESS OF BREATH. PATIENT IS BEDBOUND, 2P FOR REPSOSITIONING. PATIENT REPOSITIONED Q2HRS PATIENT ALLOWED. PATIENT HAS PEG TUBE WITH NIGHTTIME FEEDINGS. PATIENT TOLERATED MEDICATIONS THROUGH PEG TUBE ALL SHIFT WITH NO ISSUES. PATIENT DID NOT REPORT PAIN WITH WATER FLUSHES. PATIENT NON VERBAL, BUT GROANS TO COMMUNICATE. PATIENT CAN ALSO ANSWER YES AND NO QUESTIONS BY NODDING HER HEAD. PATIENT HAD VISITOR FROM [facility]. MEDIPORT IS HEP LOCKED. CHG BATH COMPLETED. PATIENT IS NPO. ORAL CARE ATTEMPTED, PATIENT MOVED HEAD AWAY AND BEGAN TO GROAN LOUDLY. POSSIBLE DRAIN PLACEMENT TOMORROW FOR RETROPERITONEAL ABCESS. PATIENT IS PLEASANT AND COOPERATIVE WITH CARE.
--- NOTE | 2022-10-23 07:11 | NUR ---
A/OX3-4; ANXIOUS AT TIMES. ANSWERS ORIENTATION QUESTIONS APPROPRIATELY WHEN PHRASED SO SHE CAN ANSWER WITH "YES/NO". C/O BACK PAIN SCHEDULED AND PRN ANALGESICS GIVEN PER EMAR; AFFIRMS COMFORT/ DECREASE IN PAIN AT REASSESSMENTS. REPOSITIONED AND LIP CARE GIVEN FREQUENTLY T/O SHIFT (APPROX Q1-2 HRS). R CHEST PORT PATENT AND DRESSING CDI. PEG TUBE SITE DRESSING CHANGED 2X THIS SHIFT; SCANT YELLOW/GREEN DRAINAGE. PEG SITE - SMALL AREA OF SURROUNDING SKIN IRRITATED/REDDENED UNDER STABALIZATION DEVICE. MEDS VIA PEG WITH 60 ML WATER FLUSH. DENIES ABD PAIN AND DENIES FEELING NAUSEATED. SLEEP PROMOTED. ENCOURAGED TO MAKE NEEDS KNOWN. FREQUENT ROUNDING/ INQUIRY INTO NEEDS, AND NEEDS ANTICIPATED.
[2022-10-23 08:32] LABS: Hematocrit 28.9 % (33.0-51.0); Hemoglobin 9.2 g/dL (11.5-16.0)
--- NOTE | 2022-10-23 17:57 | NUR ---
SHIFT SUMMARY PATIENT REPOSITIONED FOR NECK PAIN, PATIENT DENIES NAUSEA AND SHORTNESS OF BREATH. PATIENT IS BEDBOUND AND 2P TO REPOSITION. PATIENT REPOSITIONED Q2H AT PATIENT ALLOWED. PATIENT TOLERATED MEDICATIONS THROUGH PEG TUBE WITHOUT ISSUE. NO DRAINAGE NOTED FROM PEG TUBE SITE. PATIENT TAKEN FOR DRAIN PLACEMENT. PATIENT HAS DRAIN LEFT FLANK. DRAINAGE IS SEROSANGUINOUS. PATIENT TOLERATED WELL. SISTER CALLED FOR UPDATE. PATIENT SLEPT MOST OF AFTERNOON. CHG BATH COMPLETED AND LINEN CHANGED. PATIENT IS NPO ON CYCLIC FEEDINGS. PATIENT IS PLEASANT AND COOPERATIVE WITH CARE.
[2022-10-24 05:15] LABS: BASOPHILS ABSOLUTE AUTO 0.01 K/mm3 (0.00-0.23); BASOPHILS PERCENT AUTO 0 % (0-2); EOSINOPHILS ABSOLUTE AUTO 0.08 K/mm3 (0.00-0.68); EOSINOPHILS PERCENT AUTO 2 % (0-6); Hematocrit 29.2 % (33.0-51.0); Hemoglobin 9.3 g/dL (11.5-16.0); IMMATURE GRAN ABSOLUTE AUTO 0.04 K/mm3 (0.00-0.10); IMMATURE GRAN PERCENT AUTO 1 % (0-1); LYMPHOCYTES ABSOLUTE AUTO 1.62 K/mm3 (0.84-5.20); LYMPHOCYTES PERCENT AUTO 40 % (21-46); MONOCYTES PERCENT AUTO 7 % (4-13); Mean Corpuscular HGB 29.4 pg (26.0-34.0); Mean Corpuscular HGB Conc 31.8 g/dL (31.5-36.5); Mean Corpuscular Volume 92 fL (80-100); Mean Platelet Volume 9.5 fL (9.1-12.4); NEUTROPHILS ABSOLUTE AUTO 2.02 K/mm3 (1.96-9.15); NEUTROPHILS PERCENT AUTO 50 % (41-73); Platelet Count 412 K/mm3 (150-400); RDW Coefficient Variation 16.8 % (11.7-14.2); Red Blood Cell Count 3.16 M/mm3 (3.80-5.20); White Blood Cell Count 4.07 K/mm3 (4.00-11.30)
--- NOTE | 2022-10-24 06:21 | NUR ---
A/OX3-4; ANXIOUS AT TIMES. ANSWERS ORIENTATION QUESTIONS APPROPRIATELY WHEN PHRASED SO SHE CAN ANSWER WITH "YES/NO". C/O BACK PAIN SCHEDULED ANALGESICS GIVEN PER EMAR; AFFIRMS COMFORT/ DECREASE IN PAIN AT REASSESSMENTS. REPOSITIONED AND LIP CARE GIVEN FREQUENTLY T/O SHIFT (APPROX Q1-2 HRS). R CHEST PORT PATENT WITH GOOD BLOOD RETURN AND DRESSING CDI. DRAIN L FLANK; SEROSANG DRAINAGE IN TUBING, NONE IN BAG YET. PATIENT AFFIRMED HUNGER PRIOR TO INITIATION OF TUBE FEED; C/O ABD APPROX CARE HOME THROUGH FEED. PAUSED FOR 30 MIN AND REASSESSED, DENIES PAIN, RESTARTED. PATIENT CALLED OUT AGAIN, DENIES ABD PAIN, AFFIRMS FEELING FULL, RN OFFERED TO STOP FEED ENTIRELY, PATIENT PREFFERED TO PAUSE 30 MIN AGAIN. PEG TUBE SITE DRESSING CHANGED 1X THIS SHIFT. MEDS VIA PEG WITH 30-60 ML WATER FLUSH. SLEEP PROMOTED. ENCOURAGED TO MAKE NEEDS KNOWN. FREQUENT ROUNDING/ INQUIRY INTO NEEDS, AND NEEDS ANTICIPATED.
--- NOTE | 2022-10-24 07:51 | NUR ---
HYPOTENSION PT BP THIS AM IS 78/52. DR. HERNANDEZ NOTIFIED. 500CC FLUID BOLUS ORDERED.
--- NOTE | 2022-10-24 13:19 | NUR ---
HYPOTENSION PT BP BACK DOWN 72/[address] CASTAÑEDA NOTIFIED. 500CC BOLUS ORDERED & GIVEN. BP RECHECKED AT 1318 OF 82/65. DR. CASTAÑEDA NOTIFED AND PLACED ORDER FOR MIDODRINE TO BE STARTED.
[2022-10-24 14:47] LABS: Albumin, Blood 1.9 g/dL (3.4-5.0); Albumin/Globulin Ratio 0.4 (0.8-1.8); Bilirubin, Total 0.1 mg/dL (0.1-1.0); Bun/Creatinine Ratio 77.3 (12.0-20.0); Calcium, Blood 7.4 mg/dL (8.5-10.1); Creatinine, Blood 0.19 mg/dL (0.40-1.00); Globulin, Blood 4.6 g/dL (2.2-4.0); Phosphorus, Blood 2.6 mg/dL (2.5-4.9); Potassium, Blood 4.1 mmol/L (3.5-5.5); Total Protein, Blood 6.5 g/dL (6.4-8.2)
--- NOTE | 2022-10-24 16:36 | NUR ---
SHIFT SUMMARY TOLERATED OVERNIGHT FEED AT GOAL RATE LAST NIGHT. HYPOTENSION THIS AM. SEE PREVIOUS NOTES. 2 500CC BOLUSES GIVEN. MIDODRINE STARTED TODAY. BP WELL IMPROVED IN THE 130S SYSTOLIC. PT ASYMPTOMATIC FROM BP T/O SHIFT. PRN MIDODRINE ORDER IN PLACE NOW. MINIMAL RED OUTPUT IN DRAIN TO L FLANK. PT C/O PAIN TO THAT INSERTION SITE AT TIMES. REPOSITIONED T/O DAY. TOLERATING WELL. NYSTATIN APPLIED TO REDNESS AROUND PEG TUBE. NO OTHER ACUTE CHANGES IN ASSESSMENT AT THIS TIME. VS REIVEWED. CRIES OUT WHEN IN NEED. PT CURRENTLY RESTING IN BED WATCHING [employer] ON HER LAPTOP.
[2022-10-25 04:41] LABS: BASOPHILS ABSOLUTE AUTO 0.02 K/mm3 (0.00-0.23); BASOPHILS PERCENT AUTO 1 % (0-2); EOSINOPHILS PERCENT AUTO 2 % (0-6); Hematocrit 30.4 % (33.0-51.0); Hemoglobin 9.7 g/dL (11.5-16.0); IMMATURE GRAN ABSOLUTE AUTO 0.03 K/mm3 (0.00-0.10); IMMATURE GRAN PERCENT AUTO 1 % (0-1); LYMPHOCYTES ABSOLUTE AUTO 1.73 K/mm3 (0.84-5.20); LYMPHOCYTES PERCENT AUTO 41 % (21-46); MONOCYTES ABSOLUTE AUTO 0.33 K/mm3 (0.16-1.47); MONOCYTES PERCENT AUTO 8 % (4-13); Mean Corpuscular HGB 29.3 pg (26.0-34.0); Mean Corpuscular HGB Conc 31.9 g/dL (31.5-36.5); Mean Corpuscular Volume 92 fL (80-100); Mean Platelet Volume 9.8 fL (9.1-12.4); NEUTROPHILS ABSOLUTE AUTO 1.98 K/mm3 (1.96-9.15); NEUTROPHILS PERCENT AUTO 47 % (41-73); Platelet Count 435 K/mm3 (150-400); RDW Coefficient Variation 16.9 % (11.7-14.2); RDW Standard Deviation 56.3 fL (35.1-46.3); Red Blood Cell Count 3.31 M/mm3 (3.80-5.20); White Blood Cell Count 4.19 K/mm3 (4.00-11.30)
[2022-10-25 05:08] LABS: Albumin, Blood 1.9 g/dL (3.4-5.0); Albumin/Globulin Ratio 0.4 (0.8-1.8); Bilirubin, Total 0.3 mg/dL (0.1-1.0); Bun/Creatinine Ratio 78.3 (12.0-20.0); Calcium, Blood 7.5 mg/dL (8.5-10.1); Creatinine, Blood 0.17 mg/dL (0.40-1.00); Globulin, Blood 4.5 g/dL (2.2-4.0); Potassium, Blood 3.8 mmol/L (3.5-5.5); Total Protein, Blood 6.4 g/dL (6.4-8.2)
--- NOTE | 2022-10-25 07:26 | NUR ---
SHIFT SUMMARY ALERT, ANSWERS WITH YES OR NO. SOFT BP. BEDREST. Q2H TURNS. PEG TUBE INTACT, DRSG C/D/I. INCONTINENT OF BLADDER WITH BRIEF CHANGE X 3 THIS SHIFT. CRIES OUT WHEN NEEDING ASSISTANCE. LEFT FLANK DRAINAGE BAG WITH 85ML SANGUINOUS OUTPUT. WILL CONTINUE TO MONITOR AND FOLLOW PLAN OF CARE.
[2022-10-25] MEDS ORDERED: VISBIOME 112.51 EACH PT (12:37)
[2022-10-25] MEDS ORDERED: AMOX500 PT (12:37)
[2022-10-25] MEDS ORDERED: CEFD300 PT (12:38)
--- NOTE | 2022-10-25 16:29 | NUR ---
PT DISCHARGED THE PT DISCHARGED TO HOME WITH CAREGIVERS VIA WHEELCHAIR. THE PTS NURSE WAS INSTRUCTED ON EMPTING THE PTS ABCESS DRAIN. THE PTS PRESCRIPTIONS WERE FAXED TO [facility]. CAREGIVER VERBALIZED UNDERSTANDING OF THE DC INSTRUCTIONS
== END 2022-10-25 15:13 | disposition home health service (06) | DRG 693 ==
LOC: ER 10:33 → MEDS 10:34
PROVIDERS: Family Medicine; ADMIT Hospitalist
PROC: 0W9H30Z Drainage of Retroperitoneum with Drainage Device, Percutaneous Approach (ICD-10-PCS; principal; 2022-10-24)
DX: N20.0 Calculus of kidney (principal); K68.19 Other retroperitoneal abscess; R53.2 Functional quadriplegia; Z66 Do not resuscitate; D63.8 Anemia in other chronic diseases classified elsewhere; K44.9 Diaphragmatic hernia without obstruction or gangrene; E83.39 Other disorders of phosphorus metabolism; I95.9 Hypotension, unspecified; M85.80 Other specified disorders of bone density and structure, unspecified site; I27.20 Pulmonary hypertension, unspecified; G80.8 Other cerebral palsy; G40.909 Epilepsy, unspecified, not intractable, without status epilepticus; Z90.49 Acquired absence of other specified parts of digestive tract; Z98.890 Other specified postprocedural states; Z93.1 Gastrostomy status; Z88.8 Allergy status to other drugs, medicaments and biological substances; Z91.040 Latex allergy status
CPT/HCPCS: 49406; 71046; 74177; 80048; 80053; 84100; 85014; 85018; 85025; 85610; 87040; 87070; 87075; 87077; 87186; 87205; 96372; 96374; 96375; 99285; A9270; G0378; J0696; J1642; J1644; J2765; J3010; J7030; J7040; J7050; Q9967

== ENCOUNTER 2022-10-27 09:15 | Emergency (ER) | payer OTHER ==
[~2022-10-27] VITALS: Ht 106.7 cm; Wt 36.3 kg
[~2022-10-27 09:15] MED LIST changes: +AMOX500 PT; +CEFD300 PT
== END 2022-10-27 12:17 | disposition home or self-care (01) ==
LOC: ER 09:15
DX: Z43.1 Encounter for attention to gastrostomy (principal)
CPT/HCPCS: 99283

== ENCOUNTER 2022-11-17 19:35 | Inpatient (IN) | payer OTHER ==
[~2022-11-17] VITALS: Ht 129.5 cm; Wt 31.1 kg
[2022-11-17 20:52] LABS: BASOPHILS ABSOLUTE AUTO 0.01 K/mm3 (0.00-0.23); BASOPHILS PERCENT AUTO 0 % (0-2); EOSINOPHILS ABSOLUTE AUTO 0.01 K/mm3 (0.00-0.68); EOSINOPHILS PERCENT AUTO 0 % (0-6); IMMATURE GRAN ABSOLUTE AUTO 0.01 K/mm3 (0.00-0.10); IMMATURE GRAN PERCENT AUTO 0 % (0-1); LYMPHOCYTES ABSOLUTE AUTO 0.93 K/mm3 (0.84-5.20); LYMPHOCYTES PERCENT AUTO 16 % (21-46); MONOCYTES ABSOLUTE AUTO 0.16 K/mm3 (0.16-1.47); MONOCYTES PERCENT AUTO 3 % (4-13); Mean Corpuscular HGB 31.6 pg (26.0-34.0); Mean Corpuscular HGB Conc 34.1 g/dL (31.5-36.5); Mean Corpuscular Volume 93 fL (80-100); NEUTROPHILS ABSOLUTE AUTO 4.64 K/mm3 (1.96-9.15); NEUTROPHILS PERCENT AUTO 81 % (41-73); Platelet Count 271 K/mm3 (150-400); RDW Coefficient Variation 17.9 % (11.7-14.2); RDW Standard Deviation 62.1 fL (35.1-46.3); Red Blood Cell Count 4.43 M/mm3 (3.80-5.20); White Blood Cell Count 5.76 K/mm3 (4.00-11.30)
[2022-11-17 21:09] LABS: Albumin, Blood 3.8 g/dL (3.4-5.0); Albumin/Globulin Ratio 0.7 (0.8-1.8); Bilirubin, Total 0.3 mg/dL (0.1-1.0); Bun/Creatinine Ratio 127.4 (12.0-20.0); Calcium, Blood 9.9 mg/dL (8.5-10.1); Creatinine, Blood 0.26 mg/dL (0.40-1.00); Globulin, Blood 5.6 g/dL (2.2-4.0); Potassium, Blood 3.4 mmol/L (3.5-5.5); Total Protein, Blood 9.4 g/dL (6.4-8.2)
[2022-11-17 21:20] LABS: Source, Urine Voided
[2022-11-17 21:24] LABS: Bilirubin, Urine Neg (Neg); Blood, Urine 4+ (Neg); Glucose Qualitative, Urine Neg (Neg); Ketones, Urine Neg (Neg); Leukocyte Esterase, Urine 3+ (Neg); Nitrite, Urine Neg (Neg); Protein, Urine 3+ (Neg); Urobilinogen, Urine NORM (Normal); pH, Urine 6.5 (5.0-8.0)
[2022-11-17 21:35] LABS: Appearance, Urine Hazy (Clear); Color, Urine Yellow (P-Yellow)
[2022-11-17 21:36] LABS: Amorphous Light (0-Heavy); Bacteria Mod /hpf; Squamous Epithelial Cells Not Seen /hpf (Few); White Blood Cells, Urine TNTC /hpf (0-5)
[2022-11-18 02:01] LABS: BASOPHILS PERCENT AUTO 0 % (0-2); EOSINOPHILS PERCENT AUTO 0 % (0-6); Hematocrit 40.3 % (33.0-51.0); Hemoglobin 13.7 g/dL (11.5-16.0); IMMATURE GRAN ABSOLUTE AUTO 0.02 K/mm3 (0.00-0.10); IMMATURE GRAN PERCENT AUTO 0 % (0-1); LYMPHOCYTES ABSOLUTE AUTO 0.89 K/mm3 (0.84-5.20); LYMPHOCYTES PERCENT AUTO 20 % (21-46); MONOCYTES ABSOLUTE AUTO 0.11 K/mm3 (0.16-1.47); MONOCYTES PERCENT AUTO 2 % (4-13); Mean Corpuscular HGB 31.9 pg (26.0-34.0); Mean Corpuscular Volume 94 fL (80-100); Mean Platelet Volume 11.1 fL (9.1-12.4); NEUTROPHILS ABSOLUTE AUTO 3.47 K/mm3 (1.96-9.15); NEUTROPHILS PERCENT AUTO 77 % (41-73); Platelet Count 252 K/mm3 (150-400); RDW Coefficient Variation 17.9 % (11.7-14.2); Red Blood Cell Count 4.29 M/mm3 (3.80-5.20); White Blood Cell Count 4.49 K/mm3 (4.00-11.30)
[2022-11-18 02:17] LABS: Bun/Creatinine Ratio 127.2 (12.0-20.0); Calcium, Blood 9.1 mg/dL (8.5-10.1); Creatinine, Blood 0.23 mg/dL (0.40-1.00); Potassium, Blood 3.1 mmol/L (3.5-5.5)
--- NOTE | 2022-11-18 03:13 | NUR ---
SHIFT SUMMARY PT ARRIVED TO FLOOR AT 0120. ASSESSMENT COMPLETE. PT NONVERBAL, ABLE TO NOD HEAD TO YES/NO QUESTIONS MOST OF THE TIME. PT MOANING OUT, NODS HEAD IN PAIN, ADMINISTERED PRN PAIN MEDICATION. R CHEST PORT ACCESSED AND DRAWING BLOOD BACK. ABX STARTED, FLUIDS RUNNING. PT NPO, PEG TUBE CLAMPED. PER ER REPORT, UNABLE TO PLACE NG TUBE. MD AWARE AND OK TO LEAVE OUT NG TUBE AT THIS TIME. PT INCONTINENT, CHANGED BRIEFS. SKIN ASSESSMENT DONE, SKIN INTACT BESIDES DRAIN TO LOWER BACK. DRAINING SMALL AMOUNT OF DARK SANGENOUS DRAINGAGE. PT REPOSITIONED AND WATCHING SHOWS ON LABTOP. PT MOANS OUT WHEN SHE NEEDS ASSISTANCE.
[2022-11-18 10:08] LABS: Source, Urine Straight Cath
[2022-11-18 10:19] LABS: Bilirubin, Urine Neg (Neg); Blood, Urine 4+ (Neg); Glucose Qualitative, Urine Neg (Neg); Ketones, Urine Neg (Neg); Leukocyte Esterase, Urine 3+ (Neg); Nitrite, Urine Neg (Neg); Protein, Urine 2+ (Neg); Urobilinogen, Urine NORM (Normal)
[2022-11-18 10:24] LABS: Appearance, Urine Hazy (Clear); Color, Urine Yellow (P-Yellow)
[2022-11-18 10:27] LABS: Bacteria Few /hpf; Red Blood Cells, Urine 0-2 /hpf (0-2); Squamous Epithelial Cells Few /hpf (Few); White Blood Cells, Urine 50-100 /hpf (0-5)
--- NOTE | 2022-11-18 11:55 | NUR ---
SPOKE WITH PROVIDER ABOUT ORDER CONCERNING THE RESTART OF PEG TUBE FEEDINGS. ADVISED TO CONSULT WITH DIETARY ON 11/19 TO RESTART HOME REGIMEN. PT CAREGIVER STATES PT GETS NAUSEOUS WHEN GIVEN BOLUS FEEDINGS.
--- NOTE | 2022-11-18 12:44 | NUR ---
DISCONTINUED DIETARY CONSULT BECAUSE PROVIDER, DR. RODNEY, WANTS TO DRAIN THE PEG TUBE VIA GRAVITY, NOT RESTART PEG TUBE FEEDINGS. BAG WAS ATTACHED TO PEG TUBE AND IS CURRENTLY DRAINING.
--- NOTE | 2022-11-18 17:03 | NUR ---
SHIFT SUMMARY PT ABLE TO ANSWER QUESTIONS NODDING YES OR NO, CAN IDENTIFY NUMBER DESIRED TO INDICATE PAIN LEVEL. SHE CAN ALSO MOTION WITH HER HANDS, POINTING DOWNWARD, WHEN SHE HAS HAD A BOWEL MOVEMENT OR VOID. DRAIN ATTACHED TO PEG TUBE TO HELP REMOVE ABD FLUID ETC. SHE HAD TWO LIQUID BM'S THIS SHIFT. HER CAREGIVER FROM [facility] VISITED TWICE TODAY. DR. RODNEY WILL RE-EVALUATE TOMORROW ON THE SUCCESS OF THE PEG TUBE DRAINING. NO NG TUBE IS CURRENTLY PLACED, PROVDER IS AWARE. PT MEDICATED FOR PAIN X2, NAUSEA X2. NO COMPLAINTS AT THIS TIME AND SHE IS RESTING IN BED, WATCHING TELEVISION. WILL REPORT TO ONCOMING NURSE.
--- NOTE | 2022-11-19 03:10 | NUR ---
RAVI TOLERATED REPOSITIONING WELL. SKIN REMAINS INTACT AROUND KIDNEY DRAIN WHICH IS DRAINING SCANT AMOUND OF SEROSANGUINOUS FLUID. MEDICATED TWICE FOR PAIN/NAUSEA. NO CHANGES NOTED
[2022-11-19 14:00] LABS: BASOPHILS ABSOLUTE AUTO 0.01 K/mm3 (0.00-0.23); BASOPHILS PERCENT AUTO 0 % (0-2); EOSINOPHILS PERCENT AUTO 0 % (0-6); Hematocrit 34.5 % (33.0-51.0); Hemoglobin 11.3 g/dL (11.5-16.0); IMMATURE GRAN PERCENT AUTO 0 % (0-1); LYMPHOCYTES ABSOLUTE AUTO 1.76 K/mm3 (0.84-5.20); LYMPHOCYTES PERCENT AUTO 58 % (21-46); MONOCYTES ABSOLUTE AUTO 0.13 K/mm3 (0.16-1.47); MONOCYTES PERCENT AUTO 4 % (4-13); Mean Corpuscular HGB Conc 32.8 g/dL (31.5-36.5); Mean Corpuscular Volume 98 fL (80-100); Mean Platelet Volume 11.3 fL (9.1-12.4); NEUTROPHILS ABSOLUTE AUTO 1.13 K/mm3 (1.96-9.15); NEUTROPHILS PERCENT AUTO 37 % (41-73); Platelet Count 185 K/mm3 (150-400); RDW Coefficient Variation 17.6 % (11.7-14.2); RDW Standard Deviation 64.5 fL (35.1-46.3); Red Blood Cell Count 3.53 M/mm3 (3.80-5.20); White Blood Cell Count 3.03 K/mm3 (4.00-11.30)
[2022-11-19 14:09] LABS: Bun/Creatinine Ratio 78.4 (12.0-20.0); Calcium, Blood 8.3 mg/dL (8.5-10.1); Creatinine, Blood 0.27 mg/dL (0.40-1.00); Potassium, Blood 3.7 mmol/L (3.5-5.5)
--- NOTE | 2022-11-19 17:07 | NUR ---
SHIFT SUMMARY NO ACUTE CHANGES THIS SHIFT. PEG TUBE STILL TRAINING TO GRAVITY, PROVIDER WANTS TO CAP THE PEG AT MIDNIGHT TO SEE IF PT TOLERATES BUT IF VOMITS, TO RE ATTACH PEG TO DRAIN. KIDNEY DRAIN STILL ATTACHED, SMALL AMOUNT OF OUPUT THIS SHIFT. PROVIDER WILL REASSESS TOMORROW ABOUT RESTARTING PEG TUBE FEEDINGS. PT CAREGIVER VISITED TWICE AND WAS PRESENT WHEN PROVIDER ASSESSED. WILL REPORT TO THE ONCOMING NURSE.
--- NOTE | 2022-11-19 17:25 | NUR ---
TRANSFER NOTE PT TRANFERRED FROM PCU. REPORT RECEIVED FROM CODY DAN. SISTER IS AT THE BS. O2 APPLIED. EATING DINNER CURRENTLY. WILL REPORT TO ONCOMING NURSE.
--- NOTE | 2022-11-20 00:01 | NUR ---
PEG CAPPED ORDERED, PEG IS NOW CAPPED AND STAHL DRAINAGE BAG IS CAPPED OFF. I DO HAVE THIS EASILY ACCESSIBLE SHOULD THE PT START VOMITING AGAIN. I AM SEATED NEAR TO THE PT AND CAN HEAR IF SHE GETS SICK. WILL CONTINUE TO MONITOR. I SEE THAT I HAVE PRN NAUSEA MEDS AVAILABLE IN THAT INSTANCE
--- NOTE | 2022-11-20 04:32 | NUR ---
SHIFT SUMMARY ADMITTED FOR SEVERE SBO. FULL CODE. RIGHT MEDIPORT IS ACCESS AND INFUSING LR FLUID. RIGHT KIDNEY ACCORDION DRAIN IS PATENT W/MINIMAL DRAINAGE. PEG TUBE WAS DRAINING TO GRAVITY, BUT IS NOW CAPPED OF MIDNIGHT ORDERED. NO N/V NOTED THUS FAR. MEDICATED FOR PAIN THIS SHIFT. Q2 HR AND PRN REPOSITIONING FOR COMFORT. 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 IV MEDICATIONS ONLY, SHE IS NPO. SHE CAN NOD/SHAKE HER HEAD TO YES AND NO ANSWERS, AND YELL OUT, BUT THAT IS THE EXTENT OF HER COMMUNICATION.
--- NOTE | 2022-11-21 04:31 | NUR ---
SHIFT SUMMARY ADMITTED FOR SEVERE SBO. FULL CODE. PLAN IS FOR SMALL BOWEL FOLLOW THROUGH IMAGING. DR. RODNEY IS CONSULT. PEG TUBE IS CAPPED. A SMALL AMOUNT OF VOMIT NOTED ONCE THIS SHIFT DURING REPOSITIONING. RIGHT MEDIPORT IS ACCESSED AND LR IS INFUSING. KIDNEY TUBE DRAINING PER ACCORDION DRAIN, PUTTING OUT MINIMAL DRAINAGE. 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 HER BUE AND BLE ARE CONTRACTURED. SHE IS ON RA. PAIN MEDICATION GIVEN THIS SHIFT.
--- NOTE | 2022-11-21 05:24 | NUR ---
MEDIPORT WILL NOT DRAW ATTEMPTED HEPARIN FLUSH AND 20 ML'S OF NS WITH NO SUCCESS. INFORMED CHARGE. MEDIPORT WILL NOT DRAW BLOOD FOR LABS
[2022-11-21 08:38] LABS: Hematocrit 41.3 % (33.0-51.0); Hemoglobin 13.6 g/dL (11.5-16.0); Mean Corpuscular HGB 31.9 pg (26.0-34.0); Mean Corpuscular HGB Conc 32.9 g/dL (31.5-36.5); Mean Corpuscular Volume 97 fL (80-100); Mean Platelet Volume 11.1 fL (9.1-12.4); Platelet Count 266 K/mm3 (150-400); RDW Coefficient Variation 17.2 % (11.7-14.2); Red Blood Cell Count 4.26 M/mm3 (3.80-5.20); White Blood Cell Count 8.16 K/mm3 (4.00-11.30)
[2022-11-21 08:54] LABS: Albumin, Blood 3.1 g/dL (3.4-5.0); Anion Gap 16 mmol/L (6-16); Blood Urea Nitrogen 15 mg/dL (8-24); Bun/Creatinine Ratio 56.6 (12.0-20.0); CO2, Blood 17 mmol/L (21-32); Calcium, Blood 8.5 mg/dL (8.5-10.1); Chloride, Blood 109 mmol/L (98-108); Creatinine, Blood 0.27 mg/dL (0.40-1.00); Glomerular Filtration Rate 134 (60-); Glucose, Blood 84 mg/dL (70-99); Phosphorus, Blood 2.4 mg/dL (2.5-4.9); Potassium, Blood 3.3 mmol/L (3.5-5.5); Sodium, Blood 142 mmol/L (136-145)
--- NOTE | 2022-11-21 17:22 | NUR ---
SHIFT SUMMARY: PT ADMITTED FOR SEVERE SBO. PT REMAINS TO BE NPO DUE TO SMALL BOWEL FOLLOW THROUGH IMAGING BEING DONE TODAY. NO RESULTS BACK AT THIS TIME. PT HAS BEEN UPSET THROUGHOUT THE SHIFT. SHE HAS C/O PAIN TWICE. GAVE HER DOSES OF FENTANYL WHICH APPEARED TO HELP. PT ALSO C/O NAUSEA. GAVE ZOFRAN AND IS STILL NAUSEATED. HAD TO SUCTION PATIENT ONCE THIS SHIFT DUE TO BROWN PHLEGM. RIGHT CHEST MEDIPORT ACCESSED AND RUNNING LR @100. KIDNEY TUBE DRAINING PER ACCORDIAN DRAIN W/MINIMAL DRAINAGE. CONTRACTURES ON BLE AND BUE. BED IN LOWEST POSITION. CALL LIGHT IN REACH. WILL CONTINUE TO MONITOR.
--- NOTE | 2022-11-22 04:28 | NUR ---
ADULT MINISTRIES DIRECTOR SUMMARY PATIENT IS NON-VERBAL. VSS. RR EVEN AND UNLABORED ON RA. SPO2 >92%. PATIENT IS NPO AT THIS TIME. PEG TUBE IS PLUGGED. PATIENT APPEARS TO BE TOLERATING THIS. SCANT EMESIS THIS SHIFT. ADDITIONAL ABDOMINAL IMAGING SCHEDULED TODAY. LR @100 ML/HR THROUGH CHEST PORT. PATIENT PASSED A LARGE BOWEL MOVEMENT THIS SHIFT. BED LOW AND LOCKED. CALL LIGHT WITHIN REACH. PATIENT OBSERVED TO BE SLEEPING COMFORTABLY IN BED, WATCHING MOVIES ON HER LAPTOP. NO ACUTE CONCERNS AT THIS TIME. THIS RN WILL CONTINUE TO MONITOR.
[2022-11-22 10:19] LABS: Albumin, Blood 2.6 g/dL (3.4-5.0); Anion Gap 8 mmol/L (6-16); Blood Urea Nitrogen 10 mg/dL (8-24); Bun/Creatinine Ratio 37.9 (12.0-20.0); CO2, Blood 22 mmol/L (21-32); Calcium, Blood 7.8 mg/dL (8.5-10.1); Chloride, Blood 117 mmol/L (98-108); Creatinine, Blood 0.26 mg/dL (0.40-1.00); Glomerular Filtration Rate 135 (60-); Glucose, Blood 119 mg/dL (70-99); Phosphorus, Blood 2.6 mg/dL (2.5-4.9); Potassium, Blood 3.2 mmol/L (3.5-5.5); Sodium, Blood 147 mmol/L (136-145)
--- NOTE | 2022-11-22 17:55 | NUR ---
SHIFT SUMMARY: NO ACUTE CHANGES WITH PT THIS SHIFT. PT C/O PAIN ONCE THEN FELL RIGHT BACK ASLEEP. DID NOT GIVE PT ANYTHING FOR PAIN OR NAUSEA. PT ABLE TO NOD/SHAKE HEAD FOR YES/NO QUESTIONS. THE FINAL IMAGE FOR THE SMALL BOWEL FOLLOW THROUGH WAS DONE THIS AM. RESULTS SHOW THE CONTRAST GOING THROUGH FROM STOMACH TO RECTUM. PT STILL ON NPO DIET. PT HAD 3 LOOSE BM'S THIS SHIFT THAT HAD A GREEN MUCUS APPEARANCE. PT WAS ABLE TO TALK TO SISTER TODAY WHICH APPEARED TO CHEER HER UP. LR CHANGED TO D5W RUNNING AT 75 ML/HR. MEDIPORT ACCESSED AND FLUSHING W/O COMPLICATIONS. PT RECEIVED BAG OF POTASSIUM CHLORIDE DUE TO A POTASSIUM LEVEL OF 3.2. CALL LIGHT IN REACH. BED IN LOWEST POSITION. WILL CONTINUE TO MONITOR.
--- NOTE | 2022-11-23 06:11 | NUR ---
SHIFT SUMMARY - NO ACUTE CHANGES THROUGHOUT THIS SHIFT. ORAL CARE/SUCTION PERFORMED THROUGHOUT THE NIGHT. PT IS ABLE TO SHAKE HER HEAD YES/NO TO MOST QUESTIONS ASKED, THIS IS HOW SHE MAKES HER NEEDS KNOWN TO STAFF. PT HAS UPPER/LOWER EXTREMITY CONTRACTURES. PT HAS A GUARDIAN IN PLACE, AND PT LIVES AT [facility]. PT HAS A PEG TUBE IN PLACE, CLAMPED OFF. NO NAUSEA REPORTED, NO VOMITING VISUALIZED. REPORT FROM DAY SHIFT YESTERDAY, IS PT LIKELY WILL BEGIN TUBE FEEDINGS TODAY - WILL REPORT THIS OFF TO ONCOMING SHIFT. DAY SHIFT REPORTED PT HAD A SMALL BOWEL FOLLOW THROUGH YESTERDAY - SEE REPORT. PT HAS BEEN OFF/ON SLEEPING AND OR WATCHING [employer] ON HER TABLET. MEDIPORT TO RIGHT CHEST WALL INFUSING IV FLUIDS WITHOUT COMPLICATIONS. WILL CONTINUE TO MONITOR UNTIL AM SHIFT CHANGE.
[2022-11-23 08:19] LABS: Albumin, Blood 2.5 g/dL (3.4-5.0); Anion Gap 7 mmol/L (6-16); Blood Urea Nitrogen 5 mg/dL (8-24); Bun/Creatinine Ratio 19.1 (12.0-20.0); CO2, Blood 24 mmol/L (21-32); Calcium, Blood 7.2 mg/dL (8.5-10.1); Chloride, Blood 112 mmol/L (98-108); Creatinine, Blood 0.26 mg/dL (0.40-1.00); Glomerular Filtration Rate 135 (60-); Glucose, Blood 125 mg/dL (70-99); Phosphorus, Blood 1.2 mg/dL (2.5-4.9); Potassium, Blood 2.8 mmol/L (3.5-5.5); Sodium, Blood 143 mmol/L (136-145)
--- NOTE | 2022-11-23 18:07 | NUR ---
PATIENT IS ALERT AND ORIENTED TO SELF AND FRIENDS FROM HER HOME. SHE WILL NOD YES/NO, MOANS AND POINTS WHEN SHE NEEDS SOMETHING AND SAYS "OW". WILL START PEG TUBE FEEDINGS TONIGHT PER ORDERS. PATIENT WAS NAUSEATED THIS AFTERNOOON AFTER ADMINSTRATION OF POTASSIUM BY PT, NAUSEA MEDS GIVEN PER EMAR. THE FLOOR FINISHER HELPER FROM THE HOME WHERE THE PATIENT LIVES VISITED THIS AFTERNOON. PATIENT IS INCONTINENT OF BOWEL AND BLADDER, ATTENDS IN PLACE. Q2H TURNS WITH PILLOWS. WILL CONTINUE TO MONITOR
--- NOTE | 2022-11-24 07:14 | NUR ---
SHIFT SUMMARY ALERT. NONVERBAL. MOANS OR NODS HEAD TO ANSWER QUESTIONS. DENIES PAIN, N/V OR DYSPNEA. NPO. TOLERATED TUBE FEEDING @30ML/HR. INCONT OF URINE, CHANGED & REPOSITIONED PRN. VSS. CALL LIGHT IN REACH & PT YELLS OUT WHEN SHE NEEDS HELP.
[2022-11-24 10:07] LABS: Albumin, Blood 2.5 g/dL (3.4-5.0); Anion Gap 5 mmol/L (6-16); Blood Urea Nitrogen 3 mg/dL (8-24); Bun/Creatinine Ratio 14.4 (12.0-20.0); CO2, Blood 27 mmol/L (21-32); Calcium, Blood 7.5 mg/dL (8.5-10.1); Chloride, Blood 105 mmol/L (98-108); Creatinine, Blood 0.21 mg/dL (0.40-1.00); Glomerular Filtration Rate 143 (60-); Glucose, Blood 111 mg/dL (70-99); Phosphorus, Blood 2.2 mg/dL (2.5-4.9); Potassium, Blood 3.4 mmol/L (3.5-5.5); Sodium, Blood 137 mmol/L (136-145)
--- NOTE | 2022-11-24 17:43 | NUR ---
SHIFT SUMMARY PATIENT REPORTED SOME NAUSEA THIS MORNING, THIS RN STOPPED THE FEEDING. PATIENT DENIED PAIN AND NAUSEA AFTER THAT. PATIENT DENIES SHORTNESS OF BREATH. PATIENT IS BEDBOUND. PATIENT IS NONVERBAL, BUT CAN COMMUNICATE BY EYE MOVEMENT, MOANS, AND OCCASSIONAL WORDS LIKE "OWE" OR "NO". DRESSING TO URECIL DRAIN CHANGED, SLIGHT DRAINAGE. REPOSITIONED Q2 PATIENT ALLOWED. MEDIPORT CHATO BLOOD ONCE PATIENT REPOSITIONED, LABS SENT. CHG BATH DONE. PATIENT IS NPO. TUBE FEEDING STARTED AT 1800, RATE OF 40MLS. GOAL RATE IS 60MLS. PATIENT TOLERATING FEED SO FAR, WILL CONTINUE TO MONITOR. PATIENT IS PLEASANT AND COOPERATIVE WITH CARE.
--- NOTE | 2022-11-25 05:36 | NUR ---
LACE INSPECTOR SUMMARY: A&Ox3-4. CRIES AND MOANS WHEN SHE NEEDS OR WANTS SOMETHING DUE TO LIMITED COMMUNICATION CAPABILITIES. TUBE FEEDINGS RUNNING AT 40mL AND TOLERATING WELL. ABD DISTENTION NOTED WITH TYMPANIC BS. MINIMAL DRAINAGE FROM URASIL TUBE. MEDICATED x1 FOR BACK PAIN. LABS THIS AM. WILL REPORT TO ONCOMING RN.
[2022-11-25 07:00] LABS: Albumin, Blood 2.5 g/dL (3.4-5.0); Anion Gap 3 mmol/L (6-16); Blood Urea Nitrogen 4 mg/dL (8-24); Bun/Creatinine Ratio 19.1 (12.0-20.0); CO2, Blood 29 mmol/L (21-32); Chloride, Blood 106 mmol/L (98-108); Creatinine, Blood 0.21 mg/dL (0.40-1.00); Glomerular Filtration Rate 143 (60-); Glucose, Blood 130 mg/dL (70-99); Magnesium, Blood 1.5 mg/dL (1.6-2.4); Phosphorus, Blood 3.1 mg/dL (2.5-4.9); Potassium, Blood 3.6 mmol/L (3.5-5.5); Sodium, Blood 138 mmol/L (136-145)
--- NOTE | 2022-11-25 18:08 | NUR ---
SHIFT SUMMARY- PT ALERT AND ORIENTED TO SELF, SHE MOANS AND SCREAMS WITH HER DISPLEASURE. SHE HAS BEEN REPOSITIONED FREQUENTLY T/O THE DAY, SHE HAS A MEDIPORT THAT IS ACCESSED RUNNING 10ML/HR NS TKO. THE PT BEGAN CALLING OUT AND IS INCONSOLABLE. STAFF HAVE BEEN UNABLE TO REDIRECT. SHE HAS BEEN WATCHING SHOWS ON HER LAP TOP T/O THE DAY, HER SCREAMS STARTED AT THE SAME TIME THE INTERNET WENT DOWN AND SHE IS NO LONGER ABLE TO WATCH THE SHOWS. ATTENDS ARE CLEAN AND DRY AT THIS TIME, SHE WAS RECENTLY REPOSITIONED. WILL CTM AND PASS ON TO NIGHT RN IN REPORT.
--- NOTE | 2022-11-26 06:44 | NUR ---
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
[2022-11-26 08:32] LABS: Albumin, Blood 2.6 g/dL (3.4-5.0); Anion Gap 4 mmol/L (6-16); Blood Urea Nitrogen 7 mg/dL (8-24); Bun/Creatinine Ratio 30.4 (12.0-20.0); CO2, Blood 29 mmol/L (21-32); Calcium, Blood 7.9 mg/dL (8.5-10.1); Chloride, Blood 107 mmol/L (98-108); Creatinine, Blood 0.23 mg/dL (0.40-1.00); Glomerular Filtration Rate 139 (60-); Glucose, Blood 122 mg/dL (70-99); Magnesium, Blood 2.2 mg/dL (1.6-2.4); Phosphorus, Blood 2.2 mg/dL (2.5-4.9); Potassium, Blood 3.3 mmol/L (3.5-5.5); Sodium, Blood 140 mmol/L (136-145)
--- NOTE | 2022-11-26 18:22 | NUR ---
SHIFT SUMMARY NO ACUTE CHANGES DURING SHIFT. PT IN BED RESTING COMFORTABLY. PT MOANS WHEN THEY NEED SOMETHING. DRAIN STILL IN PLACE, MINIMAL OUTPUT. FEEDINGS STARTED AT 1800 AT 50ML/HR, TO BE ADVANCED TO 60ML/HR OVERNIGHT. NO BM, ORDERED SUPPOSITORY ADMINISTERED. MONITOR FOR EFFECTIVENESS. WILL CONTINUE TO MONITOR.
[2022-11-27 06:04] LABS: Albumin, Blood 2.6 g/dL (3.4-5.0); Anion Gap 6 mmol/L (6-16); Blood Urea Nitrogen 13 mg/dL (8-24); Bun/Creatinine Ratio 53.1 (12.0-20.0); CO2, Blood 25 mmol/L (21-32); Calcium, Blood 7.4 mg/dL (8.5-10.1); Chloride, Blood 106 mmol/L (98-108); Creatinine, Blood 0.25 mg/dL (0.40-1.00); Glomerular Filtration Rate 137 (60-); Glucose, Blood 116 mg/dL (70-99); Phosphorus, Blood 1.9 mg/dL (2.5-4.9); Potassium, Blood 3.9 mmol/L (3.5-5.5); Sodium, Blood 137 mmol/L (136-145)
--- NOTE | 2022-11-27 06:12 | NUR ---
SHIFT SUMMARY PT ALERT TO SELF- PT LAYING IN BED WITH HOB 35 DEGREES- WATCHING SHOWS ON PERSONAL LAPTOP FEEDING INCREASED VIA PEGTUBE TO GOAL OF 60ML/HR- CHEKED FOR RESIDUAL RETURN- NO RETURN- PT DENIES NAUSEA- GAVE SCHEDULED DOCUSATE SODIUM AND MOM VIA PEG TUBE- PT HAD LARGE LOOSE BM-IV INFUSING AT 10ML/HR - BILARY DRAIN WITH SMALL AMOUNT OF MERRY BLOOD DRAINAGE- PT MOANING AND CRYING - PT SHOOK HEAD YES WHEN ASKED IF PAINFUL- STOPPED PEG TUBE FEEDING AT 6AM - REPOSITIONED PT - PT CURRENTLY WATCHING MOVIE ON COMPUTER- BED LOW POSITION
== END 2022-11-27 15:15 | disposition home or self-care (01) | DRG 389 ==
LOC: ER 19:35 → MEDS 11-18 00:02
PROVIDERS: Emergency Medicine; Internal Medicine; ADMIT Family Medicine
DX: K56.609 Unspecified intestinal obstruction, unspecified as to partial versus complete obstruction (principal); E87.1 Hypo-osmolality and hyponatremia; K44.0 Diaphragmatic hernia with obstruction, without gangrene; K59.2 Neurogenic bowel, not elsewhere classified; G40.909 Epilepsy, unspecified, not intractable, without status epilepticus; N20.0 Calculus of kidney; Z74.01 Bed confinement status; G80.8 Other cerebral palsy; I10 Essential (primary) hypertension; Z98.2 Presence of cerebrospinal fluid drainage device; N31.9 Neuromuscular dysfunction of bladder, unspecified; M81.0 Age-related osteoporosis without current pathological fracture; K94.29 Other complications of gastrostomy; E87.6 Hypokalemia; R82.71 Bacteriuria; E83.39 Other disorders of phosphorus metabolism; E83.42 Hypomagnesemia
CPT/HCPCS: 36415; 51701; 74177; 74250; 80048; 80053; 80069; 81001; 82947; 83605; 83690; 83735; 85025; 85027; 87040; 87086; 93005; 93010; 96365-59; 96375-59; 99285-25; A9270; C9113; C9254; J0295; J0696; J1642; J1650; J2270; J2405; J2560; J3010; J3475; J3480; J7040; J7050; J7060; J7070; J7120; Q9967

== ENCOUNTER 2022-12-24 12:51 | Emergency (ER) | payer OTHER ==
[~2022-12-24] VITALS: Ht 157.5 cm; Wt 45.4 kg
[2022-12-24 14:53] LABS: BASOPHILS ABSOLUTE AUTO 0.01 K/mm3 (0.00-0.23); BASOPHILS PERCENT AUTO 0 % (0-2); EOSINOPHILS ABSOLUTE AUTO 0.08 K/mm3 (0.00-0.68); EOSINOPHILS PERCENT AUTO 3 % (0-6); Hematocrit 32.6 % (33.0-51.0); Hemoglobin 11.3 g/dL (11.5-16.0); IMMATURE GRAN PERCENT AUTO 0 % (0-1); LYMPHOCYTES PERCENT AUTO 47 % (21-46); MONOCYTES ABSOLUTE AUTO 0.18 K/mm3 (0.16-1.47); MONOCYTES PERCENT AUTO 7 % (4-13); Mean Corpuscular HGB 33.5 pg (26.0-34.0); Mean Corpuscular HGB Conc 34.7 g/dL (31.5-36.5); Mean Corpuscular Volume 97 fL (80-100); Mean Platelet Volume 9.9 fL (9.1-12.4); NEUTROPHILS ABSOLUTE AUTO 1.22 K/mm3 (1.96-9.15); NEUTROPHILS PERCENT AUTO 44 % (41-73); NRBC ABSOLUTE 0.03 K/mm3 (0.00-0.02); NRBC Auto 1.1 /100 WBC (0.0-0.2); Platelet Count 194 K/mm3 (150-400); RDW Coefficient Variation 14.8 % (11.7-14.2); RDW Standard Deviation 53.1 fL (35.1-46.3); Red Blood Cell Count 3.37 M/mm3 (3.80-5.20); White Blood Cell Count 2.79 K/mm3 (4.00-11.30)
[2022-12-24 15:12] LABS: Bun/Creatinine Ratio 83.3 (12.0-20.0); Calcium, Blood 8.7 mg/dL (8.5-10.1); Creatinine, Blood 0.23 mg/dL (0.40-1.00)
== END 2022-12-24 16:21 | disposition home or self-care (01) ==
LOC: ER 12:51
PROVIDERS: Student in an Organized Health Care Education/Training Program
DX: I95.9 Hypotension, unspecified (principal); E86.0 Dehydration; I10 Essential (primary) hypertension; G80.9 Cerebral palsy, unspecified; Z88.8 Allergy status to other drugs, medicaments and biological substances; Z91.040 Latex allergy status; Z79.899 Other long term (current) drug therapy
CPT/HCPCS: 80048; 85025; 99285; J1642

== ENCOUNTER → 2022-12-28 | Outpatient (CLI) | payer OTHER ==
[2022-12-28 19:35] LABS: Bilirubin, Urine Neg (Neg); Blood, Urine 1+ (Neg); Glucose Qualitative, Urine Neg (Neg); Ketones, Urine Neg (Neg); Leukocyte Esterase, Urine 3+ (Neg); Nitrite, Urine Neg (Neg); Protein, Urine 1+ (Neg); Urobilinogen, Urine NORM (Normal)
[2022-12-28 19:36] LABS: Appearance, Urine Hazy (Clear); Color, Urine Yellow (P-Yellow)
[2022-12-28 19:43] LABS: Amorphous Light (0-Heavy); Bacteria Mod /hpf; Calcium Oxalate Crystals Few /hpf; Squamous Epithelial Cells Rare /hpf (Few); White Blood Cells, Urine 25-50 /hpf (0-5)
== END | disposition home or self-care (01) ==
LOC: LAB SHORT 16:52
PROVIDERS: Family Medicine
DX: N15.1 Renal and perinephric abscess (principal); B95.2 Enterococcus as the cause of diseases classified elsewhere; Z87.440 Personal history of urinary (tract) infections
CPT/HCPCS: 81001; 87077; 87086; 87186

== ENCOUNTER 2023-02-17 12:13 | Emergency (ER) | payer OTHER ==
[~2023-02-17] VITALS: Ht 147.3 cm; Wt 29.0 kg
[2023-02-17 14:22] LABS: BASOPHILS ABSOLUTE AUTO 0.01 K/mm3 (0.00-0.23); BASOPHILS PERCENT AUTO 0 % (0-2); EOSINOPHILS ABSOLUTE AUTO 0.05 K/mm3 (0.00-0.68); EOSINOPHILS PERCENT AUTO 1 % (0-6); Hematocrit 35.2 % (33.0-51.0); IMMATURE GRAN PERCENT AUTO 0 % (0-1); LYMPHOCYTES PERCENT AUTO 46 % (21-46); MONOCYTES ABSOLUTE AUTO 0.25 K/mm3 (0.16-1.47); MONOCYTES PERCENT AUTO 7 % (4-13); Mean Corpuscular HGB 33.5 pg (26.0-34.0); Mean Corpuscular HGB Conc 34.1 g/dL (31.5-36.5); Mean Corpuscular Volume 98 fL (80-100); Mean Platelet Volume 9.7 fL (9.1-12.4); NEUTROPHILS ABSOLUTE AUTO 1.58 K/mm3 (1.96-9.15); NEUTROPHILS PERCENT AUTO 45 % (41-73); Platelet Count 151 K/mm3 (150-400); RDW Coefficient Variation 13.5 % (11.7-14.2); RDW Standard Deviation 49.2 fL (35.1-46.3); Red Blood Cell Count 3.58 M/mm3 (3.80-5.20); White Blood Cell Count 3.49 K/mm3 (4.00-11.30)
[2023-02-17 14:36] LABS: Calcium, Blood 8.6 mg/dL (8.5-10.1); Creatinine, Blood 0.2 mg/dL (0.40-1.00); Potassium, Blood 4.1 mmol/L (3.5-5.5)
== END 2023-02-17 16:34 | disposition home or self-care (01) ==
LOC: ER 12:13
PROVIDERS: Student in an Organized Health Care Education/Training Program
DX: T83.022A Displacement of nephrostomy catheter, initial encounter (principal); G40.909 Epilepsy, unspecified, not intractable, without status epilepticus; Z88.8 Allergy status to other drugs, medicaments and biological substances; Z91.040 Latex allergy status; Z79.899 Other long term (current) drug therapy
CPT/HCPCS: 36415; 74177; 80048; 85025; J1642; Q9967

== ENCOUNTER 2023-08-08 07:08 | Inpatient (IN) | payer OTHER ==
[~2023-08-08] VITALS: Ht 147.3 cm; Wt 36.3 kg
[2023-08-08 08:35] LABS: BASOPHILS ABSOLUTE AUTO 0.02 K/mm3 (0.00-0.23); BASOPHILS PERCENT AUTO 0 % (0-2); EOSINOPHILS ABSOLUTE AUTO 0.01 K/mm3 (0.00-0.68); EOSINOPHILS PERCENT AUTO 0 % (0-6); Hematocrit 40.1 % (33.0-51.0); Hemoglobin 14.3 g/dL (11.5-16.0); IMMATURE GRAN ABSOLUTE AUTO 0.01 K/mm3 (0.00-0.10); IMMATURE GRAN PERCENT AUTO 0 % (0-1); LYMPHOCYTES PERCENT AUTO 8 % (21-46); MONOCYTES ABSOLUTE AUTO 0.25 K/mm3 (0.16-1.47); MONOCYTES PERCENT AUTO 3 % (4-13); Mean Corpuscular HGB 34.5 pg (26.0-34.0); Mean Corpuscular HGB Conc 35.7 g/dL (31.5-36.5); Mean Corpuscular Volume 97 fL (80-100); Mean Platelet Volume 10.4 fL (9.1-12.4); NEUTROPHILS ABSOLUTE AUTO 6.41 K/mm3 (1.96-9.15); NEUTROPHILS PERCENT AUTO 88 % (41-73); Platelet Count 166 K/mm3 (150-400); RDW Coefficient Variation 12.5 % (11.7-14.2); RDW Standard Deviation 44.3 fL (35.1-46.3); Red Blood Cell Count 4.15 M/mm3 (3.80-5.20)
[2023-08-08 09:05] LABS: Albumin, Blood 3.8 g/dL (3.4-5.0); Albumin/Globulin Ratio 0.9 (0.8-1.8); Bilirubin, Direct 0.1 mg/dL (0.0-0.3); Bilirubin, Indirect 0.2 mg/dL (0.1-0.7); Bilirubin, Total 0.3 mg/dL (0.1-1.0); Bun/Creatinine Ratio 126.9 (12.0-20.0); Calcium, Blood 9.2 mg/dL (8.5-10.1); Creatinine, Blood 0.27 mg/dL (0.40-1.00); Globulin, Blood 4.2 g/dL (2.2-4.0); Potassium, Blood 3.6 mmol/L (3.5-5.5)
[2023-08-08 13:27] VITALS: BP 149/91
[2023-08-08 15:11] VITALS: BP 141/84
[2023-08-08] MEDS ORDERED: FENTANYL1 EA12 TOP (16:06)
[2023-08-08] MEDS ORDERED: CALCIUM CIT 311 EAC7 PT (16:07)
[2023-08-08] MEDS ORDERED: ERYT.5TO BOTHEYES (16:08)
[2023-08-08] MEDS ORDERED: BENEFIBER236 G1 PT (16:09)
[2023-08-08] MEDS ORDERED: MIRALAX17 GM PT ×2 (16:20→16:21)
[2023-08-08] MEDS ORDERED: PREPARATION H C26 GM (16:23)
[2023-08-08] MEDS ORDERED: Triple Antibi28.4 G1 SC (16:26)
[2023-08-08] MEDS ORDERED: LACO50TA2 PO (16:27)
[2023-08-08 20:37] VITALS: BP 76/52
[2023-08-08 23:04] VITALS: BP 88/50
[2023-08-09 01:32] VITALS: BP 93/48
[2023-08-09 03:27] VITALS: BP 83/59
[2023-08-09 06:50] LABS: BASOPHILS ABSOLUTE AUTO 0.02 K/mm3 (0.00-0.23); BASOPHILS PERCENT AUTO 1 % (0-2); EOSINOPHILS ABSOLUTE AUTO 0.04 K/mm3 (0.00-0.68); EOSINOPHILS PERCENT AUTO 1 % (0-6); Hemoglobin 11.4 g/dL (11.5-16.0); IMMATURE GRAN ABSOLUTE AUTO 0.01 K/mm3 (0.00-0.10); IMMATURE GRAN PERCENT AUTO 0 % (0-1); LYMPHOCYTES ABSOLUTE AUTO 1.48 K/mm3 (0.84-5.20); LYMPHOCYTES PERCENT AUTO 50 % (21-46); MONOCYTES ABSOLUTE AUTO 0.26 K/mm3 (0.16-1.47); MONOCYTES PERCENT AUTO 9 % (4-13); Mean Corpuscular HGB Conc 34.5 g/dL (31.5-36.5); Mean Corpuscular Volume 99 fL (80-100); Mean Platelet Volume 10.3 fL (9.1-12.4); NEUTROPHILS ABSOLUTE AUTO 1.13 K/mm3 (1.96-9.15); NEUTROPHILS PERCENT AUTO 39 % (41-73); NRBC ABSOLUTE 0.04 K/mm3 (0.00-0.02); NRBC Auto 1.4 /100 WBC (0.0-0.2); Platelet Count 147 K/mm3 (150-400); RDW Coefficient Variation 12.8 % (11.7-14.2); Red Blood Cell Count 3.35 M/mm3 (3.80-5.20); White Blood Cell Count 2.94 K/mm3 (4.00-11.30)
[2023-08-09 07:20] VITALS: BP 100/71
[2023-08-09 07:22] LABS: Bun/Creatinine Ratio 78.9 (12.0-20.0); Calcium, Blood 7.7 mg/dL (8.5-10.1); Creatinine, Blood 0.28 mg/dL (0.40-1.00); Potassium, Blood 2.9 mmol/L (3.5-5.5)
[2023-08-09 15:03] VITALS: BP 103/63
[2023-08-09 19:30] VITALS: BP 123/68
[2023-08-10 02:30] VITALS: BP 128/87
[2023-08-10 04:26] VITALS: BP 118/84
[2023-08-10 05:13] LABS: BASOPHILS ABSOLUTE AUTO 0.02 K/mm3 (0.00-0.23); BASOPHILS PERCENT AUTO 1 % (0-2); EOSINOPHILS ABSOLUTE AUTO 0.06 K/mm3 (0.00-0.68); EOSINOPHILS PERCENT AUTO 2 % (0-6); Hematocrit 36.3 % (33.0-51.0); Hemoglobin 12.2 g/dL (11.5-16.0); IMMATURE GRAN ABSOLUTE AUTO 0.01 K/mm3 (0.00-0.10); IMMATURE GRAN PERCENT AUTO 0 % (0-1); LYMPHOCYTES PERCENT AUTO 59 % (21-46); MONOCYTES PERCENT AUTO 7 % (4-13); Mean Corpuscular HGB Conc 33.6 g/dL (31.5-36.5); Mean Corpuscular Volume 101 fL (80-100); NEUTROPHILS ABSOLUTE AUTO 0.98 K/mm3 (1.96-9.15); NEUTROPHILS PERCENT AUTO 32 % (41-73); RDW Coefficient Variation 12.7 % (11.7-14.2); RDW Standard Deviation 47.7 fL (35.1-46.3); Red Blood Cell Count 3.59 M/mm3 (3.80-5.20); White Blood Cell Count 3.07 K/mm3 (4.00-11.30)
[2023-08-10 05:15] LABS: Mean Platelet Volume 10.2 fL (9.1-12.4); Platelet Count 140 K/mm3 (150-400)
[2023-08-10 05:37] LABS: Bun/Creatinine Ratio 47.4 (12.0-20.0); Calcium, Blood 8.2 mg/dL (8.5-10.1); Creatinine, Blood 0.27 mg/dL (0.40-1.00); Potassium, Blood 3.9 mmol/L (3.5-5.5)
[2023-08-10 07:47] VITALS: BP 104/76
[2023-08-10 16:38] VITALS: BP 120/74
[2023-08-10 21:35] VITALS: BP 115/72
[2023-08-11 03:45] VITALS: BP 142/58
[2023-08-11 07:34] VITALS: BP 136/82
[2023-08-11 15:43] VITALS: BP 113/82
[2023-08-11 20:13] VITALS: BP 128/73
[2023-08-12 05:06] VITALS: BP 108/63
[2023-08-12 07:33] VITALS: BP 128/65
[2023-08-12 15:27] VITALS: BP 112/76
[2023-08-12 19:28] VITALS: BP 107/78
[2023-08-13 04:08] VITALS: BP 117/78
[2023-08-13 07:53] VITALS: BP 120/91
[2023-08-13 15:30] VITALS: BP 113/74
[2023-08-13 20:43] VITALS: BP 108/77
[2023-08-14 03:26] VITALS: BP 93/63
[2023-08-14 16:45] VITALS: BP 149/106
[2023-08-14 19:19] VITALS: BP 113/82
[2023-08-15 06:42] VITALS: BP 147/82
[2023-08-15 09:36] VITALS: BP 129/77
[2023-08-15] MEDS ORDERED: Docusate S50 MG/5 ML PT (13:12)
== END 2023-08-15 16:20 | DRG 388 ==
LOC: ER 07:08 → SURS 07:09 → MEDS 07:09 → SURS 07:09 → MEDS 13:13
PROVIDERS: Student in an Organized Health Care Education/Training Program; ADMIT Internal Medicine
DX: K56.600 Partial intestinal obstruction, unspecified as to cause (principal); R53.2 Functional quadriplegia; G80.9 Cerebral palsy, unspecified; I95.89 Other hypotension; Z66 Do not resuscitate; E87.6 Hypokalemia; G40.909 Epilepsy, unspecified, not intractable, without status epilepticus; I10 Essential (primary) hypertension; N31.9 Neuromuscular dysfunction of bladder, unspecified; M81.0 Age-related osteoporosis without current pathological fracture; Z88.8 Allergy status to other drugs, medicaments and biological substances; K56.2 Volvulus; Z98.890 Other specified postprocedural states; Z98.2 Presence of cerebrospinal fluid drainage device; Z91.040 Latex allergy status; Z93.1 Gastrostomy status; Z79.899 Other long term (current) drug therapy; Z90.49 Acquired absence of other specified parts of digestive tract; Z74.01 Bed confinement status
CPT/HCPCS: 74177; 80048; 80076; 83605; 83690; 83735; 84132; 85025; 94760; 96361; 96372; 96374-59; 96375; 96376; 99285-25; A9270; G0378; J1642; J1644; J1885; J2405; J7030; J7042; J7120; Q9967

== ENCOUNTER 2023-10-12 19:37 | Emergency (ER) | payer OTHER ==
[~2023-10-12] VITALS: Ht 134.6 cm; Wt 45.4 kg
[~2023-10-12 19:37] MED LIST changes: +BENEFIBER236 G1 PT; +CALCIUM CIT 311 EAC7 PT; +Docusate S50 MG/5 ML PT; +FENTANYL1 EA12 TOP; +MIRALAX17 GM PT; +PREPARATION H C26 GM; +Triple Antibi28.4 G1 SC
[2023-10-12 20:37] LABS: Source, Urine Straight Cath
[2023-10-12 20:40] LABS: Bilirubin, Urine Neg (Neg); Blood, Urine 2+ (Neg); Glucose Qualitative, Urine Neg (Neg); Ketones, Urine Neg (Neg); Leukocyte Esterase, Urine 3+ (Neg); Nitrite, Urine Neg (Neg); Protein, Urine 2+ (Neg); Urobilinogen, Urine NORM (Normal)
[2023-10-12 20:41] LABS: Color, Urine Pale Yellow (P-Yellow)
[2023-10-12 20:42] LABS: Appearance, Urine Hazy (Clear)
[2023-10-12 20:48] LABS: Amorphous Mod (0-Heavy); Bacteria Many /hpf; Red Blood Cells, Urine 0-2 /hpf (0-2); Squamous Epithelial Cells Not Seen /hpf (Few); Transitional Epithelial Cells Few /hpf (0-Rare); White Blood Cells, Urine TNTC /hpf (0-5)
[2023-10-12] MEDS ORDERED: AMOXICILLI400 MG/5 M PT (21:04)
[2023-10-12 21:27] VITALS: BP 112/86
== END 2023-10-12 22:26 | disposition home or self-care (01) ==
LOC: ER 19:37
PROVIDERS: Emergency Medicine
DX: N39.0 Urinary tract infection, site not specified (principal); G80.8 Other cerebral palsy; I10 Essential (primary) hypertension; Z88.8 Allergy status to other drugs, medicaments and biological substances; Z88.1 Allergy status to other antibiotic agents; Z91.040 Latex allergy status; Z79.899 Other long term (current) drug therapy
CPT/HCPCS: 51702; 51798; 81001; 87086; 99283-25; A9270

== ENCOUNTER 2023-11-25 13:57 | Inpatient (IN) | payer OTHER ==
[~2023-11-25] VITALS: Ht 142.2 cm; Wt 35.0 kg
[~2023-11-25 13:57] MED LIST changes: +AMOXICILLI400 MG/5 M PT; -PREPARATION H C26 GM; +PREPARATION H C26 GM PR; -Triple Antibi28.4 G1 SC
[2023-11-25 15:21] LABS: BASOPHILS ABSOLUTE AUTO 0.01 K/mm3 (0.00-0.23); BASOPHILS PERCENT AUTO 0 % (0-2); EOSINOPHILS PERCENT AUTO 0 % (0-6); Hematocrit 45.8 % (33.0-51.0); IMMATURE GRAN ABSOLUTE AUTO 0.01 K/mm3 (0.00-0.10); IMMATURE GRAN PERCENT AUTO 0 % (0-1); LYMPHOCYTES PERCENT AUTO 15 % (21-46); MONOCYTES PERCENT AUTO 6 % (4-13); Mean Corpuscular HGB Conc 34.9 g/dL (31.5-36.5); Mean Corpuscular Volume 97 fL (80-100); Mean Platelet Volume 10.4 fL (9.1-12.4); NEUTROPHILS ABSOLUTE AUTO 5.77 K/mm3 (1.96-9.15); NEUTROPHILS PERCENT AUTO 79 % (41-73); Platelet Count 212 K/mm3 (150-400); RDW Coefficient Variation 12.5 % (11.7-14.2); White Blood Cell Count 7.29 K/mm3 (4.00-11.30)
[2023-11-25 15:44] LABS: Albumin, Blood 4.1 g/dL (3.4-5.0); Bilirubin, Total 0.3 mg/dL (0.1-1.0); Bun/Creatinine Ratio 184.9 (12.0-20.0); Calcium, Blood 9.7 mg/dL (8.5-10.1); Creatinine, Blood 0.24 mg/dL (0.40-1.00); Globulin, Blood 4.3 g/dL (2.2-4.0); Potassium, Blood 3.9 mmol/L (3.5-5.5); Total Protein, Blood 8.4 g/dL (6.4-8.2)
[2023-11-25 16:11] LABS: Source, Urine Straight Cath
[2023-11-25 16:15] LABS: Appearance, Urine Cloudy (Clear); Bilirubin, Urine Neg (Neg); Blood, Urine 3+ (Neg); Color, Urine Yellow (P-Yellow); Glucose Qualitative, Urine Neg (Neg); Ketones, Urine Neg (Neg); Leukocyte Esterase, Urine 3+ (Neg); Nitrite, Urine Neg (Neg); Protein, Urine 2+ (Neg); Urobilinogen, Urine NORM (Normal)
[2023-11-25 16:25] LABS: Squamous Epithelial Cells Few /hpf (Few); White Blood Cells, Urine 50-100 /hpf (0-5)
[2023-11-25 16:26] LABS: Amorphous Light (0-Heavy); Bacteria Many /hpf; Transitional Epithelial Cells Rare /hpf (0-Rare)
[2023-11-25 20:17] VITALS: BP 117/76
[2023-11-25] MEDS ORDERED: LACOSAMIDE10 MG/1 M3 PT (20:25)
[2023-11-26 03:03] VITALS: BP 107/82
[2023-11-26 05:32] LABS: BASOPHILS ABSOLUTE AUTO 0.01 K/mm3 (0.00-0.23); BASOPHILS PERCENT AUTO 1 % (0-2); EOSINOPHILS ABSOLUTE AUTO 0.01 K/mm3 (0.00-0.68); EOSINOPHILS PERCENT AUTO 1 % (0-6); Hematocrit 40.3 % (33.0-51.0); IMMATURE GRAN PERCENT AUTO 0 % (0-1); LYMPHOCYTES ABSOLUTE AUTO 0.94 K/mm3 (0.84-5.20); LYMPHOCYTES PERCENT AUTO 43 % (21-46); MONOCYTES ABSOLUTE AUTO 0.26 K/mm3 (0.16-1.47); MONOCYTES PERCENT AUTO 12 % (4-13); Mean Corpuscular HGB 33.7 pg (26.0-34.0); Mean Corpuscular HGB Conc 34.7 g/dL (31.5-36.5); Mean Corpuscular Volume 97 fL (80-100); Mean Platelet Volume 10.3 fL (9.1-12.4); NEUTROPHILS ABSOLUTE AUTO 0.98 K/mm3 (1.96-9.15); NEUTROPHILS PERCENT AUTO 45 % (41-73); Platelet Count 184 K/mm3 (150-400); RDW Coefficient Variation 12.8 % (11.7-14.2); RDW Standard Deviation 45.1 fL (35.1-46.3); Red Blood Cell Count 4.15 M/mm3 (3.80-5.20)
[2023-11-26 05:52] LABS: Bun/Creatinine Ratio 141.4 (12.0-20.0); Calcium, Blood 8.5 mg/dL (8.5-10.1); Creatinine, Blood 0.2 mg/dL (0.40-1.00); Potassium, Blood 3.4 mmol/L (3.5-5.5)
[2023-11-26 08:17] VITALS: BP 93/62
--- NOTE | 2023-11-26 09:18 | NUR ---
SHIFT SUMMARY PT ARRIVED TO ROOM 360 FROM ER AT 195. PT ARRIVED VIA GURNEY, USED SLIDE SHEET TO TRANSFER PT TO HOSPITAL BED. PT IS NONVERBAL BUT ANSWERS YES/NO QUESTIONS APPROPRIATELY WITH A HEAD NOD. PT HAS PEG TUBE IN PLACE, BUT IS CLAMPED. NO N/V SINCE ARRIVING TO ROOM. VSS ON RA. INCONTINENT OF URINE, BRIEF IN PLACE. LARGE AMOUNT OF URINE OUTPUT. NO BM SINCE ARRIVING TO FLOOR. PT REMAINS ON BEDREST, SIGNIFICANT CONTRACTURES OF LIMBS. PT SCREAMS OUT WHEN IN PAIN, THEN WHEN ASKED IF SHE IS IN PAIN, SHE NODS YES. MEDICATED PER EMAR. BED IN LOWEST POSITION. FREQUENT ROUNDING DONE.
[2023-11-26 16:26] VITALS: BP 90/66
--- NOTE | 2023-11-26 17:39 | NUR ---
SHIFT SUMMARY PATIENT ALERT AND INTERACTIVE WHEN AWAKE. PATIENT ABLE TO MOVE HEAD YES AND NO TO QUESTIONS. PATIENT WILL YELL OUT WHEN NEEDING TO BE CHANGED OR REPOSITIONED. LUNGS DECREASED. ABDOMIN ROUNDED. BT PRESENT. PATIENT PASSING LIQUID LIGHT BROWN/GREEN STOOL. PATIENT ONLY GETS TUBE FEEDINGS AT NIGHT AT FACILITY. PATIENT CURRENTLY NPO. PATIENT NOTED TO HAVE DECREASE IN O2 SATS AFTER PHENOBARB DOSES BUT RECOVERS. CONTINUE TO TURN PATIENT FREQUENTLY TO PREVENT SKIN BREAKDOWN.
[2023-11-26 19:39] VITALS: BP 94/69
[2023-11-27 04:37] VITALS: BP 92/59
--- NOTE | 2023-11-27 04:40 | NUR ---
SHIFT SUMMARY. PATIENT IS NONVERBAL. PATIENT DOES NOT USE CALL LIGHT. PATIENT WILL YELL OUT WHEN SHE NEEDS HELP-PATIENT NODS YES OR NO.WHEN PATIENT YELLS OUT PAIN IS ASSESSED, INCONTINENT INTERVENTION IS CHECKED, AND BASIC CARE NEEDS ARE ASSESSED. PATIENT NPO-ORAL CARE PROVIDED VIA SUCTION AND MOUTH SWAPS. PATIENT IS PLESANT AND COOPERATIVE WITH CARE. Q2 REPOSITIONING DONE. PEG TUBE IN PLACED AND CLAMPED-DRESSING CHANGED. PATIENT HACING LOOSE BROWN/GREEN STOOL. PATIENT HAS SOME ABDOMINAL DISTENTION. BED IS LOCKED IN THE LOWEST POSITION W/CALL LIGHT IN REACH FOR SAFETY. NO S/S OF DISTRESS NOTED AT THIS TIME.
[2023-11-27 07:31] VITALS: BP 107/77
[2023-11-27 07:45] LABS: Hematocrit 34.8 % (33.0-51.0); Hemoglobin 11.6 g/dL (11.5-16.0); Mean Corpuscular HGB 33.4 pg (26.0-34.0); Mean Corpuscular HGB Conc 33.3 g/dL (31.5-36.5); Mean Corpuscular Volume 100 fL (80-100); Mean Platelet Volume 9.8 fL (9.1-12.4); Platelet Count 152 K/mm3 (150-400); RDW Coefficient Variation 13.3 % (11.7-14.2); RDW Standard Deviation 48.7 fL (35.1-46.3); Red Blood Cell Count 3.47 M/mm3 (3.80-5.20); White Blood Cell Count 4.55 K/mm3 (4.00-11.30)
[2023-11-27 08:15] LABS: Bun/Creatinine Ratio 95.4 (12.0-20.0); Calcium, Blood 8.2 mg/dL (8.5-10.1); Creatinine, Blood 0.28 mg/dL (0.40-1.00); Potassium, Blood 3.7 mmol/L (3.5-5.5)
[2023-11-27 08:26] LABS: Vancomycin, Trough 15.7 ug/mL (5.0-10.0)
[2023-11-27 09:10] LABS: BAND PERCENT MAN 8 % (0-8); BASOPHILS PERCENT MAN 0 % (0-2); EOSINOPHILS ABSOLUTE MAN 0.04 K/mm3 (0.00-0.68); EOSINOPHILS PERCENT MAN 1 % (0-6); LYMPHOCYTES ABSOLUTE MAN 1.41 K/mm3 (0.84-5.20); LYMPHOCYTES PERCENT MAN 31 % (21-46); MONOCYTES ABSOLUTE MAN 0.22 K/mm3 (0.16-1.47); MONOCYTES PERCENT MAN 5 % (4-13); NEUTROPHILS ABSOLUTE MAN 2.86 K/mm3 (1.96-9.15); SEG NEUTROPHILS PERCENT MAN 55 % (41-73); TOTAL CELLS COUNTED 100
[2023-11-27 15:35] VITALS: BP 108/71
[2023-11-27 19:22] VITALS: BP 124/79
--- NOTE | 2023-11-27 19:34 | NUR ---
SHIFT SUMMARY PATIENT ALERT TO SELF. PATIENT MOANS AND CRIES OUT WHEN SHE NEEDS TO BE CHANGED OR REPOSITIONED. PATIENT ABLE TO SHAKE HEAD YES OR NO TO SIMPLE QUESTIONS. URINE SENT FOR CULTURE. CONTINUITY EDITOR TO PLACE FEEDING RECOMMENDATIONS. PATIENT CONTINUES TO BE INCONTINENT URINE AND STOOL AT TIMES PLAN TO START FEEDING AND WATER AT HALF DOSE WHEN SENT UP FROM DIETARY. PATIENT CRYING AT END OF SHIFT NODDING YES TO PAIN. AND YES TO ABD. PATIENT MEDICATED WITH DILAUDID BY MATT ROSS.
[2023-11-28 03:00] VITALS: BP 102/67
[2023-11-28 04:52] LABS: BASOPHILS ABSOLUTE AUTO 0.01 K/mm3 (0.00-0.23); BASOPHILS PERCENT AUTO 0 % (0-2); EOSINOPHILS ABSOLUTE AUTO 0.01 K/mm3 (0.00-0.68); EOSINOPHILS PERCENT AUTO 0 % (0-6); Hematocrit 33.3 % (33.0-51.0); Hemoglobin 11.2 g/dL (11.5-16.0); IMMATURE GRAN ABSOLUTE AUTO 0.01 K/mm3 (0.00-0.10); IMMATURE GRAN PERCENT AUTO 0 % (0-1); LYMPHOCYTES ABSOLUTE AUTO 1.66 K/mm3 (0.84-5.20); LYMPHOCYTES PERCENT AUTO 34 % (21-46); MONOCYTES ABSOLUTE AUTO 0.43 K/mm3 (0.16-1.47); MONOCYTES PERCENT AUTO 9 % (4-13); Mean Corpuscular HGB 33.5 pg (26.0-34.0); Mean Corpuscular HGB Conc 33.6 g/dL (31.5-36.5); Mean Corpuscular Volume 100 fL (80-100); Mean Platelet Volume 9.6 fL (9.1-12.4); NEUTROPHILS ABSOLUTE AUTO 2.81 K/mm3 (1.96-9.15); NEUTROPHILS PERCENT AUTO 57 % (41-73); Platelet Count 171 K/mm3 (150-400); RDW Coefficient Variation 13.6 % (11.7-14.2); RDW Standard Deviation 49.9 fL (35.1-46.3); Red Blood Cell Count 3.34 M/mm3 (3.80-5.20); White Blood Cell Count 4.93 K/mm3 (4.00-11.30)
--- NOTE | 2023-11-28 04:59 | NUR ---
SHIFT SUMMERY. PT RESTING IN BED, PT BEING CHANGED FOR WET DEPENDS. AND REPOSITIONED WITH PILLOWS. TUBE FEEDING AT 15ML/HR PT APPEARS TO BE TOLERATING. HOB UP 30. PT MEDICATED FOR PAIN X 1. PT WILL NOD TO YES AND NO QUESTIONS AND WILL MOAN VERY LOUDLY WHEN SHE HAS A NEED, USUALY PTS TABLET STOPS WORKING. PT SLEEPING INTERMITANTLY.
[2023-11-28 05:53] LABS: Bun/Creatinine Ratio 68.3 (12.0-20.0); Calcium, Blood 8.1 mg/dL (8.5-10.1); Creatinine, Blood 0.29 mg/dL (0.40-1.00); Magnesium, Blood 2.2 mg/dL (1.6-2.4); Phosphorus, Blood 1.5 mg/dL (2.5-4.9); Potassium, Blood 3.4 mmol/L (3.5-5.5)
[2023-11-28 07:35] VITALS: BP 113/74
[2023-11-28 16:31] VITALS: BP 119/76
--- NOTE | 2023-11-28 18:33 | NUR ---
PATIENT A/OX3, NONVERBAL. ABLE TO MAKE NEEDS KNOWN WITH GESTURES, MOANING AND EYE MOVEMENTS. LOOKS UPWARD FOR YES AND WILL NOD AT TIMES TO YES/NO QUESTIONING. VSS, ON RA. MEDIPORT ACESSED, D51/2 NS INFUSING AT 75ML/HR FOR 1 BAG. TOLERATING TUBES FEEDS, INCREASED TO 25ML/HR WITH 125 ML H2O FLUSHES EVERY 2 HOURS. SKIN INTACT. INCONTINENT OF BOWEL AND BLADDERS. TURINING Q2 HOURS. NO NEW CONCERNS THIS SHIFT.
[2023-11-28 19:59] VITALS: BP 122/77
[2023-11-29 03:48] VITALS: BP 110/76
--- NOTE | 2023-11-29 04:36 | NUR ---
SHIFT SUMMERY, PT RESTING IN BED, PT TURNEDCHANGED AND REPOSITIONED SEVERAL TIMES. PT GIVEN ORAL CARES AND FACE WASHED. PT SEEMS TO BE TOLRATING TUBE FEED BUT HAS SOME DRAINAGE FROM AROUND G TUBE. DRG CHANGED. PT SEEMS TO BE IN GOOD MOOD TONIGHT LAUGHING AT THINGS DONE AND SAID. CALL LIGHT IN REACH . BU PT MOANING VERY LOUDLY WHEN SHE NEEDS CHANGED OR HER TV CHANED OR TURNED BACK ON. PT ABLE TO NOD YES OR NO.
[2023-11-29 06:59] LABS: BASOPHILS ABSOLUTE AUTO 0.01 K/mm3 (0.00-0.23); BASOPHILS PERCENT AUTO 0 % (0-2); EOSINOPHILS ABSOLUTE AUTO 0.04 K/mm3 (0.00-0.68); EOSINOPHILS PERCENT AUTO 1 % (0-6); Hematocrit 31.8 % (33.0-51.0); Hemoglobin 10.9 g/dL (11.5-16.0); IMMATURE GRAN ABSOLUTE AUTO 0.01 K/mm3 (0.00-0.10); IMMATURE GRAN PERCENT AUTO 0 % (0-1); LYMPHOCYTES ABSOLUTE AUTO 2.22 K/mm3 (0.84-5.20); LYMPHOCYTES PERCENT AUTO 51 % (21-46); MONOCYTES ABSOLUTE AUTO 0.38 K/mm3 (0.16-1.47); MONOCYTES PERCENT AUTO 9 % (4-13); Mean Corpuscular HGB 33.5 pg (26.0-34.0); Mean Corpuscular HGB Conc 34.3 g/dL (31.5-36.5); Mean Corpuscular Volume 98 fL (80-100); Mean Platelet Volume 9.9 fL (9.1-12.4); NEUTROPHILS ABSOLUTE AUTO 1.66 K/mm3 (1.96-9.15); NEUTROPHILS PERCENT AUTO 39 % (41-73); Platelet Count 145 K/mm3 (150-400); RDW Coefficient Variation 13.1 % (11.7-14.2); Red Blood Cell Count 3.25 M/mm3 (3.80-5.20); White Blood Cell Count 4.32 K/mm3 (4.00-11.30)
[2023-11-29 07:38] LABS: Albumin, Blood 2.7 g/dL (3.4-5.0); Anion Gap 3 mmol/L (6-16); Blood Urea Nitrogen 13 mg/dL (8-24); Bun/Creatinine Ratio 69.1 (12.0-20.0); CO2, Blood 28 mmol/L (21-32); Calcium, Blood 7.6 mg/dL (8.5-10.1); Chloride, Blood 111 mmol/L (98-108); Creatinine, Blood 0.19 mg/dL (0.40-1.00); Glomerular Filtration Rate 145 (60-); Glucose, Blood 151 mg/dL (70-99); Phosphorus, Blood 1.3 mg/dL (2.5-4.9); Potassium, Blood 3.3 mmol/L (3.5-5.5)
[2023-11-29 07:39] LABS: Sodium, Blood 142 mmol/L (136-145)
[2023-11-29 07:44] VITALS: BP 110/79
[2023-11-29 17:26] VITALS: BP 115/85
[2023-11-29 18:48] LABS: Albumin, Blood 2.6 g/dL (3.4-5.0); Anion Gap 3 mmol/L (6-16); Blood Urea Nitrogen 9 mg/dL (8-24); Bun/Creatinine Ratio 57.3 (12.0-20.0); CO2, Blood 29 mmol/L (21-32); Calcium, Blood 7.6 mg/dL (8.5-10.1); Chloride, Blood 110 mmol/L (98-108); Creatinine, Blood 0.16 mg/dL (0.40-1.00); Glomerular Filtration Rate 151 (60-); Glucose, Blood 145 mg/dL (70-99); Phosphorus, Blood 3.2 mg/dL (2.5-4.9); Potassium, Blood 3.6 mmol/L (3.5-5.5); Sodium, Blood 142 mmol/L (136-145)
--- NOTE | 2023-11-29 19:41 | NUR ---
SHIFT SUMMARY PATIENT WITH NO ACUTE EVENTS DURING SHIFT. MEDICATED PER EMAR, Q2H TURNING. BED IN LOW POSITION, PATIENT MAKES NEEDS KNOWN AND IS ON BEDREST,
[2023-11-29 20:51] VITALS: BP 101/70
[2023-11-30 04:04] VITALS: BP 108/72
[2023-11-30 06:22] LABS: Albumin, Blood 2.7 g/dL (3.4-5.0); Anion Gap 2 mmol/L (6-16); Blood Urea Nitrogen 8 mg/dL (8-24); Bun/Creatinine Ratio 31.7 (12.0-20.0); CO2, Blood 29 mmol/L (21-32); Calcium, Blood 8.2 mg/dL (8.5-10.1); Chloride, Blood 114 mmol/L (98-108); Creatinine, Blood 0.25 mg/dL (0.40-1.00); Glomerular Filtration Rate 136 (60-); Glucose, Blood 118 mg/dL (70-99); Phosphorus, Blood 2.6 mg/dL (2.5-4.9); Potassium, Blood 3.4 mmol/L (3.5-5.5); Sodium, Blood 145 mmol/L (136-145)
[2023-11-30 07:41] VITALS: BP 116/76
--- NOTE | 2023-11-30 07:47 | NUR ---
SHIFT SUMMEY, PT RESTED VERY WELL AND HAD SLEPT FOR SEVERAL HRS.PT SLEPT SO SOUNDLY THAT PT WAS INCONT AND BEDDING AND PT CLOTHING NEEDED TO BE CHANGED. PT TOLERATING HER TUBE FEEDING. CALL LIGHT IN REACH.
[2023-11-30 14:41] VITALS: BP 108/74
--- NOTE | 2023-11-30 17:51 | NUR ---
PT PLEASANT TODAY, DOES CALL OUT WHEN HAS NEEDS, TUBE FEEDING CONTINUES AT 10/HR CONTINUOUS, FLUSHES Q 2 HRS AT 100. CONTINUE CHANGING AND TURNING. NO NEW CHANGES NOTED TODAY. BED IN LOW POSITION, CALL LITE IN REACH, WATCHING MOVIES ON HER TABLET.
[2023-11-30 19:50] VITALS: BP 123/70
[2023-12-01 04:13] VITALS: BP 110/76
--- NOTE | 2023-12-01 04:18 | NUR ---
REPORT RECEIVED VERIFIED DPT A/O NON VERBLE BUT ABLE TO EXPRESS NEEDS BY CRYING OUT AND NODING YES OR NO. PT UNABLE TO USE CALL LIGHTS SO FREQUEST CHECKS ARE MADE ON PT. Q 2 HOUR TURNS ARE DONE SKIN INTACT. PEG TUBE INFUSING WITH FLUSH WELL MEDIPORT LOOKS GOOD AND WNL. NO C/O PAIN NO S/S OF DISTRESS. FEEDING THROUGH JT CHANGED PER RECOMMENDATION, SITE LOOKS GOOD CDI.
[2023-12-01 05:25] LABS: Albumin, Blood 2.9 g/dL (3.4-5.0); Anion Gap 4 mmol/L (6-16); Blood Urea Nitrogen 8 mg/dL (8-24); CO2, Blood 30 mmol/L (21-32); Calcium, Blood 8.6 mg/dL (8.5-10.1); Chloride, Blood 107 mmol/L (98-108); Creatinine, Blood 0.22 mg/dL (0.40-1.00); Glomerular Filtration Rate 140 (60-); Glucose, Blood 104 mg/dL (70-99); Phosphorus, Blood 3.1 mg/dL (2.5-4.9); Potassium, Blood 3.4 mmol/L (3.5-5.5); Sodium, Blood 141 mmol/L (136-145)
[2023-12-01 08:04] VITALS: BP 125/84
[2023-12-01 17:22] VITALS: BP 106/84
--- NOTE | 2023-12-01 17:42 | NUR ---
PT PLEASANT AND SMILING TODAY. CONTINUES TO YELL OUT FOR ASSISTANCE. PEG TUBE FEEDING CONTINUES AT 10 ML / HR PLUS FLUSHES. [facility] CALLED THIS AM TO REVIEW FEEDING AND LABS. STATES CONTINUE FOR TODAY AND WILL REVIEW SATURDAY. PT CONTINUES TO WATCH MOVIES MOST OF DAY. OFTEN WILL NOD HEAD TO QUESTIONS. NO OTHER CONCERNS NOTED. BED IN LOW POSITION, CALL LITE IN REACH.
[2023-12-01 19:47] VITALS: BP 114/76
[2023-12-02 02:45] VITALS: BP 127/63
--- NOTE | 2023-12-02 04:13 | NUR ---
PATIENT IS ALERT BUT NON-VERBAL, NODS AND SMILES. WITH PEG TUBE AND VITAL TPN IS INFUSING WITHOUT ANY ISSUE. WITH MEDIPORT AND ONGOING IV FLUIDS OF NSS 250 ML AT KVO RATE, INFUSING WELL, ON ROOM AIR. EXTREMETIES CONTRACTURES ARE NOTED. NEEDS ATTENDED. CALL LIGHT WITHIN PATIENT'S REACH. WILL CONTINUE TO MONITOR.
[2023-12-02 07:52] VITALS: BP 111/77
[2023-12-02 08:29] LABS: Anion Gap 6 mmol/L (6-16); Blood Urea Nitrogen 9 mg/dL (8-24); Bun/Creatinine Ratio 60.4 (12.0-20.0); CO2, Blood 30 mmol/L (21-32); Calcium, Blood 8.6 mg/dL (8.5-10.1); Chloride, Blood 105 mmol/L (98-108); Creatinine, Blood 0.15 mg/dL (0.40-1.00); Glomerular Filtration Rate 154 (60-); Glucose, Blood 99 mg/dL (70-99); Magnesium, Blood 2.1 mg/dL (1.6-2.4); Phosphorus, Blood 2.9 mg/dL (2.5-4.9); Potassium, Blood 3.4 mmol/L (3.5-5.5); Sodium, Blood 141 mmol/L (136-145)
[2023-12-02] MEDS ORDERED: BISA10S PR (11:14)
[2023-12-02] MEDS ORDERED: MULTIPLE VITAM1 EACH PT (11:16)
[2023-12-02] MEDS ORDERED: PHOS-NaK PT (11:32)
[2023-12-02] MEDS ORDERED: SENN187 PT (11:33)
--- NOTE | 2023-12-02 14:05 | NUR ---
DISCHARGE NOTE PT DISCHARGE HOME TO [facility] AT APPROX 14:00. PT A&O TO SELF AND PERSON ONLY, NON VERBAL, NON VERBAL AT BASELINE, VSS, BEDREST, BEDREST AT BASELINE, VOIDING, TOLERATING G TUBE FEEDS AND G TUBE DRESSING CHANGED PRIOR TO DISCHARGE, AND DENIED PAIN. BELONGINGS WERE RETURNED AND PT TRANSPORTED OUT BY [facility].
== END 2023-12-02 14:29 | disposition hospice, home (50) | DRG 388 ==
LOC: ER 13:57 → MEDS 17:57 → ERHOLD 17:57 → MEDS 20:06 → ENPENDDIS 12-02 10:21 → MEDS 12-02 14:29
PROVIDERS: Emergency Medicine; Family Medicine; Physician Assistant; Student in an Organized Health Care Education/Training Program; ADMIT Hospitalist
DX: K56.609 Unspecified intestinal obstruction, unspecified as to partial versus complete obstruction (principal); R53.2 Functional quadriplegia; E87.0 Hyperosmolality and hypernatremia; N39.0 Urinary tract infection, site not specified; G80.9 Cerebral palsy, unspecified; G40.909 Epilepsy, unspecified, not intractable, without status epilepticus; E86.0 Dehydration; E87.6 Hypokalemia; Z66 Do not resuscitate; E83.39 Other disorders of phosphorus metabolism; Z88.8 Allergy status to other drugs, medicaments and biological substances; Z91.040 Latex allergy status; Z79.2 Long term (current) use of antibiotics; Z79.899 Other long term (current) drug therapy; I10 Essential (primary) hypertension; M81.0 Age-related osteoporosis without current pathological fracture; Z93.1 Gastrostomy status; Z90.89 Acquired absence of other organs; Z90.49 Acquired absence of other specified parts of digestive tract; Z98.890 Other specified postprocedural states
CPT/HCPCS: 51701; 71045; 74177; 80048; 80053; 80069; 80202; 81001; 83690; 83735; 84100; 85025; 87077; 87086; 87186; 94762; 96361-59; 96365-59; 96375-59; 99285-25; A9270; J0744; J1170; J2405; J2560; J3010; J3370; J3411; J3480; J7030; J7042; J7050; J7060; Q9967

== ENCOUNTER 2023-12-03 13:13 | Inpatient (IN) | payer OTHER ==
[~2023-12-03] VITALS: Ht 142.2 cm; Wt 33.5 kg
[~2023-12-03 13:13] MED LIST changes: +LACOSAMIDE10 MG/1 M3 PT; +MULTIPLE VITAM1 EACH PT; +PHOS-NaK PT
[2023-12-03 15:00] LABS: BASOPHILS ABSOLUTE AUTO 0.01 K/mm3 (0.00-0.23); BASOPHILS PERCENT AUTO 0 % (0-2); EOSINOPHILS ABSOLUTE AUTO 0.05 K/mm3 (0.00-0.68); EOSINOPHILS PERCENT AUTO 1 % (0-6); Hematocrit 40.7 % (33.0-51.0); Hemoglobin 14.3 g/dL (11.5-16.0); IMMATURE GRAN ABSOLUTE AUTO 0.03 K/mm3 (0.00-0.10); IMMATURE GRAN PERCENT AUTO 0 % (0-1); LYMPHOCYTES ABSOLUTE AUTO 1.67 K/mm3 (0.84-5.20); LYMPHOCYTES PERCENT AUTO 24 % (21-46); MONOCYTES ABSOLUTE AUTO 0.58 K/mm3 (0.16-1.47); MONOCYTES PERCENT AUTO 8 % (4-13); Mean Corpuscular HGB 33.7 pg (26.0-34.0); Mean Corpuscular HGB Conc 35.1 g/dL (31.5-36.5); Mean Corpuscular Volume 96 fL (80-100); Mean Platelet Volume 9.8 fL (9.1-12.4); NEUTROPHILS ABSOLUTE AUTO 4.54 K/mm3 (1.96-9.15); NEUTROPHILS PERCENT AUTO 66 % (41-73); Platelet Count 230 K/mm3 (150-400); RDW Standard Deviation 44.6 fL (35.1-46.3); Red Blood Cell Count 4.24 M/mm3 (3.80-5.20); White Blood Cell Count 6.88 K/mm3 (4.00-11.30)
[2023-12-03 15:41] LABS: Albumin, Blood 3.5 g/dL (3.4-5.0); Albumin/Globulin Ratio 0.9 (0.8-1.8); Bilirubin, Total 0.5 mg/dL (0.1-1.0); Bun/Creatinine Ratio 68.6 (12.0-20.0); Creatinine, Blood 0.2 mg/dL (0.40-1.00); Globulin, Blood 3.9 g/dL (2.2-4.0); Potassium, Blood 3.3 mmol/L (3.5-5.5); Total Protein, Blood 7.4 g/dL (6.4-8.2)
[2023-12-03 21:48] VITALS: BP 113/80
[2023-12-04 02:41] VITALS: BP 102/71
--- NOTE | 2023-12-04 03:15 | NUR ---
PT GIVEN 50MCG OF FENTANYL AT 2211, CONTACTED PHYSICIAN AND WAS GIVEN DIRECTIONS TO MONITOR PT O2 SATS AND RESPIRATIONS. PT O2 SATS MAINTAINED IN THE 90S AND RESPIRATIONS REMAINED OVER 11-12. NO SIGNS OF SOB OR RESPIRATORY DISTRESS.
--- NOTE | 2023-12-04 04:06 | NUR ---
SHIFT SUMMARY PT ALERT, ORIENTATION UNABLE TO BE ASSESSED DUE TO PT BEING NONVERBAL. PT ABLE TO NOD OR SHAKE HER HEAD NO IN RESPONSE TO QUESTIONS. PT COOPERATIVE WITH CARE. PT COMPLAINS OF NAUSEA AND WAS MEDICATED PER EMAR FOR PAIN AND NAUSEA. NO ACUTE EVENTS OCCURED AT THIS TIME. VSS. PT LEFT IN A POSITION OF SAFETY WITH FALL PRECAUTIONS IN PLACE AND CALL LIGHT IN REACH.
[2023-12-04 07:41] VITALS: BP 94/62
[2023-12-04 09:30] LABS: Hematocrit 32.1 % (33.0-51.0); Hemoglobin 10.9 g/dL (11.5-16.0); Mean Corpuscular HGB 33.6 pg (26.0-34.0); Mean Corpuscular Volume 99 fL (80-100); Mean Platelet Volume 10.5 fL (9.1-12.4); Platelet Count 179 K/mm3 (150-400); RDW Coefficient Variation 13.2 % (11.7-14.2); RDW Standard Deviation 46.6 fL (35.1-46.3); Red Blood Cell Count 3.24 M/mm3 (3.80-5.20); White Blood Cell Count 5.99 K/mm3 (4.00-11.30)
[2023-12-04 09:49] LABS: Bun/Creatinine Ratio 45.5 (12.0-20.0); Calcium, Blood 7.9 mg/dL (8.5-10.1); Creatinine, Blood 0.18 mg/dL (0.40-1.00); Potassium, Blood 3.6 mmol/L (3.5-5.5)
[2023-12-04 17:09] VITALS: BP 92/58
--- NOTE | 2023-12-04 18:25 | NUR ---
SHIFT SUMMARY- PT SLEPT INTERMITENTLY THROUGHTOUGHT THIS SHIFT. HER GTUBE IS OPEN AND DRAINING TO GRAVITY. SHE RECIEVED A BED BATH THIS SHIFT. MEDICATED FOR PAIN NEEDED. HER BED IS IN THE LOW POSITION AND CALL LIGHT IS WITHIN REACH.
[2023-12-04 20:22] VITALS: BP 123/81
[2023-12-05 03:05] VITALS: BP 117/80
--- NOTE | 2023-12-05 04:03 | NUR ---
1900: ASSUMED CARE OF PT, REPORT RECEIVED FROM DAY SHIFT RN. PT IS LAYING IN BED TO HER LEFT SIDE WITH PILLOWS FOR SUPPORT, BLE ELEVATED ON PILLOW. PT IS NON VERBAL, NOT ABLE TO APPROPRIATLY ASSESS ORIENTED. PT IS ALERT AND NODS/SHAKES HER HEAD TO ANSWER YES/NO QUESTIONS. MOANS LOADLY MULTIPLE TIMES IN THE NIGHT, FIRST FOR PAIN, NEXT FOR INCONTINENT VOID. ASSISTED PT NEEDED THROUGHOUT THE NIGHT, TURNS FOR SKIN INTEGRITY. G-TUBE DRAINING TO GRAVITY, DRESSING CHANGED, SKIN CLEANSED. MEDICATED PER ORDERS. SAFETY MEASURES TAKEN, NEEDS ADDRESSED THROUGHOUT THE SHIFT.
[2023-12-05 07:35] VITALS: BP 120/77
--- NOTE | 2023-12-05 15:33 | NUR ---
caregiver from [facility] came and visited, patient at baseline alertness and interactions, gtube clamped and bag removed per dr quintana, repositioned regularly
[2023-12-05 15:42] VITALS: BP 111/67
--- NOTE | 2023-12-05 17:44 | NUR ---
PATIENT AT BASELINE ALERTNESS ORIENTATION AND PHYSCIAL ABILITY, RIED OUT WHEN ORAL CARE, MEDICATED WITH FENT X1 TODAY. ANSWERS YES/NO, LARGE SOFT BM, REPORTED TO SISTER DELMI TODAY,MADDISON ROSALES HOME FOR DISBALIED CAME AND VISITED PATIENT. NO ACUTE CHANGES, VSS, PATIENT UNABLE TO USE CALL LIGHT, ROUNDED HOURLY ON PATIENT, WILL RELAY TO PM RN
--- NOTE | 2023-12-05 17:46 | NUR ---
review of patient symptoms with nursing. pt restless and yells out with turns. will add adjunctive medications for bone pain. Will continue to monitor for symptoms. Will review with physician.
[2023-12-05 20:28] VITALS: BP 130/81
[2023-12-05 23:48] VITALS: BP 140/86
--- NOTE | 2023-12-06 02:47 | NUR ---
REPORT RECEIVED VERIFIED PT A/O BUT UNABLE TO MAKE NEEDS KNOWN WITHOUT YELLING. PT CAN NODE HEAD BUT SOMETIMES WONT, MAKING IT VERY HARD TO IDENTIFY REASON FOR DISTRESS. PT C/O PAIN WHEN I ASK IF ITS ABD SHE NODES NO BUT WHEN I ASK IF ITS HER BACK PT ABLE TO NODE YES. I WILL CONT TO TREAT WITH PAIN MEDICATION. WHENEVER PT IS TURNED SHE STARTS TO CRY SO PT ABAIN WAS REPOSTIONED AND MEDICATED. WILL CONT TO MONITOR
[2023-12-06 04:21] VITALS: BP 126/84
[2023-12-06 04:51] LABS: BASOPHILS ABSOLUTE AUTO 0.01 K/mm3 (0.00-0.23); BASOPHILS PERCENT AUTO 0 % (0-2); EOSINOPHILS ABSOLUTE AUTO 0.08 K/mm3 (0.00-0.68); EOSINOPHILS PERCENT AUTO 2 % (0-6); Hematocrit 32.4 % (33.0-51.0); Hemoglobin 10.7 g/dL (11.5-16.0); IMMATURE GRAN ABSOLUTE AUTO 0.01 K/mm3 (0.00-0.10); IMMATURE GRAN PERCENT AUTO 0 % (0-1); LYMPHOCYTES ABSOLUTE AUTO 1.91 K/mm3 (0.84-5.20); LYMPHOCYTES PERCENT AUTO 52 % (21-46); MONOCYTES ABSOLUTE AUTO 0.21 K/mm3 (0.16-1.47); MONOCYTES PERCENT AUTO 6 % (4-13); Mean Corpuscular Volume 100 fL (80-100); Mean Platelet Volume 9.8 fL (9.1-12.4); NEUTROPHILS ABSOLUTE AUTO 1.46 K/mm3 (1.96-9.15); NEUTROPHILS PERCENT AUTO 40 % (41-73); Platelet Count 195 K/mm3 (150-400); RDW Coefficient Variation 12.7 % (11.7-14.2); RDW Standard Deviation 45.2 fL (35.1-46.3); Red Blood Cell Count 3.24 M/mm3 (3.80-5.20); White Blood Cell Count 3.68 K/mm3 (4.00-11.30)
[2023-12-06 05:36] LABS: Bun/Creatinine Ratio 40.7 (12.0-20.0); Creatinine, Blood 0.17 mg/dL (0.40-1.00); Potassium, Blood 3.5 mmol/L (3.5-5.5)
[2023-12-06 07:18] VITALS: BP 108/76
[2023-12-06 10:28] LABS: Magnesium, Blood 1.7 mg/dL (1.6-2.4); Phosphorus, Blood 2.4 mg/dL (2.5-4.9)
--- NOTE | 2023-12-06 12:46 | NUR ---
DR XIE ROUNDED, PATIENT TO HAVE TUBE FEEDS RESTART, DIETICION ROUNDED ALSO
[2023-12-06 15:11] VITALS: BP 123/79
--- NOTE | 2023-12-06 18:40 | NUR ---
NO ACUTE CHANGES, TUBE FEEDS STARTED, PATIENT WAS VERY DIAPHORETIC BS 70, VITAL HIGH PROTEIN BOLUS FEEDS STARTING, PATIENT REPOSITIONED THROUGH OUT THE DAY, LR STOPPED, UNABLE TO USE CALL LIGHT OR FORM MORE THAN YES/NO TO ANSWER QUESTIONS, ORIENTED TO SELF AND STAFF, WILL REALY TO PM RN
[2023-12-06 20:18] VITALS: BP 124/81
[2023-12-07 05:18] VITALS: BP 101/59
[2023-12-07 05:57] LABS: Bun/Creatinine Ratio 47.6 (12.0-20.0); Calcium, Blood 7.7 mg/dL (8.5-10.1); Creatinine, Blood 0.19 mg/dL (0.40-1.00); Magnesium, Blood 1.6 mg/dL (1.6-2.4); Phosphorus, Blood 2.8 mg/dL (2.5-4.9); Potassium, Blood 3.7 mmol/L (3.5-5.5)
--- NOTE | 2023-12-07 06:49 | NUR ---
REPORT RECEIVED VERIFIED PT A/O AND FEELING BETTER TODAY FEEDING IS INFUSING AND NO SIGN OF NOT BEING ABLE TO NIKO. IF PATIENCE THEN PT CAN LET NEEDS KNOWN BUT VERY DIFFICULT AT TIMES. PT WAS TURNED EVERY 2 HOURS NIKO VERY WELL AND SLEPT MUCH BETTER TODAY.
[2023-12-07 07:31] VITALS: BP 100/80
[2023-12-07 15:50] VITALS: BP 81/63
[2023-12-07 15:54] VITALS: BP 90/74
--- NOTE | 2023-12-07 19:45 | NUR ---
SUMMARY- PT MEDICATED X1 FOR PAIN THIS SHIFT. PT IS TOLERATING BOLUS FEEDS OF 120ML 4X/DAY.
[2023-12-07 20:28] VITALS: BP 70/54
[2023-12-07 20:46] VITALS: BP 117/84
--- NOTE | 2023-12-07 23:08 | NUR ---
REPORT RECEIVED VERIFIED PT LOOKS TIRED MAKES EYE CONTACT BUT IS LESS COMMUNICATIVE THEN DAYS BEFORE. FEEDINGS HAVE STARTED AND PT SEEMS TO HAVE BEEN TOLORATING THAT. WHEN GIVING MEDICATIONS THROUGH PEGTUBE THERE IS A LOT OF BACK PRESSURE SO WILL INFORM DAY SHIFT AND MD IF FEEDING NEED MODIFICATIONS PT HAD VERY LOOSE STOOL AND LINEN WAS CHANGED. QUIETLY LAYING AND WATCHING MOVIE.
--- NOTE | 2023-12-07 23:20 | NUR ---
BLOOD PRESSURE ON LOWER SIDE, PT SLEEPING PEACFULLY BUT TEMP IS LOW ALSO. BLANKETS PUT OVER PT AND BP MONITORED.
[2023-12-08 03:50] VITALS: BP 72/56
[2023-12-08 08:53] VITALS: BP 87/62
[2023-12-08 09:42] LABS: Bun/Creatinine Ratio 70.9 (12.0-20.0); Calcium, Blood 7.9 mg/dL (8.5-10.1); Creatinine, Blood 0.25 mg/dL (0.40-1.00); Magnesium, Blood 1.8 mg/dL (1.6-2.4); Phosphorus, Blood 2.5 mg/dL (2.5-4.9); Potassium, Blood 3.5 mmol/L (3.5-5.5)
[2023-12-08 16:18] VITALS: BP 88/70
--- NOTE | 2023-12-08 18:35 | NUR ---
SUMMARY- PT IS HAVING BOWEL MOVEMENTS, PASSING GAS, AND TOLERATING HER BOLUS FEEDS AT 180 4X/DAY.
[2023-12-08 20:02] VITALS: BP 88/68
--- NOTE | 2023-12-08 23:10 | NUR ---
report received verifeid pt more alert today seems more rested and is able to answer me with head jestures for having needs met. mediport locked off. bolus feedings in progress, pt seems to be wily, no residuals when checked. no s/s of distress or pain. pt turned q2 and is watching ipad.
[2023-12-09 05:12] LABS: BASOPHILS PERCENT AUTO 0 % (0-2); EOSINOPHILS ABSOLUTE AUTO 0.06 K/mm3 (0.00-0.68); EOSINOPHILS PERCENT AUTO 2 % (0-6); Hematocrit 30.6 % (33.0-51.0); Hemoglobin 10.6 g/dL (11.5-16.0); IMMATURE GRAN ABSOLUTE AUTO 0.01 K/mm3 (0.00-0.10); IMMATURE GRAN PERCENT AUTO 0 % (0-1); LYMPHOCYTES ABSOLUTE AUTO 1.65 K/mm3 (0.84-5.20); LYMPHOCYTES PERCENT AUTO 57 % (21-46); MONOCYTES ABSOLUTE AUTO 0.21 K/mm3 (0.16-1.47); MONOCYTES PERCENT AUTO 7 % (4-13); Mean Corpuscular HGB 33.4 pg (26.0-34.0); Mean Corpuscular HGB Conc 34.6 g/dL (31.5-36.5); Mean Corpuscular Volume 97 fL (80-100); Mean Platelet Volume 10.1 fL (9.1-12.4); NEUTROPHILS ABSOLUTE AUTO 0.97 K/mm3 (1.96-9.15); NEUTROPHILS PERCENT AUTO 34 % (41-73); Platelet Count 205 K/mm3 (150-400); RDW Coefficient Variation 13.2 % (11.7-14.2); RDW Standard Deviation 45.5 fL (35.1-46.3); Red Blood Cell Count 3.17 M/mm3 (3.80-5.20)
[2023-12-09 05:49] LABS: Bun/Creatinine Ratio 81.4 (12.0-20.0); Calcium, Blood 7.8 mg/dL (8.5-10.1); Creatinine, Blood 0.17 mg/dL (0.40-1.00); Magnesium, Blood 1.8 mg/dL (1.6-2.4); Phosphorus, Blood 2.5 mg/dL (2.5-4.9); Potassium, Blood 3.3 mmol/L (3.5-5.5)
[2023-12-09 07:28] VITALS: BP 83/56
[2023-12-09] MEDS ORDERED: METO10SY PO (12:02)
[2023-12-09] MEDS ORDERED: PHENOBARBITAL PT (12:04)
[2023-12-09] MEDS ORDERED: PHOS-NaK PT (12:11)
--- NOTE | 2023-12-09 14:03 | NUR ---
DC-[id number] PT LEFT VIA TRANSPORT FOR HOME IN STABLE CONDITION. RN CALLED REPORT TO THE NURSE, "COOPER" AND SPEND 13 MINUTES ANSERING QUESTIONS AND CLARIFYING NEW ORDERS/RX AND CURRENT FEEDING SCHEDULE INCLUDING WATER FLUSHES. RN ANSWERED ALL QUESTIONS/CONCERNS FROM RN. PT LEFT WITH ALL BELONGINGS.
== END 2023-12-09 13:47 | DRG 390 ==
LOC: ER 13:13 → MEDS 18:00
PROVIDERS: Emergency Medicine; Family Medicine; Internal Medicine; Nurse Practitioner Acute Care; ADMIT Internal Medicine
DX: K56.609 Unspecified intestinal obstruction, unspecified as to partial versus complete obstruction (principal); G80.8 Other cerebral palsy; G40.909 Epilepsy, unspecified, not intractable, without status epilepticus; D63.8 Anemia in other chronic diseases classified elsewhere; E87.6 Hypokalemia; E83.39 Other disorders of phosphorus metabolism; Z66 Do not resuscitate; I10 Essential (primary) hypertension; K59.00 Constipation, unspecified; M81.0 Age-related osteoporosis without current pathological fracture; N31.9 Neuromuscular dysfunction of bladder, unspecified; Z93.1 Gastrostomy status; Z90.49 Acquired absence of other specified parts of digestive tract; Z90.89 Acquired absence of other organs; Z98.890 Other specified postprocedural states; Z91.040 Latex allergy status; Z88.8 Allergy status to other drugs, medicaments and biological substances; Z91.048 Other nonmedicinal substance allergy status; Z79.899 Other long term (current) drug therapy; Z79.2 Long term (current) use of antibiotics
CPT/HCPCS: 71045; 74177; 80048; 80053; 82947; 83605; 83690; 83735; 84100; 85025; 85027; 94762; 96361; 96365-59; 96366; 96375; 99285-25; A9270; C9254; J1650; J2405; J2560; J2765; J3010; J3480; J7030; J7050; J7060; J7120; Q9967

== ENCOUNTER 2024-08-26 19:26 | Inpatient (IN) | payer OTHER ==
[~2024-08-26] VITALS: Ht 129.5 cm; Wt 38.8 kg
[~2024-08-26 19:26] MED LIST changes: -CALCIUM CIT 311 EAC7 PT; +CALCIUM CITRAT PT; +PHENOBARBI20 MG/5 M2 PT
[2024-08-26] MEDS ORDERED: Ondansetron HCl 2 MG / ML 2ML Vial IV PRN (20:25)
[2024-08-26 20:49] LABS: BASOPHILS ABSOLUTE AUTO 0.02 K/mm3 (0.00-0.23); BASOPHILS PERCENT AUTO 0 % (0-2); EOSINOPHILS ABSOLUTE AUTO 0.07 K/mm3 (0.00-0.68); EOSINOPHILS PERCENT AUTO 1 % (0-6); Hematocrit 44.8 % (33.0-51.0); Hemoglobin 15.5 g/dL (11.5-16.0); IMMATURE GRAN ABSOLUTE AUTO 0.01 K/mm3 (0.00-0.10); IMMATURE GRAN PERCENT AUTO 0 % (0-1); LYMPHOCYTES ABSOLUTE AUTO 1.25 K/mm3 (0.84-5.20); LYMPHOCYTES PERCENT AUTO 21 % (21-46); MONOCYTES ABSOLUTE AUTO 0.39 K/mm3 (0.16-1.47); MONOCYTES PERCENT AUTO 7 % (4-13); Mean Corpuscular HGB 32.6 pg (26.0-34.0); Mean Corpuscular HGB Conc 34.6 g/dL (31.5-36.5); Mean Corpuscular Volume 94 fL (80-100); Mean Platelet Volume 8.9 fL (9.1-12.4); NEUTROPHILS ABSOLUTE AUTO 4.11 K/mm3 (1.96-9.15); NEUTROPHILS PERCENT AUTO 70 % (41-73); Platelet Count 208 K/mm3 (150-400); RDW Coefficient Variation 12.1 % (11.7-14.2); RDW Standard Deviation 42.5 fL (35.1-46.3); Red Blood Cell Count 4.75 M/mm3 (3.80-5.20); White Blood Cell Count 5.85 K/mm3 (4.00-11.30)
[2024-08-26 21:08] LABS: Albumin, Blood 3.5 g/dL (3.4-5.0); Albumin/Globulin Ratio 0.8 (0.8-1.8); Bilirubin, Total 0.5 mg/dL (0.1-1.0); Bun/Creatinine Ratio 140.2 (12.0-20.0); Calcium, Blood 9.3 mg/dL (8.5-10.1); Creatinine, Blood 0.21 mg/dL (0.40-1.00); Globulin, Blood 4.4 g/dL (2.2-4.0); Potassium, Blood 4.1 mmol/L (3.5-5.5); Total Protein, Blood 7.9 g/dL (6.4-8.2)
[2024-08-26] MEDS ORDERED: Lactated Ringer's 1,000 ML IV ONE (23:55)
[2024-08-27 04:28] LABS: Source, Urine Clean Catch
[2024-08-27 04:37] LABS: Appearance, Urine Hazy (Clear); Bilirubin, Urine Neg (Neg); Blood, Urine 3+ (Neg); Color, Urine Yellow (P-Yellow); Glucose Qualitative, Urine Neg (Neg); Ketones, Urine Neg (Neg); Leukocyte Esterase, Urine 3+ (Neg); Nitrite, Urine Neg (Neg); Protein, Urine 2+ (Neg); Specific Gravity, Urine 1.005 (1.003-1.022); Urobilinogen, Urine NORM (Normal)
[2024-08-27 04:47] LABS: Bacteria Many /hpf; Red Blood Cells, Urine 0-2 /hpf (0-2); Squamous Epithelial Cells Mod /hpf (Few); White Blood Cells, Urine 25-50 /hpf (0-5)
[2024-08-27 04:48] LABS: Amorphous Light (0-Heavy)
[2024-08-27] MEDS ORDERED: Nitrofurantoin/Nitrofuran Mac 100 MG Cap PO ONE (05:25)
[2024-08-27] MEDS ORDERED: Ketorolac Tromethamine 30mg Vial IV ONE (05:35)
[2024-08-27] MEDS ORDERED: CefTRIAXone Sodium 1,000 MG in NS 50 ML IV ONE (05:40)
[2024-08-27] MEDS ORDERED: Ondansetron HCl 2 MG / ML 2ML Vial IV PRN (06:10)
[2024-08-27] MEDS ORDERED: Acetaminophen 325 MG TABLET PO PRN (06:10)
[2024-08-27] MEDS ORDERED: FLU VACC TS2024-25(6MOS UP)/PF 45 MCG/0.5 ML SYRINGE IM ONE (06:10)
[2024-08-27] MEDS ORDERED: Bisacodyl 10 MG Supp PR PRN (06:15)
[2024-08-27] MEDS ORDERED: Acetaminophen 650 MG Supp PR PRN (06:45)
[2024-08-27] MEDS ORDERED: Lactated Ringer's 1,000 ML IV SCH (07:00)
[2024-08-27] MEDS ORDERED: Lactated Ringer's 1,000 ML IV ONE (07:01)
[2024-08-27] MEDS ORDERED: Metoclopramide HCl 10 MG Tab PT SCH (07:30)
[2024-08-27 08:54] VITALS: BP 107/71
[2024-08-27] MEDS ORDERED: Docusate Sodium 100 MG UDC PT SCH (09:00)
[2024-08-27] MEDS ORDERED: PHENOBARBITAL 20 MG/5 ML PT SCH (09:00)
[2024-08-27] MEDS ORDERED: Sennosides 8.6 MG Tab PT SCH (09:00)
[2024-08-27] MEDS ORDERED: Lacosamide 50 MG/5 ML Oral Solution 5ML PT SCH (09:00)
--- NOTE | 2024-08-27 09:21 | NUR ---
pt arrived to 334 via gurney from ER, [facility], caregiver in room, pt is npo for now until surgery see's her, consult was called in this am. nonverbal, limbs are contracted, has peg tube for feeds, lungs are clear t/o, resp even and unlabored, no cough noted, hrr, no edema noted, ppp faint, cap refill <3 sec, vs stable, afebrile, mediport to lcw acessed and infusing LR at 75mls/hr, bt not auscultated, abd flat soft tender, incont of bowel/bladder, briefs in place, skin c/w/d, brando rueda, call light in reach.
[2024-08-27 09:58] LABS: Albumin, Blood 3.2 g/dL (3.4-5.0); Albumin/Globulin Ratio 0.8 (0.8-1.8); Bilirubin, Total 0.6 mg/dL (0.1-1.0); Bun/Creatinine Ratio 97.8 (12.0-20.0); Calcium, Blood 8.8 mg/dL (8.5-10.1); Creatinine, Blood 0.28 mg/dL (0.40-1.00); Globulin, Blood 4.1 g/dL (2.2-4.0); Potassium, Blood 4.7 mmol/L (3.5-5.5); Total Protein, Blood 7.3 g/dL (6.4-8.2)
[2024-08-27 15:05] VITALS: BP 127/87
--- NOTE | 2024-08-27 18:30 | NUR ---
Dr. Conteh consulted pt, had her peg tube opened and draining to gravity for decompression, hooked it up to vance bag to catch drainage. no further changes this shift. call light in reach.
[2024-08-27 19:55] VITALS: BP 103/72
[2024-08-27] MEDS ORDERED: ACET500 PT (21:41)
[2024-08-27] MEDS ORDERED: A AND D OINTM42.5 G1 TOP (21:41)
[2024-08-27] MEDS ORDERED: ABILIFY MYCITE2 M2 PT (21:43)
[2024-08-27] MEDS ORDERED: BENEFIBER236 G1 PT (21:44)
[2024-08-27] MEDS ORDERED: CELEXA40 M1 PT (21:45)
[2024-08-27] MEDS ORDERED: CARB10OTL BOTHEARS (21:47)
[2024-08-27] MEDS ORDERED: FENTANYL1 EA12 TOP (21:48)
[2024-08-27] MEDS ORDERED: INFANTS' S40 MG/0.6 PT (21:50)
[2024-08-27] MEDS ORDERED: Milk of Magnesia PT (21:51)
[2024-08-27] MEDS ORDERED: METO5A PT (21:51)
[2024-08-27] MEDS ORDERED: OMEP20ER PT (21:53)
[2024-08-27] MEDS ORDERED: NYSTOP15 GM TOP (21:53)
[2024-08-27] MEDS ORDERED: PEDIALYTE PT (21:55)
[2024-08-27] MEDS ORDERED: PROM25 PT (22:04)
[2024-08-27] MEDS ORDERED: Triple Antibi28.4 G1 TOP (22:05)
[2024-08-27] MEDS ORDERED: VIMPAT10 MG/110 PT (22:05)
[2024-08-28 03:35] VITALS: BP 114/75
--- NOTE | 2024-08-28 06:01 | NUR ---
SHIFT SUMMARY PATIENT IS ALERT AND ORIENTED TO SELF ONLY. FULL CODE. PATIENT IS BEDBOUND WITH UPPER AND LOWER EXTREMITY CONTRACTURES. PEG TUBE IN PLACE AND DRAINING INTO BAG. MEDICATIONS THROUGH PEG TUBE ONLY. PATIENT IS PLEASANT AND COOPERATIVE WITH CARE. NON-VERBAL, BUT WILL NOD HEAD IN ANSWER TO QUESTIONS. PATIENT HAS CAREGIVER WITH HER AT ALL TIMES. PATIENT DOES GET NAUSEATED OCCASIONALLY. THIS RN WILL RELAY ALL INFORMATION TO ONCOMING NURSE. NO ACUTE CHANGES DURING THIS SHIFT.
[2024-08-28 06:07] LABS: BASOPHILS ABSOLUTE AUTO 0.02 K/mm3 (0.00-0.23); BASOPHILS PERCENT AUTO 1 % (0-2); EOSINOPHILS ABSOLUTE AUTO 0.05 K/mm3 (0.00-0.68); EOSINOPHILS PERCENT AUTO 1 % (0-6); Hematocrit 39.2 % (33.0-51.0); Hemoglobin 13.6 g/dL (11.5-16.0); IMMATURE GRAN ABSOLUTE AUTO 0.05 K/mm3 (0.00-0.10); IMMATURE GRAN PERCENT AUTO 1 % (0-1); LYMPHOCYTES ABSOLUTE AUTO 1.46 K/mm3 (0.84-5.20); LYMPHOCYTES PERCENT AUTO 34 % (21-46); MONOCYTES ABSOLUTE AUTO 0.36 K/mm3 (0.16-1.47); MONOCYTES PERCENT AUTO 8 % (4-13); Mean Corpuscular HGB 33.5 pg (26.0-34.0); Mean Corpuscular HGB Conc 34.7 g/dL (31.5-36.5); Mean Corpuscular Volume 97 fL (80-100); NEUTROPHILS ABSOLUTE AUTO 2.34 K/mm3 (1.96-9.15); NEUTROPHILS PERCENT AUTO 55 % (41-73); RDW Coefficient Variation 12.5 % (11.7-14.2); RDW Standard Deviation 44.4 fL (35.1-46.3); Red Blood Cell Count 4.06 M/mm3 (3.80-5.20); White Blood Cell Count 4.28 K/mm3 (4.00-11.30)
[2024-08-28 06:26] LABS: Platelet Count 188 K/mm3 (150-400)
[2024-08-28 06:36] LABS: Albumin/Globulin Ratio 0.8 (0.8-1.8); Bilirubin, Total 0.7 mg/dL (0.1-1.0); Bun/Creatinine Ratio 91.3 (12.0-20.0); Calcium, Blood 8.7 mg/dL (8.5-10.1); Creatinine, Blood 0.26 mg/dL (0.40-1.00); Globulin, Blood 3.9 g/dL (2.2-4.0); Magnesium, Blood 2.1 mg/dL (1.6-2.4); Potassium, Blood 4.2 mmol/L (3.5-5.5); Total Protein, Blood 6.9 g/dL (6.4-8.2)
[2024-08-28 07:19] VITALS: BP 110/84
[2024-08-28] MEDS ORDERED: Enoxaparin 40 MG/0.4 ML SYR SC SCH (09:00)
[2024-08-28 15:28] VITALS: BP 119/84
[2024-08-28] MEDS ORDERED: AQUAPHOR TOP (17:02)
[2024-08-28] MEDS ORDERED: Multivitamins 10 ML,ZINC SULF/CUSO4 P-HYD/MN/CR/SE 1 ML in Aa 4.25%/Calcium/Lytes/D5w 1... IV SCH (17:05)
[2024-08-28] MEDS ORDERED: Aa 4.25%/Calcium/Lytes/D5w 1,000 ML IV SCH (17:05)
--- NOTE | 2024-08-28 18:45 | NUR ---
SHIFT SUMMARY UNABLE TO ACCURATELY ASSESS PT A&O DUE TO PT CONDITION, THE RN ASKED CAREGIVERS OF HER NEEDS. STILL NPO, STARTING PPN TODAY PER MD ORDER, SAW SURGEON AND REPORTS NO PEG TUBE UNTIL PT HAS BM. PT HAS CAREGIVERS ALL DAY, WILL LET STAFF KNOW OF PT NEEDS. CALL LIGHT IN REACH, BED IN LOWEST POSITION.
[2024-08-28 19:38] VITALS: BP 110/88
[2024-08-29 03:24] VITALS: BP 125/84
--- NOTE | 2024-08-29 04:51 | NUR ---
SHIFT SUMMARY PATIENT IS ALERT AND ORIENTED TO SELF ONLY. FULL CODE. NON-VERBAL, BUT WILL NOD AND SHAKE HEAD IN RESPONSE TO QUESTIONING. PATIENT IS BEDBOUND WITH UPPER AND LOWER EXTREMITY CONTRACTURES. PEG TUBE IS IN PLACE AND DRAINING INTO BAG. MEDICATIONS THROUGH PEG TUBE ONLY. PATIENT IS PLEASANT AND COOPERATIVE WITH CARE. PATIENT HAS CAREGIVER FROM [facility] WITH HER AT ALL TIMES. THIS RN WILL RELAY ALL INFORMATION TO ONCOMING NURSE. NO ACUTE CHANGES DURING THIS SHIFT.
[2024-08-29 07:57] VITALS: BP 134/86
[2024-08-29 08:49] LABS: Anion Gap 6 mmol/L (3-11); Blood Urea Nitrogen 20 mg/dL (8-24); Bun/Creatinine Ratio 97.1 (12.0-20.0); CO2, Blood 28 mmol/L (21-32); Calcium, Blood 8.3 mg/dL (8.5-10.1); Chloride, Blood 112 mmol/L (98-108); Creatinine, Blood 0.21 mg/dL (0.40-1.00); Glomerular Filtration Rate 141 (60-); Glucose, Blood 135 mg/dL (70-99); Phosphorus, Blood 2.2 mg/dL (2.5-4.9); Potassium, Blood 3.5 mmol/L (3.5-5.5); Sodium, Blood 142 mmol/L (136-145); Triglycerides 42 mg/dL (30-160)
[2024-08-29] MEDS ORDERED: NS 1,000 ML IV SCH (12:45)
[2024-08-29 15:24] VITALS: BP 105/79
[2024-08-29] MEDS ORDERED: Potassium Phosphate Dibasic 30 MM,Multivitamins 10 ML,ZINC SULF/CUSO4 P-HYD/MN/CR/SE 1 ... IV SCH (17:00)
--- NOTE | 2024-08-29 18:08 | NUR ---
SHIFT SUMMARY UNABLE TO ASSESS ORIENTATION, PAIN SEEMS TO BE IN CONTROL, HAD EPISODES OF N/V AFTER REGLAN ADMINISTRATION, MEDICATED PER EMAR. SWITCHED FROM CLINIMIX TO PPN AT 1700 THROUGH [facility]. NO BM TODAY. WILL SWITCH TO PEG TUBE FEEDING ONCE PT HAS BM. CAREGIVERS IN ROOM ALL DAY, CALL LIGHT WITHIN REACH.
[2024-08-29 19:38] VITALS: BP 131/81
--- NOTE | 2024-08-30 05:09 | NUR ---
SHIFT SUMMARY PATIENT IS ALERT AND ORIENTED TO SELF ONLY. FULL CODE. NON-VERBAL, BUT NODS AND SHAKES HEAD IN RESPONSE TO QUESTIONS. PATIENT IS PLEASANT AND COOPERATIVE WITH CARE. PATIENT IS BEDBOUND WITH UPPER AND LOWER EXTREMITY CONTRACTURES. PEG TUBE IS IN PLACE AND DRAINING INTO BAG. PATIENT IS SLEEPING THROUGH MOST OF THE NIGHT. BED IS IN THE LOWEST POSITION. CAREGIVER FROM [facility] IS ABLE TO ASSIST WITH MAKING THE PATIENT'S NEEDS KNOWN TO RN. NO ACUTE CHANGES DURING THIS SHIFT. WILL RELAY ALL INFORMATION TO ONCOMING NURSE.
[2024-08-30 05:27] VITALS: BP 138/85
[2024-08-30 06:46] LABS: Anion Gap 7 mmol/L (3-11); Blood Urea Nitrogen 19 mg/dL (8-24); Bun/Creatinine Ratio 83.7 (12.0-20.0); CO2, Blood 28 mmol/L (21-32); Calcium, Blood 8.2 mg/dL (8.5-10.1); Chloride, Blood 112 mmol/L (98-108); Creatinine, Blood 0.23 mg/dL (0.40-1.00); Glomerular Filtration Rate 138 (60-); Glucose, Blood 127 mg/dL (70-99); Magnesium, Blood 1.9 mg/dL (1.6-2.4); Phosphorus, Blood 2.7 mg/dL (2.5-4.9); Potassium, Blood 4.3 mmol/L (3.5-5.5); Sodium, Blood 143 mmol/L (136-145); Triglycerides 38 mg/dL (30-160)
[2024-08-30 07:46] VITALS: BP 144/90
[2024-08-30 15:19] VITALS: BP 128/88
--- NOTE | 2024-08-30 17:24 | NUR ---
SHIFT SUMMARY PT IS ALERT, IN BED, NO REPORTS OF PAIN FOR THE SHIFT. CAREGIVERS HAVE BEEN PRESENT ALL DAY. NO BM TODAY. STARTED SECOND BAD OF PPN THROUGH MEDIPORT. NO NAUSEA/VOMITING HAVE BEEN REPORTED TODAY. BED IN LOWEST POSITION, CALL LIGHT WITHIN REACH.
[2024-08-30 19:39] VITALS: BP 136/88
[2024-08-31 03:16] VITALS: BP 147/81
--- NOTE | 2024-08-31 05:32 | NUR ---
SHIFT SUMMARY PT A&O TO SELF AND IS NONVERBAL. PT ABLE TO INDICATE W/ HEAD AND EYES "YES" AND "NO" ANSWERS. PT RECEIVING TPN VIA METAPORT. VSS, NO COMPLAINTS OF CP/PRESSURE OR SOB. PT SPENT MOST OF SHIFT IN BED WITH RESPIRATIONS EVEN AND UNLABORED. PT REPOSITIONED Q2HRS. PT RECEIVED MEDICATIONS THROUGH PEG TUBE. NO ACUTE EVENTS AT THIS TIME. PT LEFT IN A POSITION OF SAFETY WITH FALL PRECAUTIONS IN PLACE AND CALL LIGHT IN REACH.
[2024-08-31 06:25] LABS: Bun/Creatinine Ratio 82.3 (12.0-20.0); Calcium, Blood 8.9 mg/dL (8.5-10.1); Creatinine, Blood 0.23 mg/dL (0.40-1.00); Magnesium, Blood 1.9 mg/dL (1.6-2.4); Phosphorus, Blood 3.8 mg/dL (2.5-4.9); Potassium, Blood 4.2 mmol/L (3.5-5.5)
[2024-08-31 07:06] VITALS: BP 130/73
[2024-08-31 16:06] VITALS: BP 111/75
--- NOTE | 2024-08-31 17:55 | NUR ---
SHIFT SUMMARY PT REMAINS ALERT, BUT NONVERBAL. PT WILL SHAKE HER HEAD YES OR NO TO QUESTIONS. PT CONTINUES TO SHAKE HER HEAD NO WHEN ASKED ABOUT PAIN. BP STABLE. O2 SATS REMAIN ABOVE 90% ON RA. ABD SOFT, BUT NO BM THIS SHIFT. PEG TUBE REMAINS TO GRAVITY DRAIN. PT INCONTINENT OF URINE AND CHANGED NEEDED. PPN INFUSING PER EMAR THROUGH MEDIPORT. PT REPOSITIONED Q2H. UPDATE WAS PROVIDED TO SISTER VIA PHONE CALL.
[2024-08-31 20:09] VITALS: BP 105/68
[2024-09-01 03:16] VITALS: BP 91/69
--- NOTE | 2024-09-01 04:37 | NUR ---
SHIFT SUMMARY: Pt admitted for ABD pain and is a full code. Is alert and able to make needs known through yes or no questions. ADLs have been 2p. No SX of pain and denies pain when asked. Peg tube hooked to gravity drain with little to no output through the shift. Caregiver at bedside.
[2024-09-01 07:29] VITALS: BP 106/75
[2024-09-01] MEDS ORDERED: Bisacodyl 10 MG Supp PR ONE (10:10)
--- NOTE | 2024-09-01 12:27 | NUR ---
AM NOTE: PATIENT NONVERBAL AT BASELINE. SHAKING HEAD YES AND NO. CAREGIVER FROM [facility] AT BEDSIDE. PATIENT ORIENTED TO [facility] STAFF AND SHAKING HEAD YES AND NO APPROPRIATLY. 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 Q2 TURNS AND NEEDED. VITALS SIGNS STABLE. ON ROOM AIR, LUNGS SOUNDS CLEAR. NO TELE. SBP 90-110'S. PPP. NO EDEMA NOTED. SC LOVENOX GIVEN THIS AM PER EMAR. DENIES PAINS. ABDOMIN AND NONTENDER. BOWEL TONES PRESENT. G-TUBE TO GRAVITY, CLAMPING FOR 30 MIN INTERVALS WHEN MEDS ARE GIVEN. NPO. PPN INFUSING PER MEDIPORT. ORAL CARE ATTEMPS WITH PATIENT GETTING VERY UPSET. PATIENT ALLOWING STAFF TO USE WASHCLOTH TO WASH MOUTH AND APPLY CHAPSTICK. MANAGER NEW PRODUCT IN TO ASSESS FLUID STATUS. Q6 BLO[address] MERAZ BY THIS AM. ORDERS FOR 1X DUCOLOX SUPPOSITORY. SUPPOSITORY GIVEN AND PATIENT HAD BOWEL MOVEMENT. CALL LIGHT IN REACH. [facility] CAREGIVER AT BEDSIDE.
--- NOTE | 2024-09-01 13:40 | NUR ---
CALL PLACED TO DR. MERAZ TO UPDATE ON BOWEL MOVEMENT THIS AFTERNOON POST SUPPOSITORY. DR. MERAZ REQUESTING FEEDING TO BE RESTARTED. THIS RN PLACED CALL TO REHABILITATION SERVICES COORDINATOR TO UPDATE. CONTINUE TO TAKE BLOOD SUGARS Q6 AND DC PPN. CAREGIVER AND PATIENT UPDATED ON PLAN OF CARE.
[2024-09-01 16:00] VITALS: BP 89/62
[2024-09-01 18:10] VITALS: BP 87/66
--- NOTE | 2024-09-01 18:19 | NUR ---
TUBE FEED RESTARTED PER NUTRITION ORDERS. PATIENT TOLERATING AT THIS TIME. SBP TRENDING IN THE 80'S. DR. MERAZ UPDATED AND ORDERS FOR 2.5 MG OF MIDODRINE TO BE GIVEN PER TUBE AT THIS TIME. ORDERS IN PLACE. CONTINUES TO BE ON ROOM AIR. Q6 BLOOD SUGARS. Q2 TURNING. UMPQUA CAREGIVER AT BEDSIDE. ATTENDS IN PLACE. PATIENT HAD 1 BOWEL MOVEMENT THIS SHIFT AND MULTIPLE INCONTINENT EPISODES OF URINE.
[2024-09-01] MEDS ORDERED: Midodrine 2.5 MG Tab PT ONE (18:20)
[2024-09-01 20:04] VITALS: BP 83/64
[2024-09-01] MEDS ORDERED: NS 250 ML IV PRN (22:35)
--- NOTE | 2024-09-02 04:12 | NUR ---
SHIFT SUMMARY PT HAS BEEN TOLLERATING 20ML/HR FEEDING WELL. HAS HAD MULTIPLE BM'S THIS SHIFT. MEDICATION ROUTE CHANGED FOR LACOSAMIDE FROM PT TO IV DUE TO STOCK ISSUE IN PHARMACY. PT HAS BEEN SLEEPING OFF AND ON AND WATCHING HER TV. WELDER GUN LEFT AND AUDIOMETRIC TECHNICIAN CAREGIVER ARRIVED IN ROOM. WILL CONTINUE TO MONITOR.
[2024-09-02 04:31] VITALS: BP 100/78
[2024-09-02 06:25] LABS: Bun/Creatinine Ratio 100.4 (12.0-20.0); Calcium, Blood 8.4 mg/dL (8.5-10.1); Creatinine, Blood 0.25 mg/dL (0.40-1.00); Magnesium, Blood 1.7 mg/dL (1.6-2.4); Potassium, Blood 3.9 mmol/L (3.5-5.5)
[2024-09-02 07:11] VITALS: BP 100/73
[2024-09-02] MEDS ORDERED: Citalopram Hydrobromide 20 MG Tab PO SCH (10:20)
[2024-09-02] MEDS ORDERED: Lansoprazole 15 MG TAB.RAP.DR PT SCH (10:25)
[2024-09-02 15:11] VITALS: BP 103/78
--- NOTE | 2024-09-02 17:07 | NUR ---
PT DISCHARGED 1622 2 PERSON SHEET LIFT TO RECLINING WHEELCHAIR WITH 3 PILLOWS TO SUPPORT PT, DEACCESSED PORT. FLUSHED PEG, TOLERATING TUBE FEEDS AT RATE 60ML/HR. BOWEL TONES ACTIVE, PASSING GAS. REPORT GIVEN TO CAREGIVER PRIOR TO DC. SENT WITH DISCHARGE ENVELOPE
[2024-09-03] MEDS ORDERED: Pantoprazole Sodium 40 MG Tab PO SCH (06:00)
== END 2024-09-02 16:17 | disposition home or self-care (01) | DRG 393 ==
LOC: ER 19:26 → MEDS 19:27
PROVIDERS: Internal Medicine; Student in an Organized Health Care Education/Training Program; ADMIT Student in an Organized Health Care Education/Training Program
DX: K46.9 Unspecified abdominal hernia without obstruction or gangrene (principal); R53.2 Functional quadriplegia; K56.609 Unspecified intestinal obstruction, unspecified as to partial versus complete obstruction; N39.0 Urinary tract infection, site not specified; G80.9 Cerebral palsy, unspecified; G40.909 Epilepsy, unspecified, not intractable, without status epilepticus; Z66 Do not resuscitate; M81.0 Age-related osteoporosis without current pathological fracture; N31.9 Neuromuscular dysfunction of bladder, unspecified; Z91.040 Latex allergy status; E86.0 Dehydration; Z88.8 Allergy status to other drugs, medicaments and biological substances; Z91.048 Other nonmedicinal substance allergy status; Z93.1 Gastrostomy status; Z90.49 Acquired absence of other specified parts of digestive tract; Z87.440 Personal history of urinary (tract) infections; Z74.01 Bed confinement status; Z98.890 Other specified postprocedural states; Z90.89 Acquired absence of other organs; E83.39 Other disorders of phosphorus metabolism
CPT/HCPCS: 36415; 51701; 74177; 80048; 80053; 81001; 82947; 83735; 84100; 84478; 85025; 87040; 87086; 96361-59; 96365-59; 96372; 96374-59; 96375; 96375-59; 99285-25; A9270; C9254; G0378; J0696; J1642; J1650; J1885; J2405; J7030; J7050; J7120; Q9967

== ENCOUNTER 2024-11-02 17:23 | Emergency (ER) | payer OTHER ==
[~2024-11-02] VITALS: Ht 149.9 cm; Wt 44.5 kg
[~2024-11-02 17:23] MED LIST changes: +ABILIFY MYCITE2 M2 PT; +AQUAPHOR TOP; +INFANTS' S40 MG/0.6 PT; +Milk of Magnesia PT; +OMEP20ER PT; +PEDIALYTE PT; +VIMPAT10 MG/110 PT
[2024-11-02 19:02] LABS: Influenza A, PCR NEGATIVE (NEGATIVE); Influenza B, PCR NEGATIVE (NEGATIVE); Resp Syncytial Virus, PCR NEGATIVE (NEGATIVE)
[2024-11-02 20:49] LABS: Albumin, Blood 3.7 g/dL (3.4-5.0); Albumin/Globulin Ratio 0.7 (0.8-1.8); Bilirubin, Total 0.3 mg/dL (0.1-1.0); Bun/Creatinine Ratio 115.1 (12.0-20.0); Calcium, Blood 10.2 mg/dL (8.5-10.1); Creatinine, Blood 0.28 mg/dL (0.40-1.00); Globulin, Blood 5.1 g/dL (2.2-4.0); Potassium, Blood 4.5 mmol/L (3.5-5.5); Total Protein, Blood 8.8 g/dL (6.4-8.2)
[2024-11-02 21:00] VITALS: BP 106/76
[2024-11-02 21:03] LABS: SARS-Cov-2 (COVID-19) PCR, MMC POSITIVE (NEGATIVE)
[2024-11-02] MEDS ORDERED: GUAI600T33 PT (21:20)
== END 2024-11-02 21:40 | disposition home or self-care (01) ==
LOC: ER 17:23
PROVIDERS: Physician Assistant
DX: U07.1 COVID-19 (principal); G80.8 Other cerebral palsy; G40.909 Epilepsy, unspecified, not intractable, without status epilepticus; I10 Essential (primary) hypertension; M81.0 Age-related osteoporosis without current pathological fracture; N31.9 Neuromuscular dysfunction of bladder, unspecified; Z93.1 Gastrostomy status; Z88.1 Allergy status to other antibiotic agents; Z88.8 Allergy status to other drugs, medicaments and biological substances; Z91.040 Latex allergy status; Z79.899 Other long term (current) drug therapy
CPT/HCPCS: 0241U; 71045; 80053; 96374; 99285-25; J1642

== ENCOUNTER 2025-01-17 19:05 | Inpatient (IN) | payer OTHER ==
[~2025-01-17] VITALS: Ht 152.4 cm; Wt 48.0 kg
[~2025-01-17 19:05] MED LIST changes: +GUAI600T33 PT
[2025-01-17] MEDS ORDERED: Ketorolac Tromethamine 30mg Vial IV ONE ×2 (19:30→23:25)
[2025-01-17] MEDS ORDERED: Ondansetron HCl 2 MG / ML 2ML Vial IV ONE ×2 (19:30→23:25)
[2025-01-17 20:26] LABS: Hematocrit 44.4 % (33.0-51.0); Hemoglobin 15.3 g/dL (11.5-16.0); Mean Corpuscular HGB 32.5 pg (26.0-34.0); Mean Corpuscular HGB Conc 34.5 g/dL (31.5-36.5); Mean Corpuscular Volume 94 fL (80-100); RDW Coefficient Variation 13.3 % (11.7-14.2); RDW Standard Deviation 46.3 fL (35.1-46.3); Red Blood Cell Count 4.71 M/mm3 (3.80-5.20); White Blood Cell Count 5.36 K/mm3 (4.00-11.30)
[2025-01-17 20:35] LABS: Mean Platelet Volume 9.4 fL (9.1-12.4); Platelet Count 135 K/mm3 (150-400)
[2025-01-17 20:38] LABS: BAND PERCENT MAN 18 % (0-8); BASOPHILS PERCENT MAN 0 % (0-2); EOSINOPHILS PERCENT MAN 0 % (0-6); LYMPHOCYTES ABSOLUTE MAN 0.26 K/mm3 (0.84-5.20); LYMPHOCYTES PERCENT MAN 5 % (21-46); METAMYELOCYTE ABSOLUTE MAN 0.05 K/mm3 (0.00-0.00); METAMYELOCYTE PERCENT MAN 1 % (0-0); MONOCYTES PERCENT MAN 0 % (4-13); NEUTROPHILS ABSOLUTE MAN 5.03 K/mm3 (1.96-9.15); SEG NEUTROPHILS PERCENT MAN 76 % (41-73); TOTAL CELLS COUNTED 100
[2025-01-17 20:42] LABS: Albumin, Blood 3.1 g/dL (3.4-5.0); Albumin/Globulin Ratio 0.6 (0.8-1.8); Bilirubin, Total 0.6 mg/dL (0.1-1.0); Bun/Creatinine Ratio 90.6 (12.0-20.0); Creatinine, Blood 0.52 mg/dL (0.40-1.00); Globulin, Blood 4.8 g/dL (2.2-4.0); Total Protein, Blood 7.9 g/dL (6.4-8.2)
[2025-01-17 20:52] LABS: Source, Urine Straight Cath
[2025-01-17 20:55] LABS: Bilirubin, Urine Neg (Neg); Blood, Urine 5+ (Neg); Glucose Qualitative, Urine Neg (Neg); Ketones, Urine Neg (Neg); Leukocyte Esterase, Urine 3+ (Neg); Nitrite, Urine Neg (Neg); Protein, Urine 3+ (Neg); Urobilinogen, Urine NORM (Normal)
[2025-01-17 20:56] LABS: Appearance, Urine Hazy (Clear); Color, Urine Pale Yellow (P-Yellow)
[2025-01-17 21:03] LABS: Amorphous Heavy (0-Heavy); Bacteria Mod /hpf; Red Blood Cells, Urine 25-50 /hpf (0-2); Squamous Epithelial Cells Few /hpf (Few); White Blood Cells, Urine 50-100 /hpf (0-5)
[2025-01-17 21:17] LABS: CORONAVIRUS COVID-19 AG Negative (NEGATIVE); INFLUENZA A AG Negative (NEGATIVE); INFLUENZA B AG Negative (NEGATIVE)
[2025-01-17] MEDS ORDERED: CefTRIAXone Sodium 1,000 MG in NS 50 ML IV ONE (21:25)
[2025-01-17] MEDS ORDERED: NS 1,000 ML IV SCH ×2 (23:50)
[2025-01-17] MEDS ORDERED: CefTRIAXone Sodium 1,000 MG in NS 100 ML IV ONE (23:50)
--- NOTE | 2025-01-18 01:30 | NUR ---
PT ARRIVED FROM ER WITH CAREGIVER. PT IS FROM A INTERMEDI[facility], PT ALERT, NONVERBAL, SMILING. ADMISSION HISTORY OBTAINED FROM CAREGIVER AND PAPERWORK PROVIDED BY INTERMEDIATE. PT WITH CONTRACTURES TO UPPER AND LOWER EXTREMITIES. PT WITH PORT-A -CATH NOTED, FLUIDS INFUSING, UNABLE TO DRAW BLOOD FROM SITE. PT INCONTINENT. LOOSE STOOLS NOTED DUE TO PT RECEIVED LAXATIVE AT INTERMEDIATE TODAY. PEG NOTED, PT NPO. MD AWARE AND TO PLACE ORDERS FOR TUBE FEEDING. PT MADE COMFORTABLE,NO S/S OF DISTRESS NOTED, WILL CONTINUE TO MONITOR
[2025-01-18 02:25] VITALS: BP 88/67
[2025-01-18 03:46] VITALS: BP 83/60
[2025-01-18] MEDS ORDERED: CALCIUM CIT 311 EAC7 PO (03:48)
[2025-01-18] MEDS ORDERED: LACOSAMIDE PT (04:00)
[2025-01-18] MEDS ORDERED: Ondansetron HCl 2 MG / ML 2ML Vial IV PRN (04:25)
[2025-01-18] MEDS ORDERED: Bisacodyl 10 MG Supp PR PRN (04:25)
[2025-01-18] MEDS ORDERED: FLU VACC TS2024-25(6MOS UP)/PF 45 MCG/0.5 ML SYRINGE IM ONE ×2 (04:25→05:26)
[2025-01-18 04:42] LABS: Albumin, Blood 2.8 g/dL (3.4-5.0); Albumin/Globulin Ratio 0.7 (0.8-1.8); Bilirubin, Total 0.4 mg/dL (0.1-1.0); Bun/Creatinine Ratio 73.1 (12.0-20.0); Calcium, Blood 8.2 mg/dL (8.5-10.1); Creatinine, Blood 0.63 mg/dL (0.40-1.00); Globulin, Blood 4.3 g/dL (2.2-4.0); Potassium, Blood 3.7 mmol/L (3.5-5.5); Total Protein, Blood 7.1 g/dL (6.4-8.2)
[2025-01-18 04:43] LABS: Hematocrit 39.7 % (33.0-51.0); Hemoglobin 13.2 g/dL (11.5-16.0); Mean Corpuscular HGB 32.8 pg (26.0-34.0); Mean Corpuscular HGB Conc 33.2 g/dL (31.5-36.5); Mean Platelet Volume 9.3 fL (9.1-12.4); Platelet Count 142 K/mm3 (150-400); RDW Coefficient Variation 13.6 % (11.7-14.2); RDW Standard Deviation 49.9 fL (35.1-46.3); Red Blood Cell Count 4.02 M/mm3 (3.80-5.20); White Blood Cell Count 16.32 K/mm3 (4.00-11.30)
[2025-01-18 04:47] LABS: Mean Corpuscular Volume 99 fL (80-100)
[2025-01-18] MEDS ORDERED: NS 1,000 ML IV SCH (05:00)
[2025-01-18 05:39] LABS: BAND PERCENT MAN 20 % (0-8); BASOPHILS PERCENT MAN 0 % (0-2); EOSINOPHILS PERCENT MAN 0 % (0-6); LYMPHOCYTES % ATYPICAL MANUAL 1 % (0-0); LYMPHOCYTES PERCENT MAN 7 % (21-46); MONOCYTES ABSOLUTE MAN 0.65 K/mm3 (0.16-1.47); MONOCYTES PERCENT MAN 4 % (4-13); NEUTROPHILS ABSOLUTE MAN 14.36 K/mm3 (1.96-9.15); SEG NEUTROPHILS PERCENT MAN 68 % (41-73); TOTAL CELLS COUNTED 100
--- NOTE | 2025-01-18 05:43 | NUR ---
pt rested comfortably, caregiver remains at bedside. no s/s of distress noted
[2025-01-18] MEDS ORDERED: Ketorolac Tromethamine 15mg Vial IV PRN (07:30)
[2025-01-18] MEDS ORDERED: Piperacillin/Tazobactam Sod 4.5 GM in NS 100 ML IV SCH (08:00)
[2025-01-18 08:50] VITALS: BP 94/72
[2025-01-18] MEDS ORDERED: Acetaminophen 500 MG Tab PT PRN (08:55)
[2025-01-18] MEDS ORDERED: Lacosamide 50 MG/5 ML Oral Solution 5ML PT SCH (09:00)
[2025-01-18] MEDS ORDERED: Tamsulosin HCl 0.4 MG Cap PO SCH (09:00)
[2025-01-18] MEDS ORDERED: Doxazosin Mesylate 2 MG Tab PT SCH (09:00)
[2025-01-18] MEDS ORDERED: Citalopram Hydrobromide 20 MG Tab PT SCH (09:00)
[2025-01-18] MEDS ORDERED: PHENOBARBITAL 20 MG/5 ML PT SCH (09:00)
[2025-01-18] MEDS ORDERED: Promethazine HCl 25 MG Tab PT PRN (09:00)
[2025-01-18] MEDS ORDERED: Zinc Oxide Ointment 30 GM TOP PRN (09:10)
[2025-01-18] MEDS ORDERED: Phenyleph/Mineral Oil/Petrolat 1 APPLIC/57 GM Tube PR PRN (09:10)
[2025-01-18] MEDS ORDERED: Simethicone 40 MG/0.6 ML 30ML BTL PT PRN (09:15)
--- NOTE | 2025-01-18 11:25 | NUR ---
Initial palliative care consult: Requested by staff to update a POLST form for Melodie. Pt has had full code and DNR orders on past admissions. Paperwork for Melodie that was sent to [facility] from [facility] and is on her chart states patient is a DNR. No POLST form in paperwork that was sent to hospital. POLST on file at [facility] is dated 08/16/14 which reflects full code, full treatment wishes. Spoke with pt's caregiver at the bedside and he reports that he is new to the area and doesn't know this patient very well. Called Lucrecia at [facility]. Lucrecia states that the emergency book should be with the caregiver at the hospital. Caregiver reports he doesn't have the emergency book. Called [facility] back and spoke with Judi. Judi reports that she will look again for the emergency book and call the palliative care office if she locates it. Judi reports per her collection that Melodie is a full code. Contacted Dr. Apodaca's office, as Dr. Apodaca is the PCP for Melodie. Dr. Apodaca's office doesn't have a POLST form on file. [place]ax[place] the [place] POL[place] registry and am currently awaiting to see if they have a POLST on file. Melodie was aggitated when I first entered the room. She is able to shake her head to answer yes/no questions. Her purwick tubing was disconnected and this was reattached to suction. Pt also appears to be painful. Notified nursing of pt's pain and that the purwick tubing had been reattached. Nursing reports that they will be going in to check patient.
[2025-01-18 12:37] VITALS: BP 101/67
[2025-01-18 17:00] VITALS: BP 93/64
[2025-01-18 17:41] VITALS: BP 93/64
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
--- NOTE | 2025-01-18 18:32 | NUR ---
TRANSFER REPORT GAVE REPORT TO EDUARDO AT [facility].
--- NOTE | 2025-01-18 19:39 | NUR ---
PATIENT WAS PICKED UP BY TRANSPORT AND TRANSFERRED TO [facility]
[2025-01-18] MEDS ORDERED: BENEFIBER PT SCH (21:00)
[2025-01-18] MEDS ORDERED: Miconazole Nitrate 2% 85 GM PWD TOP SCH (21:00)
[2025-01-18] MEDS ORDERED: ARIPiprazole 2 MG Tablet PT SCH (21:00)
[2025-01-18] MEDS ORDERED: CefTRIAXone Sodium 1,000 MG in NS 100 ML IV SCH (21:00)
[2025-01-19] MEDS ORDERED: Omeprazole 20 MG CapCR PT SCH (06:00)
[2025-01-19] MEDS ORDERED: Heparin Sodium 5000 Units/ML 1ML MDV SC SCH (09:00)
== END 2025-01-18 20:06 | disposition short-term general hospital (02) | DRG 871 ==
LOC: ER 19:05 → PCU 23:44
PROVIDERS: Emergency Medicine; Student in an Organized Health Care Education/Training Program; ADMIT Internal Medicine
DX: A41.9 Sepsis, unspecified organism (principal); R53.2 Functional quadriplegia; N13.6 Pyonephrosis; G80.9 Cerebral palsy, unspecified; G40.909 Epilepsy, unspecified, not intractable, without status epilepticus; I10 Essential (primary) hypertension; Z93.1 Gastrostomy status; H50.9 Unspecified strabismus; N31.9 Neuromuscular dysfunction of bladder, unspecified; M81.0 Age-related osteoporosis without current pathological fracture; Z90.49 Acquired absence of other specified parts of digestive tract; Z98.2 Presence of cerebrospinal fluid drainage device; Z88.1 Allergy status to other antibiotic agents; Z91.040 Latex allergy status; Z88.8 Allergy status to other drugs, medicaments and biological substances; Z79.899 Other long term (current) drug therapy
CPT/HCPCS: 36415; 74177; 80053; 81001; 83605; 83690; 83880; 85025; 87077; 87086; 87186; 87428-QW; 93005; 93010; 96374-59; 96375; 99285-25; A9270; J0696; J1885; J2405; J2543; J7030; Q9967

== ENCOUNTER 2025-01-23 17:07 | Emergency (ER) | payer OTHER ==
[~2025-01-23] VITALS: Ht 121.9 cm; Wt 54.4 kg
[~2025-01-23 17:07] MED LIST changes: +CALCIUM CIT 311 EAC7 PO; +LACOSAMIDE PT
[2025-01-23] MEDS ORDERED: Ondansetron HCl 2 MG / ML 2ML Vial IV ONE ×2 (17:40→20:05)
[2025-01-23] MEDS ORDERED: Lactated Ringer's 1,000 ML IV ONE (17:40)
[2025-01-23 18:28] LABS: BASOPHILS ABSOLUTE AUTO 0.03 K/mm3 (0.00-0.23); BASOPHILS PERCENT AUTO 1 % (0-2); EOSINOPHILS ABSOLUTE AUTO 0.19 K/mm3 (0.00-0.68); EOSINOPHILS PERCENT AUTO 3 % (0-6); Hematocrit 32.9 % (33.0-51.0); IMMATURE GRAN ABSOLUTE AUTO 0.08 K/mm3 (0.00-0.10); IMMATURE GRAN PERCENT AUTO 1 % (0-1); LYMPHOCYTES ABSOLUTE AUTO 2.42 K/mm3 (0.84-5.20); LYMPHOCYTES PERCENT AUTO 39 % (21-46); MONOCYTES ABSOLUTE AUTO 0.58 K/mm3 (0.16-1.47); MONOCYTES PERCENT AUTO 9 % (4-13); Mean Corpuscular HGB 32.2 pg (26.0-34.0); Mean Corpuscular HGB Conc 33.4 g/dL (31.5-36.5); Mean Corpuscular Volume 96 fL (80-100); Mean Platelet Volume 10.3 fL (9.1-12.4); NEUTROPHILS PERCENT AUTO 47 % (41-73); Platelet Count 176 K/mm3 (150-400); RDW Coefficient Variation 13.4 % (11.7-14.2); RDW Standard Deviation 47.6 fL (35.1-46.3); Red Blood Cell Count 3.42 M/mm3 (3.80-5.20)
[2025-01-23 18:47] LABS: Albumin, Blood 2.5 g/dL (3.4-5.0); Albumin/Globulin Ratio 0.6 (0.8-1.8); Bilirubin, Total 0.3 mg/dL (0.1-1.0); Bun/Creatinine Ratio 91.5 (12.0-20.0); Calcium, Blood 8.3 mg/dL (8.5-10.1); Creatinine, Blood 0.14 mg/dL (0.40-1.00); Globulin, Blood 4.1 g/dL (2.2-4.0); Magnesium, Blood 2.1 mg/dL (1.6-2.4); Potassium, Blood 4.2 mmol/L (3.5-5.5); Total Protein, Blood 6.6 g/dL (6.4-8.2)
[2025-01-23 18:51] LABS: CORONAVIRUS COVID-19 AG Negative (NEGATIVE); INFLUENZA A AG Negative (NEGATIVE); INFLUENZA B AG Negative (NEGATIVE)
[2025-01-23 19:28] LABS: Source, Urine Clean Catch
[2025-01-23 19:51] LABS: Appearance, Urine Hazy (Clear); Bilirubin, Urine Neg (Neg); Blood, Urine 5+ (Neg); Color, Urine Yellow (P-Yellow); Glucose Qualitative, Urine Neg (Neg); Ketones, Urine Neg (Neg); Leukocyte Esterase, Urine 3+ (Neg); Nitrite, Urine Neg (Neg); Protein, Urine 2+ (Neg); Urobilinogen, Urine NORM (Normal)
[2025-01-23] MEDS ORDERED: Morphine Sulfate 4 MG/1 ML Injection IV ONE (20:05)
[2025-01-23 20:06] LABS: Amorphous Light (0-Heavy); Bacteria Few /hpf; Red Blood Cells, Urine 25-50 /hpf (0-2); Squamous Epithelial Cells Not Seen /hpf (Few)
[2025-01-23] MEDS ORDERED: ONDA4ODT MM (20:13)
[2025-01-23 20:15] VITALS: BP 110/66
== END 2025-01-23 20:26 | disposition home or self-care (01) ==
LOC: ER 17:07
PROVIDERS: Student in an Organized Health Care Education/Training Program
DX: K52.9 Noninfective gastroenteritis and colitis, unspecified (principal); I10 Essential (primary) hypertension; Z96.0 Presence of urogenital implants; Z88.8 Allergy status to other drugs, medicaments and biological substances; Z91.040 Latex allergy status; Z79.899 Other long term (current) drug therapy; Z79.1 Long term (current) use of non-steroidal anti-inflammatories (NSAID)
CPT/HCPCS: 71045; 74177; 80053; 81001; 83690; 83735; 85025; 87086; 87428-QW; 93005; 93010; 96361; 96374-59; 96375; 96376; 99285-25; J2270; J2405; J7120; Q9967

== ENCOUNTER 2025-03-02 14:46 | Emergency (ER) | payer OTHER ==
[~2025-03-02] VITALS: Ht 147.3 cm; Wt 40.6 kg
[2025-03-02 15:05] LABS: Source, Urine Straight Cath
[2025-03-02 15:19] LABS: Appearance, Urine Cloudy (Clear); Bilirubin, Urine Neg (Neg); Blood, Urine 5+ (Neg); Color, Urine Yellow (P-Yellow); Glucose Qualitative, Urine Neg (Neg); Ketones, Urine Neg (Neg); Leukocyte Esterase, Urine 3+ (Neg); Nitrite, Urine Neg (Neg); Protein, Urine 3+ (Neg); Urobilinogen, Urine NORM (Normal)
[2025-03-02 15:27] LABS: Red Blood Cells, Urine TNTC /hpf (0-2); White Blood Cells, Urine TNTC /hpf (0-5)
[2025-03-02 15:28] LABS: Bacteria Many /hpf; Squamous Epithelial Cells Not Seen /hpf (Few)
[2025-03-02] MEDS ORDERED: Trimethoprim 80MG/Sulfamethoxazole 400MG/10ML UDC PO ONE (16:20)
[2025-03-02] MEDS ORDERED: SULTRIL10 PO (16:22)
[2025-03-02 16:48] VITALS: BP 102/83
== END 2025-03-02 17:24 | disposition home or self-care (01) ==
LOC: ER 14:46
PROVIDERS: Emergency Medicine
DX: N39.0 Urinary tract infection, site not specified (principal); G80.8 Other cerebral palsy; G40.909 Epilepsy, unspecified, not intractable, without status epilepticus; I10 Essential (primary) hypertension; M81.0 Age-related osteoporosis without current pathological fracture; Z88.1 Allergy status to other antibiotic agents; Z91.040 Latex allergy status; Z88.8 Allergy status to other drugs, medicaments and biological substances; Z79.899 Other long term (current) drug therapy; Z59.89 Other problems related to housing and economic circumstances
CPT/HCPCS: 81001; 87077; 87086; 87186; 99283; A9270

== ENCOUNTER 2025-03-06 17:38 | Inpatient (IN) | payer OTHER ==
[~2025-03-06] VITALS: Ht 152.4 cm; Wt 44.6 kg
[~2025-03-06 17:38] MED LIST changes: -AQUAPHOR TOP; +SULTRIL10 PO
[2025-03-06] MEDS ORDERED: Ondansetron HCl 2 MG / ML 2ML Vial IV ONE ×2 (18:00→19:15)
[2025-03-06 18:18] LABS: BASOPHILS ABSOLUTE AUTO 0.02 K/mm3 (0.00-0.23); BASOPHILS PERCENT AUTO 0 % (0-2); EOSINOPHILS ABSOLUTE AUTO 0.11 K/mm3 (0.00-0.68); EOSINOPHILS PERCENT AUTO 2 % (0-6); Hematocrit 34.3 % (33.0-51.0); Hemoglobin 11.8 g/dL (11.5-16.0); IMMATURE GRAN ABSOLUTE AUTO 0.01 K/mm3 (0.00-0.10); IMMATURE GRAN PERCENT AUTO 0 % (0-1); LYMPHOCYTES ABSOLUTE AUTO 1.92 K/mm3 (0.84-5.20); LYMPHOCYTES PERCENT AUTO 40 % (21-46); MONOCYTES ABSOLUTE AUTO 0.36 K/mm3 (0.16-1.47); MONOCYTES PERCENT AUTO 8 % (4-13); Mean Corpuscular HGB 32.2 pg (26.0-34.0); Mean Corpuscular HGB Conc 34.4 g/dL (31.5-36.5); Mean Corpuscular Volume 94 fL (80-100); Mean Platelet Volume 8.9 fL (9.1-12.4); NEUTROPHILS ABSOLUTE AUTO 2.35 K/mm3 (1.96-9.15); NEUTROPHILS PERCENT AUTO 49 % (41-73); Platelet Count 260 K/mm3 (150-400); RDW Coefficient Variation 12.5 % (11.7-14.2); RDW Standard Deviation 43.4 fL (35.1-46.3); Red Blood Cell Count 3.66 M/mm3 (3.80-5.20); White Blood Cell Count 4.77 K/mm3 (4.00-11.30)
[2025-03-06 18:34] LABS: Source, Urine Straight Cath
[2025-03-06 18:39] LABS: Appearance, Urine Cloudy (Clear); Bilirubin, Urine Neg (Neg); Blood, Urine 5+ (Neg); Glucose Qualitative, Urine Neg (Neg); Ketones, Urine Neg (Neg); Leukocyte Esterase, Urine 3+ (Neg); Nitrite, Urine Neg (Neg); Protein, Urine 3+ (Neg); Urobilinogen, Urine NORM (Normal)
[2025-03-06 18:47] LABS: Albumin, Blood 3.1 g/dL (3.4-5.0); Albumin/Globulin Ratio 0.7 (0.8-1.8); Bilirubin, Total 0.2 mg/dL (0.1-1.0); Bun/Creatinine Ratio 90.6 (12.0-20.0); Calcium, Blood 8.9 mg/dL (8.5-10.1); Creatinine, Blood 0.29 mg/dL (0.40-1.00); Globulin, Blood 4.5 g/dL (2.2-4.0); Potassium, Blood 4.1 mmol/L (3.5-5.5); Total Protein, Blood 7.6 g/dL (6.4-8.2)
[2025-03-06 18:52] LABS: Color, Urine Pale Yellow (P-Yellow)
[2025-03-06 18:53] LABS: White Blood Cells, Urine TNTC /hpf (0-5)
[2025-03-06 18:55] LABS: Bacteria Many /hpf; Red Blood Cells, Urine 50-100 /hpf (0-2); Squamous Epithelial Cells Few /hpf (Few)
[2025-03-06 19:02] LABS: Triple Phosphate Crystals Few /hpf
[2025-03-06] MEDS ORDERED: NS 1,000 ML IV SCH ×2 (19:15→21:00)
[2025-03-06] MEDS ORDERED: FentaNYL Citrate 50 MCG/ML 2 ML Injection IV PRN (20:45)
[2025-03-06] MEDS ORDERED: Ondansetron HCl 2 MG / ML 2ML Vial IV PRN (20:50)
[2025-03-06] MEDS ORDERED: Enoxaparin 40 MG/0.4 ML SYR SC SCH (21:00)
[2025-03-06] MEDS ORDERED: Trimethoprim/Sulfamethoxazole DS Tab PT ONE (21:25)
[2025-03-06 22:52] VITALS: BP 104/75
[2025-03-06] MEDS ORDERED: CefTRIAXone Sodium 1,000 MG in NS 100 ML IV SCH (23:12)
[2025-03-06] MEDS ORDERED: NS 1,000 ML IV ONE (23:45)
[2025-03-07 00:28] VITALS: BP 92/62
[2025-03-07 04:07] VITALS: BP 103/71
--- NOTE | 2025-03-07 04:27 | NUR ---
PT ADMITTED FROM ED THIS NIGHT. PT IS NONVERBAL, AND DOES APPEAR TO RECOGNIZE HER NAME, BUT UNSURE OF COGNITIVE ABILITY. PT WITH INABILITY TO MOVE ANY EXTREMS. IS INCONTINENT OF URINE, NO OUTPUT THIS SHIFT. IVF RUNNING FOR HYDRATION. PT WAS CATHER IN ED. PEG TUBE IN PLACE, NO CURRENT ORDER FOR FEEDINGS AT THIS TIME. RIGHT CHEST PORT ACCESSED. VS ARE WNL FOR THIS PT, TELE IS NSR. SISTER CALLED THIS AM AND WAS UPDATED ON CONDITION.
[2025-03-07 06:07] LABS: BASOPHILS ABSOLUTE AUTO 0.01 K/mm3 (0.00-0.23); BASOPHILS PERCENT AUTO 0 % (0-2); EOSINOPHILS ABSOLUTE AUTO 0.09 K/mm3 (0.00-0.68); EOSINOPHILS PERCENT AUTO 2 % (0-6); Hematocrit 33.6 % (33.0-51.0); Hemoglobin 11.2 g/dL (11.5-16.0); IMMATURE GRAN ABSOLUTE AUTO 0.02 K/mm3 (0.00-0.10); IMMATURE GRAN PERCENT AUTO 1 % (0-1); LYMPHOCYTES ABSOLUTE AUTO 1.89 K/mm3 (0.84-5.20); LYMPHOCYTES PERCENT AUTO 46 % (21-46); MONOCYTES ABSOLUTE AUTO 0.27 K/mm3 (0.16-1.47); MONOCYTES PERCENT AUTO 7 % (4-13); Mean Corpuscular HGB 32.1 pg (26.0-34.0); Mean Corpuscular HGB Conc 33.3 g/dL (31.5-36.5); Mean Corpuscular Volume 96 fL (80-100); Mean Platelet Volume 9.7 fL (9.1-12.4); NEUTROPHILS ABSOLUTE AUTO 1.83 K/mm3 (1.96-9.15); NEUTROPHILS PERCENT AUTO 45 % (41-73); Platelet Count 209 K/mm3 (150-400); RDW Coefficient Variation 12.8 % (11.7-14.2); RDW Standard Deviation 45.2 fL (35.1-46.3); Red Blood Cell Count 3.49 M/mm3 (3.80-5.20); White Blood Cell Count 4.11 K/mm3 (4.00-11.30)
[2025-03-07 06:29] LABS: Albumin, Blood 2.7 g/dL (3.4-5.0); Albumin/Globulin Ratio 0.7 (0.8-1.8); Bilirubin, Total 0.3 mg/dL (0.1-1.0); Bun/Creatinine Ratio 66.7 (12.0-20.0); Calcium, Blood 8.2 mg/dL (8.5-10.1); Creatinine, Blood 0.27 mg/dL (0.40-1.00); Globulin, Blood 4.1 g/dL (2.2-4.0); Potassium, Blood 4.2 mmol/L (3.5-5.5); Total Protein, Blood 6.8 g/dL (6.4-8.2)
[2025-03-07 07:37] VITALS: BP 111/69
[2025-03-07] MEDS ORDERED: FentaNYL 12 MCG/HR Patch TOP SCH (12:00)
[2025-03-07] MEDS ORDERED: PHENOBARBITAL 20 MG/5 ML PT SCH (14:00)
[2025-03-07 14:10] VITALS: BP 176/105
[2025-03-07] MEDS ORDERED: Lacosamide 50 MG/5 ML Oral Solution 5ML PT ONE (14:25)
--- NOTE | 2025-03-07 16:37 | NUR ---
REPORT RECEIVED AND VERIFIED. PT SEEMS A/O IS NOT VERBALE BUT IS ABLE TO ANSWER YES AND NO WITH EYES. NO C/O PAIN NO DISTRESS. PEG TUBE DRESSING IS CDI. RIGHT CHEST WALL PORT ACCESSED AND INFUSING NS. PT TURNED EVERY 2 HOURS. 1230 TUBE FEEDING STARTED, DIETARY SERVICES WAS NOTIFIED. PT INKO WELL HAS NO NAUSEA AND IS HUNGRY. 1410 PT HAS SEIZURE FOR ABOUT 40 SEC. VS WERE EXPECTED BUT QUICKLY RETURNED TO NORMAL LIMITS ONCE SEIZURE STOPPED. NO INJURY TO PT NOTED. DR SINGH WAS NOTIFIED AND PT ROUTINE MED WERE ORDERED. 1600 RESIDUAL CHECKED, ZEDRO RESIDUAL NOTED .
[2025-03-07] MEDS ORDERED: ARIPiprazole 2 MG Tablet PT SCH (21:00)
[2025-03-07] MEDS ORDERED: Potassium Phos/Sodium Phos 250 MG PACK PO SCH (21:00)
[2025-03-07] MEDS ORDERED: Lacosamide 50 MG/5 ML Oral Solution 5ML PT SCH (21:00)
[2025-03-07 21:42] VITALS: BP 127/82
[2025-03-07 23:35] VITALS: BP 116/80
[2025-03-08 04:03] VITALS: BP 150/105
--- NOTE | 2025-03-08 05:16 | NUR ---
PT ALERT AND DOES SEEM TO RESPOND TO VERBAL QUES. VS WNL, INCONTINENT OF B&B. REMAINS ON IVABX, TOTAL CARE FOR ADL'S AND MOBILITY. DOES NOT APPEAR TO BE IN PAIN. ASSEMBLER CONVERTIBLE TOP AT BEDSIDE THIS SHIFT. TF RUNNING AT 25 MLS/ HR, WITH H2O FLUSH EVERY [address] IN LOW 100'S. RIGHT CHEST PORT ACCESSED. UNSURE WHAT PLAN IS FOR D/C.
[2025-03-08] MEDS ORDERED: Lansoprazole 15 MG TAB.RAP.DR PT SCH (06:00)
[2025-03-08 07:29] LABS: Hematocrit 33.8 % (33.0-51.0); Hemoglobin 11.5 g/dL (11.5-16.0); Mean Corpuscular HGB 32.4 pg (26.0-34.0); Mean Corpuscular Volume 95 fL (80-100); Mean Platelet Volume 8.5 fL (9.1-12.4); Platelet Count 263 K/mm3 (150-400); RDW Coefficient Variation 12.6 % (11.7-14.2); RDW Standard Deviation 44.1 fL (35.1-46.3); Red Blood Cell Count 3.55 M/mm3 (3.80-5.20); White Blood Cell Count 4.27 K/mm3 (4.00-11.30)
[2025-03-08 07:46] VITALS: BP 120/83
[2025-03-08 07:48] LABS: Albumin, Blood 2.9 g/dL (3.4-5.0); Anion Gap 9 mmol/L (3-11); Blood Urea Nitrogen 19 mg/dL (8-24); Bun/Creatinine Ratio 66.9 (12.0-20.0); CO2, Blood 25 mmol/L (21-32); Calcium, Blood 8.5 mg/dL (8.5-10.1); Chloride, Blood 109 mmol/L (98-108); Creatinine, Blood 0.28 mg/dL (0.40-1.00); Glomerular Filtration Rate 131 (60-); Glucose, Blood 127 mg/dL (70-99); Potassium, Blood 3.7 mmol/L (3.5-5.5); Sodium, Blood 139 mmol/L (136-145)
[2025-03-08] MEDS ORDERED: Citalopram Hydrobromide 20 MG Tab PT SCH (09:00)
[2025-03-08] MEDS ORDERED: Polyethylene Glycol 3350 17 gm PT SCH (09:00)
[2025-03-08] MEDS ORDERED: NS 250 ML IV PRN (11:20)
[2025-03-08 16:29] VITALS: BP 126/83
--- NOTE | 2025-03-08 16:29 | NUR ---
ASSUMED CARE OF PT. NONVERBALE PT WITH THE ABILITY TO COMMUNICATE WITH HER EYES, PT WAS ABLE TO DIRECT ME TO CLEANING UP HER BOWEL MOVEMENT. PT HAD LARGE LOOSE BM ABD REMAIND SOFT AND NON TENDER. CARE GIVE AT BEDSIDE TO ASSIST WITH INTERPRETING PT NEEDS. PT TURNED Q2H FOR MOST THE SHIFT BUT PT REQUESTED WE ASK FIRST TO TURN IF SHE APPROVED.
[2025-03-08 20:25] VITALS: BP 132/80
[2025-03-08 23:15] VITALS: BP 137/98
--- NOTE | 2025-03-09 03:14 | NUR ---
SHIFT SUMMARY ALERT. NONVERBAL, NODS YES/NO APPROPRIATELY AND USES GESTURES AND EYE MOVEMENTS TO COMMUNICATE NEEDS. CG FROM [facility] AT BEDSIDE ALL SHIFT & VERY ATTENTIVE TO PATIENT. , RECEIVED IV ANTIBIOTIC (ROCEPHIN) THIS SHIFT WITH NO S/SX ADVERSE REACTIONS, HAS TOLERATED TUBE FEEDING RUNNING PER SCHEDULE-NO SEIZURE ACTIVITY OBESERVED, TURNED AT REGULAR INTERVALS WITH FREQUENT INCONTINENT VOIDS AND OCCASSIONAL LOOSE STOOL, SKIN IS INTACT & W/O ANY REDNESS. PT HAS SMILES AND LAUGHTS OFTEN AND NO SX PAIN NOTED, NO C/O NAUSEA (NAUSEA & HAD ZOFRAN PREVIOUS SHIFT). WILL STOP TUBBE FEEDING 0700 PER ORDERS. AFEBRILE/VSS.
[2025-03-09 04:31] VITALS: BP 137/95
[2025-03-09] MEDS ORDERED: Protein Supplement 30 ML UD PT SCH ×2 (06:00)
[2025-03-09 07:41] VITALS: BP 150/98
[2025-03-09] MEDS ORDERED: SULTRIL10 PO (11:37)
[2025-03-09] MEDS ORDERED: VISBIOME 112.51 EACH PT (11:39)
[2025-03-09] MEDS ORDERED: VISBIOME 112.51 EACH PO (11:40)
--- NOTE | 2025-03-09 12:11 | NUR ---
NOTE: DURING PT'S 1100 TUBE FEEDING, THIS NURSE NOTICED LEAKING FROM AROUND THE TUBE. DR. MERAZ NOTIFIED. DIETARY NOTIFIED. THIS NURSE SPOKE WITH THE HEAD NURSE, DOLORES, AT [facility] AND SHE SAID THIS CAN HAPPEN SOMETIMES. SHE SAID THAT THE ISSUE CAN BE ADDRESSED AND FIXED ONCE SHE GETS HOME. DR. MERAZ NOTIFED OF THE INFORMATION AND SHE HAD NO FURTHER CONCERNS. DIETARY ALSO NOTIFIED.
--- NOTE | 2025-03-09 14:24 | NUR ---
DISCHARGE NOTE PT DISCHARGED TO HOME, PICKED UP BY [facility]. REPORT GIVEN TO CODY BERNAL, CHARGE NURSE OF [facility]. DISCHARGE INSTRUCTIONS FAXED TO DOLORES AT THE DESIGNATED FAX NUMBER PROVIDED BY HER. PERSONAL BELONGINGS RETURNED. MEDIPORT DEACCESSED WITH [facility]. DISCHARGE PAPERWORK PROVIDED TO THE TRANSPORT CREW.
== END 2025-03-09 14:17 | disposition home or self-care (01) | DRG 690 ==
LOC: ER 17:38 → MEDS 17:39 → ENPENDDIS 03-09 13:08 → MEDS 03-09 14:17
PROVIDERS: Internal Medicine; Student in an Organized Health Care Education/Training Program; ADMIT Internal Medicine
DX: N12 Tubulo-interstitial nephritis, not specified as acute or chronic (principal); K56.699 Other intestinal obstruction unspecified as to partial versus complete obstruction; N39.0 Urinary tract infection, site not specified; G40.909 Epilepsy, unspecified, not intractable, without status epilepticus; I10 Essential (primary) hypertension; N31.9 Neuromuscular dysfunction of bladder, unspecified; Z96.649 Presence of unspecified artificial hip joint; Z96.0 Presence of urogenital implants; N20.0 Calculus of kidney; G80.8 Other cerebral palsy; Z79.899 Other long term (current) drug therapy; Z88.8 Allergy status to other drugs, medicaments and biological substances; Z91.040 Latex allergy status; Z79.2 Long term (current) use of antibiotics; Z87.19 Personal history of other diseases of the digestive system; M81.0 Age-related osteoporosis without current pathological fracture; Z98.2 Presence of cerebrospinal fluid drainage device; Z87.442 Personal history of urinary calculi; Z90.49 Acquired absence of other specified parts of digestive tract; Z98.890 Other specified postprocedural states; Z93.6 Other artificial openings of urinary tract status; Z86.59 Personal history of other mental and behavioral disorders; Z93.1 Gastrostomy status
CPT/HCPCS: 74177; 80053; 80069; 81001; 83690; 83735; 83880; 85025; 85027; 87077; 87086; 87186; 96361; 96374; 99285-25; A9270; G0378; J0696; J1642; J1650; J2405; J7030; P9612; Q9967

== ENCOUNTER → 2025-04-05 | Outpatient (CLI) | payer OTHER ==
[~2025-04-05] MED LIST changes: +VISBIOME 112.51 EACH PO
[2025-04-05 15:15] LABS: Appearance, Urine Cloudy (Clear); Bilirubin, Urine Neg (Neg); Blood, Urine 5+ (Neg); Color, Urine Yellow (P-Yellow); Glucose Qualitative, Urine Neg (Neg); Ketones, Urine Neg (Neg); Leukocyte Esterase, Urine 3+ (Neg); Nitrite, Urine Neg (Neg); Protein, Urine 3+ (Neg); Urobilinogen, Urine NORM (Normal)
[2025-04-05 15:26] LABS: White Blood Cells, Urine TNTC /hpf (0-5)
[2025-04-05 15:27] LABS: Bacteria Mod /hpf; Red Blood Cells, Urine 25-50 /hpf (0-2); Squamous Epithelial Cells Few /hpf (Few); Triple Phosphate Crystals Few /hpf
[2025-04-05 15:28] LABS: Amorphous Light (0-Heavy)
== END ==
LOC: LAB SHORT 13:50 → LAB 13:50
PROVIDERS: Family Medicine
DX: N39.0 Urinary tract infection, site not specified (principal)
CPT/HCPCS: 81001; 87086

== ENCOUNTER 2025-06-06 21:16 | Emergency (ER) | payer OTHER ==
[~2025-06-06] VITALS: Ht 91.4 cm; Wt 42.0 kg
[2025-06-06] MEDS ORDERED: NS 500 ML IV SCH (21:55)
[2025-06-06] MEDS ORDERED: Ondansetron HCl 2 MG / ML 2ML Vial IV ONE (21:55)
[2025-06-06 22:17] LABS: BASOPHILS ABSOLUTE AUTO 0.03 K/mm3 (0.00-0.23); BASOPHILS PERCENT AUTO 1 % (0-2); EOSINOPHILS ABSOLUTE AUTO 0.11 K/mm3 (0.00-0.68); EOSINOPHILS PERCENT AUTO 2 % (0-6); Hematocrit 37.8 % (33.0-51.0); Hemoglobin 12.9 g/dL (11.5-16.0); IMMATURE GRAN ABSOLUTE AUTO 0.09 K/mm3 (0.00-0.10); IMMATURE GRAN PERCENT AUTO 2 % (0-1); LYMPHOCYTES ABSOLUTE AUTO 2.21 K/mm3 (0.84-5.20); LYMPHOCYTES PERCENT AUTO 36 % (21-46); MONOCYTES ABSOLUTE AUTO 0.45 K/mm3 (0.16-1.47); MONOCYTES PERCENT AUTO 7 % (4-13); Mean Corpuscular HGB Conc 34.1 g/dL (31.5-36.5); Mean Corpuscular Volume 94 fL (80-100); NEUTROPHILS ABSOLUTE AUTO 3.24 K/mm3 (1.96-9.15); NEUTROPHILS PERCENT AUTO 53 % (41-73); NRBC ABSOLUTE 0.00 K/mm3 (0.00-0.02); NRBC Auto 0.0 /100 WBC (0.0-0.2); Platelet Count 259 K/mm3 (150-400); RDW Coefficient Variation 13.1 % (11.7-14.2); RDW Standard Deviation 44.8 fL (35.1-46.3)
[2025-06-06 22:40] LABS: Alanine Aminotransfer (ALT/SGP 44 U/L (12-78); Albumin, Blood 2.7 g/dL (3.4-5.0); Albumin/Globulin Ratio 0.5 (0.8-1.8); Anion Gap 7 mmol/L (3-11); Aspartate Aminotrans (AST/SGOT 30 U/L (12-37); Bilirubin, Direct <0.1 mg/dL (0.0-0.3); Bilirubin, Indirect Unable to Calculate mg/dL (0.1-0.7); Bilirubin, Total 0.2 mg/dL (0.1-1.0); Blood Urea Nitrogen 28 mg/dL (8-24); CO2, Blood 26 mmol/L (21-32); Calcium, Blood 8.9 mg/dL (8.5-10.1); Chloride, Blood 107 mmol/L (98-108); Creatinine, Blood 0.31 mg/dL (0.40-1.00); Globulin, Blood 5.3 g/dL (2.2-4.0); Glucose, Blood 102 mg/dL (70-99); Potassium, Blood 4.4 mmol/L (3.5-5.5); Sodium, Blood 136 mmol/L (136-145); Total Protein, Blood 8.0 g/dL (6.4-8.2)
[2025-06-06] MEDS ORDERED: Ketorolac Tromethamine 30mg Vial IV ONE (23:35)
[2025-06-06 23:37] LABS: Source, Urine Straight Cath
[2025-06-06 23:39] LABS: Bilirubin, Urine Neg (Neg); Glucose Qualitative, Urine Neg (Neg); Ketones, Urine Neg (Neg); Leukocyte Esterase, Urine 3+ (Neg); Protein, Urine 3+ (Neg); Specific Gravity, Urine 1.010 (1.003-1.022); Urobilinogen, Urine NORM (Normal)
[2025-06-06 23:40] LABS: Color, Urine Yellow (P-Yellow)
[2025-06-06 23:49] LABS: Red Blood Cells, Urine 50-100 /hpf (0-2); White Blood Cells, Urine TNTC /hpf (0-5)
[2025-06-07] MEDS ORDERED: CEFD125SUS PT (03:56)
[2025-06-07 07:06] VITALS: BP 106/87
== END 2025-06-07 05:15 | disposition home or self-care (01) ==
LOC: ER 21:16
PROVIDERS: Student in an Organized Health Care Education/Training Program
DX: N20.0 Calculus of kidney (principal); N12 Tubulo-interstitial nephritis, not specified as acute or chronic; I10 Essential (primary) hypertension; Z86.69 Personal history of other diseases of the nervous system and sense organs; Z79.899 Other long term (current) drug therapy; Z91.040 Latex allergy status; Z88.1 Allergy status to other antibiotic agents; Z88.8 Allergy status to other drugs, medicaments and biological substances
CPT/HCPCS: 51701; 71045; 74177; 80048; 80076; 81001; 83605; 83690; 84484; 85025; 87086; 93005; 93010; 96374; 96375; 99284-25; A9270; J1642; J1885; J2405; J7030; Q9967

== ENCOUNTER 2025-06-10 19:57 | Emergency (ER) | payer OTHER ==
[~2025-06-10] VITALS: Ht 91.4 cm; Wt 45.4 kg
[~2025-06-10 19:57] MED LIST changes: +CEFD125SUS PT
[2025-06-10 22:18] LABS: BASOPHILS ABSOLUTE AUTO 0.01 K/mm3 (0.00-0.23); BASOPHILS PERCENT AUTO 0 % (0-2); EOSINOPHILS ABSOLUTE AUTO 0.03 K/mm3 (0.00-0.68); EOSINOPHILS PERCENT AUTO 1 % (0-6); Hematocrit 39.7 % (33.0-51.0); Hemoglobin 13.4 g/dL (11.5-16.0); IMMATURE GRAN ABSOLUTE AUTO 0.02 K/mm3 (0.00-0.10); IMMATURE GRAN PERCENT AUTO 0 % (0-1); LYMPHOCYTES ABSOLUTE AUTO 1.44 K/mm3 (0.84-5.20); LYMPHOCYTES PERCENT AUTO 26 % (21-46); MONOCYTES ABSOLUTE AUTO 0.22 K/mm3 (0.16-1.47); MONOCYTES PERCENT AUTO 4 % (4-13); Mean Corpuscular HGB Conc 33.8 g/dL (31.5-36.5); Mean Corpuscular Volume 92 fL (80-100); NEUTROPHILS ABSOLUTE AUTO 3.92 K/mm3 (1.96-9.15); NEUTROPHILS PERCENT AUTO 70 % (41-73); NRBC ABSOLUTE 0.00 K/mm3 (0.00-0.02); NRBC Auto 0.0 /100 WBC (0.0-0.2); Platelet Count 276 K/mm3 (150-400); RDW Coefficient Variation 12.9 % (11.7-14.2); RDW Standard Deviation 43.8 fL (35.1-46.3)
[2025-06-10 22:37] LABS: Anion Gap 7.0 mmol/L (3-11); Blood Urea Nitrogen 23.0 mg/dL (8-24); CO2, Blood 27.0 mmol/L (21-32); Calcium, Blood 8.6 mg/dL (8.5-10.1); Chloride, Blood 106.0 mmol/L (98-108); Creatinine, Blood 0.32 mg/dL (0.40-1.00); Glucose, Blood 118.0 mg/dL (70-99); Potassium, Blood 4.2 mmol/L (3.5-5.5); Sodium, Blood 136.0 mmol/L (136-145)
[2025-06-10 22:58] LABS: Influenza A, PCR NEGATIVE (NEGATIVE); Influenza B, PCR NEGATIVE (NEGATIVE); Resp Syncytial Virus, PCR NEGATIVE (NEGATIVE); SARS-Cov-2 (COVID-19) PCR, MMC NEGATIVE (NEGATIVE)
[2025-06-11] MEDS ORDERED: DOXY100 PO (01:17)
[2025-06-11] MEDS ORDERED: AMOCLA875 PO (01:17)
[2025-06-11 01:30] VITALS: BP 123/66
[2025-06-11] MEDS ORDERED: BENEFIBER236 G1 (23:06)
== END 2025-06-11 02:46 | disposition home or self-care (01) ==
LOC: ER 19:57
PROVIDERS: Emergency Medicine
DX: J18.9 Pneumonia, unspecified organism (principal); Z91.040 Latex allergy status; Z79.2 Long term (current) use of antibiotics; Z79.899 Other long term (current) drug therapy; I10 Essential (primary) hypertension
CPT/HCPCS: 71045; 80048; 85025; 87637; 93005; 93010; A9270; J1642

== ENCOUNTER 2025-06-11 14:03 | Inpatient (IN) | payer OTHER ==
[~2025-06-11] VITALS: Ht 139.7 cm; Wt 46.4 kg
[~2025-06-11 14:03] MED LIST changes: +AMOCLA875 PO
[2025-06-11] MEDS ORDERED: NS 1,000 ML IV SCH ×2 (14:50→18:25)
[2025-06-11 16:09] LABS: BASOPHILS ABSOLUTE AUTO 0.01 K/mm3 (0.00-0.23); BASOPHILS PERCENT AUTO 0 % (0-2); EOSINOPHILS ABSOLUTE AUTO 0.00 K/mm3 (0.00-0.68); EOSINOPHILS PERCENT AUTO 0 % (0-6); Hematocrit 40.6 % (33.0-51.0); Hemoglobin 14.0 g/dL (11.5-16.0); IMMATURE GRAN ABSOLUTE AUTO 0.02 K/mm3 (0.00-0.10); IMMATURE GRAN PERCENT AUTO 0 % (0-1); LYMPHOCYTES ABSOLUTE AUTO 1.24 K/mm3 (0.84-5.20); LYMPHOCYTES PERCENT AUTO 22 % (21-46); MONOCYTES ABSOLUTE AUTO 0.23 K/mm3 (0.16-1.47); MONOCYTES PERCENT AUTO 4 % (4-13); Mean Corpuscular HGB Conc 34.5 g/dL (31.5-36.5); Mean Corpuscular Volume 91 fL (80-100); NEUTROPHILS ABSOLUTE AUTO 4.22 K/mm3 (1.96-9.15); NEUTROPHILS PERCENT AUTO 74 % (41-73); NRBC ABSOLUTE 0.00 K/mm3 (0.00-0.02); NRBC Auto 0.0 /100 WBC (0.0-0.2); Platelet Count 305 K/mm3 (150-400); RDW Coefficient Variation 13.2 % (11.7-14.2); RDW Standard Deviation 44.1 fL (35.1-46.3)
[2025-06-11 16:31] LABS: Source, Urine Straight Cath
[2025-06-11 16:32] LABS: Bilirubin, Urine Neg (Neg); Color, Urine Amber (P-Yellow); Glucose Qualitative, Urine Neg (Neg); Ketones, Urine 1+ (Neg); Leukocyte Esterase, Urine 3+ (Neg); Protein, Urine 3+ (Neg); Specific Gravity, Urine 1.020 (1.003-1.022); Urobilinogen, Urine NORM (Normal)
[2025-06-11 16:34] LABS: Alanine Aminotransfer (ALT/SGP 31.0 U/L (12-78); Albumin, Blood 2.8 g/dL (3.4-5.0); Albumin/Globulin Ratio 0.6 (0.8-1.8); Anion Gap 7.0 mmol/L (3-11); Aspartate Aminotrans (AST/SGOT 23.0 U/L (12-37); Bilirubin, Total 0.3 mg/dL (0.1-1.0); Blood Urea Nitrogen 19.0 mg/dL (8-24); CO2, Blood 24.0 mmol/L (21-32); Calcium, Blood 7.5 mg/dL (8.5-10.1); Chloride, Blood 110.0 mmol/L (98-108); Creatinine, Blood 0.26 mg/dL (0.40-1.00); Globulin, Blood 5.0 g/dL (2.2-4.0); Glucose, Blood 150.0 mg/dL (70-99); Potassium, Blood 3.2 mmol/L (3.5-5.5); Sodium, Blood 138.0 mmol/L (136-145); Total Protein, Blood 7.8 g/dL (6.4-8.2)
[2025-06-11 16:48] LABS: Red Blood Cells, Urine TNTC /hpf (0-2); White Blood Cells, Urine TNTC /hpf (0-5)
[2025-06-11] MEDS ORDERED: CefTRIAXone Sodium 2,000 MG in NS 100 ML IV ONE (17:20)
[2025-06-11] MEDS ORDERED: Ondansetron HCl 2 MG / ML 2ML Vial IV ONE (17:25)
[2025-06-11 22:22] VITALS: BP 179/122
[2025-06-11] MEDS ORDERED: BENEFIBER236 G1 (23:06)
[2025-06-11 23:36] VITALS: BP 187/108
[2025-06-12] MEDS ORDERED: Magnesium Hydroxide Conc 10 ML UDC PO PRN (00:20)
--- NOTE | 2025-06-12 00:21 | NUR ---
HOSPITALIST CONTACT PT HAS MEDIPORT ACCESSED FOR IV MEDS/FLUIDS. CALL TO HOSPITALIST SPOKE TO DR HOOPER. CONFIRED ORDER TO ACCESS MEDIPORT. NEW ORDERS FOR [facility] FUSH AND [facility] FOR DEACCESS. ALSO ADVISED PT'S MED REC IS COMPLETE AND BLOOD PRESSUE IS HIGH AT 187/108. TO REVIEW CHART AND PLACE ORDERS FOR MEDS.
[2025-06-12] MEDS ORDERED: HydrALAZINE HCl 20 MG / ML 1ML Vial IV PRN (00:30)
[2025-06-12] MEDS ORDERED: Acetaminophen 160MG / 5ML 10.15 UDC PT PRN (00:40)
[2025-06-12] MEDS ORDERED: Ondansetron HCl 2 MG / ML 2ML Vial IV PRN (02:40)
--- NOTE | 2025-06-12 03:22 | NUR ---
SHIFT SUMMARY PATIENT APPEARS TO BE SLEEPING COMFORTABLY AT THIS TIME. SHE RECENTLY HAD SOME ZOFRN FOR NAUSEA AND VOMITING. PATIENT HAS HAD TWO SOFT BOWEL MOVEMENTS ON THIS SHIFT. LR IS INFUSING IN MEDAPORT WITHOUT COMPLICATIONS. NUT PROCESSING SUPERVISOR IS AT THE BEDSIDE. SAFTY PRECAUTIONS ARE BEING MAINTAINED.
[2025-06-12 04:35] VITALS: BP 110/78
[2025-06-12 05:34] LABS: BASOPHILS ABSOLUTE AUTO 0.03 K/mm3 (0.00-0.23); BASOPHILS PERCENT AUTO 0 % (0-2); EOSINOPHILS ABSOLUTE AUTO 0.01 K/mm3 (0.00-0.68); EOSINOPHILS PERCENT AUTO 0 % (0-6); Hematocrit 35.0 % (33.0-51.0); Hemoglobin 11.9 g/dL (11.5-16.0); IMMATURE GRAN ABSOLUTE AUTO 0.02 K/mm3 (0.00-0.10); IMMATURE GRAN PERCENT AUTO 0 % (0-1); LYMPHOCYTES ABSOLUTE AUTO 2.19 K/mm3 (0.84-5.20); LYMPHOCYTES PERCENT AUTO 30 % (21-46); MONOCYTES ABSOLUTE AUTO 0.62 K/mm3 (0.16-1.47); MONOCYTES PERCENT AUTO 8 % (4-13); Mean Corpuscular HGB Conc 34.0 g/dL (31.5-36.5); Mean Corpuscular Volume 93 fL (80-100); NEUTROPHILS ABSOLUTE AUTO 4.50 K/mm3 (1.96-9.15); NEUTROPHILS PERCENT AUTO 61 % (41-73); NRBC ABSOLUTE 0.00 K/mm3 (0.00-0.02); NRBC Auto 0.0 /100 WBC (0.0-0.2); Platelet Count 305 K/mm3 (150-400); RDW Coefficient Variation 13.2 % (11.7-14.2); RDW Standard Deviation 45.1 fL (35.1-46.3)
[2025-06-12 05:58] LABS: Alanine Aminotransfer (ALT/SGP 33.0 U/L (12-78); Albumin, Blood 2.7 g/dL (3.4-5.0); Albumin/Globulin Ratio 0.6 (0.8-1.8); Anion Gap 5.0 mmol/L (3-11); Aspartate Aminotrans (AST/SGOT 22.0 U/L (12-37); Bilirubin, Total 0.3 mg/dL (0.1-1.0); Blood Urea Nitrogen 15.0 mg/dL (8-24); CO2, Blood 25.0 mmol/L (21-32); Calcium, Blood 7.9 mg/dL (8.5-10.1); Chloride, Blood 114.0 mmol/L (98-108); Creatinine, Blood 0.36 mg/dL (0.40-1.00); Globulin, Blood 4.4 g/dL (2.2-4.0); Glucose, Blood 117.0 mg/dL (70-99); Potassium, Blood 4.4 mmol/L (3.5-5.5); Sodium, Blood 140.0 mmol/L (136-145); Total Protein, Blood 7.1 g/dL (6.4-8.2)
[2025-06-12] MEDS ORDERED: Pantoprazole Sodium 40 MG Injection IV SCH (06:00)
[2025-06-12 07:17] VITALS: BP 103/70
[2025-06-12] MEDS ORDERED: CHOLECALCIFEROL PT SCH (09:00)
[2025-06-12] MEDS ORDERED: Enoxaparin 40 MG/0.4 ML SYR SC SCH (09:00)
[2025-06-12] MEDS ORDERED: PHENOBARBITAL 20 MG/5 ML PT SCH (09:00)
[2025-06-12] MEDS ORDERED: CALCIUM CITRATE 1000 MG PT SCH (09:00)
[2025-06-12] MEDS ORDERED: Polyethylene Glycol 3350 17 gm PT SCH (09:00)
[2025-06-12] MEDS ORDERED: Miconazole Nitrate 2% 85 GM PWD TOP SCH (09:00)
[2025-06-12] MEDS ORDERED: [UNRECOGNIZED DRUG - OTHER] PO SCH (09:00)
[2025-06-12] MEDS ORDERED: Lacosamide 50 MG/5 ML Oral Solution 5ML PT SCH (09:00)
[2025-06-12 11:57] VITALS: BP 97/67
[2025-06-12] MEDS ORDERED: NS 250 ML IV PRN (12:50)
[2025-06-12 14:18] LABS: Campylobacter Sp Not Detected (NOT DETECT); E. Coli O157 Not Detected (NOT DETECT); Enteroaggregative E. coli-EAEC Not Detected (NOT DETECT); Enteropathogenic E. coli-EPEC Not Detected (NOT DETECT); Enterotoxigenic E. coli-ETEC Not Detected (NOT DETECT); Salmonella Sp Not Detected (NOT DETECT); Shiga Toxin-prod E. coli-STEC Not Detected (NOT DETECT); Shigella/Enteroin E. coli-EIEC Not Detected (NOT DETECT); Vibrio Sp Not Detected (NOT DETECT)
[2025-06-12 14:49] VITALS: BP 117/77
[2025-06-12] MEDS ORDERED: CefTRIAXone Sodium 1,000 MG in NS 100 ML IV SCH (18:00)
--- NOTE | 2025-06-12 18:23 | NUR ---
SHIFT SUMMARY: PLAN FOR FEW DAYS OF ANTIBIOTICIS. PATIENT IS MUTE AND BEST RESPONDS TO YES AND NO QUESTIONS BY SHAKING HER HEAD OR BLINKING HER EYES. PATIENT HAS SUBTLE COMPLAINTS OF ABDOMENAL PAIN EARLIER THIS SHIFT, THIS HAS RESOLVED. DIETARY CONSULT IN PLACE. ABDOMENAL CT PERFORMED THIS SHIFT, AWAITING RESULTS AT THIS TIME. 1L LR GIVEN D/T HYPOTENSION AND S/S OF DEHYDRATION. PLAN OF CARE ONGOING AT THIS TIME, WILL CONTINUE TO MONITOR.
[2025-06-12] MEDS ORDERED: Docusate Sodium Liquid 100 MG UDC PT PRN (20:10)
[2025-06-12 20:20] VITALS: BP 142/90
[2025-06-12] MEDS ORDERED: Erythromycin 0.5% Opth Oint 3.5 gm BOTHEYES SCH (21:00)
[2025-06-13 00:07] VITALS: BP 130/90
--- NOTE | 2025-06-13 04:20 | NUR ---
SHIFT SUMMARY PATIENT HAS APPEARED TO SLEEP COMFORTABLY THROUGHOUT THE NIGHT. SHE HAS BEEN TURNED REGULARLY THROUGHOUT THE NIGHT. MEDICATED X1 FOR NAUSEA. BED ALARM IS ON. SAFTEY PRECAUTIONS ARE BEING MAINTAINED.
[2025-06-13 04:53] VITALS: BP 147/99
[2025-06-13 07:40] VITALS: BP 133/86
[2025-06-13 13:09] LABS: BASOPHILS ABSOLUTE AUTO 0.02 K/mm3 (0.00-0.23); BASOPHILS PERCENT AUTO 1 % (0-2); EOSINOPHILS ABSOLUTE AUTO 0.04 K/mm3 (0.00-0.68); EOSINOPHILS PERCENT AUTO 1 % (0-6); Hematocrit 32.8 % (33.0-51.0); Hemoglobin 10.7 g/dL (11.5-16.0); IMMATURE GRAN ABSOLUTE AUTO 0.02 K/mm3 (0.00-0.10); IMMATURE GRAN PERCENT AUTO 1 % (0-1); LYMPHOCYTES ABSOLUTE AUTO 1.92 K/mm3 (0.84-5.20); LYMPHOCYTES PERCENT AUTO 49 % (21-46); MONOCYTES ABSOLUTE AUTO 0.21 K/mm3 (0.16-1.47); MONOCYTES PERCENT AUTO 5 % (4-13); Mean Corpuscular HGB Conc 32.6 g/dL (31.5-36.5); Mean Corpuscular Volume 95 fL (80-100); NEUTROPHILS ABSOLUTE AUTO 1.72 K/mm3 (1.96-9.15); NEUTROPHILS PERCENT AUTO 44 % (41-73); NRBC ABSOLUTE 0.00 K/mm3 (0.00-0.02); NRBC Auto 0.0 /100 WBC (0.0-0.2); Platelet Count 202 K/mm3 (150-400); RDW Coefficient Variation 13.0 % (11.7-14.2); RDW Standard Deviation 45.2 fL (35.1-46.3)
[2025-06-13 13:30] LABS: Anion Gap 7.0 mmol/L (3-11); Blood Urea Nitrogen 8.0 mg/dL (8-24); CO2, Blood 27.0 mmol/L (21-32); Calcium, Blood 7.9 mg/dL (8.5-10.1); Chloride, Blood 109.0 mmol/L (98-108); Creatinine, Blood 0.32 mg/dL (0.40-1.00); Glucose, Blood 95.0 mg/dL (70-99); Magnesium, Blood 1.8 mg/dL (1.6-2.4); Phosphorus, Blood 2.4 mg/dL (2.5-4.9); Potassium, Blood 3.2 mmol/L (3.5-5.5); Sodium, Blood 140.0 mmol/L (136-145)
[2025-06-13] MEDS ORDERED: Potassium Phosphate Dibasic 30 MM in Dextrose 5% 500 ML IV STA (15:44)
[2025-06-13 15:50] VITALS: BP 139/88
--- NOTE | 2025-06-13 17:17 | NUR ---
PATIENT STARTED ON SUPPLEMENTAL NUTRITION AT 25ML/HR. FLUSH OF 90ML EVERY HOUR. INCREASE SUPPLEMENTAL NUTRITION ACCORDING TO ORDER, NEXT INCREASE DUE AT 1999. PLAN OF CARE ONGOING AT THIS TIME, WILL CONTINUE TO MONITOR.
--- NOTE | 2025-06-13 18:35 | NUR ---
SHIFT SUMMARY: PLAN FOR CONTINUED ANTIBIOTIC THERAPY. POTASSIUM RUNNING AT THIS TIME D/T DROPPING POTASSIUM LEVELS. PATIENT CONTINUES TO HAVE WATERY STOOLS BUT BETTER URINARY OUTPUT IN COMPARISON TO YESTERDAY. PLAN OF CARE ONGOING AT THIS TIME, WILL CONTINUE TO MONITOR.
[2025-06-13 19:32] VITALS: BP 143/91
[2025-06-13 23:45] VITALS: BP 112/70
--- NOTE | 2025-06-14 03:31 | NUR ---
SHIFT SUMMARY PATIENT HAS APPEARED TO REST COMFORTABLY TONIGHT. SHE HAS NOT HAD ANY EPISODES OF NAUSEA OR VOMITING TONIGHT. SHE IS HAVING DIARRHEA. TUBE FEED IS INFUSING WITHOUT COMPLICATIONS. VITAL SIGNS ARE STABLE PATIENT HAS BEEN REPOSITIONED THROUGHOUT THE NIGHT NEEDED. SAFETY PRECAUTIONS ARE BEING MAINTAINED.
[2025-06-14 04:06] VITALS: BP 102/64
[2025-06-14 06:30] LABS: BASOPHILS ABSOLUTE AUTO 0.02 K/mm3 (0.00-0.23); BASOPHILS PERCENT AUTO 0 % (0-2); EOSINOPHILS ABSOLUTE AUTO 0.12 K/mm3 (0.00-0.68); EOSINOPHILS PERCENT AUTO 2 % (0-6); Hematocrit 32.5 % (33.0-51.0); Hemoglobin 11.3 g/dL (11.5-16.0); IMMATURE GRAN ABSOLUTE AUTO 0.01 K/mm3 (0.00-0.10); IMMATURE GRAN PERCENT AUTO 0 % (0-1); LYMPHOCYTES ABSOLUTE AUTO 2.33 K/mm3 (0.84-5.20); LYMPHOCYTES PERCENT AUTO 48 % (21-46); MONOCYTES ABSOLUTE AUTO 0.35 K/mm3 (0.16-1.47); MONOCYTES PERCENT AUTO 7 % (4-13); Mean Corpuscular HGB Conc 34.8 g/dL (31.5-36.5); Mean Corpuscular Volume 91 fL (80-100); NEUTROPHILS ABSOLUTE AUTO 2.08 K/mm3 (1.96-9.15); NEUTROPHILS PERCENT AUTO 42 % (41-73); NRBC ABSOLUTE 0.00 K/mm3 (0.00-0.02); NRBC Auto 0.0 /100 WBC (0.0-0.2); Platelet Count 195 K/mm3 (150-400); RDW Coefficient Variation 12.6 % (11.7-14.2); RDW Standard Deviation 41.9 fL (35.1-46.3)
[2025-06-14 06:50] LABS: Alanine Aminotransfer (ALT/SGP 29.0 U/L (12-78); Albumin, Blood 2.4 g/dL (3.4-5.0); Albumin/Globulin Ratio 0.6 (0.8-1.8); Anion Gap 7.0 mmol/L (3-11); Aspartate Aminotrans (AST/SGOT 18.0 U/L (12-37); Bilirubin, Total 0.3 mg/dL (0.1-1.0); Blood Urea Nitrogen 8.0 mg/dL (8-24); CO2, Blood 28.0 mmol/L (21-32); Calcium, Blood 7.5 mg/dL (8.5-10.1); Chloride, Blood 103.0 mmol/L (98-108); Creatinine, Blood 0.33 mg/dL (0.40-1.00); Globulin, Blood 4.1 g/dL (2.2-4.0); Glucose, Blood 106.0 mg/dL (70-99); Potassium, Blood 3.6 mmol/L (3.5-5.5); Sodium, Blood 134.0 mmol/L (136-145); Total Protein, Blood 6.5 g/dL (6.4-8.2)
[2025-06-14 07:52] VITALS: BP 117/75
[2025-06-14] MEDS ORDERED: Trimethoprim 80MG/Sulfamethoxazole 400MG/10ML UDC PT SCH (09:00)
[2025-06-14] MEDS ORDERED: CefTRIAXone Sodium 1,000 MG in NS 100 ML IV ONE (11:00)
--- NOTE | 2025-06-14 11:58 | NUR ---
NOTE: SPOKE WITH COOPER, HEAD RN AT [facility], AND SHE SAID THEY WOULD NOT ACCEPT HER BACK TO THEIR FACILITY UNTIL THE PT CAN TOLERATE THE GOAL FEEDING OF 60ML/HR. THE PT HAS NOT YET DONE AN ENTIRE FEEDING AT 60ML/HR BUT THAT WILL BE STARTED THIS AFTERNOON AT 1600. DR. RODRIGUEZ MADE AWARE.
[2025-06-14 15:50] VITALS: BP 123/88
--- NOTE | 2025-06-14 17:03 | NUR ---
SHIFT SUMMARY PT AO TO SELF, NODS YES OR NO. CRIES OUT IF NEEDS SOMETHING. SUCTION AT THE BS. INCONTINENT OF BOWEL AND BLADDER, LOOSE STOOLS THIS SHIFT. TUBE FEEDINGS RESUMED AT 1600 AT THE GOAL RATE OF 60 ML/HR. POSSIBLE DC HOME TOMORROW TO . CALL LIGHT WITHIN REACH, BED LOCKED AND IN THE LOWEST POSITION. WILL REPORT TO ONCOMING NURSE.
[2025-06-14 19:36] VITALS: BP 140/87
[2025-06-14] MEDS ORDERED: Guar Gum, Partially Hydrolyzed 4 GM Pack PT SCH (21:00)
--- NOTE | 2025-06-14 23:04 | NUR ---
CALLED TO PT'S ROOM BY BEDSIDE RN D/T PHENOBARBITOL NOT SCANNING CORRECTLY. BEDSIDE RN CALLED PHARMACY, SPOKE WITH PHARMACIST WHO WAS NOT ABLE TO CORRECT THE MEDICATION AT THIS TIME. PHARMACIST REQUESTED TO HAVE A 2 RN CHECK. VERIFIED CORRECT DOSE OF PHENOBARBITOL WITH BEDSIDE RN. DOSE CORRECTED MANUALLY IN EMAR. PHENOBARBITOL 20 MG/5 ML, SHOWED 4 MG WHEN SCANNED INTO MAR INSTEAD OF 20 MG.
--- NOTE | 2025-06-14 23:15 | NUR ---
Phenobarbitol given late Med order is to give Phenobarbitol 48mg PT TID. What is available is in single cups with dose reading Phenobarbitol 20mg/mL in each cup. When scanned, med showed 4mg/5mL per cup. Clarified with Pharmacy on scanning error which took some time. Patient received 2 + 2/3 cups which equates to 12mL of liquid phenobarbitol for a total of 48mg. Verified dosing with Relief Charge, Temi Gross.
[2025-06-15 03:04] VITALS: BP 126/91
--- NOTE | 2025-06-15 04:58 | NUR ---
Shift Summary AO to self. Mutism. Is able to communicate through body language and hand gestures, nodding yes/no to questions, and pointing down with finger for brief changes. Loose mucousy stools with every brief change tonight. So far, pt tolerating continuous tube feeds @ 60ml/hour with 90mls hourly water flushes; set to end around 8-9am for a total of 16-17 hours.
--- NOTE | 2025-06-15 05:07 | NUR ---
Update provided to [facility] Spoke with Rebecca this morning. Updated Rebecca with rate and frequency of feed/flush. Also informed her that there is a high likelihood patient is going to discharge today. Pt is no longer getting IV antibiotics. No other questions or concerns from Rebecca at this time.
[2025-06-15 05:54] LABS: BASOPHILS ABSOLUTE AUTO 0.01 K/mm3 (0.00-0.23); BASOPHILS PERCENT AUTO 0 % (0-2); EOSINOPHILS ABSOLUTE AUTO 0.15 K/mm3 (0.00-0.68); EOSINOPHILS PERCENT AUTO 2 % (0-6); Hematocrit 35.3 % (33.0-51.0); Hemoglobin 12.0 g/dL (11.5-16.0); IMMATURE GRAN ABSOLUTE AUTO 0.01 K/mm3 (0.00-0.10); IMMATURE GRAN PERCENT AUTO 0 % (0-1); LYMPHOCYTES ABSOLUTE AUTO 3.01 K/mm3 (0.84-5.20); LYMPHOCYTES PERCENT AUTO 49 % (21-46); MONOCYTES ABSOLUTE AUTO 0.43 K/mm3 (0.16-1.47); MONOCYTES PERCENT AUTO 7 % (4-13); Mean Corpuscular HGB Conc 34.0 g/dL (31.5-36.5); Mean Corpuscular Volume 91 fL (80-100); NEUTROPHILS ABSOLUTE AUTO 2.53 K/mm3 (1.96-9.15); NEUTROPHILS PERCENT AUTO 41 % (41-73); NRBC ABSOLUTE 0.00 K/mm3 (0.00-0.02); NRBC Auto 0.0 /100 WBC (0.0-0.2); Platelet Count 242 K/mm3 (150-400); RDW Coefficient Variation 12.9 % (11.7-14.2); RDW Standard Deviation 42.5 fL (35.1-46.3)
[2025-06-15 06:11] LABS: Anion Gap 8.0 mmol/L (3-11); Blood Urea Nitrogen 14.0 mg/dL (8-24); CO2, Blood 26.0 mmol/L (21-32); Calcium, Blood 7.9 mg/dL (8.5-10.1); Chloride, Blood 103.0 mmol/L (98-108); Creatinine, Blood 0.33 mg/dL (0.40-1.00); Glucose, Blood 132.0 mg/dL (70-99); Potassium, Blood 3.5 mmol/L (3.5-5.5); Sodium, Blood 133.0 mmol/L (136-145)
[2025-06-15 08:17] VITALS: BP 152/98
--- NOTE | 2025-06-15 14:07 | NUR ---
PT WITH HX OF CEREBRAL PALSY; NONVERBAL, BUT ABLE TO MAKE SOME NEEDS KNOWN. PT ADMITTED FOR CAP RECEIVING ABX. PT ALSO IN ISO FOR NORO VIRUS IN THE STOOL. INCONTINENT OF BOWEL AND BLADDER. PT TO D/C BACK TO [facility]. NO C/O PAIN. PT TURNED AND CHANGED FREQUENTLY FOR INCONTINENCE. TUBE FEEDING AND WATER FLUSHES COMPLETE AT NOON. PT TOLERATED WELL. REPORT GIVEN TO RAFAEL ROSS. [place] JUST HERE TO TAKE PT HOME.
--- NOTE | 2025-06-15 14:12 | NUR ---
Pt has been transfered to wheelchair, with three people, report was called to [facility] via wheelchair with all her belongings.
== END 2025-06-15 14:21 | DRG 871 ==
LOC: ER 14:03 → MEDS 17:58
PROVIDERS: Registered Nurse; Student in an Organized Health Care Education/Training Program; ADMIT Hospitalist
DX: A41.9 Sepsis, unspecified organism (principal); J18.9 Pneumonia, unspecified organism; R53.2 Functional quadriplegia; N39.0 Urinary tract infection, site not specified; I10 Essential (primary) hypertension; G43.909 Migraine, unspecified, not intractable, without status migrainosus; M81.0 Age-related osteoporosis without current pathological fracture; G80.8 Other cerebral palsy; R19.7 Diarrhea, unspecified; R65.20 Severe sepsis without septic shock; E87.6 Hypokalemia; Z74.01 Bed confinement status; Z87.440 Personal history of urinary (tract) infections; Z90.49 Acquired absence of other specified parts of digestive tract; Z98.890 Other specified postprocedural states; Z79.899 Other long term (current) drug therapy; Z91.040 Latex allergy status; Z88.8 Allergy status to other drugs, medicaments and biological substances; Z79.2 Long term (current) use of antibiotics
CPT/HCPCS: 36415; 71045; 74177; 80048; 80053; 81001; 83605; 83735; 84100; 84484; 85025; 87040; 87077; 87086; 87186; 87507; 87637; 93005; 93010; 94762; 96361; 96374; 99285-25; A9270; J0360; J0456; J0696; J1642; J1650; J2405; J2470; J3480; J7030; J7050; J7060; J7120; Q9967

== ENCOUNTER 2025-08-12 12:10 | Emergency (ER) | payer OTHER ==
[~2025-08-12] VITALS: Ht 106.7 cm; Wt 2.7 kg
[~2025-08-12 12:10] MED LIST changes: +BENEFIBER236 G1
[2025-08-12] MEDS ORDERED: NS 1,000 ML IV SCH (12:15)
[2025-08-12 13:25] LABS: BASOPHILS ABSOLUTE AUTO 0.01 K/mm3 (0.00-0.23); BASOPHILS PERCENT AUTO 0 % (0-2); EOSINOPHILS ABSOLUTE AUTO 0.09 K/mm3 (0.00-0.68); EOSINOPHILS PERCENT AUTO 2 % (0-6); Hematocrit 35.4 % (33.0-51.0); Hemoglobin 12.1 g/dL (11.5-16.0); IMMATURE GRAN ABSOLUTE AUTO 0.01 K/mm3 (0.00-0.10); IMMATURE GRAN PERCENT AUTO 0 % (0-1); LYMPHOCYTES ABSOLUTE AUTO 1.95 K/mm3 (0.84-5.20); LYMPHOCYTES PERCENT AUTO 32 % (21-46); MONOCYTES ABSOLUTE AUTO 0.43 K/mm3 (0.16-1.47); MONOCYTES PERCENT AUTO 7 % (4-13); Mean Corpuscular HGB Conc 34.2 g/dL (31.5-36.5); Mean Corpuscular Volume 93 fL (80-100); NEUTROPHILS ABSOLUTE AUTO 3.61 K/mm3 (1.96-9.15); NEUTROPHILS PERCENT AUTO 59 % (41-73); NRBC ABSOLUTE 0.00 K/mm3 (0.00-0.02); NRBC Auto 0.0 /100 WBC (0.0-0.2); Platelet Count 336 K/mm3 (150-400); RDW Coefficient Variation 13.3 % (11.7-14.2); RDW Standard Deviation 45.4 fL (35.1-46.3)
[2025-08-12 14:00] LABS: Alanine Aminotransfer (ALT/SGP 46.0 U/L (12-78); Albumin, Blood 2.8 g/dL (3.4-5.0); Albumin/Globulin Ratio 0.5 (0.8-1.8); Anion Gap 6.0 mmol/L (3-11); Aspartate Aminotrans (AST/SGOT 29.0 U/L (12-37); Bilirubin, Total 0.2 mg/dL (0.1-1.0); Blood Urea Nitrogen 35.0 mg/dL (8-24); CO2, Blood 30.0 mmol/L (21-32); Calcium, Blood 8.7 mg/dL (8.5-10.1); Chloride, Blood 104.0 mmol/L (98-108); Creatinine, Blood 0.3 mg/dL (0.40-1.00); Globulin, Blood 5.2 g/dL (2.2-4.0); Glucose, Blood 128.0 mg/dL (70-99); Potassium, Blood 4.1 mmol/L (3.5-5.5); Sodium, Blood 136.0 mmol/L (136-145); Total Protein, Blood 8.0 g/dL (6.4-8.2)
[2025-08-12] MEDS ORDERED: CEPHALEXIN250 MG/5 M PT (15:35)
[2025-08-12 16:30] VITALS: BP 132/71
== END 2025-08-12 16:46 | disposition home or self-care (01) ==
LOC: ER 12:10
PROVIDERS: Emergency Medicine
DX: T83.123A Displacement of other urinary stents, initial encounter (principal); Z91.040 Latex allergy status; Z79.899 Other long term (current) drug therapy; Z88.8 Allergy status to other drugs, medicaments and biological substances
CPT/HCPCS: 74177; 80053; 83690; 84484; 85025; 93005; 93010; 96360-59; 99284-25; J7030; Q9967

== ENCOUNTER 2025-09-12 22:03 | Emergency (ER) | payer OTHER ==
[~2025-09-12] VITALS: Ht 147.3 cm; Wt 40.8 kg
[~2025-09-12 22:03] MED LIST changes: +CEPHALEXIN250 MG/5 M PT; +FENTANYL1 EA12
[2025-09-12 23:22] LABS: BASOPHILS ABSOLUTE AUTO 0.02 K/mm3 (0.00-0.23); BASOPHILS PERCENT AUTO 0 % (0-2); EOSINOPHILS ABSOLUTE AUTO 0.08 K/mm3 (0.00-0.68); EOSINOPHILS PERCENT AUTO 1 % (0-6); Hematocrit 39.0 % (33.0-51.0); Hemoglobin 13.4 g/dL (11.5-16.0); IMMATURE GRAN ABSOLUTE AUTO 0.03 K/mm3 (0.00-0.10); IMMATURE GRAN PERCENT AUTO 1 % (0-1); LYMPHOCYTES ABSOLUTE AUTO 2.47 K/mm3 (0.84-5.20); LYMPHOCYTES PERCENT AUTO 40 % (21-46); MONOCYTES ABSOLUTE AUTO 0.49 K/mm3 (0.16-1.47); MONOCYTES PERCENT AUTO 8 % (4-13); Mean Corpuscular HGB Conc 34.4 g/dL (31.5-36.5); Mean Corpuscular Volume 90 fL (80-100); NEUTROPHILS ABSOLUTE AUTO 3.06 K/mm3 (1.96-9.15); NEUTROPHILS PERCENT AUTO 50 % (41-73); NRBC ABSOLUTE 0.00 K/mm3 (0.00-0.02); NRBC Auto 0.0 /100 WBC (0.0-0.2); RDW Coefficient Variation 14.1 % (11.7-14.2); RDW Standard Deviation 45.3 fL (35.1-46.3)
[2025-09-12 23:23] LABS: Platelet Count 265 K/mm3 (150-400)
[2025-09-12 23:39] LABS: Alanine Aminotransfer (ALT/SGP 48.0 U/L (12-78); Albumin, Blood 3.2 g/dL (3.4-5.0); Albumin/Globulin Ratio 0.6 (0.8-1.8); Anion Gap 10.0 mmol/L (3-11); Aspartate Aminotrans (AST/SGOT 30.0 U/L (12-37); Bilirubin, Total 0.3 mg/dL (0.1-1.0); Blood Urea Nitrogen 22.0 mg/dL (8-24); CO2, Blood 26.0 mmol/L (21-32); Calcium, Blood 9.2 mg/dL (8.5-10.1); Chloride, Blood 102.0 mmol/L (98-108); Creatinine, Blood 0.28 mg/dL (0.40-1.00); Globulin, Blood 5.1 g/dL (2.2-4.0); Glucose, Blood 100.0 mg/dL (70-99); Potassium, Blood 4.0 mmol/L (3.5-5.5); Sodium, Blood 134.0 mmol/L (136-145); Total Protein, Blood 8.3 g/dL (6.4-8.2)
[2025-09-13] MEDS ORDERED: FentaNYL Citrate 50 MCG/ML 2 ML Injection IV ONE (00:10)
[2025-09-13 03:51] VITALS: BP 117/84
== END 2025-09-13 07:28 | disposition home or self-care (01) ==
LOC: ER 22:03
PROVIDERS: Emergency Medicine
DX: R14.0 Abdominal distension (gaseous) (principal); I10 Essential (primary) hypertension; G40.909 Epilepsy, unspecified, not intractable, without status epilepticus; G80.9 Cerebral palsy, unspecified; R53.2 Functional quadriplegia; Z88.8 Allergy status to other drugs, medicaments and biological substances; Z91.040 Latex allergy status; Z79.899 Other long term (current) drug therapy
CPT/HCPCS: 74177; 80053; 83690; 85025; 99284-25; J1642; Q9967

== ENCOUNTER → 2025-09-21 | Outpatient (CLI) | payer OTHER ==
[2025-09-21 11:38] LABS: Bilirubin, Urine Neg (Neg); Color, Urine Yellow (P-Yellow); Glucose Qualitative, Urine Neg (Neg); Ketones, Urine Neg (Neg); Leukocyte Esterase, Urine 3+ (Neg); Protein, Urine 2+ (Neg); Specific Gravity, Urine 1.015 (1.003-1.022); Urobilinogen, Urine NORM (Normal)
[2025-09-21 11:59] LABS: White Blood Cells, Urine 50-100 /hpf (0-5)
== END ==
LOC: LAB SHORT 09:00 → LAB 09:00
PROVIDERS: Specialist
DX: N39.0 Urinary tract infection, site not specified (principal)
CPT/HCPCS: 81001

== ENCOUNTER → 2025-10-25 | Outpatient (CLI) | payer OTHER ==
[2025-10-25 14:17] LABS: Bilirubin, Urine Neg (Neg); Glucose Qualitative, Urine Neg (Neg); Ketones, Urine Neg (Neg); Leukocyte Esterase, Urine 3+ (Neg); Protein, Urine 3+ (Neg); Specific Gravity, Urine 1.015 (1.003-1.022); Urobilinogen, Urine NORM (Normal)
[2025-10-25 14:34] LABS: Color, Urine Pale Yellow (P-Yellow)
[2025-10-25 14:36] LABS: White Blood Cells, Urine TNTC /hpf (0-5)
== END ==
LOC: LAB 12:30 → LAB SHORT 12:30
PROVIDERS: Specialist
DX: N20.0 Calculus of kidney (principal)
CPT/HCPCS: 81001; 87086

== ENCOUNTER 2025-10-29 20:38 | Emergency (ER) | payer OTHER ==
[~2025-10-29] VITALS: Ht 121.9 cm; Wt 44.9 kg
[2025-10-29 21:27] LABS: BASOPHILS ABSOLUTE AUTO 0.02 K/mm3 (0.00-0.23); BASOPHILS PERCENT AUTO 0 % (0-2); EOSINOPHILS ABSOLUTE AUTO 0.06 K/mm3 (0.00-0.68); EOSINOPHILS PERCENT AUTO 1 % (0-6); Hematocrit 38.0 % (33.0-51.0); Hemoglobin 12.9 g/dL (11.5-16.0); IMMATURE GRAN ABSOLUTE AUTO 0.01 K/mm3 (0.00-0.10); IMMATURE GRAN PERCENT AUTO 0 % (0-1); LYMPHOCYTES ABSOLUTE AUTO 2.05 K/mm3 (0.84-5.20); LYMPHOCYTES PERCENT AUTO 37 % (21-46); MONOCYTES ABSOLUTE AUTO 0.42 K/mm3 (0.16-1.47); MONOCYTES PERCENT AUTO 8 % (4-13); Mean Corpuscular HGB Conc 33.9 g/dL (31.5-36.5); Mean Corpuscular Volume 95 fL (80-100); NEUTROPHILS ABSOLUTE AUTO 2.93 K/mm3 (1.96-9.15); NEUTROPHILS PERCENT AUTO 53 % (41-73); NRBC ABSOLUTE 0.00 K/mm3 (0.00-0.02); NRBC Auto 0.0 /100 WBC (0.0-0.2); Platelet Count 262 K/mm3 (150-400); RDW Coefficient Variation 12.8 % (11.7-14.2); RDW Standard Deviation 44.5 fL (35.1-46.3)
[2025-10-29 21:46] LABS: Alanine Aminotransfer (ALT/SGP 48.0 U/L (12-78); Albumin, Blood 3.0 g/dL (3.4-5.0); Albumin/Globulin Ratio 0.6 (0.8-1.8); Anion Gap 6.0 mmol/L (3-11); Aspartate Aminotrans (AST/SGOT 27.0 U/L (12-37); Bilirubin, Total 0.3 mg/dL (0.1-1.0); Blood Urea Nitrogen 30.0 mg/dL (8-24); CO2, Blood 29.0 mmol/L (21-32); Calcium, Blood 8.6 mg/dL (8.5-10.1); Chloride, Blood 108.0 mmol/L (98-108); Creatinine, Blood 0.27 mg/dL (0.40-1.00); Globulin, Blood 4.7 g/dL (2.2-4.0); Glucose, Blood 115.0 mg/dL (70-99); Potassium, Blood 3.6 mmol/L (3.5-5.5); Sodium, Blood 139.0 mmol/L (136-145); Total Protein, Blood 7.7 g/dL (6.4-8.2)
[2025-10-30 02:00] VITALS: BP 97/70
== END 2025-10-30 03:23 | disposition home or self-care (01) ==
LOC: ER 20:38
PROVIDERS: Emergency Medicine
DX: R10.9 Unspecified abdominal pain (principal); Z79.899 Other long term (current) drug therapy; Z91.040 Latex allergy status; Z88.1 Allergy status to other antibiotic agents; Z88.8 Allergy status to other drugs, medicaments and biological substances
CPT/HCPCS: 74177; 80053; 85025; 93005; 93010; 99284-25; J1642; Q9967

== ENCOUNTER → 2025-11-01 | Outpatient (CLI) | payer OTHER ==
[2025-11-01 14:02] LABS: Source, Urine Clean Catch
[2025-11-01 15:25] LABS: Bilirubin, Urine Neg (Neg); Color, Urine Yellow (P-Yellow); Glucose Qualitative, Urine Neg (Neg); Ketones, Urine Neg (Neg); Leukocyte Esterase, Urine 3+ (Neg); Protein, Urine 3+ (Neg); Specific Gravity, Urine 1.010 (1.003-1.022); Urobilinogen, Urine NORM (Normal)
[2025-11-01 15:46] LABS: White Blood Cells, Urine TNTC /hpf (0-5)
== END ==
LOC: LAB 13:00 → LAB SHORT 13:00
PROVIDERS: Specialist
DX: N20.0 Calculus of kidney (principal)
CPT/HCPCS: 81001; 87077; 87086; 87186